=== PATIENT | male | born 1985 | race Caucasian/White ===

== ENCOUNTER 2020-01-06 10:01 | Emergency (ER) | payer OTHER, SELFPAY ==
[2020-01-06 10:09] VITALS: BP 128/96; PULSE 71; RESP 18; TEMP 36.6; O2SAT 100
--- NOTE | 2020-01-06 10:22 | ED.URI ---
HPI - URI/Sore Throat General Chief Complaint: Upper Respiratory Infection Stated Complaint: sore throat/nausea Time Seen by Provider: 01/06/20 10:22 Source: patient and RN notes reviewed History of Present Illness HPI Narrative: Patient is a 34-year-old male that presents the urgent care with complaints of sore throat and nausea. Patient states the sore throat started yesterday and he woke up nauseous this morning. Patient states he has had some chills and sweats without known fever. Denies of vomiting. No other acute complaints. No acute distress noted. Patient read the plan of care. Related Data Home Medications Medication Instructions Recorded Confirmed alprazolam 01/06/20 cefdinir mg 01/06/20 gabapentin 01/06/20 omeprazole 01/06/20 Allergies Allergy/AdvReac Type Severity Reaction Status Date / Time Penicillins Allergy Unknown Verified 03/02/11 13:42 ciprofloxacin [From Cipro] AdvReac Intermediate Rash Verified 01/06/20 10:19 Review of Systems Review of Systems: Narrative: CONSTITUTIONAL: Reports of chills and sweats without fever EYES: Denies visual changes, redness, or discharge. ENT: Reports of sore throat CARDIOVASCULAR: Denies chest pain, palpitations, or edema. RESPIRATORY: Denies cough or dyspnea. GASTROINTESTINAL: Reports of nausea without vomiting or diarrhea GENITOURINARY: Denies dysuria or hematuria. SKIN: Denies rash or itching. MUSCULOSKELETAL: Denies back pain, joint pain, or myalgia. NEUROLOGIC: Denies headache, numbness, or weakness. All other systems reviewed are negative, except as documented in HPI. [facility] [place] Family History Family History (Updated 07/17/14 @ 07:13 by DOCTOR UNKNOWN) Grandparent Family history of malignant neoplasm Social History Social History Alcohol intake: never Comments At the time of my signature, I reviewed and agree with the nursing past medical, surgical, social, and family history. There is no relevant family history pertinent to the patient complaint. Exam Narrative: Exam Narrative: GENERAL: This is a well-nourished, well-developed patient, in no apparent distress. HEAD: normocephalic, atraumatic. EYES: PERRL. Sclera clear/white. Vision is grossly intact. EARS: External ears normal, auditory canals clear and without drainage, TMs normal without perforation. Hearing grossly intact. NOSE: External nose normal with no obvious nasal discharge, nares without redness, no rhinorrhea. THROAT: Mucous membranes moist, moderate erythema to the posterior oropharynx with mild bilateral tonsillar edema/erythema with notable bilateral exudate. No ulceration NECK: Neck supple, non-tender without lymphadenopathy CARDIOVASCULAR: Regular rate and rhythm without murmurs, gallops, or rubs. RESPIRATORY: Clear to auscultation. Breath sounds equal bilaterally. No wheezes, rales, or rhonchi. SKIN: warm, intact with no suspicious lesions or rash, good texture and turgor. NEURO: awake, alert, and oriented to person, place and time. There were no obvious focal neurologic abnormalities. EXTREMITIES: No clubbing, cyanosis, or edema. Course Vital Signs Vital signs: Vital Signs Temperature 97.8 F 01/06/20 10:09 Pulse Rate 71 01/06/20 10:09 Respiratory Rate 18 01/06/20 10:09 Blood Pressure 128/96 H 01/06/20 10:09 Pulse Oximetry 100 01/06/20 10:09 Temperature 97.8 F 01/06/20 10:09 Pulse Rate 71 01/06/20 10:09 Respiratory Rate 18 01/06/20 10:09 Blood Pressure 128/96 H 01/06/20 10:09 Pulse Oximetry 100 01/06/20 10:09 Reviewed-patient is informed that they may have pre-hypertension or hypertension based on a blood pressure reading in the department. I recommend the patient call the primary care provider listed on their discharge instructions or a physician of their choice this week to arrange follow-up for further evaluation of possible pre-hypertension or hypertension. MDM - URI/Sore Throat MDM Narrative Medical decision making narrative:
== END 2020-01-06 10:45 | disposition home or self-care (01) ==
PROVIDERS: Emergency Provider Nurse Practitioner Family; PCP Family Medicine
DX: J02.0 Streptococcal pharyngitis (principal); J45.909 Unspecified asthma, uncomplicated; F41.9 Anxiety disorder, unspecified
CPT/HCPCS: 87880; 99203; G0463

== ENCOUNTER 2024-11-12 06:42 | Emergency (ER) | payer MEDICAID, SELFPAY ==
[2024-11-12 07:01] VITALS: BP 157/80; PULSE 112; RESP 18; O2SAT 97
[2024-11-12 08:30] VITALS: BP 148/78; PULSE 109; RESP 16; O2SAT 99
--- NOTE | 2024-11-12 08:38 | ED.LOWEXIN ---
HPI - Extremity Injury (Lower) General Chief Complaint: Extremity Injury, Lower Stated Complaint: legs swollen, red, hot, pain Time Seen by Provider: 11/12/24 07:32 History of Present Illness HPI Narrative: This is a 39-year-old male with a past medical history including schizophrenia, anxiety, previous narcotic abuse. Patient presents to the emergency department today for concerns of bilateral lower extremity swelling, redness pain. He also has a secondary complaint of some ulcers in his mouth that are painful. He states that for last 2 days he has been noticing his legs are more swollen, warm to the touch read and pain. He lifted up his pant leg knows that they are very red but denies any injuries or trauma. No new detergents, no new pets in the household, new exposures or any, chemical injury. He was otherwise in his normal state of health. He states he is also having some aphthous ulcers in his mouth that feel like razor blades according to him. He has been using some topical lidocaine with improvement. Denies any recent illnesses, hospital visits and was not having any new medication changes. Endorses smoking tobacco but denies any chewing tobacco or any other kind of ingestions. Related Data Home Medications ?Medication ?Instructions ?Recorded ?Confirmed ?Last Taken ?Type buprenorphine 8 mg-naloxone 2 mg 1 tablet sublingual BID 02/22/22 02/22/22 Unknown History sublingual tablet buspirone 15 mg tablet 15 mg PO TID 02/22/22 02/22/22 Unknown History gabapentin 600 mg tablet 600 mg PO TID 02/22/22 02/22/22 Unknown History hydroxyzine HCl 50 mg tablet 50 mg PO QID PRN 02/22/22 02/22/22 Unknown History olanzapine 5 mg tablet 5 mg PO QHS 02/22/22 02/22/22 Unknown History Allergies Allergy/AdvReac Type Severity Reaction Status Date / Time amoxicillin Allergy Intermediate Throat Verified 02/22/22 13:28 Swell cephalexin (From Keflex) Allergy Intermediate Rash Verified 02/22/22 13:28 Penicillins Allergy Unknown THROAT Verified 02/22/22 13:28 SWELLING ciprofloxacin (From Cipro) AdvReac Intermediate Rash Verified 02/22/22 13:28 Review of Systems Review of Systems: As reviewed above in HPI [facility] Past Medical History Medical History Narcotic abuse in remission Schizophrenia Anxiety Chronic headaches Asthma Surgical History Surgical History Lipoma 10 Lipomas removed Family History Family History Mother Asthma Depression Anxiety Sibling Anxiety Depression Grandparent Depression Maternal Anxiety Maternal Malignant neoplasm of prostate Paternal Grandparent Family history of malignant neoplasm Social History Social History Smoking packs per day: 0 Smoking cigarettes per day: 0.0 Years smoked: 5 Smoking pack-years: 0.00 Smoking status: Former smoker Tobacco type: cigarettes Second hand tobacco smoke exposure: No Alcohol intake: current Drinks per week: 3 Substance use: current Substance use type: marijuana Living arrangements: with family Occupation/Education: occupation Gender identity (if verbalized by the patient): Male Spiritual care concerns: No Agree to blood products: Yes Exam Narrative: GENERAL: [Well-appearing, well-nourished, and in no acute distress.] HEAD: [Normocephalic, atraumatic.] EYES: [PERRLA and EOMI.] ENT: Nares clear, no rhinorrhea or epistaxis. Mucous membranes moist. Small aphthous ulcers noted over the lateral aspect of the tongue bilaterally, no active bleeding, no deep ulcerations, no tenderness on palpation or probing NECK: Supple. CHEST: [Clear to auscultation. No respiratory distress.] HEART: [Regular rate and rhythm]. No murmur heard. [Normal peripheral pulses.] ABDOMEN: [Soft, nondistended], [nontender], [No rigidity or guarding] EXTREMITIES: Bilateral lower extremities with anterior chris cellulitis, tenderness to palpation, warmth and erythema, 2+ edema to the dorsal ankles but no circumferential swelling. Full range of motion of the bilateral lower extremities. Ambulating without assistance. SKIN: Warm, dry, no rash. NEURO: [No focal deficits]. Alert and oriented [x3.] PSYCH: [Normal mood and affect.] MDM - Extremity Injury (Lower) MDM Narrative Medical decision making narrative: 39-year-old male presenting for bilateral lower extremity cellulitis and secondary complaint of aphthous ulcers. For last 2 days he has knows that his shins have had warmth, redness, irritation and tenderness to palpation as well as swelling in his dorsal ankles. Denies any new exposures or topical agents at home, no new laundry detergents, no new pets or any other changes to his recent medications. Clinically he has cellulitis was bilateral anterior shins, symmetric redness, tenderness to palpation and some swelling. His aphthous ulcers/canker sores are unrelated and will be treated separately with magic mouthwash and good oral hygiene. Will start him on Bactrim for his cellulitis encouraged him to take the complete course and follow-up with his regular outpatient primary care provider. Patient was stable for discharge home at this time. Medical Records Attestation: I reviewed the patient's medical records. Discharge Plan Discharge Clinical Impression: Bilateral cellulitis of lower leg, Aphthous ulcer of mouth Patient Disposition: Home, Self-Care Condition: Stable Instructions: Antibiotic Form Patient Language: [place] Prescriptions: New sulfamethoxazole-trimethoprim [Bactrim DS] 800-160 mg tablet 1 tablet PO Q12H Qty: 14 0RF No Action hydroxyzine HCl 50 mg tablet 50 mg PO QID PRN gabapentin 600 mg tablet 600 mg PO TID buprenorphine-naloxone 8-2 mg tablet, sublingual 1 tablet sublingual BID buspirone 15 mg tablet 15 mg PO TID olanzapine 5 mg tablet 5 mg PO QHS albuterol sulfate 90 mcg/actuation HFA aerosol inhaler 1 puff INHALATION Q4H PRN (Reason: shortness of breath or wheezing) Qty: 18 0RF omeprazole 20 mg capsule,delayed release(DR/EC) See Rx Instructions .ROUTE .COMPLEX Qty: 90 1RF Dose Instruction: TAKE 1 CAPSULE BY MOUTH DAILY Rx Instructions: TAKE 1 CAPSULE BY MOUTH DAILY Follow-up/Referrals: UNKNOWN,DOCTOR [Primary Care Provider] - Time of Disposition: 08:46
[2024-11-12] MEDS: SULFAMETHOXAZOLE/TRIMETHOPRIM 800/160 MG DS TABLET 1 TAB PO (08:48)
[2024-11-12] MEDS: LIDOCAINE 2% VISC SOLN 30 ML, ALUMINUM/MAGNESIUM/SIMETH SUSP 30 ML, diphenhydrAMINE HCl... PO (08:48)
--- OUTSIDE RECORDS SUMMARY | 2024-11-19 04:25 | XMS_ITS | Encounter Summary ---
Author Organization [facility] Address [address] [place] [address]. [place], [place] [id number] [place] [address] Care Team Providers Care Automobile Or Truck Rental Dispatcher Name Role Phone KatherineElizabeth Primary Care Provider [phone] Reason for Visit * Reason Comments Substance Abuse Encounter Details Date Type Department Care Team ([facility] st Contact Info) Description 02/14/2024 1:19 AM CDT - 02/14/2024 6:42 AM CDT Emergency [facility] Emergency Room [id number] [place] [address] Tomas Campos MD [address] [place] [address] [id number] Substance Abuse Discharge Disposition: Home or Self Care (Routine Discharge) Social History Tobacco Use Types Packs/Day Years Used Date Smoking Tobacco: Never Smokeless Tobacco: Never Alcohol Use Standard Drinks/Week Comments Yes 0 (1 standard drink = 0.6 oz pur e alcohol) socially Sex and Gender Information Value Date Recorded Sex Assigned at Not on file Legal Sex Male 8:59 AM CDT Gender Identity Not on file Sexual Orientation Not on file documented as of this encounter Last Filed Vital Signs Vital Sign Reading Time Taken Comments Blood Pressure 159/113 02/14/2024 4:58 AM CDT Pulse 94 02/14/2024 4:58 AM CDT Temperature 36.8 ??C (98.3 ??F) 02/14/2024 1:38 AM CD T Respiratory Rate 19 02/14/2024 4:58 AM CDT Oxygen Saturation 96% 02/14/2024 4:58 AM CDT Inhaled Oxygen Concentration - - Weight 99.8 kg (220 lb) 02/14/2024 1:38 AM CDT Height 182.9 cm (6') 02/14/2024 1:38 AM CDT Body Mass Index 29.84 02/14/2024 1:38 AM CDT documented in this encounter Discharge Instructions * Discharge Instructions* Tomas Campos MD - 02/14/2024 2:13 AM CDT Avoid drugs and alcohol. Rest. Drink plenty of fluids. Follow up with your PCP. Return to the ED for any concerns. Our practice is committed to providing you the very best in healthcare. We want to hear from you! Please fill out the survey you get from us. Your feedback is anonymous & helps us improve the patient experience for you and others in the community we serve. * Attachments The following attachments cannot be sent through Care Everywhere. * Substance Use Disorder ED ([place]) documented in this encounter Medications at Time of Discharge buprenorphine-nal oxone (SUBOXONE) 8-[address] 1 Film under the tongue daily. 01/10/2024 testosterone cypionate (DEPO TESTOSTERONE) 200 MG/ML injection Inject 1 mL (200 mg total) into the muscle every 14 (fourteen) days. 01/15/2024 albuterol sulfate HFA 108 (90 Base) MCG/ACT inhaler Inhale 2 puffs into the lungs every 4 (four) hours as needed for Wheezing. 8 g 1 05/17/2021 02/25/2024 documented as of this encounter ED Notes * Constantine Mclain RN - 02/14/2024 1:26 AM CDT Pt to ed by ems from home. States used meth tonight, reports his friend ordered if online. Per son he called ems due to patient vomiting while sleeping. Pt admits to etoh use today. Pt alert x 4 at this time. * Tomas Campos MD - 02/14/2024 1:26 AM CDT [facility] EMERGENCY DEPARTMENT NOTE Patient Name: Sharri Vera Date of : 1985 Date of Service: 02/14/2024 Provider at Bedside Date/Time Event User Comments 02/14/24 0124 Provider at Bedside Assessing Patient TOMAS CAMPOS -- Chief Complaint Patient presents with Substance Abuse HISTORY OF PRESENT ILLNESS Patient is a 39-year-old male. Patient presents with anxiety, vomiting. He admits to drinking several beers earlier tonight with friends and then snorting amphetamines. He says he bought them off the Internet. The drugs were fieldtested by paramedics and revealed to be methamphetamine. He vomited x 2 at home and was feeling unwell and so family called EMS. Patient complains of anxiety, he reports a history of bipolar disorderand schizophrenia. He denies chest pain. Denies shortness of breath. He has been cooperative with paramedics, he is ambulatory into the ED, and upon arriving into the room he plugs in his cell phone [employer] consultant. He is anxious though somewhat redirectable, and further history is limited. REVIEW OF SYSTEMS Review of Systems Unable to perform ROS: Other PAST HISTORY Past Medical History: History reviewed. No pertinent past medical history. Past Surgical History: History reviewed. No pertinent surgical history. Social History: Social History Tobacco Use Smoking status: Never Smokeless tobacco: Never Substance Use Topics Alcohol use: Yes Comment: socially Family History: No family history on file. Medications: The patient's home medications section has been reviewed. Prior to Admission medications Medication Sig Start Date End Date Taking? Authorizing Provider albuterol sulfate HFA 108 (90 Base) MCG/ACT inhaler Inhale 2 puffs into the lungs every 4 (four) hours as needed for Wheezing. 05/17/21 Tomasz Carmona DO Allergies: Review of patient's allergies indicates: Allergen Reactions Amoxicillin Throat swelling Penicillins Throat swelling PHYSICAL EXAM Patient Vitals for the past 24 hrs: BP Temp Temp src Pulse Resp SpO2 Height Weight 02/14/24 0458 (!) 159/113 -- -- 94 19 96 % -- -- 02/14/24 0213 (!) 172/116 -- -- (!) 103 17 94 % -- -- 02/14/24 0138 (!) 174/101 98.3 ??F (36.8 ??C) Oral (!) 110 19 98 % 1.829 m (6') 99.8 kg (220 lb) Physical Exam Constitutional: Appearance: He is well-developed. He is not toxic-appearing. Comments: Fatigued-appearing, speaking full sentences, anxious, slurred speech HENT: Head: Normocephalic and atraumatic. Mouth/Throat: Mouth: Mucous membranes are dry. Eyes: Conjunctiva/sclera: Conjunctivae normal. Cardiovascular: Rate and Rhythm: Regular rhythm. Tachycardia present. Pulmonary: Effort: Pulmonary effort is normal. Breath sounds: Normal breath sounds. Abdominal: Palpations: Abdomen is soft. Tenderness: There is no abdominal tenderness. Musculoskeletal: General: No deformity. Normal range of motion. Cervical back: Neck supple. Skin: General: Skin is warm and dry. Neurological: General: No focal deficit present. Mental Status: He is alert and oriented to person, place, and time. Coordination: Coordination normal. Psychiatric: Attention and Perception: He does not perceive auditory or visual hallucinations. Mood and Affect: Mood is anxious. Affect is labile. Speech: Speech is slurred. Behavior: Behavior is cooperative. DIAGNOSTIC DATA Labs Results for orders placed or performed during the hospital encounter of 02/14/24 CBC W/DIFF AUTOMATED Result Value Ref Range WBC 9.66 4.4 - 11.0 x10'3/uL RBC 5.38 4.50 - 5.90 x10'6/uL HGB 17.1 14.0 - 17.5 G/DL HCT 50.3 41.5 - 50.4 % MCV 93.5 80.0 - 96.0 FL MCH 31.8 (H) 26.5 - 31.4 PG MCHC 34.0 31.9 - 34.8 G/DL RDW 12.7 12.3 - 14.3 % PLT 305 151 - 353 x10'3/uL MPV 10.3 9.7 - 11.9 FL RBC MORPHOLOGY NORMAL PLT MORPH. NORMAL WBC MORPHOLOGY NORMAL LYMPHOCYTES 18.5 15.8 - 45.0 % NEUTROPHILS 69.0 42.1 - 71.9 % MONOCYTES 10.8 5.7 - 12.5 % EOSINOPHILS 0.7 0.0 - 5.6 % BASOPHILS 0.7 0.0 - 1.3 % ABS. NEUTROPHILS 6.66 (H) 1.40 - 6.00 x10'3/uL IMMATURE GRANS 0.3 0.0 - 0.5 % ABS. LYMPHOCYTES 1.79 0.80 - 4.70 x10'3/uL COMPREHENSIVE METABOLIC PANEL Result Value Ref Range GLUCOSE 111 (H) 70 - 99 MG/DL BUN 14 7 - 18 MG/DL CREATININE S/P/B 1.11 0.7 - 1.3 MG/DL SODIUM S/P/B 142 136 - 145 MMOL/L POTASSIUM S/P/B 3.0 (LL) 3.5 - 5.1 MMOL/L CHLORIDE S/P/B 101 100 - 108 MMOL/L CO2 30.8 21 - 32 MMOL/L CALCIUM S/P/B 8.8 8.5 - 10.1 MG/DL BILIRUBIN TOTAL S/P/B 1.2 0.2 - 1.2 MG/DL TOTAL PROTEIN S/P/B 7.7 6.4 - 8.2 G/DL ALBUMIN S/P/B 3.7 3.4 - 5.0 G/DL AST 27 15 - 37 U/L ALT 34 16 - 60 U/L ALKALINE PHOSPHATASE S/P/B 119 50 - 136 U/L ANION GAP 10.2 5 - 15 MMOL/L BUN CREATININE RATIO 12.6 6 - 26 A/G RATIO 0.9 (L) 1.0 - 2.0 RATIO GFR ESTIMATE 87 (L) >90 ML/MIN/1.73 M2 MAGNESIUM Result Value Ref Range MAGNESIUM 2.2 1.8 - 2.4 MG/DL ETHANOL Result Value Ref Range ALCOHOL S/P/B <0.003 <0.003 G/DL If applicable, laboratory results above were independently viewed and interpreted by me. Imaging No orders to display If applicable, imaging results above were independently viewed and interpreted by me. EKG Results for orders placed or performed during the hospital encounter of 02/14/24 ECG 12 lead Narrative [facility] Test Date: 2024-02-14 Pat Name: SHARRI VERA Department: 85 Room: EXAM 303 Gender: Male Bsa/Aml Compliance Officer: : 1985 Requested By: TOMAS CAMPOS Order Number: [id number] Reading MD: Measurements Intervals [facility] Rate: 112 P: 39 IN: 152 QRS: -23 QRSD: 108 T: 36 QT: 334 QTc: 457 Interpretive Statements SINUS TACHYCARDIA INCOMPLETE RIGHT BUNDLE BRANCH BLOCK [90+ ms QRS DURATION, TERMINAL R IN V1/V2, 40+ ms S IN I/aVL/V4/V5/V6] POSSIBLE INFERIOR MYOCARDIAL INFARCTION , PROBABLY OLD [30 ms Q WAVE IN II/aVF] ABNORMAL RHYTHM ECG Compared to ECG 05/17/2021 09:19:59 Incomplete right bundle-branch block now present Myocardial infarct finding now present Sinus rhythm no longer present If applicable, EKG contemporaneously interpreted by me, and treatment decisions made in real time based on this interpretation. MEDICATIONS GIVEN IN ED Medications ondansetron (ZOFRAN) injection 4 mg (4 mg Intravenous Given 02/14/24133) sodium chloride 0.9% bolus infusion 1,000 mL (0 mLs Intravenous Infusion Stop Time 02/14/24220) LORazepam (ATIVAN) injection 1 mg (1 mg Intravenous Given 02/14/24133) potassium chloride CR (KLOR-CON M) tablet 40 mEq (40 mEq Oral Given 02/14/24224) MEDICAL DECISION MAKING MDM Number of Diagnoses or Management Options Amphetamine poisoning of undetermined intent, initial encounter ([facility]) Diagnosis management comments: EKG sinus tachycardia, rate 112, no acute ischemia. He is not tachypneic or hypoxic. He has normal lung sounds. Patient is given IV fluids, Ativan, Zofran with rapid clinical improvement. Labs reviewed. White count normal. Potassium 3.0. Labs otherwise unremarkable. Patient is allowed to sleep, and he rests comfortably throughout his ED stay. His potassium is repleted orally. He is advised to avoid illicit drugs, and to be wary of medications purchased on the Internet. On reevaluation, the patient is ambulatory in the ED, tolerating PO intake and in no distress. The patient will be discharged. Return precautions are discussed. Additional History Source Other Than Patient: EMS Social Determinants of Health Significantly Impacting Care: Patient with ongoing challenges regarding health management due to: Lack of access to medical care Substance use Chronic Illness Impacting Care: Substance use disorder Differential diagnosis considered include but are not limited to: Drug intoxication, metabolic derangement, malignant hypertension, dysrhythmia Diagnostic tests considered but ultimately not performed: Patient not tachypneic or hypoxic. Chest imaging not indicated. IMPRESSION AND DISPOSITION CLINICAL IMPRESSION: Clinical Impression Amphetamine poisoning of undetermined intent, initial encounter ([facility]) (Primary) Disposition: Discharge Prescriptions: Discharge Medication List as of 02/14/2024 6:38 AM Tomas Campos MD To patients reading this note: Please be advised that the primary purpose of this note is to communicate with your current and future medical teams. Standard sentence structure is not always used. Medical terminology and abbreviations are often used. This document was generated in part using voice recognition software, occasional wrong-word or ???sound-alike?? substitutions may have occurred due to the inherent limitations of voice recognition software. Read the chart carefully and recognize, using context, where these substitutions have occurred. Tomas Campos MD 02/14/24 0658 documented in this encounter Plan of Treatment Not on file documented as of this encounter Procedures Procedure Name Priority Date/Time Associated Diagnosis Comments COMPREHENSIVE METABOLIC PANEL STAT 02/14/2024 1:29 AM CDT CBC W/DIFF AUTOMATED STAT 02/14/2024 1:29 AM CDT MAGNESIUM STAT 02/14/2024 1:29 AM CDT ETHANOL STAT 02/14/2024 1:29 AM CDT ECG 12-LEAD Routine 02/14/2024 1:28 AM CDT documented in this encounter Results * ETHANOL (02/14/2024 1:29 AM CDT) ALCOHOL S/P/B <0.003 <0.003 G/DL 02/14/2024 2:08 AM CDT [facility] 02/14/2024 1:29 AM CDT us Toams Campos MD LABORATORY Final Resul t Performing Organization Address City/[facility]/ZIP Co de Phone Number [facility] [address] [place] [address], * MAGNESIUM (02/14/2024 1:29 AM CDT) MAGNESIUM 2.2 1.8 - 2.4 MG/DL 02/14/2024 2:08 AM CDT [facility] 02/14/2024 1:29 AM CDT Tomas Campos MD LABORATORY Final Resul t Performing Organization Address [facility] Co de Phone Number [facility] [address] [place] [address], [place] [phone] * (ABNORMAL) COMPREHENSIVE METABOLIC PANEL (02/14/2024 1:29 AM CDT) Pathologist [facility] GLUCOSE 111(H) 70 - 99 MG/DL 02/14/2024 2:08 AM CDT [facility] BUN 14 7 - 18 MG/DL 02/14/2024 2:08 AM CDT [facility] CREATININE S/P/B 1.11 0.7 - 1.3 MG/DL 02/14/2024 2:08 AM CDT [facility] SODIUM S/P/B 142 136 - 145 MMOL/L 02/14/2024 2:08 AM CDT [facility] POTASSIUM S/P/B 3.0(LL) 3.5 - 5.1 MMOL/L 02/14/2024 2:08 AM CDT [facility] Comment: Critical Result(s) Called at: 02:07:35 on 02/14/2024 by: UJLIO PATEL to and read back by: QUANG Sequeira CHLORIDE S/P/B 101 100 - 108 MMOL/L 02/14/2024 2:08 AM [facility] CO2 30.8 21 - 32 MMOL/L 02/14/2024 2:08 AM [facility] CALCIUM S/P/B 8.8 8.5 - 10.1 MG/DL 02/14/2024 2:08 AM [facility] BILIRUBIN TOTAL S/P/B 1.2 0.2 - 1.2 MG/DL 02/14/2024 2:08 AM [facility] TOTAL PROTEIN S/P/B 7.7 6.4 - 8.2 G/DL 02/14/2024 2:08 AM [facility] ALBUMIN S/P/B 3.7 3.4 - 5.0 G/DL 02/14/2024 2:08 AM [facility] AST 27 15 - 37 U/L 02/14/2024 2:08 AM [facility] ALT 34 16 - 60 U/L 02/14/2024 2:08 AM [facility] ALKALINE PHOSPHATASE S/P/B 119 50 - 136 U/L 02/14/2024 2:08 AM [facility] ANION GAP 10.2 5 - 15 MMOL/L 02/14/2024 2:08 AM [facility] BUN CREATININE RATIO 12.6 6 - 26 02/14/2024 2:08 AM [facility] A/G RATIO 0.9(L) 1.0 - 2.0 RATIO 02/14/2024 2:08 AM [facility] GFR ESTIMATE 87(L) >90 ML/MIN/1.7 3 M2 02/14/2024 2:08 AM [facility] Comment: NOTE: eGFR is not calculated for patients <18 years of age. This is an estimated GFR calculation using the new CKD EPI creatinine equation without race and so does not require a correction factor for race. This estimated GFR should not be used for calculating drug doses. 02/14/2024 1:29 AM CDT Tomas Campos MD LABORATORY Final Resul t [facility] [address] [place] [address], * (ABNORMAL) CBC W/DIFF AUTOMATED (02/14/2024 1:29 AM CDT) WBC 9.66 4.4 - 11.0 x10'3/uL 02/14/2024 1:36 AM CDT [facility] RBC 5.38 4.50 - 5.90 x10'6/uL 02/14/2024 1:36 AM CDT [facility] HGB 17.1 14.0 - 17.5 G/DL 02/14/2024 1:36 AM CDT [facility] HCT 50.3 41.5 - 50.4 % 02/14/2024 1:36 AM CDT [facility] MCV 93.5 80.0 - 96.0 FL 02/14/2024 1:36 AM CDT [facility] MCH 31.8(H) 26.5 - 31.4 PG 02/14/2024 1:36 AM CDT [facility] MCHC 34.0 31.9 - 34.8 G/DL 02/14/2024 1:36 AM CDT [facility] RDW 12.7 12.3 - 14.3 % 02/14/2024 1:36 AM CDT [facility] PLT 305 151 - 353 x10'3/uL 02/14/2024 1:36 AM CDT [facility] MPV 10.3 9.7 - 11.9 FL 02/14/2024 1:36 AM CDT [facility] RBC MORPHOLOGY NORMAL 02/14/2024 1:36 AM CDT [facility] PLT MORPH. NORMAL 02/14/2024 1:36 AM CDT [facility] WBC MORPHOLOGY NORMAL 02/14/2024 1:36 AM CDT [facility] LYMPHOCYTES % 18.5 15.8 - 45.0 % 02/14/2024 1:36 AM CDT [facility] NEUTROPHILS % 69.0 42.1 - 71.9 % 02/14/2024 1:36 AM CDT [facility] MONOCYTES % 10.8 5.7 - 12.5 % 02/14/2024 1:36 AM CDT [facility] EOSINOPHILS 0.7 0.0 - 5.6 % 02/14/2024 1:36 AM CDT [facility] BASOPHILS 0.7 0.0 - 1.3 % 02/14/2024 1:36 AM CDT [facility] ABS. NEUTROPHILS 6.66(H) 1.40 - 6.00 x10'3/uL 02/14/2024 1:36 AM CDT [facility] IMMATURE GRANS % 0.3 0.0 - 0.5 % 02/14/2024 1:36 AM CDT [facility] ABS. LYMPHOCYTES 1.79 0.80 - 4.70 x10'3/uL 02/14/2024 1:36 AM CDT [facility] 02/14/2024 1:29 AM CDT us Tomas Campos MD LABORATORY Final Resul t [facility] [address] [place] [address], * ECG 12 lead (02/14/2024 1:28 AM CDT) 02/14/2024 1:28 AM CDT Narrative [facility] ([facility]) RAD - 02/15/2024 9:24 AM CDT ?[facility] ? Test Date: ?2024-02-14 Pat Name: ? SHARRI VERA ? Department: ?? 85 ? Room: ? EXAM 303 Gender: ? Male ? Bsa/Aml Compliance Officer: ?? : ?1985 ? Requested By: TOMAS CAMPOS Order Number: [id number] ? Reading MD: ?? Anupam Justin ? Measurements Intervals ?[facility] ? Rate: ? 112 ?P: ?39 IN: ? 152 ?QRS: ?-23 QRSD: ? 108 ?T: ?36 QT: ? 334 ? QTc: ?457 ? Interpretive Statements SINUS TACHYCARDIA INCOMPLETE RIGHT BUNDLE BRANCH BLOCK ??[90+ ms QRS DURATION, TERMINAL R IN V1/V2, 40+ ms S IN I/aVL/V4/V5/V6] POSSIBLE INFERIOR MYOCARDIAL INFARCTION , PROBABLY OLD [30 ms Q WAVE IN II/aVF] ABNORMAL RHYTHM ECG Compared to ECG 05/17/2021 09:19:59 Incomplete right bundle-branch block now present Myocardial infarct finding now present Sinus rhythm no longer present Procedure Note Anupam Justin MD - 02/15/2024 [facility] Test Date: 2024-02-14 Pat Name: SHARRI VERA Department: 85 Room: EXAM 303 Gender: Male Bsa/Aml Compliance Officer: : 1985 Requested By: TOMAS CAMPOS Order Number: [id number] Rl MD: Anupam Justin Measurements Intervals [facility] Rate: 112 P: 39 IN: 152 QRS: -23 QRSD: 108 T: 36 QT: 334 QTc: 457 Interpretive Statements SINUS TACHYCARDIA INCOMPLETE RIGHT BUNDLE BRANCH BLOCK [90+ ms QRS DURATION, TERMINAL RIN V1/V2, 40+ ms S IN I/aVL/V4/V5/V6] POSSIBLE INFERIOR MYOCARDIAL INFARCTION , PROBABLY OLD [30 ms Q WAVE IN II/aVF] ABNORMAL RHYTHM ECG Compared to ECG 05/17/2021 09:19:59 Incomplete right bundle-branch block now present Myocardial infarct finding now present Sinus rhythm no longer present us Tomas Campos MD ECG ORDERABLES Final Resul t [facility] ([facility]) RAD documented in this encounter Visit Diagnoses Diagnosis Amphetamine poisoning of undetermined intent, initial encounter ([facility])- Primary documented in this encounter Administered Medications Inactive Administered Medications - up to 3 most recent administrations Medication Order MAR Action Action Date Dose Rate Site LORazepam (ATIVAN) injection 1 mg 1 mg, Intravenous, Once, 1 dose, On Mon02/14/24 at 0130, For IV use, further dilute with an equal volume of saline. Do not exceed a rate of 2 mg/min. Given 02/14/2024 1:34 AM CDT 1 mg ondansetron (ZOFRAN) injection 4 mg 4 mg, Intravenous, Once, 1 dose, On Mon02/14/24 at 0130, IV push over 2-5 minutes. Given 02/14/2024 1:34 AM CDT 4 mg potassium chloride CR (KLOR-CON M) tablet 40 mEq 40 mEq, Oral, Once, 1 dose, On Mon02/14/24 at 0215, Do not chew, crush, or suck on tablet. May break in half. May dissolve whole tablet in 120 mL of water and drink immediately. Given 02/14/2024 2:25 AM CDT 40 mEq sodium chloride 0.9% bolus infusion 1,000 mL 1,000 mL, Intravenous, Administer over 60 Minutes, Once, 1 dose, On Mon02/14/24 at 0130 New Bag 02/14/2024 1:34 AM CDT 1,000 mLs documented in this encounter Active and Recently Administered Medications Times are shown in CDT. Scheduled Medication Order 02/12/2024 02/13/202402/14/2024 LORazepam (ATIVAN) injection 1 mg (COMPLETED) 1 mg, Intravenous, Once, 1 dose, On Mon02/14/24 at 0130, For IV use, further dilute with an equal volume of saline. Do not exceed a rate of 2 mg/min. 0134 (Given - Provid er: Constantine Mclain, MISTY) ondansetron (ZOFRAN) injection 4 mg (COMPLETED) 4 mg, Intravenous, Once, 1 dose, On Mon02/14/24 at 0130, IV push over 2-5 minutes. 0134 (Given - Provid er: Constantine Mclain RN) potassium chloride CR (KLOR-CON M) tablet 40 mEq (COMPLETED) 40 mEq, Oral, Once, 1 dose, On Mon02/14/24 at 0215, Do not chew, crush, or suck on tablet. May break in half. May dissolve whole tablet in 120 mL of water and drink immediately. 0225 (Given - Provid er: Constantine Mclain RN) sodium chloride 0.9% bolus infusion 1,000 mL (COMPLETED) 1,000 mL, Intravenous, Administer over 60 Minutes, Once, 1 dose, On Mon02/14/24 at 0130 0134 (New Bag - Prov ider: Constantine Mclain RN)0221 (Infusion Stop Time - Provider: Constantine Mclain RN) documented in this encounter Care Teams Automobile Or Truck Rental Dispatcher Relationship Specialty Start Date End Date Elizabeth Murphy DO PCP - General FAMILY PRACTICE 05/17/21 02/24/24 documented as of this encounter
--- OUTSIDE RECORDS SUMMARY | 2024-11-19 04:25 | XMS_ITS | Patient Health Summary ---
Author Organization [facility] Address [address] [place] [address] Care Team Providers Care Tree Shear Operator Name Role Phone Unavailable Primary Care Provider Unavailabl e Note from [facility],non-owned Affiliates and Associated Physician Practices is amultiple site organization consisting of ambulatory clinics and hospital sitesin [place], [place], [place] and [place]. This disclosure is being madepursuant to the Care Everywhere program and may not contain all information available regarding this patient. Last updated 18.[facility] Allergies * Penicillins(Swelling) Social History Tobacco Use Types Packs/Day Years Used Date Smoking Tobacco: Every Day Cigarettes 1 10 Sex and Gender Information Value Date Recorded Sex Assigned at Not on file Gender Identity Not on file Sexual Orientation Not on file Last Filed Vital Signs Vital Sign Reading Time Taken Comments Blood Pressure 125/90 04/17/2011 4:32 PM CDT Pulse 83 04/17/2011 4:32 PM CDT Temperature 37.2 ??C (98.9 ??F) 04/17/2011 4:32 PM CD T Respiratory Rate 20 04/17/2011 4:32 PM CDT Oxygen Saturation 97% 04/17/2011 4:32 PM CDT Inhaled Oxygen Concentration - - Weight 83 kg (183 lb) 04/17/2011 4:32 PM CDT Height 182.9 cm (6') 04/17/2011 4:32 PM CDT Body Mass Index 24.82 04/17/2011 4:32 PM CDT Procedures * CULTURE STREP GROUP A(Performed 04/08/2014) Results * CULTURE STREP GROUP A (04/08/2014 11:10 AM CDT) Culture Beta Strep No Growth of Groups A, C or G Beta Streptococc us. [facility] Throat swab (specimen) ENTIRE THROAT (SURFACE REGION OF NECK) / Unknown 04/08/2014 11:10 AM CDT 04/08/2014 2:56 PM CDT Narrative [facility] - 04/10/2014 8:08 AM CDT RamboSpecimen#[id number] Rambo Loc/Rm/Bed: ED// Historical Provider LAB - MICROBIOLOG Y ORDERABLES [facility] [address] [phone]
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
--- OUTSIDE RECORDS SUMMARY | 2024-11-19 04:25 | XMS_ITS | Encounter Summary ---
Author Organization [facility] Address [facility] [facility]. [place], [place] [id number] [place] [address] Care Team Providers Care Applications Support Specialist Name Role Phone Elizabeth Murphy DO Primary Care Provider [phone] Encounter Details Date Type Department Care Team (Latest Contact Info) Description 02/15/2024 Travel Social History Tobacco Use Types Packs/Day Years [...] on file documented as of this encounter Plan of Treatment Not on file documented as of this encounter Visit Diagnoses Not on filedocumented in this encounter Care Teams Applications Support Specialist Relationship Specialty Start Date End Date Elizabeth Murphy DO PCP - General FAMILY PRACTICE 05/17/21 02/24/24 documented as of this encounter
--- OUTSIDE RECORDS SUMMARY | 2024-11-19 04:25 | XMS_ITS | Referral Summary ---
Author Organization [facility] Address [address] [place] [address] Care Team Providers Care Sample Distributor Name Role Phone Unavailable Primary Care Provider Unavailabl e Source Comments [facility],non-owned Affiliates and Associated Physician Practices is amultiple site organization consisting of ambulatory clinics and hospital sitesin [place], [place], [place] and [place]. This disclosure is being madepursuant to the Care Everywhere program and may not contain all information available regarding this patient. Last updated 18.[facility] theAudience Allergies Active Allergy Reactions Criticality Noted Date Comments Penicillins Swelling 04/17/2011 Social History Tobacco Use Types Packs/Day Years [...] Mass Index 24.82 04/17/2011 4:32 PM CDT Plan of Treatment Not on file
--- OUTSIDE RECORDS SUMMARY | 2024-11-19 04:25 | XMS_ITS | Encounter Summary ---
Author Organization [facility] Address Count includes the [facility]. [place], [place] [address] [place], [place] [id number] Care Team Providers Care Loan Operations Specialist Name Role Phone Elizabeth Murphy DO Primary Care Provider [phone] Encounter Details Date Type Department Care Team (Latest Contact Info) Description 02/14/2024 Travel Social History Tobacco Use Types Packs/Day [...] Diagnoses Not on filedocumented in this encounter Additional Health Concerns Infection Onset Date Last Indicated Resolved Time COVID-19 Rule Out 02/14/2024 02/14/2024 02/14/2024 9:48 AM CDT documented as of this encounter Care Teams Loan Operations Specialist Relationship Specialty Start Date End Date Elizabeth Murphy DO PCP - General FAMILY PRACTICE 05/17/21 02/24/24 documented as of this encounter
--- OUTSIDE RECORDS SUMMARY | 2024-11-19 04:25 | XMS_ITS | Clinical Summary ---
Author Organization [facility] Address Pending sale to [facility]. [place], [place] [address] [place] [id number] Care Team Providers Care Printing Equipment Mechanic Name Role Phone Casimiro Butterfield MD Primary Care Provider Allergies Active Allergy Reactions Criticality Noted Date Comments Amoxicillin Throat swelling 05/17/2021 Penicillins Throat swelling 05/17/2021 Medications DULoxetine (CYMBALTA) 60 MG capsule Take 1 capsule (60 mg total) by mouth daily. Active buprenorphine-n aloxone (SUBOXONE) 8-[address] 1 Film under the tongue daily. 01/10/2024 Active busPIRone (BUSPAR) 15 MG tablet Take 1 tablet (15 mg total) by mouth 2 (two) times a day. Active OLANZapine (ZYPREXA) 15 MG tablet Take 1 tablet (15 mg total) by mouth nightly at bedtime. Active gabapentin (NEURONTIN) 600 MG tablet Take 1 tablet (600 mg total) by mouth 2 (two) times daily. Active omeprazole (PRILOSEC) 40 MG capsule Take 1 capsule (40 mg total) by mouth daily. Active testosterone cypionate (DEPO TESTOSTERONE) 200 MG/ML injection Inject 1 mL (200 mg total) into the muscle every 14 (fourteen) days. 01/15/2024 Active aspirin-acetami nophen-caffeine (EXCEDRIN MIGRAINE) 250-250-65 MG tablet Take 1 tablet by mouth every 6 (six) hours as needed (headaches). Active amLODIPine (NORVASC) 10 MG tablet Take 1 tablet (10 mg total) by mouth daily. 30 tablet 02/29/2024 Active metoprolol tartrate (LOPRESSOR) 50 MG tablet Take 1 tablet (50 mg total) by mouth 2 (two) times daily. 60 tablet 02/28/2024 Active Active Problems Problem Noted Date Diagnosed Date Cellulitis 02/25/2024 Family History Medical History Relation Comments Rheumatoid Arthritis Maternal Grandmother Rheumatoid Arthritis Mother Rheumatoid Arthritis Sister 1 Rheumatoid Arthritis Sister 2 Relation Status Comments Father Alive Maternal Grandmother Mother Alive Sister 1 Alive Sister 2 Alive Social History Tobacco Use Types Packs/Day Years Used Date Smoking Tobacco: Every Day Cigarettes 1 23 Smokeless Tobacco: Never Alcohol Use Standard Drinks/Week Comments Yes 18.3 (1 standard drink = 0.6 oz pure alcohol) couple times a week [facility] Utilities Answer Date Recorded In the past 12 months has e Loop, gas, oil, or water [employer] threatened to shut off services in your home? No 02/27/2024 Humiliation, Afraid, Rape, and Kick questionnair e Answer Date Recorded Within the last year, have y ou been afraid of your partner or ex-partner? No 02/27/2024 Within the last year, have y ou been humiliated or emotionally abused in other ways by your partner or ex-partner? No Within the last year, have y ou been kicked, hit, slapped, or otherwise physically hurt by your partner or ex-partner? No 02/27/2024 Within the last year, have y ou been raped or forced to have any kind of sexual activity by your partner or ex-partner? No 02/27/2024 Overall Financial Resource Strain (CARDIA) Answe r Date Recorded How hard is it for you to pa y for the very basics like food, housing, medical care, and heating? Somewhat hard 02/27/2024 Hunger Vital Sign Answer Date Recorded Within the past 12 months, y ou worried that your food would run out before you got the money to buy more. Sometimes true Within the past 12 months, t he food you bought just didn't last and you didn't have money to get more. Never true 07/2024 PRAPARE - Transportation Answer Date Re corded In the past 12 months, has l ack of transportation kept you from medical appointments or from getting medications? No 07/2024 In the past 12 months, has l ack of transportation kept you from meetings, work, or from getting things needed for daily living? No 02/27/2024 Housing Stability Vital Sign Answer Francois e Recorded In the last 12 months, was t here a time when you were not able to pay the mortgage or rent on time? No 02/27/2024 In the past 12 months, how m any times have you moved where you were living? 1 02/27/2024 At any time in the past 12 m [facility], were you homeless or living in a longterm (including now)? No 02/27/2024 Sex and Gender Information Value Date Recorded Sex Assigned at Not on file Legal Sex Male 8:59 AM CDT Gender Identity Not on file Sexual Orientation Not on file Last Filed Vital Signs Vital Sign Reading Time Taken Comments Blood Pressure 159/104 02/28/2024 11:35 AM CDT Nurse has been notified. Pulse 87 02/28/2024 11:35 AM CDT Temperature 36.4 ??C (97.5 ??F) 02/28/2024 1 1:35 AM CDT Respiratory Rate 22 02/28/2024 11:3 5 AM CDT Oxygen Saturation 92% 02/28/2024 11: 35 AM CDT Inhaled Oxygen Concentration - - Weight 115.3 kg (254 lb 3.1 oz) 02/27/2024 11:44 PM CDT Height 182.9 cm (6') 02/25/2024 10:43 AM CDT Body Mass Index 34.47 02/25/2024 10:43 AM CDT Plan of Treatment Health Maintenance Due Date Last Done Comments Annual Physical 1989 Pneumococcal Vaccine: Pediat rics (0 to 5 Years) and At-Risk Patients (6 to 64 Years) (1 of 2 - PCV) 1992 DTaP, Tdap and Td Vaccines ( 1 - Tdap) 2005 Hepatitis B Vaccines (1 of 3 - 19+ 3-dose series) 2005 COVID-19 Vaccine ( - 2023-2 5 season) 2024 Influenza Adult (#1) 2024 Hepatitis C Completed 02/26/2024 HPV Vaccines Aged Out No longer eligi ble based on patient's age to complete this topic Meningococcal Vaccine Aged Out No familia oksana eligible based on patient's age to complete this topic RSV Immunizations Under 20 Months Aged Out No longer eligible based on patient's age to complete this topic Procedures Procedure Name Priority Date/Time Associated Diagnosis Comments HEPATITIS C ANTIBODY Routine 02/26/2024 6:05 PM CDT from Last 3 Months or Most Recently Relevant to Health Maintenance Results * HEPATITIS C ANTIBODY W/REFLEX (02/26/2024 6:05 PM CDT) HEPATITIS C AB NON-REACTI VE NON-REACTI VE 02/27/2024 12:15 PM CDT [facility] 02/26/2024 6:05 PM CDT Bob Goyal MD LABORATORY Final Result [facility] [address] [id number], from Last 3 Months or Most Recently Relevant to Health Maintenance Insurance Member Subscriber Plan / Payer (Ef fective 2024-Present) Name:Malcolm Domínguez II Relation to Subscriber:Self Name:Malcolm Domínguez II Payer ID:Not on file Group ID:Not on file Type:Not on file Address: [address] Advance Directives Documents on File Type Date Recorded 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
--- OUTSIDE RECORDS SUMMARY | 2024-11-19 04:25 | XMS_ITS | Encounter Summary ---
Author Organization [facility] Address [address] [place] [address]. [place], [place] [id number] [place], [place] [id number] Care Team Providers Care Sewer Hand Name Role Phone Elizabeth Murphy DO Primary Care Provider [phone] Encounter Details Date Type Department Care Team (Latest Contact Info) Description 05/17/2021 Travel Social History Tobacco Use Types Packs/Day Years Used Date Smoking Tobacco: Never Smokeless Tobacco: Never Alcohol Use Standard Drinks/Week Comments Yes 0 (1 standard drink = 0.6 oz pur e alcohol) socially Sex and Gender Information Value Date Recorded Sex Assigned at Not on file Legal Sex Male 8:59 AM CDT Gender Identity Not on file Sexual Orientation Not on file COVID-19 Exposure Response Date Recorded In the last month, have you been in contact with someone who was confirmed or suspected to have Coronavirus / COVID-19? No / Unsure 05/17/2021 8:59 AM CDT documented as of this encounter Plan of Treatment Not on file documented as of this encounter Visit Diagnoses Not on filedocumented in this encounter Care Teams Sewer Hand Relationship Specialty Start Date End Date Elizabeth Murphy DO PCP - General FAMILY PRACTICE 05/17/21 02/24/24 documented as of this encounter
--- OUTSIDE RECORDS SUMMARY | 2024-11-19 04:25 | XMS_ITS | Encounter Summary ---
Author Organization [facility] Address [facility]. [place], [place] [id number] [place], [place] [id number] Care Team Providers Care Program Attendant Name Role Phone Ghada Murphyfer Primary Care Provider [phone] Reason for Referral * Imaging (Emergency) - Closed Specialty Diagnoses / Procedures Referred By Contac t Referred To Contact RADIOLOGY Procedures CT HEAD WO Will Madsen MD [address] [place] [address] Phone: tel: fax: Referral ID Status Reason Start Date Expiration Date Visits Re quested Visits Authorized [id number] Closed 05/21/2021 06/21/2022 1 1 * Imaging (Emergency) - Closed Specialty Diagnoses / Procedures Referred By Contac t Referred To Contact RADIOLOGY Procedures CT ORBITS WO Will Madsen MD [address] [place] [address] Phone: tel: fax: Referral ID Status Reason Start Date Expiration Date Visits Re quested Visits Authorized [id number] Closed 05/21/2021 06/21/2022 1 1 Reason for Visit * Reason Comments Eye Injury Encounter Details Date Type Department Care Team (Late st Contact Info) Description 05/21/2021 6:49 PM CDT - 05/21/2021 10:04 PM CDT Emergency [facility] Emergency Room [id number] [place] [address] Will Dangelo MD [address] [place] [address] Eye Injury Discharge Disposition: Home or Self Care (Routine [...] have Coronavirus / COVID-19? No / Unsure 05/21/2021 6:36 PM CDT documented as of this encounter Last Filed Vital Signs Vital Sign Reading Time Taken Comments Blood Pressure 134/74 05/21/2021 10:03 PM CDT Pulse 79 05/21/2021 10:03 PM CDT Temperature 36.7 ??C (98 ??F) 05/21/2021 10:03 PM CDT Respiratory Rate 17 05/21/2021 10:03 PM CDT Oxygen Saturation 100% 05/21/2021 10:03 PM CDT Inhaled Oxygen Concentration - - Weight 99.8 kg (220 lb) 05/21/2021 6:49 PM CDT Height 182.9 cm (6') 05/21/2021 6:49 PM CDT Body Mass Index 29.84 05/21/2021 6:49 PM CDT documented in this encounter Discharge Instructions * Discharge Instructions* Will Dangelo MD - 05/21/2021 9:54 PM CDT Please return to the ER if you develop worsening pain, decreasing vision, vomiting, fever, confusion, or any new, worsening or concerning symptoms. Please rest, and avoid activities that worsen your pain. Please do not return to work until you have recovered. Please call to be seen by an labor relations representative tomorrow. Please wash your eyelid with soap and water twice a day. * Attachments The following attachments cannot be sent through Care Everywhere. * Concussion in Adults (Slovak) * Concussion Discharge Instructions, Adult (Sl[place]) documented in this encounter Medications at Time of Discharge albuterol sulfate HFA 108 (90 Base) MCG/ACT inhaler Inhale 2 puffs into the lungs every 4 (four) hours as needed for Wheezing. 8 g 1 05/17/2021 02/25/2024 doxycycline hyclate 100 MG capsule Take 1 capsule (100 mg total) by mouth 2 (two) times daily for 7 days. 10 capsule 05/21/2021 05/28/2021 erythromycin 5 MG/GM (0.5%) ophthalmic ointment Place into the right eye 4 (four) times daily for 7 days. 3.5 g 05/21/2021 05/28/2021 HYDROcodone-aceta minophen 5-325 MG tabletIndications :Acute Pain < 3 Day Supply Take 1 tablet by mouth every 6 (six) hours as needed for Pain. Indications: Acute Pain < 3 Day Supply 12 tablet 05/21/2021 06/02/2021 predniSONE 10 mg tablet Take 6 tablets (60 mg total) by mouth daily for 5 days. 30 tablet 05/18/2021 05/23/2021 documented as of this encounter ED Notes * Will Dangelo MD - 05/21/2021 10:04 PM CDT Chief Complaint Chief Complaint Patient presents with ??? Eye Injury History of Present Illness The pt is a 36 year old male who presents to the ED with the complaint of right eye and head pain after a hose clamp slipped out of his hand, hitting him over his right orbit. The pt states that he felt immediate pain, saw stars, and noted blurred vision out of his right eye. He denies LOC, vision loss, vomiting, neck pain, or other injuries. He does not know when his last tetanus shot was, but he suspects it was in the last 10 years. He drove himself to the ED. He does not wear contacts of glasses. Medical History ALLERGIES: Allergies Allergen Reactions ??? Amoxicillin Throat swelling ??? Penicillins Throat swelling MEDICATIONS: Prior to Admission medications Medication Sig Start Date End Date Taking? Authorizing Provider doxycycline hyclate 100 MG capsule Take 1 capsule (100 mg total) by mouth 2 (two) times daily for 7days. 05/21/21 05/28/21 Yes Will Dangelo MD erythromycin 5 MG/GM (0.5%) ophthalmic ointment Place into the right eye 4 (four) times daily for 7days. 05/21/21 05/28/21 Yes Will Dangelo MD HYDROcodone-acetaminophen 5-325 MG tablet Take 1 tablet by mouth every 6 (six) hours as needed for Pain. Indications: Acute Pain < 3 Day Supply 05/21/21 06/02/21 Yes Will Dangelo MD albuterol sulfate HFA 108 (90 Base) MCG/ACT inhaler Inhale 2 puffs into the lungs every 4 (four) hours as needed for Wheezing. 05/17/21 Tomasz Carmona DO predniSONE 10 mg tablet Take 6 tablets (60 mg total) by mouth daily for 5 days. 05/18/21 05/23/21 Tomasz Carmona DO PAST MEDICAL HISTORY: No past medical history on file. PAST SURGICAL HISTORY: No past surgical history on file. FAMILY HISTORY: No family history on file. SOCIAL HISTORY: Social History Tobacco Use ??? Smoking status: Never Smoker ??? Smokeless tobacco: Never Used Substance Use Topics ??? Alcohol use: Yes Comment: socially ??? Drug use: Yes Types: Marijuana Review of Systems Review of Systems Constitutional: Negative for chills and fever. HENT: Negative. Eyes: Positive for pain and visual disturbance (blurred vision right eye). Negative for photophobiaand discharge. Respiratory: Negative for cough and shortness of breath. Cardiovascular: Negative for chest pain and palpitations. Gastrointestinal: Negative for abdominal pain and vomiting. Genitourinary: Negative for difficulty urinating and dysuria. Musculoskeletal: Negative for back pain and neck pain. Skin: Positive for wound (over upper eyelid). Negative for rash. Neurological: Positive for headaches. Negative for dizziness, seizures, syncope, speech difficulty,weakness, light-headedness and numbness. Psychiatric/Behavioral: Negative for behavioral problems and confusion. All other systems reviewed and are negative. Physical Exam Filed Vitals: 05/21/21 1849 05/21/21 2203 BP: (!) 159/95 134/74 Pulse: 87 79 Resp: 16 17 Temp: 97.9 ??F (36.6 ??C) 98 ??F (36.7 ??C) TempSrc: Temporal Oral SpO2: 99% 100% Weight: 99.8 kg (220 lb) Height: 6' (1.829 m) Physical Exam Vitals and nursing note reviewed. Constitutional: Appearance: Normal appearance. HENT: Head: Normocephalic. Nose: Nose normal. Mouth/Throat: Mouth: Mucous membranes are moist. Eyes: General: Right eye: No discharge. Intraocular pressure: Right eye pressure is 12 mmHg. Extraocular Movements: Extraocular movements intact. Conjunctiva/sclera: Conjunctivae normal. Pupils: Pupils are equal, round, and reactive to light. Comments: Visual acuity right eye: 20/40, left eye: 20/20. No fluoroscein uptake right eye. Negative Jose's test. Slit lamp exam reveals no hyphaema. No conjunctival hemorrhage or injection. PERRL.EOM intact. Upper lid margin with erythema and mild edema with central 2 mm abrasion; does not appear to be through and through. Cardiovascular: Rate and Rhythm: Normal rate and regular rhythm. Pulses: Normal pulses. Heart sounds: Normal heart sounds. Pulmonary: Effort: Pulmonary effort is normal. Breath sounds: Normal breath sounds. Abdominal: General: Bowel sounds are normal. Palpations: Abdomen is soft. Tenderness: There is no abdominal tenderness. Musculoskeletal: General: Normal range of motion. Cervical back: Normal range of motion and neck supple. Skin: General: Skin is warm and dry. Capillary Refill: Capillary refill takes less than 2 seconds. Findings: Lesion (see above) present. Neurological: General: No focal deficit present. Mental Status: He is alert and oriented to person, place, and time. Psychiatric: Mood and Affect: Mood normal. Behavior: Behavior normal. Diagnostic Studies / Procedures ELECTROCARDIOGRAMS: No results found for this visit on 05/21/21. LABORATORY STUDIES: No results found for this visit on 05/21/21. IMAGING STUDIES CT ORBITS WO CON Final Result by User, [email or web address] (05/21 2059) Radiation dose reduction technique used HISTORY: Trauma COMPARISON: None REPORT: Brain: No gross intradural mass effect or hemorrhage. Kamara-white attenuation appears preserved. Ventricles and cisterns are within normal limits. No midline shift. The calvarium appears intact. Orbits: The orbital bones also appear intact. The lamina papyracea within normal limits. Nasal septum appears intact. Moderate to severe mucoperiosteal thickening in the right maxillary sinus with small air-fluid level present. Minimal mucoperiosteal thickening present in the left maxillary sinus. The frontal sinuses and sphenoid sinuses are fully aerated. Ethmoid air cells are well aerated. Mastoid air cells and middle ear cavities are all fully aerated. Minimal soft tissue fullness in the right eyelid region but no radiopaque foreign body. IMPRESSION: No gross intracranial mass effect or bleed. No radiopaque foreign body. Extensive opacification in the right maxillary sinus with air-fluid level likely associated with sinusitis as the bones appear intact as do the right orbital post septal soft tissues and globes. Reviewed with Dr. Dangelo at 8:50 PM. Referred By: WILL DANGELO Interpreted By: Gavin Cote, 05/21/2021 8:[address] HEAD WO CON Final Result by User, [email or web address] (05/21 2059) Radiation dose reduction technique used HISTORY: Trauma COMPARISON: None REPORT: Brain: No gross intradural mass effect or hemorrhage. Kamara-white attenuation appears preserved. Ventricles and cisterns are within normal limits. No midline shift. The calvarium appears intact. Orbits: The orbital bones also appear intact. The lamina papyracea within normal limits. Nasal septum appears intact. Moderate to severe mucoperiosteal thickening in the right maxillary sinus with small air-fluid level present. Minimal mucoperiosteal thickening present in the left maxillary sinus. The frontal sinuses and sphenoid sinuses are fully aerated. Ethmoid air cells are well aerated. Mastoid air cells and middle ear cavities are all fully aerated. Minimal soft tissue fullness in the right eyelid region but no radiopaque foreign body. IMPRESSION: No gross intracranial mass effect or bleed. No radiopaque foreign body. Extensive opacification in the right maxillary sinus with air-fluid level likely associated with sinusitis as the bones appear intact as do the right orbital post septal soft tissues and globes. Reviewed with Dr. Dangelo at 8:50 PM. Referred By: WILL DANGELO Interpreted By: Gavin Cote, 05/21/2021 8:45 PM ED Course / Medical Decision Making MDM Number of Diagnoses or Management Options Injury of head, initial encounter Diagnosis management comments: No apparent trauma to the right globe. Pt states that he feels that his vision is improving in his right eye while in the ED. Denies loss of vision or dark vision. IOP [address] of the orbit shows air fluid level in right maxillary sinus. No surrounding bony fractures, and pt without tenderness to bony orbit on exam; fluid likely represents sinusitis and not hemorrhage after discussion with radiologist. Plan for outpt optho consult. Will provide Rx for EES ophthalmic ointment as a precaution, although no surface injury of the globe appreciated on exam. PCN allergy noted; doxy for sinus findings. Wound care for small upper lid abrasion. Concussion p recautions d/w the pt. Clinical Impression Injury of head, initial encounter (Primary) Disposition: Discharge Will Dangelo MD 05/22/21 0129 * Ashley Pineda RN - 05/21/2021 6:52 PM CDT To ED with c/o right eye injury. States he was working on an AC and a piece shot out and hit his eye. States that it was bleeding, but has stopped. Happened about an hour ago. Last tetanus shot is unknown. documented in this encounter Plan of Treatment Not on file documented as of this encounter Procedures Procedure Name Priority Date/Time Associated Diagnosis Comments CT ORBITS WO CON STAT 05/21/2021 8:[address] HEAD WO CON STAT 05/21/2021 8:33 PM CDT documented in this encounter Results * CT HEAD WO CON (05/21/2021 8:33 PM CDT) Anatomical Region Laterality Modality Head Computed Tomogra phy 05/21/2021 8:45 PM CDT Impressions 05/21/2021 8:56 PM CDT IMPRESSION: No gross intracranial mass effect or bleed. No radiopaque foreign body. Extensive opacification in the right maxillary sinus with air-fluid level likely associated with sinusitis as the bones appear intact as do the right orbital post septal soft tissues and globes. Reviewed with Dr. Dangelo at 8:50 PM. Referred By: WILL DANGELO Interpreted By: Gavin Cote, 05/21/2021 8:45 PM Narrative 05/21/2021 8:56 PM CDT Radiation dose reduction technique used HISTORY: Trauma COMPARISON: None REPORT: Brain: No gross intradural mass effect or hemorrhage. Kamara-white attenuation appears preserved. Ventricles and cisterns are within normal limits. No midline shift. The calvarium appears intact. Orbits: The orbital bones also appear intact. The lamina papyracea within normal limits. Nasal septum appears intact. Moderate to severe mucoperiosteal thickening in the right maxillary sinus with small air-fluid level present. Minimal mucoperiosteal thickening present in the left maxillary sinus. The frontal sinuses and sphenoid sinuses are fully aerated. Ethmoid air cells are well aerated. Mastoid air cells and middle ear cavities are all fully aerated. Minimal soft tissue fullness in the right eyelid region but no radiopaque foreign body. Procedure Note Gavin Cote MD - 05/21/2021 Radiation dose reduction technique used HISTORY: Trauma COMPARISON: None REPORT: Brain: No gross intradural mass effect or hemorrhage. Kamara-whiteattenuation appears preserved. Ventricles and cisterns are within normallimits. No midline shift. The calvarium appears intact. Orbits: The orbital bones also appear intact. The lamina papyracea withinnormal limits. Nasal septum appears intact. Moderate to severemucoperiosteal thickening in the right maxillary sinus with smallair-fluid level present. Minimal mucoperiosteal thickening present in theleft maxillary sinus. The frontal sinuses and sphenoid sinuses are fullyaerated. Ethmoid air cells are well aerated. Mastoid air cells and middleear cavities are all fully aerated. Minimal soft tissue fullness in theright eyelid region but no radiopaque foreign body. IMPRESSION: No gross intracranial mass effect or bleed. No radiopaqueforeign body. Extensive opacification in the right maxillary sinus withair-fluid level likely associated with sinusitis as the bones appearintact as do the right orbital post septal soft tissues and globes.Reviewed with Dr. Dangelo at 8:50 PM. Referred By: WILL DANGELO Interpreted By: Gavin Cote, 05/21/2021 8:45 PM us Will Dangelo MD CT Final Res ult * CT ORBITS WO CON (05/21/2021 8:33 PM CDT) Anatomical Region Laterality Modality Orbits Computed Tomogra phy 05/21/2021 8:56 PM CDT Impressions 05/21/2021 8:56 PM CDT IMPRESSION: No gross intracranial mass effect or bleed. No radiopaque foreign body. Extensive opacification in the right maxillary sinus with air-fluid level likely associated with sinusitis as the bones appear intact as do the right orbital post septal soft tissues and globes. Reviewed with Dr. Dangelo at 8:50 PM. Referred By: WILL DANGELO Interpreted By: Gavin Cote, 05/21/2021 8:56 PM Narrative 05/21/2021 8:56 PM CDT Radiation dose reduction technique used HISTORY: Trauma COMPARISON: None REPORT: Brain: No gross intradural mass effect or hemorrhage. Kamara-white attenuation appears preserved. Ventricles and cisterns are within normal limits. No midline shift. The calvarium appears intact. Orbits: The orbital bones also appear intact. The lamina papyracea within normal limits. Nasal septum appears intact. Moderate to severe mucoperiosteal thickening in the right maxillary sinus with small air-fluid level present. Minimal mucoperiosteal thickening present in the left maxillary sinus. The frontal sinuses and sphenoid sinuses are fully aerated. Ethmoid air cells are well aerated. Mastoid air cells and middle ear cavities are all fully aerated. Minimal soft tissue fullness in the right eyelid region but no radiopaque foreign body. Procedure Note Gavin Cote MD - 05/21/2021 Radiation dose reduction technique used HISTORY: Trauma COMPARISON: None REPORT: Brain: No gross intradural mass effect or hemorrhage. Kamara-whiteattenuation appears preserved. Ventricles and cisterns are within normallimits. No midline shift. The calvarium appears intact. Orbits: The orbital bones also appear intact. The lamina papyracea withinnormal limits. Nasal septum appears intact. Moderate to severemucoperiosteal thickening in the right maxillary sinus with smallair-fluid level present. Minimal mucoperiosteal thickening present in theleft maxillary sinus. The frontal sinuses and sphenoid sinuses are fullyaerated. Ethmoid air cells are well aerated. Mastoid air cells and middleear cavities are all fully aerated. Minimal soft tissue fullness in theright eyelid region but no radiopaque foreign body. IMPRESSION: No gross intracranial mass effect or bleed. No radiopaqueforeign body. Extensive opacification in the right maxillary sinus withair-fluid level likely associated with sinusitis as the bones appearintact as do the right orbital post septal soft tissues and globes.Reviewed with Dr. Dangelo at 8:50 PM. Referred By: WILL DANGELO Interpreted By: Gavin Cote, 05/21/2021 8:56 PM us Will Dangelo MD CT Final Res ult documented in this encounter Visit Diagnoses Diagnosis Injury of head, initial encounter- Primary documented in this encounter Administered Medications Inactive Administered Medications - up to 3 most recent administrations Medication Order MAR Action Action Date Dose Rate Site acetaminophen (TYLENOL) tablet 1,000 mg 1,000 mg, Oral, Once, 1 dose, On Mon05/21/21 at 2015, Maximum dose of acetaminophen is 4000 mg from all sources in 24 hours. Given 05/21/2021 9:00 PM CDT 1,000 mg fluorescein (FLUORETS) ophthalmic strip 1 strip 1 strip, Right Eye, Once, 1 dose, On Mon05/21/21 at 1930 Given by Other 05/21/2021 7:34 PM CDT 1 strip HYDROcodone-acetaminophen (NORCO) 5-325 MG tablet 1 tablet 1 tablet, Oral, Once, 1 dose, On Mon05/21/21 at 2200, Maximum dose of acetaminophen is 4000 mg from all sources in 24 hours. Given 05/21/2021 10:01 PM CDT 1 tablet tetracaine 0.5 % ophthalmic solution 1 drop 1 drop, Right Eye, Once, 1 dose, On Mon05/21/21 at 1930 Given by Other 05/21/2021 7:34 PM CDT 1 drop documented in this encounter Active and Recently Administered Medications Times are shown in CDT. Scheduled Medication Order 05/19/2021 05/20/2021 05/21/2021 acetaminophen (TYLENOL) tablet 1,000 mg (COMPLETED) 1,000 mg, Oral, Once, 1 dose, On Mon05/21/21 at 2015, Maximum dose of acetaminophen is 4000 mg from all sources in 24 hours. 2100 (Given - Provid er: Constantine Mclain RN) fluorescein (FLUORETS) ophthalmic strip 1 strip (COMPLETED) 1 strip, Right Eye, Once, 1 dose, On Mon05/21/21 at 1930 1934 (Given by Other - Provider: Constantine Mclain RN) HYDROcodone-acetaminophen (NORCO) 5-325 MG tablet 1 tablet (COMPLETED) 1 tablet, Oral, Once, 1 dose, On Mon05/21/21 at 2200, Maximum dose of acetaminophen is 4000 mg from all sources in 24 hours. 2200 (Given - Provid er: Constantine Mclain RN) tetracaine 0.5 % ophthalmic solution 1 drop (COMPLETED) 1 drop, Right Eye, Once, 1 dose, On Mon05/21/21 at 1930 1934 (Given by Other - Provider: Constantine Mclain RN) documented in this encounter Care Teams Program Attendant Relationship Specialty Start Date End Date Elizabeth Murphy DO PCP - General FAMILY PRACTICE 05/17/21 02/24/24 documented as of this encounter
--- OUTSIDE RECORDS SUMMARY | 2024-11-19 04:25 | XMS_ITS | Encounter Summary ---
Author Organization [facility] Address [address] [place] [address]. [place], [place] [address] [place] [id number] Care Team Providers Care Diffuser Operator Name Role Phone Ghada Murphyfer Primary Care Provider [phone] Reason for Visit * Reason Comments Anxiety Encounter Details Date Type Department Care Team ([facility] st Contact Info) Description 02/14/2024 7:30 AM CDT - 02/14/2024 12:25 PM CDT Emergency [facility] Emergency Room [address] [place] [address] Luis Doshi MD [address] [place] [address] [id number] Anxiety Discharge Disposition: Home or Self Care (Routine Discharge) Social History Tobacco Use Types Packs/Day Years Used Date Smoking Tobacco: Never Smokeless Tobacco: Never Tobacco Cessation:Counseling Given: Not Answered Alcohol Use Standard Drinks/Week Comments Yes 0 (1 standard drink = 0.6 oz pur e alcohol) socially Sex and Gender Information Value Date Recorded Sex Assigned at Not on file Legal Sex Male 8:59 AM CDT Gender Identity Not on file Sexual Orientation Not on file documented as of this encounter Last Filed Vital Signs Vital Sign Reading Time Taken Comments Blood Pressure 174/119 02/14/2024 12:05 PM CDT Pulse 97 02/14/2024 12:10 PM CDT Temperature 36.6 ??C (97.9 ??F) 02/14/2024 12:05 PM C DT Respiratory Rate 17 02/14/2024 12:10 PM CDT Oxygen Saturation 100% 02/14/2024 12:05 PM CDT Inhaled Oxygen Concentration - - Weight 99.8 kg (220 lb) 02/14/2024 7:34 AM CDT Height 182.9 cm (6') 02/14/2024 7:34 AM CDT Body Mass Index 29.84 02/14/2024 7:34 AM CDT documented in this encounter Discharge Instructions * Attachments The following attachments cannot be sent through Care Everywhere. * Chest Pain (Persian) documented in this encounter Medications at Time [...] as of this encounter ED Notes * Rose Power RN - 02/14/2024 11:00 AM CDT [facility] crisis team at bedside speaking with patient. * Rose Power RN - 02/14/2024 9:55 AM CDT manager store Gavin Knight at bedside to speak with patient at this time due to patient escalating behavior. Patient back to [facility] at this time. * Rose Power RN - 02/14/2024 9:21 AM CDT Call to [facility] per ED provider request.Spoke with Radha at this time. * Rose Power RN - 02/14/2024 9:17 AM CDT Patient call light on at this time, patient requesting medication to be sent home upon discharge for current symptoms of anxiety. 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 Will relay patients request to ED provider. * Rose Power RN - 02/14/2024 8:37 AM CDT Patient ambulated to bathroom and back to stretcher independently. Patient due meds given per Ying JAY, patient call light in reach. * Luis Doshi MD - 02/14/2024 7:57 AM CDTSummary: ED NOTE Chief Complaint Chief Complaint Patient presents with Anxiety History of Present Illness Patient is a 39-year-old male with a past medical history of polysubstance use, schizophrenia who presents with anxiety. Last night patient came in after drinking alcohol and snorting amphetamines. Patient was discharged but was still in the ER. He now says that he is feeling very anxious and is having auditory hallucinations. He reports that he is hearing his mother arguing with her friend. Patient denies any fevers, chills, nausea or vomiting. Denies any diarrhea or constipation. Besides drinking and amphetamine use denies any other drug use. Medical History ALLERGIES: Review of patient's allergies indicates: Allergen Reactions Amoxicillin Throat swelling Penicillins Throat swelling MEDICATIONS: Prior to Admission medications Medication Sig Start Date End Date Taking? Authorizing Provider albuterol sulfate HFA 108 (90 Base) MCG/ACT inhaler Inhale 2 puffs into the lungs every 4 (four) hours as needed for Wheezing. 05/17/21 Tomasz Carmona DO PAST MEDICAL HISTORY: Past Medical History: Diagnosis Date Bipolar disorder, unspecified ([facility]) Schizophrenia, unspecified ([facility]) PAST SURGICAL HISTORY: History reviewed. No pertinent surgical history. FAMILY HISTORY: No family history on file. SOCIAL HISTORY: Social History Tobacco Use Smoking status: Never Smokeless tobacco: Never Substance Use Topics Alcohol use: Yes Comment: socially Drug use: Not Currently Types: Marijuana Review of Systems Review of Systems Constitutional: Negative for chills, fatigue and fever. HENT: Negative for rhinorrhea and sore throat. Respiratory: Negative for cough and shortness of breath. Cardiovascular: Negative for chest pain. Gastrointestinal: Negative for abdominal pain, diarrhea, nausea and vomiting. Endocrine: Negative for polyuria. Genitourinary: Negative for dysuria and frequency. Musculoskeletal: Negative for joint swelling. Skin: Negative for rash. Allergic/Immunologic: Negative for immunocompromised state. Neurological: Negative for dizziness and headaches. Hematological: Negative for adenopathy. Psychiatric/Behavioral: Negative for confusion. Physical Exam Filed Vitals: 02/14/24 1135 02/14/24 1140 02/14/24 1205 02/14/24 1210 BP: (!) 174/119 Pulse: (!) 108 (!) 105 97 97 Resp: 19 15 12 17 Temp: 97.9 ??F (36.6 ??C) SpO2: 97% 100% Weight: Height: Physical Exam Constitutional: General: He is not in acute distress. Appearance: Normal appearance. Comments: anxious HENT: Head: Normocephalic. Mouth/Throat: Mouth: Mucous membranes are moist. Pharynx: Oropharynx is clear. Eyes: Conjunctiva/sclera: Conjunctivae normal. Pupils: Pupils are equal, round, and reactive to light. Cardiovascular: Rate and Rhythm: Regular rhythm. Tachycardia present. Pulses: Normal pulses. Heart sounds: No murmur heard. No gallop. Pulmonary: Effort: Pulmonary effort is normal. Breath sounds: No wheezing, rhonchi or rales. Abdominal: General: Abdomen is flat. There is no distension. Tenderness: There is no abdominal tenderness. There is no guarding. Musculoskeletal: Cervical back: Neck supple. Right lower leg: No edema. Left lower leg: No edema. Skin: General: Skin is warm and dry. Capillary Refill: Capillary refill takes less than 2 seconds. Findings: No rash. Neurological: Mental Status: He is alert and oriented to person, place, and time. Mental status is at baseline. Psychiatric: Mood and Affect: Mood normal. Diagnostic Studies / Procedures ELECTROCARDIOGRAMS: Results for orders placed or performed during the hospital encounter of 02/14/[address] 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 Interpreted by myself. Rate 122. Rhythm sinus tachycardia. [place] normal. Intervals [place] 153. QRS 105. QTc 385. There are no ST segment changes concerning for [place] LABORATORY STUDIES: Results for orders placed or performed during the hospital encounter of 02/14/24 DRUG SCREEN RAPID Result Value Ref Range AMPHETAMINE (U) DETECTED (A) NONE DETECTED BARBITURATES SCREEN (U) NONE DETECTED NONE DETECTED BENZODIAZEPINES SCREEN (U) DETECTED (A) NONE DETECTED BUPRENORPHINE SCREEN (U) DETECTED (A) NONE DETECTED COCAINE METABOLITES (U) DETECTED (A) NONE DETECTED METHAMPHETAMINE (U) DETECTED (A) NONE DETECTED METHADONE (U) NONE DETECTED NONE DETECTED OPIATE SCREEN (U) NONE DETECTED NONE DETECTED OXYCODONE SCREEN (U) NONE DETECTED NONE DETECTED PHENCYCLIDINE PCP (U) NONE DETECTED NONE DETECTED CANNABINOIDS SCREEN (U) DETECTED (A) NONE DETECTED TRICYCLIC ANTIDEPRESSANT SCREEN (U) NONE DETECTED NONE DETECTED CBC W/DIFF AUTOMATED Result Value Ref Range WBC 8.16 4.4 - 11.0 x10'3/uL RBC 5.11 4.50 - 5.90 x10'6/uL HGB 16.2 14.0 - 17.5 G/DL HCT 47.6 41.5 - 50.4 % MCV 93.2 80.0 - 96.0 FL MCH 31.7 (H) 26.5 - 31.4 PG MCHC 34.0 31.9 - 34.8 G/DL RDW 12.7 12.3 - 14.3 % PLT 273 151 - 353 x10'3/uL MPV 10.1 9.7 - 11.9 FL RBC MORPHOLOGY NORMAL PLT MORPH. NORMAL WBC MORPHOLOGY NORMAL LYMPHOCYTES 26.8 15.8 - 45.0 % NEUTROPHILS 60.9 42.1 - 71.9 % MONOCYTES 10.3 5.7 - 12.5 % EOSINOPHILS 1.2 0.0 - 5.6 % BASOPHILS 0.6 0.0 - 1.3 % ABS. NEUTROPHILS 4.96 1.40 - 6.00 x10'3/uL IMMATURE GRANS 0.2 0.0 - 0.5 % ABS. LYMPHOCYTES 2.19 0.80 - 4.70 x10'3/uL COMPREHENSIVE METABOLIC PANEL Result Value Ref Range GLUCOSE 115 (H) 70 - 99 MG/DL BUN 14 7 - 18 MG/DL CREATININE S/P/B 1.05 0.7 - 1.3 MG/DL SODIUM S/P/B 139 136 - 145 MMOL/L POTASSIUM S/P/B 3.5 3.5 - 5.1 MMOL/L CHLORIDE S/P/B 103 100 - 108 MMOL/L CO2 28.0 21 - 32 MMOL/L CALCIUM S/P/B 8.5 8.5 - 10.1 MG/DL BILIRUBIN TOTAL S/P/B 1.3 (H) 0.2 - 1.2 MG/DL TOTAL PROTEIN S/P/B 7.0 6.4 - 8.2 G/DL ALBUMIN S/P/B 3.4 3.4 - 5.0 G/DL AST 27 15 - 37 U/L ALT 29 16 - 60 U/L ALKALINE PHOSPHATASE S/P/B 111 50 - 136 U/L ANION GAP 8.0 5 - 15 MMOL/L BUN CREATININE RATIO 13.3 6 - 26 A/G RATIO 0.9 (L) 1.0 - 2.0 RATIO GFR ESTIMATE >90 >90 ML/MIN/1.73 M2 SALICYLATE Result Value Ref Range SALICYLATES 2.5 (L) 2.8 - 20.0 MG/DL ACETAMINOPHEN Result Value Ref Range ACETAMINOPHEN S/P/B <0.5 (L) 10.0 - 30.0 MCG/ML TROPONIN, QUANT Result Value Ref Range TROPONIN I HIGH SENSITIVITY 12 <76 ng/L TROPONIN, QUANT Result Value Ref Range TROPONIN I HIGH SENSITIVITY 11 <76 ng/L CORONAVIRUS (COVID-19) MOLECULAR Specimen: NASOPHARYNGEAL SWAB Result Value Ref Range CORONAVIRUS SARS COV 2 RNA NEGATIVE NEGATIVE Specimen Type NASAL IMAGING STUDIES XR CHEST PORTABLE Final Result by User, [id number] (02/13 1041) Date: 02/14/2024 10:00 AM Exam: XR CHEST PORTABLE Comparison: Chest radiography dated 05/17/2021. Technique: Single view chest. History: Chest pain. Findings: The cardiac silhouette and pulmonary vascularity are within normal limits. There are no consolidations nor effusions. There is no pneumothorax. The osseous structures appear normal. Impression: No acute cardiopulmonary disease process. Ordered By: LUIS DOSHI Interpreted By: Luke Berry Jr, MD, 02/14/2024 10:38 AM ED Course / Medical Decision Making Medical Decision Making Ddx: Psychiatric decompensation, electrolyte abnormality, ACS, pneumonia, pneumothorax, hemothorax,drug intoxication, drug withdrawal, alcohol intoxication, alcohol drawl Patient is a 39-year-old male with a past medical history of polysubstance use, schizophrenia who presents with anxiety. On arrival of vitals remarkable for pulse of 118 and blood pressure 140/101. On exam patient is anxious. He is slightly agitated. His lungs are clear and his heart is regular butfast. Initially he was saying that he was having auditory hallucinations. Urine drug test was performed which showed multiple substances. He then reported that he was having chest pain. I was speaking with patient. He initially was given olanzapine for auditory hallucinations. At this point decision was made to give him lorazepam as well for methamphetamine use. Patient was denying drug use and Iwas somewhat tough on patient given his urine drug screen. I was trying to explain to him that he needed to take responsibility for his drug use. He was telling me that he did not know he was using drugs but rather ordered a substance online that was amphetamines and snorted but he did not know that this was a drug. I explained to him that I did not believe him. I did acknowledge to him the fact that I could be wrong in my judgment but that was my judgment of the situation. Patient was upset. We had nurse management meet with the patient. Reportedly he had threatened me with punches. I did explain to patient that given his chest pain we would work him up for chest pain with labs and imaging. Chest x-ray was negative. Labs were reassuring. His troponin was negative x 2. COVID test was doneas well which was negative. It was explained to patient that his workup was negative. He currently has improvement of his chest pain. Our psychiatric team met with patient and formed a safety plan. In my opinion patient does not show a clear threat of harming others or himself and therefore I thinkhe is cleared to be discharged. Patient agrees to come back for new or worsening symptoms and to follow-up with PCP and was discharged in good condition. ED Course as of 02/14/24 1223 MonFeb 14, 2024 1002 Called to bedside by RN. Patient says he feels like he is having a heart attack. I told him that we would do a cardiac workup for him, but that I suspected his symptoms could be caused by drug use. He stated that he does not use drugs. I told him his drug screen was positive for multiple drugs. He told me that he did not know that he was using drugs and that he bought amphetamines online butdid not know they were drugs. I told him that I had trouble believing he did not know what amphetamines are and that he should take responsibility for his actions. Patient became upset with me according to staff toxicologist threatened to punch me. [TRINY] ED Course User Index [TRINY] Luis Doshi MD Clinical Impression Auditory hallucination Methamphetamine abuse ([facility]) Chest pain (Primary) Disposition: Discharge Luis Doshi MD 02/14/24 1225 * Rose Power RN - 02/14/2024 7:35 AM CDT 39 year old male in with complaints of anxiety. Patient was in emergency department last night because he accidentally took meth he ordered online . Patient notes he is feeling anxious at this time and is requesting medication to relieve his symptoms and help him sleep today. Patient denies SI/HI,patient alert and oriented. documented in this encounter Plan of Treatment Not on file documented as of this encounter Procedures Procedure Name Priority Date/Time Associated Diagnosis Comments TROPONIN, QUANT STAT 02/14/2024 11:40 AM CDT XR CHEST PORTABLE STAT 02/14/2024 10: 21 AM CDT COMPREHENSIVE METABOLIC PANEL STAT 02/14/2024 9:52 AM CDT CBC W/DIFF AUTOMATED STAT 02/14/2024 9:52 AM CDT TROPONIN, QUANT STAT 02/14/2024 9:52 AM CDT SALICYLATE STAT 02/14/2024 9:52 AM CDT ACETAMINOPHEN STAT 02/14/2024 9:52 AM CDT ECG 12-LEAD Routine 02/14/2024 9:39 AM CDT CORONAVIRUS (COVID 19) STAT 9:26 AM CDT DRUG SCREEN RAPID STAT 02/14/2024 8:3 5 AM CDT documented in this encounter Results * TROPONIN, QUANT (02/14/2024 11:40 AM CDT) TROPONIN I HIGH SENSITIVITY 11 <76 ng/L 02/14/2024 12:[address] [facility] Comment: HIGH DOSES OF BIOTIN, TROPONIN-SPECIFIC AUTOANTIBODIES, AND ANTIBODY THERAPY CONTAINING HAMA MAY INTERFERE WITH THIS TEST RESULT. CORRELATION TO CLINICAL HISTORY AND PRESENTATION RECOMMENDED. 02/14/2024 11:4 0 AM CDT Luis Doshi MD LABORATORY Final R esult [facility] [address] [place] [address], [place] [phone] * XR CHEST PORTABLE (02/14/2024 10:21 AM CDT) Anatomical Region Laterality Modality Chest Radiographic Candis ging 02/14/2024 10:3 8 AM CDT Impressions 02/14/2024 10:38 AM CDT Impression: No acute cardiopulmonary disease process. Ordered By: LUIS DOSHI Interpreted By: Luke Berry Jr, MD, 02/14/2024 10:38 AM Narrative 02/14/2024 10:38 AM CDT Date: 02/14/2024 10:00 AM Exam: XR CHEST PORTABLE Comparison: Chest radiography dated 05/17/2021. Technique: Single view chest. History: Chest pain. Findings: The cardiac silhouette and pulmonary vascularity are within normal limits. There are no consolidations nor effusions. There is no pneumothorax. The osseous structures appear normal. Procedure Note Luke Berry MD - 02/14/2024 Date: 02/14/2024 10:00 AM Exam: XR CHEST PORTABLE Comparison: Chest radiography dated 05/17/2021. Technique: Single view chest. History: Chest pain. Findings: The cardiac silhouette and pulmonary vascularity are withinnormal limits. There are no consolidations nor effusions. There is nopneumothorax. The osseous structures appear normal. Impression: No acute cardiopulmonary disease process. Ordered By: LUIS DOSHI Interpreted By: Luke Berry Jr, MD, 02/14/2024 10:38 AM us Luis Doshi MD GENERAL IMAGING Final R esult * TROPONIN, QUANT (02/14/2024 9:52 AM CDT) TROPONIN I HIGH SENSITIVITY 12 <76 ng/L 02/14/2024 10:[address] [facility] Comment: HIGH DOSES OF BIOTIN, TROPONIN-SPECIFIC AUTOANTIBODIES, AND ANTIBODY THERAPY CONTAINING HAMA MAY INTERFERE WITH THIS TEST RESULT. CORRELATION TO CLINICAL HISTORY AND PRESENTATION RECOMMENDED. 02/14/2024 9:52 AM CDT Luis Doshi MD LABORATORY Final R esult Performing Organization Address [facility]/ZIP Co de Phone Number [facility] [address] [place] [address], [place] [phone] * (ABNORMAL) ACETAMINOPHEN (02/14/2024 9:52 AM CDT) ACETAMINOPHEN S/P/B <0.5(L) 10.0 - 30.0 MCG/ML 02/14/2024 10:[address] [facility] Comment: ?THERAPEUTIC: 10-30 ?TOXIC: >200 02/14/2024 9:52 AM CDT Luis Doshi MD LABORATORY Final R esult Performing Organization Address [facility] de Phone Number [facility] [address] [place] [address], [place] [phone] * (ABNORMAL) SALICYLATE (02/14/2024 9:52 AM CDT) SALICYLATES 2.5(L) 2.8 - 20.0 MG/DL 02/14/2024 10:[address] [facility] Comment: THERAPEUTIC: ?2.8-20.0 Toxic Level: ?>=30 02/14/2024 9:52 AM CDT Luis Doshi MD LABORATORY Final R esult Performing Organization Address [facility] Co de Phone Number [facility] [address] [place] [address], [place] [phone] * (ABNORMAL) COMPREHENSIVE METABOLIC PANEL (02/14/2024 9:52 AM CDT) [facility] GLUCOSE 115(H) 70 - 99 MG/DL 02/14/2024 10:[address] [facility] BUN 14 7 - 18 MG/DL 02/14/2024 10:21 AM [facility] CREATININE S/P/B 1.05 0.7 - 1.3 MG/DL 02/14/2024 10:21 AM [facility] SODIUM S/P/B 139 136 - 145 MMOL/L 02/14/2024 10:21 AM [facility] POTASSIUM S/P/B 3.5 3.5 - 5.1 MMOL/L 02/14/2024 10:21 AM [facility] CHLORIDE S/P/B 103 100 - 108 MMOL/L 02/14/2024 10:21 AM [facility] CO2 28.0 21 - 32 MMOL/L 02/14/2024 10:21 AM [facility] CALCIUM S/P/B 8.5 8.5 - 10.1 MG/DL 02/14/2024 10:21 AM [facility] BILIRUBIN TOTAL S/P/B 1.3(H) 0.2 - 1.2 MG/DL 02/14/2024 10:21 AM [facility] TOTAL PROTEIN S/P/B 7.0 6.4 - 8.2 G/DL 02/14/2024 10:21 AM [facility] ALBUMIN S/P/B 3.4 3.4 - 5.0 G/DL 02/14/2024 10:21 AM [facility] AST 27 15 - 37 U/L 02/14/2024 10:21 AM [facility] ALT 29 16 - 60 U/L 02/14/2024 10:[address] [facility] ALKALINE PHOSPHATASE S/P/B 111 50 - 136 U/L 02/14/2024 10:[address] [facility] ANION GAP 8.0 5 - 15 MMOL/L 02/14/2024 10:[address] [facility] BUN CREATININE RATIO 13.3 6 - 26 02/14/2024 10:[address] [facility] A/G RATIO 0.9(L) 1.0 - 2.0 RATIO 02/14/2024 10:[address] [facility] GFR ESTIMATE >90 >90 ML/MIN/1.7 3 M2 02/14/2024 10:[address] [facility] Comment: NOTE: eGFR is not calculated for patients <18 years of age. This is an estimated GFR calculation using the new CKD EPI creatinine equation without race and so does not require a correction factor for race. This estimated GFR should not be used for calculating drug doses. 02/14/2024 9:52 AM CDT us Luis Doshi MD LABORATORY Final R esult [facility] [address] [place] [address], [place] [phone] * (ABNORMAL) CBC W/DIFF AUTOMATED (02/14/2024 9:52 AM CDT) WBC 8.16 4.4 - 11.0 x10'3/uL 02/14/2024 9:[address] [facility] RBC 5.11 4.50 - 5.90 x10'6/uL 02/14/2024 9:[address] [facility] HGB 16.2 14.0 - 17.5 G/DL 02/14/2024 9:[address] [facility] HCT 47.6 41.5 - 50.4 % 02/14/2024 9:[address] [facility] MCV 93.2 80.0 - 96.0 FL 02/14/2024 9:[address] [facility] MCH 31.7(H) 26.5 - 31.4 PG 02/14/2024 9:[address] [facility] MCHC 34.0 31.9 - 34.8 G/DL 02/14/2024 9:[address] [facility] RDW 12.7 12.3 - 14.3 % 02/14/2024 9:[address] [facility] PLT 273 151 - 353 x10'3/uL 02/14/2024 9:[address] [facility] MPV 10.1 9.7 - 11.9 FL 02/14/2024 9:[address] [facility] RBC MORPHOLOGY NORMAL 02/14/2024 9:[address] [facility] PLT MORPH. NORMAL 02/14/2024 9:[address] [facility] WBC MORPHOLOGY NORMAL 02/14/2024 9:[address] [facility] LYMPHOCYTES % 26.8 15.8 - 45.0 % 02/14/2024 9:[address] [facility] NEUTROPHILS % 60.9 42.1 - 71.9 % 02/14/2024 9:[address] [facility] MONOCYTES % 10.3 5.7 - 12.5 % 02/14/2024 9:[address] [facility] EOSINOPHILS 1.2 0.0 - 5.6 % 02/14/2024 9:[address] [facility] BASOPHILS 0.6 0.0 - 1.3 % 02/14/2024 9:[address] [facility] ABS. NEUTROPHILS 4.96 1.40 - 6.00 x10'3/uL 02/14/2024 9:[address] [facility] IMMATURE GRANS % 0.2 0.0 - 0.5 % 02/14/2024 9:[address] [facility] ABS. LYMPHOCYTES 2.19 0.80 - 4.70 x10'3/uL 02/14/2024 9:[address] [facility] 02/14/2024 9:52 AM CDT Luis Doshi MD LABORATORY Final R esult [facility] [address] [place] [address], * ECG 12 lead (02/14/2024 9:39 AM CDT) 02/14/2024 9:39 AM CDT Narrative [facility] - 02/15/2024 9:25 AM CDT [facility] Test Date: ?2024-02-14 Pat Name: ? SHARRI JODY ? Department: ?? 85 ? Room: ? EXAM 303 Gender: ? Male ? 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 : ?1985 ? Requested By: LUIS DOSHI Order Number: [id number] ? Reading MD: ?? Anupam Justin ? Measurements Intervals ?[place] ? Rate: ? 122 ?P: ?51 AR: ? 153 ?QRS: ?-28 QRSD: ? 105 ?T: ?29 QT: ? 312 ? QTc: ?446 ? 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1985 Requested By: LUIS DOSHI Order Number: [id number] Reading MD: Anupam Justin Measurements Intervals [place] Rate: 122 P: 51 AR: 153 QRS: -28 QRSD: 105 T: 29 QT: 312 QTc: 446 Interpretive Statements SINUS TACHYCARDIA INFERIOR MYOCARDIAL INFARCTION , PROBABLY OLD [40+ ms Q WAVE AND/OR ST/T ABNORMALITY IN II/aVF] Compared to ECG 02/14/2024 01:28:45 Incomplete right bundle-branch block no longer present Myocardial infarct finding still present us Luis Doshi MD ECG ORDERABLES Final R esult [facility] * CORONAVIRUS (COVID-19) MOLECULAR (02/14/2024 9:26 AM CDT) CORONAVIRUS SARS COV 2 RNA NEGATIVE NEGATIVE 02/14/2024 9:[address] [facility] Comment: NEGATIVE RESULTS DO NOT RULE OUT COVID 19 AND SHOULD NOT BE USED THE SOLE BASIS FOR TREATMENT OR PATIENT MANAGEMENT DECISIONS, INCLUDING INFECTION CONTROL DECISIONS. NEGATIVE RESULTS SHOULD BE CONSIDERED IN THE CONTEXT OF A PATIENT'S RECENT EXPOSURES, HISTORY AND THE PRESENCE OF CLINICAL SIGNS AND SYMPTOMS CONSISTENT WITH COVID 19. THE ID NOW COVID-19 2.0 TEST HAS BEEN AUTHORIZED BY THE FDA UNDER EAU FOR USE BY AUTHORIZED LABORATORIES. PERFORMED BY NUCLEIC ACID AMPLIFICATION FOR MOLECULAR QUALITATIVE DETECTION OF SARS-COV-2. SPECIMEN TYPE NASAL 02/14/2024 9:[address] [facility] NASOPHARYNGEAL SWAB / Unknown 02/14/2024 9:26 AM CDT Luis Doshi MD MICROBIOLOGY - GENERAL ORDERABLES Final Result [facility] [address] [place] [address], * (ABNORMAL) DRUG SCREEN RAPID (02/14/2024 8:35 AM CDT) [facility] AMPHETAMINE (U) DETECTED(A) NONE DETECTED 02/14/2024 8:[address] [facility] BARBITURATES SCREEN (U) NONE DETECTED NONE DETECTED 02/14/2024 8:[address] [facility] BENZODIAZEPINES SCREEN (U) DETECTED(A) NONE DETECTED 02/14/2024 8:[address] [facility] BUPRENORPHINE SCREEN (U) DETECTED(A) NONE DETECTED 02/14/2024 8:[address] [facility] COCAINE METABOLITES (U) DETECTED(A) NONE DETECTED 02/14/2024 8:[address] [facility] METHAMPHETAMINE (U) DETECTED(A) NONE DETECTED 02/14/2024 8:[address] [facility] METHADONE (U) NONE DETECTED NONE DETECTED 02/14/2024 8:[address] [facility] OPIATE SCREEN (U) NONE DETECTED NONE DETECTED 02/14/2024 8:[address] [facility] OXYCODONE SCREEN (U) NONE DETECTED NONE DETECTED 02/14/2024 8:[address] [facility] PHENCYCLIDINE PCP (U) NONE DETECTED NONE DETECTED 02/14/2024 8:[address] [facility] CANNABINOIDS SCREEN (U) DETECTED(A) NONE DETECTED 02/14/2024 8:[address] [facility] TRICYCLIC ANTIDEPRESSANT SCREEN (U) NONE DETECTED NONE DETECTED 02/14/2024 8:[address] [facility] Comment: NOTE: RESULTS OF THIS DRUG SCREEN SHOULD BE USED FOR MEDICAL PURPOSES ONLY AND NOT FOR LEGAL OR EMPLOYEMENT PURPOSES. MEDICATIONS CONTAINING EPHEDRINE MAY CAUSE FALSE POSITIVE AMPHETAMINE. AMPHETAMINE- ?500 NG/ML BARBITURATE- ?200 NG/ML BENZODIAZEPINE- ?? 150 NG/ML BUPRENORPHINE- ? 10 NG/ML COCAINE- ?150 NG/ML METHAMPHETAMINES- 500 NG/ML METHADONE- ?200 NG/ML OPIATE- ? 100 NG/ML OXYCODONE- ?100 NG/ML PCP- ? 25 NG/ML THC- ? 50 NG/ML TCA- ?300 NG/ML URINE SPECIMEN / Unknown 02/14/2024 8:35 AM CDT Luis Doshi MD URINE ORDERABLES Final Result Performing Organization Address City/State/[facility] Co de Phone Number [facility] [address] [place] [address], documented in this encounter Visit Diagnoses Diagnosis Chest pain- Primary Chest pain, unspecified Auditory hallucination Hallucinations Methamphetamine abuse ([facility]) Nondependent amphetamine or related acting sympathomimetic abuse, unspecified documented in this encounter Administered Medications Inactive Administered Medications - up to 3 most recent administrations Medication Order MAR Action Action Date Dose Rate Site LORazepam (ATIVAN) injection 1 mg 1 mg, Intravenous, Once, 1 dose, On Mon02/14/24 at 0945, For IV use, further dilute with an equal volume of saline. Do not exceed a rate of 2 mg/min. Given 02/14/2024 9:57 AM CDT 1 mg OLANZapine (ZyPREXA ZYDIS) disintegrating tablet 10 mg 10 mg, Oral, Once, 1 dose, On Mon02/14/24 at 0830 Given 02/14/2024 8:36 AM CDT 10 mg sodium chloride 0.9% bolus infusion 1,000 mL 1,000 mL, Intravenous, Administer over 60 Minutes, Bolus (Once), 1 dose, On Mon02/14/24 at 0945 New Bag 02/14/2024 9:57 AM CDT 1,000 mLs documented in this encounter Active and Recently Administered Medications Times are shown in CDT. Scheduled Medication Order 02/12/2024 02/13/2024 02/14/2024 LORazepam (ATIVAN) injection 1 mg (COMPLETED) 1 mg, Intravenous, Once, 1 dose, On Mon02/14/24 at 0945, For IV use, further dilute with an equal volume of saline. Do not exceed a rate of 2 mg/min. 0957 (Given - Provid er: Rose Power RN) OLANZapine (ZyPREXA ZYDIS) disintegrating tablet 10 mg (COMPLETED) 10 mg, Oral, Once, 1 dose, On Mon02/14/24 at 0830 0836 (Given - Provid er: Ying Fuentes RN) sodium chloride 0.9% bolus infusion 1,000 mL (COMPLETED) 1,000 mL, Intravenous, Administer over 60 Minutes, Bolus (Once), 1 dose, On Mon02/14/24 at 0945 0957 (New Bag - Prov ider: Rose Power RN)1136 (Infusion Stop Time - Provider: Rose Power RN) documented in this encounter Additional Health Concerns Infection Onset Date Last Indicated Resolved Time COVID-19 Rule Out 02/14/2024 02/14/2024 02/14/2024 9:48 AM CDT documented as of this encounter Care Teams Diffuser Operator Relationship Specialty Start Date End Date Elizabeth Murphy DO PCP - General FAMILY PRACTICE 05/17/21 02/24/24 documented as of this encounter
--- OUTSIDE RECORDS SUMMARY | 2024-11-19 04:25 | XMS_ITS | Encounter Summary ---
Author Organization [facility] Address [facility] [facility] [address] [place], [place] [id number] [place] [id number] Care Team Providers Care Offal Separator Name Role Phone Elizabeth Murphy DO Primary Care Provider [phone] Encounter Details Date Type Department Care Team (Late st Contact Info) Description 06/17/2016 Abstract [facility] [address] [place] [address] Parish Gomez MD Social History Tobacco Use Types Packs/Day Years Used Date Smoking Tobacco: Never Assessed Sex and Gender Information Value Date Recorded [...] PM CDT documented as of this encounter Plan of Treatment Not on file documented as of this encounter Visit Diagnoses Not on filedocumented in this encounter Care Teams Offal Separator Relationship Specialty Start Date End Date Elizabeth Murphy DO PCP - General FAMILY PRACTICE 05/17/21 02/24/24 documented as of this encounter
--- OUTSIDE RECORDS SUMMARY | 2024-11-19 04:25 | XMS_ITS | Encounter Summary ---
Author Organization [facility] Address [address] [place] [address]. [place], [place] [address] [place] [address] Care Team Providers Care Custom Tailor Name Role Phone KatherineElizabeth Primary Care Provider [phone] Reason for Visit * Reason Comments Substance Abuse Meth Encounter Details Date Type Department Care Team ([facility] st Contact Info) Description 02/15/2024 1:36 AM CDT - 02/15/2024 6:34 AM CDT Emergency [facility] Emergency Room [id number] [place] [address] Tomas Campos MD [address] [place] [address] [id number] Substance Abuse (Meth) Discharge Disposition: Home or Self Care (Routine [...] Sign Reading Time Taken Comments Blood Pressure 173/133 02/15/2024 6:25 AM CDT Pulse 112 02/15/2024 1:26 AM CDT Temperature 36.3 ??C (97.4 ??F) 02/15/2024 1:26 AM CD T Respiratory Rate 17 02/15/2024 1:26 AM CDT Oxygen Saturation 97% 02/15/2024 6:25 AM CDT Inhaled Oxygen Concentration - - Weight 99.8 kg (220 lb) 02/15/2024 1:26 AM CDT Height 182.9 cm (6') 02/15/2024 1:26 AM CDT Body Mass Index 29.84 02/15/2024 1:26 AM CDT documented in this encounter Discharge Instructions * Discharge Instructions* Tomas Campos MD - 02/15/2024 2:46 AM CDT Avoid drugs and alcohol. Rest. [...] cannot be sent through Care Everywhere. * Polysubstance Use Disorder Discharge Instructions (Persian) documented in this encounter Medications at [...] as of this encounter ED Notes * Dawson Ricks RN - 02/15/2024 6:29 AM CDT pT discharged with instructions, teaching completed on use of Blood pressure meds and dangers of hypertension. * Tomas Campos MD - 02/15/2024 1:42 AM CDT [facility] EMERGENCY DEPARTMENT NOTE Patient Name: Sharri Vera Date of : 1985 Date of Service: 02/15/2024 Provider at Bedside Date/Time Event User Comments 02/15/24 0136 Provider at Bedside Assessing Patient TOMAS CAMPOS -- Chief Complaint Patient presents with Substance Abuse Meth HISTORY OF PRESENT ILLNESS Patient is a 39-year-old male. Patient presents with possible altered mental status. Per report patient was drinking alcohol tonight. Family was concerned as he was sitting on the couch and less responsive and called EMS. Of note this is the patient's third ED visit in the last 24 hours. He was seen here 24 hours ago with methamphetamine intoxication he was treated and discharged. He then checked back in with hallucinations. Urine drug screen revealed methamphetamines, cocaine, as well as other substances. Patient says he recently purchased what he thought were amphetamines off the Internet and took themyesterday prior to his initial visit. Says he has now thrown them away. Denies any intake other than alcohol. On arrival here he is wearing the same clothes from yesterday and still has EKG stickers on his chest. He denies complaints, does not know why his family wanted him to be evaluated again. Further history is limited REVIEW OF SYSTEMS Review of Systems Unable to perform ROS: Other PAST HISTORY Past Medical History: Past Medical History: Diagnosis Date Bipolar disorder, unspecified ([facility]) Schizophrenia, unspecified ([facility]) Past Surgical History: History reviewed. No pertinent [...] Temp src Pulse Resp SpO2 Height Weight 02/15/24 0625 (!) 173/133 -- -- -- -- 97 % -- -- 02/15/24 0330 (!) 148/116 -- -- -- -- 92 % -- -- 02/15/24 0230 (!) 139/99 -- -- -- -- 93 % -- -- 02/15/24 0200 (!) 151/114 -- -- -- -- 96 % -- -- 02/15/24 0154 (!) 157/122 -- -- -- -- -- -- -- 02/15/24 0126 (!) 189/120 97.4 ??F (36.3 ??C) Temporal (!) 112 17 100 % 1.829 m (6') 99.8 kg (220 lb) Physical Exam Constitutional: Appearance: He is well-developed. He is not toxic-appearing. Comments: Fatigued-appearing, speaking full sentences HENT: Head: Normocephalic and atraumatic. Mouth/Throat: Mouth: [...] person, place, and time. Coordination: Coordination normal. Gait: Gait normal. Psychiatric: Attention and Perception: He does not perceive auditory or visual hallucinations. Mood and Affect: Mood is anxious. Affect is labile. Behavior: Behavior is cooperative. DIAGNOSTIC DATA Labs Results for orders placed or performed during the hospital encounter of 02/15/24 CBC W/DIFF AUTOMATED Result Value Ref Range WBC 5.75 4.4 - 11.0 x10'3/uL RBC 5.06 4.50 - 5.90 x10'6/uL HGB 15.8 14.0 - 17.5 G/DL HCT 47.1 41.5 - 50.4 % MCV 93.1 80.0 - 96.0 FL MCH 31.2 26.5 - 31.4 PG MCHC 33.5 31.9 - 34.8 G/DL RDW 12.7 12.3 - 14.3 % PLT 244 151 - 353 x10'3/uL MPV 10.2 9.7 - 11.9 FL RBC MORPHOLOGY NORMAL PLT MORPH. NORMAL WBC MORPHOLOGY NORMAL LYMPHOCYTES 40.0 15.8 - 45.0 % NEUTROPHILS 48.8 42.1 - 71.9 % MONOCYTES 7.8 5.7 - 12.5 % EOSINOPHILS 2.1 0.0 - 5.6 % BASOPHILS 1.0 0.0 - 1.3 % ABS. NEUTROPHILS 2.80 1.40 - 6.00 x10'3/uL IMMATURE GRANS 0.3 0.0 - 0.5 % ABS. LYMPHOCYTES 2.30 0.80 - 4.70 x10'3/uL COMPREHENSIVE METABOLIC PANEL Result Value Ref Range GLUCOSE 101 (H) 70 - 99 MG/DL BUN 9 7 - 18 MG/DL CREATININE S/P/B 1.04 0.7 - 1.3 MG/DL SODIUM S/P/B 141 136 - 145 MMOL/L POTASSIUM S/P/B 3.4 (L) 3.5 - 5.1 MMOL/L CHLORIDE S/P/B 104 100 - 108 MMOL/L CO2 27.9 21 - 32 MMOL/L CALCIUM S/P/B 8.2 (L) 8.5 - 10.1 MG/DL BILIRUBIN TOTAL S/P/B 1.0 0.2 - 1.2 MG/DL TOTAL PROTEIN S/P/B 6.9 6.4 - 8.2 G/DL ALBUMIN S/P/B 3.4 3.4 - 5.0 G/DL AST 28 15 - 37 U/L ALT 31 16 - 60 U/L ALKALINE PHOSPHATASE S/P/B 105 50 - 136 U/L ANION GAP 9.1 5 - 15 MMOL/L BUN CREATININE RATIO 8.7 6 - 26 A/G RATIO 1.0 1.0 - 2.0 RATIO GFR ESTIMATE >90 >90 ML/MIN/1.73 M2 MAGNESIUM Result Value Ref Range MAGNESIUM 1.8 1.8 - 2.4 MG/DL ETHANOL Result Value Ref Range ALCOHOL S/P/B 0.003 (H) <0.003 G/DL ACETAMINOPHEN Result Value Ref Range ACETAMINOPHEN S/P/B <0.5 (L) 10.0 - 30.0 MCG/ML SALICYLATE Result Value Ref Range SALICYLATES 3.2 2.8 - 20.0 MG/DL If applicable, laboratory results above were independently viewed and interpreted by me. Imaging No orders to display If applicable, imaging results above were independently viewed and interpreted by me. EKG Results for orders placed or performed during the hospital encounter of 02/15/24 [address] [facility] Test Date: 2024-02-15 Pat Name: SHARRI VERA Department: 85 Room: EXAM 505 Gender: Male Bookkeeper Receptionist: : 1985 Requested By: TOMAS CAMPOS Order Number: [id number] Reading MD: Measurements Intervals [place] Rate: 107 P: 29 LA: 136 QRS: -16 QRSD: 110 T: 20 QT: 349 QTc: 466 Interpretive Statements SINUS TACHYCARDIA MODERATE VOLTAGE CRITERIA FOR LVH, CONSIDER NORMAL VARIANT [MEETS CRITERIA IN ONE OF: R(aVL), S(V1), R(V5), R(V5/V6)+S(V1)] ABNORMAL RHYTHM ECG Compared to ECG 02/14/2024 09:39:04 Myocardial infarct finding no longer present If applicable, EKG contemporaneously interpreted by me, and treatment decisions made in real time based on this interpretation. MEDICATIONS GIVEN IN ED Medications sodium chloride 0.9% bolus infusion 1,000 mL (0 mLs Intravenous Infusion Stop Time 02/15/24 0428) LORazepam (ATIVAN) injection 1 mg (1 mg Intravenous Given 02/15/24 014) OLANZapine (ZyPREXA ZYDIS) disintegrating tablet 10 mg (10 mg Oral Given 02/15/24 0149) losartan (COZAAR) tablet 25 mg (25 mg Oral Given 02/15/24 0617) MEDICAL DECISION MAKING MDM Number of Diagnoses or Management Options HTN (hypertension) Substance use disorder Diagnosis management comments: EKG sinus to cardiac, rate 107, no acute ischemia. He is given IV fluids, Ativan, Zyprexa. He is allowed to rest for several hours. Labs reviewed unremarkable. White count normal. Alcohol level negative. He has noted to be hypertensive here is given a dose of oral losartan. He has no evidence of endorgan damage but he is cautioned regarding his hypertension in the setting of sympathomimetic drug use. On reevaluation, the patient is ambulatory in the ED, toleratingPO intake and in no distress. The patient will be discharged. Return precautions are discussed. Additional History Source Other Than Patient: EMS Social Determinants of Health Significantly Impacting Care: Patient with ongoing challenges regarding health management due to: Lack of access to medical care Substance use IMPRESSION AND DISPOSITION CLINICAL IMPRESSION: Clinical Impression Substance use disorder (Primary) HTN (hypertension) Disposition: Discharge Prescriptions: Discharge Medication List as of 02/15/2024 6:30 AM Tomas Campos MD To patients reading [...] these substitutions have occurred. Tomas Campos MD 02/15/24 0638 * Dawson Ricks RN - 02/15/2024 1:25 AM CDT BIBEMS from home, son ststes he founf his unresponsive and called for help, pt has hx of substance abuse last seen at [facility] last night for same complaint documented in this encounter Plan of Treatment Not on file documented as of this encounter Procedures Procedure Name Priority Date/Time Associated Diagnosis Comments ECG 12-LEAD Routine 02/15/2024 1:46 AM CDT COMPREHENSIVE METABOLIC PANEL STAT 02/15/2024 1:39 AM CDT CBC W/DIFF AUTOMATED STAT 02/15/2024 1:39 AM CDT MAGNESIUM STAT 02/15/2024 1:39 AM CDT SALICYLATE STAT 02/15/2024 1:39 AM CDT ETHANOL STAT 02/15/2024 1:39 AM CDT ACETAMINOPHEN STAT 02/15/2024 1:39 AM CDT documented in this encounter Results * ECG 12 lead (02/15/2024 1:46 AM CDT) 02/15/2024 1:46 AM CDT Narrative [facility]) RAD - 02/15/2024 9:28 AM CDT ?[facility] ? Test Date: ?2024-02-15 Pat Name: ? SHARRI JODY ? Department: ?? 85 ? Room: ? EXAM 505 Gender: ? Male ? Bookkeeper Receptionist: ?? : ?1985 ? Requested By: TOMAS CAMPOS Order Number: [id number] ? Reading MD: ?? Anupam Justin ? Measurements Intervals ?[place] ? Rate: ? 107 ?P: ?29 LA: ? 136 ?QRS: ?-16 QRSD: ? 110 ?T: ?20 QT: ? 349 ? QTc: ?466 ? Interpretive Statements SINUS TACHYCARDIA MODERATE VOLTAGE CRITERIA FOR LVH, CONSIDER NORMAL VARIANT ??[MEETS CRITERIA IN ONE OF: R(aVL), S(V1), R(V5), R(V5/V6)+S(V1)] ABNORMAL RHYTHM ECG Compared to ECG 02/14/2024 09:39:04 Myocardial infarct finding no longer present Procedure Note Anupam Justin MD - 02/15/[facility] Test Date: 2024-02-15 Pat Name: SHARRI VERA Department: 85 Room: EXAM 505 Gender: Male Bookkeeper Receptionist: : 1985 Requested By: TOMAS CAMPOS Order Number: [id number] Rl MD: Anupam Justin Measurements Intervals [place] Rate: 107 P: 29 LA: 136 QRS: -16 QRSD: 110 T: 20 QT: 349 QTc: 466 Interpretive Statements SINUS TACHYCARDIA MODERATE VOLTAGE CRITERIA FOR LVH, CONSIDER NORMAL VARIANT [MEETSCRITERIA IN ONE OF: R(aVL), S(V1), R(V5), R(V5/V6)+S(V1)] ABNORMAL RHYTHM ECG Compared to ECG 02/14/2024 09:39:04 Myocardial infarct finding no longer present Tomas Campos MD ECG ORDERABLES Final Resul t Performing Organization Address [facility] Co de Phone Number [facility]) RAD * SALICYLATE (02/15/2024 1:39 AM CDT) SALICYLATES 3.2 2.8 - 20.0 MG/DL 02/15/2024 2:03 AM CDT [facility] Comment: THERAPEUTIC: ?2.8-20.0 Toxic Level: ?>=30 02/15/2024 1:39 AM CDT Tomas Campos MD LABORATORY Final Resul t Performing Organization Address [facility] de Phone Number [facility] [address] [place] [address], [place] [phone] * (ABNORMAL) ACETAMINOPHEN (02/15/2024 1:39 AM CDT) ACETAMINOPHEN S/P/B <0.5(L) 10.0 - 30.0 MCG/ML 02/15/2024 2:42 AM CDT [facility] Comment: ?THERAPEUTIC: 10-30 ?TOXIC: >200 02/15/2024 1:39 AM CDT us Tomas Campos MD LABORATORY Final Resul t Performing Organization Address [facility]/ZIP Co de Phone Number [facility] [address] [place] [address], [place] [phone] * (ABNORMAL) ETHANOL (02/15/2024 1:39 AM CDT) ALCOHOL S/P/B 0.003(H) <0.003 G/DL 02/15/2024 2:42 AM CDT [facility] 02/15/2024 1:39 AM CDT us Tomas Campos MD LABORATORY Final Resul t Performing Organization Address [facility] Co de Phone Number [facility] [address] [place] [address], [place] [phone] * MAGNESIUM (02/15/2024 1:39 AM CDT) MAGNESIUM 1.8 1.8 - 2.4 MG/DL 02/15/2024 2:42 AM CDT [facility] 02/15/2024 1:39 AM CDT us Tomas Campos MD LABORATORY Final Resul t Performing Organization Address [facility]/ZIP Co de Phone Number [facility] [address] [place] [address], [place] [phone] * (ABNORMAL) COMPREHENSIVE METABOLIC PANEL (02/15/2024 1:39 AM CDT) GLUCOSE 101(H) 70 - 99 MG/DL 02/15/2024 2:42 AM CDT [facility] BUN 9 7 - 18 MG/DL 02/15/2024 2:42 AM CDT [facility] CREATININE S/P/B 1.04 0.7 - 1.3 MG/DL 02/15/2024 2:42 AM T [facility] SODIUM S/P/B 141 136 - 145 MMOL/L 02/15/2024 2:42 AM [facility] POTASSIUM S/P/B 3.4(L) 3.5 - 5.1 MMOL/L 02/15/2024 2:42 AM T [facility] CHLORIDE S/P/B 104 100 - 108 MMOL/L 02/15/2024 2:42 AM T [facility] CO2 27.9 21 - 32 MMOL/L 02/15/2024 2:42 AM [facility] CALCIUM S/P/B 8.2(L) 8.5 - 10.1 MG/DL 02/15/2024 2:42 AM [facility] BILIRUBIN TOTAL S/P/B 1.0 0.2 - 1.2 MG/DL 02/15/2024 2:42 AM [facility] TOTAL PROTEIN S/P/B 6.9 6.4 - 8.2 G/DL 02/15/2024 2:42 AM [facility] ALBUMIN S/P/B 3.4 3.4 - 5.0 G/DL 02/15/2024 2:42 AM [facility] AST 28 15 - 37 U/L 02/15/2024 2:42 AM [facility] ALT 31 16 - 60 U/L 02/15/2024 2:42 AM [facility] ALKALINE PHOSPHATASE S/P/B 105 50 - 136 U/L 02/15/2024 2:42 AM [facility] ANION GAP 9.1 5 - 15 MMOL/L 02/15/2024 2:42 AM CDT [facility] BUN CREATININE RATIO 8.7 6 - 26 02/15/2024 2:42 AM CDT [facility] A/G RATIO 1.0 1.0 - 2.0 RATIO 02/15/2024 2:42 AM CDT [facility] GFR ESTIMATE >90 >90 ML/MIN/1.7 3 M2 02/15/2024 2:42 AM CDT [facility] Comment: NOTE: eGFR is not calculated for patients <18 years of age. This is an estimated GFR calculation using the new CKD EPI creatinine equation without race and so does not require a correction factor for race. This estimated GFR should not be used for calculating drug doses. 02/15/2024 1:39 AM CDT Tomas Campos MD LABORATORY Final Resul t [facility] [address] [place] [address], * CBC W/DIFF AUTOMATED (02/15/2024 1:39 AM CDT) WBC 5.75 4.4 - 11.0 x10'3/uL 02/15/2024 1:50 AM CDT [facility] RBC 5.06 4.50 - 5.90 x10'6/uL 02/15/2024 1:50 AM CDT [facility] HGB 15.8 14.0 - 17.5 G/DL 02/15/2024 1:50 AM CDT [facility] HCT 47.1 41.5 - 50.4 % 02/15/2024 1:50 AM CDT [facility] MCV 93.1 80.0 - 96.0 FL 02/15/2024 1:50 AM CDT [facility] MCH 31.2 26.5 - 31.4 PG 02/15/2024 1:50 AM CDT [facility] MCHC 33.5 31.9 - 34.8 G/DL 02/15/2024 1:50 AM CDT [facility] RDW 12.7 12.3 - 14.3 % 02/15/2024 1:50 AM CDT [facility] PLT 244 151 - 353 x10'3/uL 02/15/2024 1:50 AM T [facility] MPV 10.2 9.7 - 11.9 FL 02/15/2024 1:50 AM T [facility] RBC MORPHOLOGY NORMAL 02/15/2024 1:50 AM T [facility] PLT MORPH. NORMAL 02/15/2024 1:50 AM CDT [facility] WBC MORPHOLOGY NORMAL 02/15/2024 1:50 AM T [facility] LYMPHOCYTES % 40.0 15.8 - 45.0 % 02/15/2024 1:50 AM CDT [facility] NEUTROPHILS % 48.8 42.1 - 71.9 % 02/15/2024 1:50 AM CDT [facility] MONOCYTES % 7.8 5.7 - 12.5 % 02/15/2024 1:50 AM T [facility] EOSINOPHILS 2.1 0.0 - 5.6 % 02/15/2024 1:50 AM CDT [facility] BASOPHILS 1.0 0.0 - 1.3 % 02/15/2024 1:50 AM T [facility] ABS. NEUTROPHILS 2.80 1.40 - 6.00 x10'3/uL 02/15/2024 1:50 AM CDT [facility] IMMATURE GRANS % 0.3 0.0 - 0.5 % 02/15/2024 1:50 AM CDT [facility] ABS. LYMPHOCYTES 2.30 0.80 - 4.70 x10'3/uL 02/15/2024 1:50 AM CDT [facility] 02/15/2024 1:39 AM CDT us Tmoas Campos MD LABORATORY Final Resul t [facility] [address] [place] [address], documented in this encounter Visit Diagnoses Diagnosis Substance use disorder- Primary HTN (hypertension) Unspecified essential hypertension documented in this encounter Administered Medications Inactive Administered Medications - up to 3 most recent administrations Medication Order MAR Action Action Date Dose Rate Site LORazepam (ATIVAN) injection 1 mg 1 mg, Intravenous, Once, 1 dose, On Mehreen 02/15/24 at 0145, For IV use, further dilute with an equal volume of saline. Do not exceed a rate of 2 mg/min. Given 02/15/2024 1:49 AM CDT 1 mg losartan (COZAAR) tablet 25 mg 25 mg, Oral, Once, 1 dose, On Mehreen 02/15/24 at 0615 Given 02/15/2024 6:17 AM CDT 25 mg OLANZapine (ZyPREXA ZYDIS) disintegrating tablet 10 mg 10 mg, Oral, Once, 1 dose, On Mehreen 02/15/24 at 0145 Given 02/15/2024 1:49 AM CDT 10 mg sodium chloride 0.9% bolus infusion 1,000 mL 1,000 mL, Intravenous, Administer over 60 Minutes, Once, 1 dose, On Mehreen 02/15/24 at 0145 New Bag 02/15/2024 1:49 AM CDT 1,000 mLs documented in this encounter Active and Recently Administered Medications Times are shown in CDT. Scheduled Medication Order 02/13/2024 02/14/2024 02/15/2024 LORazepam (ATIVAN) injection 1 mg (COMPLETED) 1 mg, Intravenous, Once, 1 dose, On Mehreen 02/15/24 at 0145, For IV use, further dilute with an equal volume of saline. Do not exceed a rate of 2 mg/min. 0149 (Given - Provid er: Dawson Ricks RN) losartan (COZAAR) tablet 25 mg (COMPLETED) 25 mg, Oral, Once, 1 dose, On Mehreen 02/15/24 at 0615 0617 (Given - Provid er: Dawson Ricks RN) OLANZapine (ZyPREXA ZYDIS) disintegrating tablet 10 mg (COMPLETED) 10 mg, Oral, Once, 1 dose, On Mehreen 02/15/24 at 0145 0149 (Given - Provid er: Dawson Ricks RN) sodium chloride 0.9% bolus infusion 1,000 mL (COMPLETED) 1,000 mL, Intravenous, Administer over 60 Minutes, Once, 1 dose, On Mehreen 02/15/24 at 0145 0149 (New Bag - Prov ider: Dawson Ricks RN)0428 (Infusion Stop Time - Provider: Dawson Ricks RN) documented in this encounter Care Teams Custom Tailor Relationship Specialty Start Date End Date Elizabeth Murphy DO PCP - General FAMILY PRACTICE 05/17/21 02/24/24 documented as of this encounter
--- OUTSIDE RECORDS SUMMARY | 2024-11-19 04:25 | XMS_ITS | Encounter Summary ---
Author Organization [facility] Address [facility] [facility] [place], [place] [address] [place] [address] Care Team Providers Care Ranch Supervisor Name Role Phone Casimiro Butterfield MD Primary Care Provider [phone] Encounter Details Date Type Department Care Team (Latest Contact Info) Description 02/25/2024 Travel Social History Tobacco Use Types Packs/Day Years Used Date Smoking Tobacco: Every Day Cigarettes 1 23 Smokeless Tobacco: Never Alcohol Use Standard Drinks/Week Comments Yes 18.3 (1 standard drink = 0.6 oz pure alcohol) couple times a week Sex and Gender Information Value Date Recorded Sex Assigned at Not on file Legal Sex Male 8:59 AM CDT Gender Identity Not on file Sexual Orientation Not on file documented as of this encounter Functional Status * Question Answer Date of Assessment Author Status Do you have serious difficulty walking or climbing stairs? No 02/25/2024 11:06 PM SAURABHT Melony Ortiz RN Active * Question Answer Date of Assessment Author Status Do you have difficulty dressing or bathing? No 02/25/2024 11:06 PM SAURABHT Shelton Ortiz RN Active Because of a physical, mental, or emotional condition, do you have difficulty doing errands alone such as visiting a doctor's office or shopping? No 02/25/2024 11:06 PM Melony Page RN Active * Are you deaf or do you have serious difficulty hearing Answer Date of Assessment Author Status No 02/25/2024 3:59 PM SAURABHT Torie Alex RN Active * Are you blind or do you have serious difficulty seeing, even when wearing glasses? Answer Date of Assessment Author Status No 02/25/2024 3:59 PM CDT Torie Alex RN Active * Do you have serious difficulty walking or climbing stairs? Answer Date of Assessment Author Status No 02/25/2024 3:59 PM CDT Torie Alex RN Active * Do you have difficulty dressing or bathing? Answer Date of Assessment Author Status No 02/25/2024 3:59 PM CDT Torie Alex RN Active * Because of a physical, mental, or emotional condition, do you have difficulty doing errands alone such as visiting a doctor's office or shopping? Answer Date of Assessment Author Status No 02/25/2024 3:59 PM CDT Torie Alex RN Active documented as of this encounter Mental Status * Question Answer Entry Date Author Status Because of a physical, mental, or emotional condition, do you have serious difficulty concentrating, remembering, or making decisions? No 02/25/2024 11:06 PM CDT Anabel Ortiz RN Active * Because of a physical, mental, or emotional condition, do you have serious difficulty concentrating, remembering, or making decisions? Answer Entry Date Author Status No 02/25/2024 3:59 PM CDT Torie Alex RN Active documented in this encounter Plan of Treatment Not on file documented as of this encounter Visit Diagnoses Not on filedocumented in this encounter Additional Health Concerns Infection Onset Date Last Indicated Resolved Time COVID-19 Rule Out 02/25/2024 02/25/2024 02/25/2024 7:24 PM CDT documented as of this encounter Care Teams Ranch Supervisor Relationship Specialty Start Date End Date Casimiro Butterfield MD [address] [address] PCP - General INTERNAL MEDICINE 02/25/24 documented as of this encounter
--- OUTSIDE RECORDS SUMMARY | 2024-11-19 04:25 | XMS_ITS | Encounter Summary ---
Author Organization [facility] Address [id number] [place], [place] [id number] [place] [id number] Care Team Providers Care Sight Effects Specialist Name Role Phone Casimiro Butterfield MD Primary Care Provider [phone] Reason for Referral * Imaging (Urgent) - New Request Specialty Diagnoses / Procedures Referred By Contac t Referred To Contact RADIOLOGY Procedures USV SAMI DUPLEX LOW EXT BIN Bob Campos MD [address] [facility] [place] [address] Phone: tel: fax: Referral ID Status Reason Start Date Expiration Date V isits Requested Visits Authorized [id number] New Request 02/26/2024 02/25/2025 1 1 * Imaging (Urgent) - New Request Specialty Diagnoses / Procedures Referred By Contac t Referred To Contact RADIOLOGY Procedures USE ECHOCARDIOGRAM Bob Campos MD [address] [facility] [place] [address] Phone: tel: fax: Referral ID Status Reason Start Date Expiration Date V isits Requested Visits Authorized [id number] New Request 02/26/2024 02/25/2025 1 1 Reason for Visit * Reason Comments Medical Problem * Auth/Cert (Routine) Specialty Diagnoses / Procedures Referred By Contac t Referred To Contact Diagnoses Cellulitis Sepsis ([facility]) Procedures N/[place] [address] Phone: tel: [phone] fax: Referral ID Status Reason Start Date Expiration Date Visits Re quested Visits Authorized [id number] 1 1 Encounter Details Date Type Department Care Team (Late st Contact Info) Description 02/25/2024 10:35 AM CDT - 02/28/2024 1:09 PM CDT Hospital Encounter [facility] Med/Surg [address] [place] [address] Lesia Romano MD [address] [address] Gavino Diehl MD [place], [place] [id number] [phone] (Work) Pearl Urbina APRN [place], [place] [address] Medical Problem Discharge Disposition: Home or Self Care (Routine Discharge) Social History Tobacco Use Types Packs/Day Years Used Date Smoking Tobacco: Every Day Cigarettes 1 23 Smokeless Tobacco: Never Alcohol Use Standard Drinks/Week Comments Yes 18.3 (1 standard drink = 0.6 oz pure alcohol) couple times a week [facility] Utilities Answer Date Recorded In the past 12 months has [facility] [employer], oil, or water [employer] threatened to shut off services in your [...] any time in the past 12 m [facility], were you homeless or living in a prison (including now)? No 02/27/2024 Sex and Gender [...] Mass Index 34.47 02/25/2024 10:43 AM CDT documented in this encounter Functional Status * Question Answer Date of Assessment Author Status Do you have serious difficulty walking or climbing stairs? No 02/25/2024 11:06 PM Melony Page RN Active * Question Answer Date of Assessment Author Status Do you have difficulty dressing or bathing? No 02/25/2024 11:06 PM Shelton Page RN Active Because of a physical, mental, or emotional condition, do you have difficulty doing errands alone such as visiting a doctor's office or shopping? No 02/25/2024 11:06 PM Melony Page RN Active * Are you deaf or do you have serious difficulty hearing Answer Date of Assessment Author Status No 02/25/2024 11:06 PM Alecia Page RN Active * Are you blind or do you have serious difficulty seeing, even when wearing glasses? Answer Date of Assessment Author Status No 02/25/2024 11:06 PM Alecia Page RN Active * Do you have serious difficulty walking or climbing stairs? Answer Date of Assessment Author Status No 02/25/2024 11:06 PM Alecia Page RN Active * Do you have difficulty dressing or bathing? Answer Date of Assessment Author Status No 02/25/2024 11:06 PM Alecia Page RN Active * Because of a physical, mental, or emotional condition, do you have difficulty doing errands alone such as visiting a doctor's office or shopping? Answer Date of Assessment Author Status No 02/25/2024 11:06 PM Alecia Page RN Active documented as of this encounter Mental Status * Question Answer Entry Date Author Status Because of a physical, mental, or emotional condition, do you have serious difficulty concentrating, remembering, or making decisions? No 02/25/2024 11:06 PM Anabel Page RN Active * Because of a physical, mental, or emotional condition, do you have serious difficulty concentrating, remembering, or making decisions? Answer Entry Date Author Status No 02/25/2024 11:06 PM CDT Alecia Ortiz RN Active documented in this encounter Discharge Summaries * Pearl Urbina APRN - 02/28/2024 10:26 AM CDT Images from the original note were not included. Hospitalist Discharge Summary Patient ID: Sharri Vera II. male. 1985. Admit date: 02/25/2024 10:35 AM Discharge date and time: 02/28/24 Admitting Provider: Gavino Diehl MD Attending Provider: Pearl Urbina APRN Primary Care Provider: CASIMIRO BUTTERFIELD MD Hospital Diagnosis: Principal Problem: Cellulitis SNOMED CT(R): CELLULITIS Indication for Admission: Chief Complaint Patient presents with Medical Problem Hospital Course: Per H&P, Sharri Vera II is a 39-year-old male with past medical history significant for bipolar disorder and schizophrenia that presented to the ER with leg redness. He had some leg burning last night, when he pulled up his pant leg he saw that both legs were reddened. He has also noticed 3 reddened lesions on the center of his chest. He endorses associated leg pain and fatigue. He also has sore throat, tongue, bilateral jaw, ears and teeth. He denies any shortness of breath or fevers, but has alternated between being hot and cold. He denies any new products, trauma to his legs or bug bites. No sick contacts. Also of note, he was in the ER 3x on 02/13-02/14 after having a reaction to, what he claims, was a pre-workout from a friend. His UDS at that time was +for amphetamines, benzodiazepines, buprenorphine (which he is prescribed), cannabinoids, cocaine, and methamphetamines. A UDS was repeated today and somewhat similar to previous UDS, but no longer with benzodiazepines or cannabinoids or anything new. He denies any recent drug use. Now medically stable for discharge. See below for details on course of hospitalization. Sepsis Present in ER with tachycardia and leukocytosis. Source cellulitis Antibiotic treatment as below Blood cultures NGTD. MRSA negative Rapid strep and covid neg Lactate 1.8 PCT elevated, now trended to normal Received 1L fluid bolus. Improved with IVF, now dc'd. Appears to have viral component as well vs allergic reaction. Would appreciate ID consultation. Recommendations appreciated. Cellulitis vs viral etiology vs rash/reaction Bilateral legs and to center of chest. Treating with Rocephin (02/24 - 02/27) Trend CRP, peaked 18.4, trended down to 6.9. ID consulted as above. Rickettsia, vasculitis panel, RAVIN, DNA AB, HIV RNA pending HIV rapid, hep C, syphilis, Chlam/GD/tric (preliminary) negative Vancomycin (02/25 - ) added, pending clinical work-up PO Doxycycline (02/25 - 03/03) added for atypical infections Echocardiogram EF 60-65% Trace MR and TR Venous duplex ordered negative for acute DVT Will discharge on PO doxy and Keflex x7 days. Hypertensive urgency BP 179/108 in ER Has been elevated during previous ER visits Start amlodipine, dose increased EKG SA/ST-->improved with labetalol. Will start metoprolol. PRN IV hydralazine Improving. Thrush Nystatin swish and swallow Hyperbilirubinemia, transaminitis Bili 2.1 ALP 168 AST 45 Denies abdominal pain. Suspect reactive to infection Continue to monitor. Consider further w/u if worsens or develops symptoms Bili and ALP normalized. Mildly elevated AST. F/u with PCP Hyponatremia, hypokalemia-resolved Replete and monitor. Concern for polysubstance abuse UDS +amphetamines, methamphetamines, and cocaine metabolites Similar to previous UDS on 02/13 Denies any recent or illicit drug use, claims he took a pre-workout supplement and didn't know whatwas in it. Patient counseled on need for moderation of alcohol use vs complete cessation. Claims to use only occasionally throughout the week, but appears to be withdrawing (tremors, hallucinations, diaphoretic) CIWA protocol-->did not require any medication MVI/thiamine/folate CM consulted for resources Bipolar disorder, schizophrenia Now reporting auditory hallucinations. Acute flare of schizophrenia vs substance withdrawal vs acute infection. Monitor closely. May require 1:1 Continue home meds. CIWA protocol as above. Hallucinations resolved Other chronic conditions which adds to complexity of care: smoker. Continue home medications unlessotherwise indicated. Discharge Exam: Filed Vitals: 02/27/24 2338 02/27/24 2344 02/28/24 0413 02/28/24 0800 BP: (!) 141/93 (!) 145/99 (!) 151/99 Pulse: 75 91 88 Resp: 20 20 20 Temp: 97.2 ??F (36.2 ??C) 98.2 ??F (36.8 ??C) 98.2 ??F (36.8 ??C) TempSrc: Temporal Temporal Temporal SpO2: 96% 95% 93% Weight: 115.3 kg (254 lb 3.1 oz) Height: Physical Exam: GEN: Much improved appearance, nontoxic. Breathing comfortably on room air. HEENT: Clear conjunctiva. Mucous membranes moist. RESPIRATORY: Effort normal. CTA, no wheezes or crackles. CVS: RRR, no MRG. ABD: Less distended, Nontender. EXT: Trace BLE edema, left slightly worse than right SKIN: Warm, dry. Circumferential erythema bilateral lower extremities continues to improve now centralized to mid calf with more faint erythema-receding from marked margins. 3 circular lesions with surrounding erythema to center of chest. No drainage PSYCH: Appropriate affect NEURO: Alert and oriented. Tremors resolved Significant Diagnostic Studies: Recent Labs Lab 02/25/24 1045 02/26/24 0526 02/27/24 0534 02/28/24 0546 WBC 16.16* 9.45 8.31 8.19 RBC 5.53 5.51 5.08 4.90 HGB 17.2 17.1 15.7 15.0 HCT 50.4 51.3* 48.0 46.3 MCV 91.1 93.1 94.5 94.5 MCH 31.1 31.0 30.9 30.6 MCHC 34.1 33.3 32.7 32.4 PLT 213 188 216 242 RDW 13.1 13.2 13.3 13.4 MPV 10.2 10.6 10.2 9.7 PERNEU 76.7* 65.7 60.1 58.8 PERLYM 12.9* 20.7 26.7 28.7 PERMON 8.7 9.1 7.3 8.4 NEUC 12.38* 6.20* 4.99 4.81 LYMC 2.08 1.96 2.22 2.35 Recent Labs Lab 02/25/24 1045 02/26/24 0526 02/27/24 0534 02/28/24 0546 NA 133* 143 141 143 K 3.6 3.3* 3.8 3.9 CL 95* 102 104 105 CO2 28.0 31.0 28.1 32.4* AGAP 10.0 10.0 8.9 5.6 BUN 5* 7 6* 5* CR 0.97 0.82 0.86 1.02 BUNCREATININ 5.2* 8.5 7.0 4.9* GLU 150* 96 98 104* CA 8.2* 8.4* 8.1* 8.2* TP 7.5 6.6 5.9* 6.0* ALB 3.1* 3.0* 2.6* 2.5* TBIL 2.1* 1.3* 1.0 0.7 ALKP 168* 158* 131 126 AST 45* 27 29 38* ALT 36 36 37 36 No results for input(s): CHOL , TRI , HDL , LDL , HGBA1C , TSH in the last 168 hours. No results for input(s): APTT , INR , PTT in the last 168 hours. No results for input(s): TROP , TROPIWB , CKMB , CPK in the last 168 hours. Recent Labs Lab 02/25/24 1045 02/26/24 1805 02/27/24 0534 02/28/24 0546 LACTICACID 1.8 -- -- -- PROCT -- 0.42* 0.26* 0.12 No results for input(s): PH , PCO2 , PO2 , I2JRWICVYAHJ , BICARBWB , BASEDEFICIT , BASEEXCESS in the last 168 hours. Results for orders placed or performed during the hospital encounter of 02/25/24 URINALYSIS, AUTO, COMPLETE Result Value Ref Range COLOR (U) YELLOW TRANSPARENCY CLEAR SPECIFIC GRAVITY (U) <1.005 1.000 - 1.030 U PH 6.5 5.0 - 9.0 LEUKOCYTES (U) NEGATIVE NEGATIVE NITRITES NEGATIVE NEGATIVE PROTEIN RANDOM (U) NEGATIVE NEGATIVE GLUCOSE (U) NEGATIVE NEGATIVE KETONES (U) NEGATIVE NEGATIVE BILIRUBIN (U) NEGATIVE NEGATIVE BLOOD (U) TRACE (A) NEGATIVE WBC/HPF NONE SEEN 0 - 5 /HPF RBC/HPF NONE SEEN 0 - 5 /HPF EPI/HPF RARE /HPF CULTURE & SENSITIVITY INDICATED? CULTURE IS NOT INDICATED Radiology Reports : See official reports for full details Venous duplex 02/27/24 Standard grayscale and Doppler evaluation of the bilateral lower extremities is performed. Deep veins of the bilateral lower extremities demonstrate normal patency with no intraluminal filling defectand normal compressibility. There is normal directional color Doppler flow and venous waveforms. There is positive response to augmentation. Surrounding soft tissues are grossly unremarkable. IMPRESSION: No evidence for deep venous thrombosis in either lower extremity Echocardiogram 02/27/24 The left ventricular size is normal. There is mild left ventricular hypertrophy. The left ventricular systolic function is normal. Estimated left ventricular ejection fraction is 60-65%. Left ventricular diastolic function is normal. The right ventricle size is normal. The right ventricular function is normal. Left atrial size is normal. The right atrial size is normal. Unable to reliably quantitate pulmonary systolic pressure. There is trace mitral regurgitation. There is trace tricuspid regurgitation. 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: : 1985 Requested By: PEARL URBINA Order Number: [id number] Reading MD: Anupam Justin Measurements Intervals Browns Rate: 91 P: 47 MT: 157 QRS: -21 QRSD: 110 T: 5 QT: 334 QTc: 413 Interpretive Statements SINUS RHYTHM WITH SINUS ARRHYTHMIA MODERATE VOLTAGE CRITERIA FOR LVH, CONSIDER NORMAL VARIANT [MEETS CRITERIA IN ONE OF: R(aVL), S(V1), R(V5), R(V5/V6)+S(V1)] INFERIOR MYOCARDIAL INFARCTION , PROBABLY OLD [40+ ms Q WAVE AND/OR ST/T ABNORMALITY IN II/aVF] Compared to ECG 02/15/2024 01:46:39 Myocardial infarct finding now present Sinus tachycardia no longer present Pending results: Rickettsia, vasculitis panel, RAVIN, DNA AB, HIV RNA pending Discharge condition: Improved, good Discharge Medications: Medication List START taking these medications Morning Afternoon Evening Bedtime As Needed amLODIPine 10 MG tablet Commonly known as: NORVASC Start taking on: February 29, 2024 Take 1 tablet (10 mg total) by mouth daily. Last time this was given: 10 mg on February 28, 2024 8:36 AM Signed by: Pearl Urbina Last time this was given: February 28, 2024 8:36 AM cephALEXin 500 MG capsule Commonly known as: KEFLEX Take 1 capsule (500 mg total) by mouth 3 (three) times daily for 4 days. Signed by: Pearl Urbina doxycycline hyclate 100 MG tablet Commonly known as: VIBRA-TABS Take 1 tablet (100 mg total) by mouth every 12 (twelve) hours for 4 days. Last time this was given: 100 mg on February 28, 2024 8:36 AM Signed by: Pearl Urbina Last time this was given: February 28, 2024 8:36 AM metoprolol tartrate 50 MG tablet Commonly known as: LOPRESSOR Take 1 tablet (50 mg total) by mouth 2 (two) times daily. Last time this was given: 50 mg on February 28, 2024 8:37 AM Signed by: Pearl Urbina Last time this was given: February 28, 2024 8:37 AM nystatin [id number] UNIT/ML suspension Commonly known as: MYCOSTATIN Take 5 mLs by mouth 4 (four) times daily for 7 days. Last time this was given: 5 mLs on February 28, 2024 8:36 AM Signed by: Pearl Urbina Last time this was given: February 28, 2024 8:36 AM CONTINUE taking these medications Morning Afternoon Evening Bedtime As Needed rnighda-zwuhjopaocbge-afqtijpv 250-250-65 MG tablet Commonly known as: EXCEDRIN MIGRAINE Take 1 tablet by mouth every 6 (six) hours as needed (headaches). buprenorphine-naloxone 8-2 MG Film Commonly known as: SUBOXONE Place 1 Film under the tongue daily. Last time this was given: 1 Film on February 28, 2024 8:44 AM Last time this was given: February 28, 2024 8:44 AM busPIRone 15 MG tablet Commonly known as: BUSPAR Take 1 tablet (15 mg total) by mouth 2 (two) times a day. Last time this was given: 15 mg on February 28, 2024 8:36 AM Last time this was given: February 28, 2024 8:36 AM DULoxetine 60 MG capsule Commonly known as: CYMBALTA Take 1 capsule (60 mg total) by mouth daily. Last time this was given: 60 mg on February 28, 2024 8:37 AM Last time this was given: February 28, 2024 8:37 AM gabapentin 600 MG tablet Commonly known as: NEURONTIN Take 1 tablet (600 mg total) by mouth 2 (two) times daily. Last time this was given: Ask your nurse or doctor Last time this was given: Ask your nurse or doctor OLANZapine 15 MG tablet Commonly known as: ZyPREXA Take 1 tablet (15 mg total) by mouth nightly at bedtime. Last time this was given: Ask your nurse or doctor Last time this was given: Ask your nurse or doctor omeprazole 40 MG capsule Commonly known as: PriLOSEC Take 1 capsule (40 mg total) by mouth daily. testosterone cypionate 200 MG/ML injection Commonly known as: DEPO TESTOSTERONE Inject 1 mL (200 mg total) into the muscle every 14 (fourteen) days. STOP taking these medications tadalafil 10 MG tablet Commonly known as: CIALIS Follow up with PCP Disposition: Home Discharge diet: The patient is asked to make an attempt to improve diet and exercise patterns to aid in medical management of this problem. Patient instructions: General instructions regarding cellulitis, checking her blood pressure at home, high blood pressure, amlodipine, metoprolol, cephalexin, doxycycline, substance misuse treatment,quitting smoking, and nystatin printed and provided to patient at time of discharge. Code Status: Full Code Time Spent on Discharge >30 minutes Signed: PEARL URBINA APRN This note was dictated with [employer] medical dictation software; misspellings, punctuation errors, omitted words or dictation variances may occur. Cosigned by Oswaldo Shen MD at 02/28/2024 7:41 PM CDT documented in this encounter Discharge Instructions * Attachments The following attachments cannot be sent through Care Everywhere. * Cellulitis (Skin Infection) Discharge Instructions, Adult (Bruneian) * Checking your blood pressure at home ([place]uneian) * High Blood Pressure Discharge Instructions ([place]uneian) * Amlodipine, ADULT ([place]ian) * Metoprolol, ADULT ([place]) * Cephalexin, ADULT ([place]) * Doxycycline, ADULT ([place]ian) * Substance Misuse Treatment ([place]ian) * Quitting smoking ([place]ian) * Nystatin (Oral), ADULT ([place]ian) documented in this encounter Medications at Time of Discharge amLODIPine (NORVASC) 10 MG tablet Take 1 tablet (10 mg total) by mouth daily. 30 tablet 02/29/2024 aspirin-acetamino phen-caffeine (EXCEDRIN MIGRAINE) 250-250-65 MG tablet Take 1 tablet by mouth every 6 (six) hours as needed (headaches). buprenorphine-nal oxone (SUBOXONE) 8-[address] 1 Film under the tongue daily. 01/10/2024 busPIRone (BUSPAR) 15 MG tablet Take 1 tablet (15 mg total) by mouth 2 (two) times a day. DULoxetine (CYMBALTA) 60 MG capsule Take 1 capsule (60 mg total) by mouth daily. gabapentin (NEURONTIN) 600 MG tablet Take 1 tablet (600 mg total) by mouth 2 (two) times daily. metoprolol tartrate (LOPRESSOR) 50 MG tablet Take 1 tablet (50 mg total) by mouth 2 (two) times daily. 60 tablet 02/28/2024 OLANZapine (ZYPREXA) 15 MG tablet Take 1 tablet (15 mg total) by mouth nightly at bedtime. omeprazole (PRILOSEC) 40 MG capsule Take 1 capsule (40 mg total) by mouth daily. testosterone cypionate (DEPO TESTOSTERONE) 200 MG/ML injection Inject 1 mL (200 mg total) into the muscle every 14 (fourteen) days. 01/15/2024 cephALEXin (KEFLEX) 500 MG capsule Take 1 capsule (500 mg total) by mouth 3 (three) times daily for 4 days. 12 capsule 02/28/2024 03/03/2024 doxycycline hyclate (VIBRA-TABS) 100 MG tablet Take 1 tablet (100 mg total) by mouth every 12 (twelve) hours for 4 days. 8 tablet 02/28/2024 03/03/2024 nystatin (MYCOSTATIN) [id number] UNIT/ML suspension Take 5 mLs by mouth 4 (four) times daily for 7 days. 140 mL 02/28/2024 03/06/2024 documented as of this encounter Progress Notes * Rhiannon Castillo RN - 02/28/2024 12:51 PM CDT RNCM spoke with pt at bedside who denies concerns with dc. Pt states no home health or dme needed at this time. Pt states family will transport home at this date. No further RNCM needs at this time. 02/28/24 1251 Discharge Planning Living Arrangements Children Support Systems Children Type of Residence Private residence Assistance Needed No Patient expects to be discharged to: Home or Self care no new needs IV Infusion at discharge No DME Needed at Discharge No * Rhiannon Castillo RN - 02/28/2024 12:51 PM CDT 02/28/24 1238 Forms Reinforcement Important Message from Medicare (Subsequent IMM) Reinforcement IMM not applicable Reason Reinforcement IM is NA (not medicare) * Anabel Ortiz RN - 02/28/2024 10:19 AM CDT Problem: Pain Goal: Patient's pain/discomfort is manageable Description: Assess and monitor patient's pain using appropriate pain scale. Collaborate with interdisciplinary team and initiate plan and interventions as ordered. Re-assess patient's pain level 30 - 60 minutes after pain management intervention. 02/28/2024 1019 by Anabel Ortiz RN Outcome: Progressing 02/28/2024 1019 by Anabel Ortiz RN Outcome: Progressing Problem: Safety Goal: Patient will be injury free during hospitalization Description: Assess and monitor vitals signs, neurological status including level of consciousness and orientation. Assess patient's risk for falls and implement fall prevention plan of care and interventions per hospital policy. Ensure arm band on, uncluttered walking paths in room, adequate room lighting, call light and overbed table within reach, bed in low position, wheels locked, side rails up per policy, and non-skid footwear provided. 02/28/2024 1019 by Anabel Ortiz RN Outcome: Progressing 02/28/20241018 by Anabel Ortiz RN Outcome: Progressing Problem: Daily Care Goal: Daily care needs are met Description: Assess and monitor ability to perform self care and identify potential discharge needs. 02/28/20241018 by Anabel Ortiz RN Outcome: Progressing 02/28/20241018 by Anabel Ortiz RN Outcome: Progressing Problem: Psychosocial Needs Goal: Demonstrates ability to cope with hospitalization/illness Description: Assess and monitor patients ability to cope with his/her illness. 02/28/20241018 by Anabel Ortiz RN Outcome: Progressing 02/28/20241018 by Anabel Ortiz RN Outcome: Progressing Problem: Discharge Barriers Goal: Patient's discharge needs are met Description: Collaborate with interdisciplinary team and initiate plans and interventions as needed. 02/28/20241018 by Anabel Ortiz RN Outcome: Progressing 02/28/20241018 by Anabel Ortiz RN Outcome: Progressing Problem: Anxiety Goal: Alleviation of anxiety 02/28/20241018 by Anabel Ortiz RN Outcome: Progressing 02/28/20241018 by Anabel Ortiz RN Outcome: Progressing Problem: Venous Thromboembolism - Risk of Goal: Absence of venous thromboembolism 02/28/20241018 by Anabel Ortiz RN Outcome: Progressing 02/28/20241018 by Anabel Ortiz RN Outcome: Progressing Problem: Reduced risk for falls/injury Goal: Reduced Risk for Falls/Injury 02/28/20241018 by Anabel Ortiz RN Outcome: Progressing 02/28/20241018 by Anabel Ortiz RN Outcome: Progressing Goal: Reduced Risk of Confusion (Acute vs Chronic) 02/28/20241018 by Anabel Ortiz RN Outcome: Progressing 02/28/20241018 by Anabel Ortiz RN Outcome: Progressing Goal: Reduced Risk of Symptomatic Depression 02/28/20241018 by Anabel Ortiz RN Outcome: Progressing 02/28/20241018 by Anabel Ortiz RN Outcome: Progressing Goal: Reduced Risk of Altered Elimination 02/28/2024 1019 by Anabel Ortiz RN Outcome: Progressing 02/28/2024 1019 by Anabel Ortiz RN Outcome: Progressing Goal: Reduced Risk of Dizziness/Vertigo/Balance 02/28/2024 1019 by Anabel Ortiz RN Outcome: Progressing 02/28/2024 1019 by Anabel Ortiz RN Outcome: Progressing Goal: Reduced Risk of Polypharmacy 02/28/2024 1019 by Anabel Ortiz RN Outcome: Progressing 02/28/2024 1019 by Anabel Ortiz RN Outcome: Progressing * Zaynab Kitchen, PharmD - 02/28/2024 7:26 AM CDT Vancomycin Pharmacy to Dose Progress Note Day 3 of therapy with stop date TBD. Sharri Vera II is a 39-year-old male for which pharmacy has been consulted to dose vancomycin for the treatment of Skin/Soft Tissue Infection . Other antibiotics ordered include ceftriaxone (started 02/24). Actual HT/WT: Height: 1.829 m (6') Weight: 115.3 kg (254 lb 3.1 oz) BMI: Body mass index is 34.47 kg/m??. Recent labs and vitals: WBC: Lab Results Component Value Date/Time WBC 8.19 02/28/2024 05:46 AM WBC 8.31 02/27/2024 05:34 AM WBC 9.45 02/26/2024 05:26 AM WBC 16.16 (H) 02/25/2024 10:45 AM WBC 5.75 02/15/2024 01:39 AM SCr: Lab Results Component Value Date/Time CR 1.02 02/28/2024 05:46 AM CR 0.86 02/27/2024 05:34 AM CR 0.82 02/26/2024 05:26 AM CR 0.97 02/25/2024 10:45 AM CR 1.04 02/15/2024 01:39 AM CrCl: estimated creatinine clearance is 128.8 mL/min (by C-G formula based on SCr of 1.02 mg/dL). Tmax: Temp Av.7 ??F (36.5 ??C) Min: 97.2 ??F (36.2 ??C) Max: 98.5 ??F (36.9 ??C) Vancomycin: Lab Results Component Value Date VANCR 13.7 02/28/2024 Pertinent Cultures: Date Drawn Site Organism Pertinent Sensitivity 02/24 Blood x 2 No growth x 3 days 02/25 MRSA Nasal No MRSA Isolated Vancomycin Levels: Date Time Level AUC Level is Therapeutic/Sub/Supra/Pending Current Dose Regimen 02/28/24 0546 13.7 653 Supratherapeutic 1750 mg q12h Plan: Adjust dosing to vancomycin 1250 mg IV every 12 hours. This is predicted to result in an estimated trough 13.8 mcg/ml and estimated AUC 474 mg/L.hr (goal AUC 400-600mg/L.hr). The next level is scheduled 412 AM. Pharmacy will follow cultures, clinical status, levels, and adjust as clinically appropriate. Thank you for the consult. ZAYNAB KITCHEN, PharmD 02/28/2024 7:26 AM * Rylie Parekh RN - 02/27/2024 10:54 PM CDT Patient progressing towards discharge goals * Rhiannon Castillo RN - 02/27/2024 1:20 PM CDT 02/27/24 2819 Interdisciplinary Group Conference Team Members Present Physician;Case/Care management;Nursing;PT/OT;Pharmacy;Physician Advisor Physician present for group conference Pearl Urbina APRN Barriers to Discharge Barriers Test Pending;No Barrier- Medical Milestone in Process Test Pending follow up awaiting duplex and echo Other follow up (Comment) possible dc tomorrow Patient expects to be discharged to: Home or Self care no new needs * Zaynab Kitchen, PharmD - 02/27/2024 8:21 AM CDT Vancomycin Pharmacy to Dose Progress Note Day 2 of therapy with stop date TBD. Shrari Vera II is a 39-year-old male for which pharmacy has been consulted to dose vancomycin for the treatment of Skin/Soft Tissue Infection . Other antibiotics ordered include ceftriaxone (started 02/24). Actual HT/WT: Height: 1.829 m (6') Weight: 114.7 kg (252 lb 13.9 oz) BMI: Body mass index is 34.29 kg/m??. Recent labs and vitals: WBC: Lab Results Component Value Date/Time WBC 8.31 02/27/2024 05:34 AM WBC 9.45 02/26/2024 05:26 AM WBC 16.16 (H) 02/25/2024 10:45 AM WBC 5.75 02/15/2024 01:39 AM WBC 8.16 02/14/2024 09:52 AM SCr: Lab Results Component Value Date/Time CR 0.86 02/27/2024 05:34 AM CR 0.82 02/26/2024 05:26 AM CR 0.97 02/25/2024 10:45 AM CR 1.04 02/15/2024 01:39 AM CR 1.05 02/14/2024 09:52 AM CrCl: estimated creatinine clearance is 152.2 mL/min (by C-G formula based on SCr of 0.86 mg/dL). Tmax: Temp Av.5 ??F (36.4 ??C) Min: 96.4 ??F (35.8 ??C) Max: 98.5 ??F (36.9 ??C) Vancomycin: No results found for: VANCR Pertinent Cultures: Date Drawn Site Organism Pertinent Sensitivity 02/24 Blood x 2 No growth x 2 days 02/25 MRSA Nasal In process Plan: Continue vancomycin 1750 mg IV every 12 hours. This is predicted to result in an estimated trough 12.9 mcg/ml and estimated AUC 494 mg/L.hr (goal AUC 400- 600mg/L.hr). The next level is scheduled 4/10 AM. Pharmacy will follow cultures, clinical status, levels, and adjust as clinically appropriate. Thank you for the consult. ZAYNAB KITCHEN PharmD 02/27/2024 8:22 AM * Pearl Urbina APRN - 02/27/2024 8:19 AM CDT Hospitalist Progress Note Sharri Vera II is a 39-year-old male patient. Subjective: He is resting in bed. He is having a headache and feels shaky and sweaty. He was having some auditory hallucinations yesterday evening, but none currently. His legs are still burning, but redness andswelling improving. He has not had a BM yet. He says he normally doesn't go everyday. Current Facility-Administered Medications Medication Dose Route Frequency Provider Last Rate Last Admin acetaminophen (TYLENOL) tablet 650 mg 650 mg Oral Q4H PRN Pearl Urbina APRN 650 mg at 02/27/24 0804 amLODIPine (NORVASC) tablet 10 mg 10 mg Oral Daily Pearl Urbina APRN 10 mg at 02/27/24 0805 npfpmck-ggynexqkzzyhl-eycyidwq (EXCEDRIN MIGRAINE) 250-250-65 MG tablet 1 tablet 1 tablet Oral Q6H PRN Pearl Urbina APRN benzocaine-menthol (CEPACOL) 15-3.6 MG lozenge 1 lozenge 1 lozenge Mouth/Throat PRN Gavino Diehl MD 1 lozenge at 02/25/24 184 buprenorphine-naloxone (SUBOXONE) 8-2 MG film 1 Film 1 Film Sublingual Daily Pearl Urbina APRN 1 Film at 02/26/24 0901 busPIRone (BUSPAR) tablet 15 mg 15 mg Oral BID Pearl Urbina APRN 15 mg at 02/27/24 0805 cefTRIAXone (ROCEPHIN) 1 g in sterile water 10 mL IV 1 g Intravenous Q24H Pearl Urbina APRN 1 g at02/26/24 1230 diphenhydrAMINE (BENADRYL) capsule 25 mg 25 mg Oral Q6H PRN Jerome Lazcano MD 25 mg at 02/25/242011 diphenhydrAMINE-zinc (ANTI-ITCH) 2-0.1 % cream Topical PRN Jerome Lazcano MD DULoxetine (CYMBALTA) capsule 60 mg 60 mg Oral Daily Gavino Diehl MD 60 mg at 02/27/24 08 enoxaparin (LOVENOX) 40 MG/0.4ML syringe 40 mg 40 mg Subcutaneous Nightly (enoxaparin) [facility] , [employer] 40 mg at 02/26/242011 gabapentin (NEURONTIN) capsule 600 mg 600 mg Oral BID , [employer] 600 mg at 02/27/24 08 haloperidol lactate (HALDOL) injection 5 mg 5 mg Intravenous Q6H PRN [facility] , [employer] hydrALAZINE (APRESOLINE) injection 10 mg 10 mg Intravenous Q6H PRN [facility] , [employer] 10 mg at 02/27/24 0547 hydrOXYzine (ATARAX) tablet 25 mg 25 mg Oral TID PRN Jerome Lazcano MD 25 mg at 02/25/247 ibuprofen (MOTRIN) tablet 600 mg 600 mg Oral Q6H PRN [facility] , [employer] labetalol (TRANDATE) injection 20 mg 20 mg Intravenous Once [facility] , [employer] naLOXone (NARCAN) injection 0.4 mg 0.4 mg Intravenous PRN [facility] , [employer] nicotine (NICODERM CQ) 21 MG/24HR patch 21 mg 1 patch Transdermal Q24H [facility] , [employer] 21 mg at 02/26/24 1521 nystatin (MYCOSTATIN) [id number] UNIT/ML suspension 5 mL 5 mL Oral 4x Daily , [employer] 5 mL at 02/27/24 0805 OLANZapine (ZyPREXA ZYDIS) disintegrating tablet 15 mg 15 mg Oral Nightly at bedtime [facility] , [employer] 15 mg at 02/26/24 1736 ondansetron (ZOFRAN) injection 4 mg 4 mg Intravenous Q8H PRN [facility] , [employer] pantoprazole EC (PROTONIX) tablet 40 mg 40 mg Oral Daily , [employer] 40 mg at 02/27/24 0804 phenol (CHLORASEPTIC) spray 1 spray 1 spray Mouth/Throat PRN Pearl Urbina APRN vancomycin (VANCOCIN) 1,750 mg in sodium chloride 0.9 % 500 mL IVPB 1,750 mg Intravenous Q12H Clau Urbina APRN Stopped at 02/27/24 0758 vancomycin pharmacy to dose placeholder Intravenous See Admin Instructions Bob Campos MD Review of patient's allergies indicates: Allergen Reactions Amoxicillin Throat swelling Penicillins Throat swelling ROS: 14 point ROS Negative except for as noted in HPI. Objective: Filed Vitals: 02/27/24 0547 02/27/24 0548 02/27/24 0600 02/27/24 0800 BP: (!) 190/100 (!) 197/129 (!) 187/108 (!) 178/104 Pulse: (!) 117 Resp: Temp: 98.5 ??F (36.9 ??C) TempSrc: Temporal SpO2: 97% Weight: Height: Physical Exam: GEN: Ill appearing. Breathing comfortably on room air. HEENT: Clear conjunctiva. Mucous membranes moist. RESPIRATORY: Effort normal. CTA, no wheezes or crackles. CVS: RRR, no MRG. ABD: Distended, Nontender. EXT: Trace BLE edema, left slightly worse than right SKIN: Warm, diaphoretic. Circumferential erythema bilateral lower extremities improving now extendsfrom mid calf to upper calf-receding from marked margins. 3 circular lesions with surrounding erythema to center of chest. No drainage PSYCH: Appropriate affect NEURO: Alert and oriented. Fine upper extremity tremors. LABS: Recent Labs Lab 02/25/24 1045 02/26/24 0526 02/27/24 0534 NA 133* 143 141 K 3.6 3.3* 3.8 CL 95* 102 104 CO2 28.0 31.0 28.1 AGAP 10.0 10.0 8.9 BUN 5* 7 6* CR 0.97 0.82 0.86 BUNCREATININ 5.2* 8.5 7.0 GLU 150* 96 98 CA 8.2* 8.4* 8.1* Recent Labs Lab 02/25/24 1045 02/26/24 0526 02/27/24 0534 WBC 16.16* 9.45 8.31 RBC 5.53 5.51 5.08 HGB 17.2 17.1 15.7 HCT 50.4 51.3* 48.0 MCV 91.1 93.1 94.5 MCH 31.1 31.0 30.9 MCHC 34.1 33.3 32.7 PLT 213 188 216 RDW 13.1 13.2 13.3 MPV 10.2 10.6 10.2 PERNEU 76.7* 65.7 60.1 PERLYM 12.9* 20.7 26.7 PERMON 8.7 9.1 7.3 NEUC 12.38* 6.20* 4.99 [facility] 2.08 1.96 2.22 Imaging & Other Studies: See official reports for full details Venous duplex 02/27/24 Standard grayscale and Doppler evaluation of the bilateral lower extremities is performed. Deep veins of the bilateral lower extremities demonstrate normal patency with no intraluminal filling defectand normal compressibility. There is normal directional color Doppler flow and venous waveforms. There is positive response to augmentation. Surrounding soft tissues are grossly unremarkable. IMPRESSION: No evidence for deep venous thrombosis in either lower extremity Echocardiogram 02/27/24 The left ventricular size is normal. There is mild left ventricular hypertrophy. The left ventricular systolic function is normal. Estimated left ventricular ejection fraction is 60-65%. Left ventricular diastolic function is normal. The right ventricle size is normal. The right ventricular function is normal. Left atrial size is normal. The right atrial size is normal. Unable to reliably quantitate pulmonary systolic pressure. There is trace mitral regurgitation. There is trace tricuspid regurgitation. 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: : 1985 Requested By: PEARL URBINA Order Number: [id number] Rl MD: Anupam Justin Measurements Intervals Browns Rate: 91 P: 47 MT: 157 QRS: -21 QRSD: 110 T: 5 QT: 334 QTc: 413 Interpretive Statements SINUS RHYTHM WITH SINUS ARRHYTHMIA MODERATE VOLTAGE CRITERIA FOR LVH, CONSIDER NORMAL VARIANT [MEETS CRITERIA IN ONE OF: R(aVL), S(V1), R(V5), R(V5/V6)+S(V1)] INFERIOR MYOCARDIAL INFARCTION , PROBABLY OLD [40+ ms Q WAVE AND/OR ST/T ABNORMALITY IN II/aVF] Compared to ECG 02/15/2024 01:46:39 Myocardial infarct finding now present Sinus tachycardia no longer present Labs above reviewed and interpreted by me. I have reviewed the images above and agree with interpretation made by the radiologist. Assessment/Plan: Sepsis Present in ER with tachycardia and leukocytosis. Source cellulitis Antibiotic treatment as below Blood cultures NGTD. MRSA pending Rapid strep and covid neg Lactate 1.8 PCT elevated, continue to trend Received 1L fluid bolus. Improved with IVF, now dc'd. Appears to have viral component as well vs allergic reaction. Would appreciate ID consultation. Recommendations appreciated. Cellulitis vs viral etiology vs cellulitis Bilateral legs and to center of chest. Treating with Rocephin (02/24 - ) Trend CRP, peaked 18.4, now trending down. ID consulted as above. Chlam/GD/tric, rickettsia, vasculitis panel, RAVIN, DNA AB, HIV RNA pending HIV rapid, hep C, syphilis neg Vancomycin (02/25 ) added, pending clinical work-up PO Doxycycline (02/25 ) added for atypical infections Echocardiogram EF 60-65% Trace MR and TR Venous duplex ordered negative for acute DVT Will plan to discharge on PO doxy and Keflex x7 days. Hypertensive urgency BP 179/108 in ER Has been elevated during previous ER visits Start amlodipine, dose increased EKG SA/ST-->improved with labetalol. Will start metoprolol. Consider adding second agent, likely JOYCE-I PRN IV hydralazine Thrush Nystatin swish and swallow Hyperbilirubinemia, transaminitis Bili 2.1 ALP 168 AST 45 Denies abdominal pain. Suspect reactive to infection Continue to monitor. Consider further w/u if worsens or develops symptoms Improving. Bili and ALP normalized Hyponatremia, hypokalemia-resolved Replete and monitor. Concern for polysubstance abuse UDS +amphetamines, methamphetamines, and cocaine metabolites Similar to previous UDS on 02/13 Denies any recent or illicit drug use, claims he took a pre-workout supplement and didn't know whatwas in it. Patient counseled on need for moderation of alcohol use vs complete cessation. Claims to use only occasionally throughout the week, but appears to be withdrawing (tremors, hallucinations, diaphoretic) CIWA protocol MVI/thiamine/folate Bipolar disorder, schizophrenia Now reporting auditory hallucinations. Acute flare of schizophrenia vs substance withdrawal vs acute infection. Monitor closely. May require 1:1 Continue home meds. Consider additional dose of Zyprexa (IM) vs haldol. CIWA protocol as above. Other chronic conditions which adds to complexity of care: smoker. Continue home medications unlessotherwise indicated. -DVT prophylaxis: Lovenox -Lines/tubes: PIV -IVF: Continue -Diet: General -Code status: Full. -Patient status: Inpatient -Level of care: Medical -Anticipated disposition at discharge: Home -PCP: CASIMIRO BUTTERFIELD MD Critical care time 60 minutes This patient had a high probability of imminent or life-threatening deterioration due to hypertensive urgency and alcohol withdrawal, which required my direct attention, intervention, and personal management. I have personally provided minutes as above of critical care time exclusive of time spent on separately billable procedures. Time includes review of laboratory data, radiology results, discussion with consultants, and monitoring for potential decompensation. Interventions were performed as documented above. Plan of care was discussed with patient with provided time for questions and concerns. Plan of carewas also discussed with RN, RNCM/SW, ID and collaborating physician. Notes reviewed from consults and specialists, as well as PT/OT, CM/SW, and pastoral care. Social determinants of health include family/community support (reports strain b/w him and his ), health literacy, substance use, mental health concerns. RN RUBIA/SW consulted to assist with identifying needs and discharge planning. This note was dictated with [employer] medical dictation software; misspellings, punctuation errors, omitted words or dictation variances may occur. PEARL URBINA APRN 02/27/2024 Cosigned by Gavino Diehl MD at 02/27/2024 3:51 PM CDT Associated attestation - Gavino Diehl MD - 02/27/2024 3:51 PM CDT The patient was seen and examined separately from the Advanced Provider. I reviewed the chart and agree with the orders, Assessment and Plan as documented. GEN Tired, Speaking in complete sentences HEENT PERRLA, MMM CHEST Dec BS in the bases, no wheezes or crackles CVS RRR, no MRG Abd S, NT, nl BS Ext tr edema Psych Flat affect, nl mood Neuro CNII-XII grossly intact The significant portion of this care was performed by myself. Very pleasant 39-year-old male with regressing margins of redness well within the margins by greater than 50% of bilateral lower extremities now in the midportion between the ankle and knees bilateral. Increased ESR and CRP noted. Also psychotic though he is aware that he is having psychoses. Critical care time spent separate from procedures of 59 minutes. Required IV labetalol for hypertensive urgency in the 170s. * Anabel Ortiz RN - 02/26/2024 10:57 PM CDT Problem: Pain Goal: Patient's pain/discomfort is manageable Description: Assess and monitor patient's pain using appropriate pain scale. Collaborate with interdisciplinary team and initiate plan and interventions as ordered. Re-assess patient's pain level 30 - 60 minutes after pain management intervention. Outcome: Progressing Problem: Safety Goal: Patient will be injury free during hospitalization Description: Assess and monitor vitals signs, neurological status including level of consciousness and orientation. Assess patient's risk for falls and implement fall prevention plan of care and interventions per hospital policy. Ensure arm band on, uncluttered walking paths in room, adequate room lighting, call light and overbed table within reach, bed in low position, wheels locked, side rails up per policy, and non-skid footwear provided. Outcome: Progressing Problem: Daily Care Goal: Daily care needs are met Description: Assess and monitor ability to perform self care and identify potential discharge needs. Outcome: Progressing Problem: Psychosocial Needs Goal: Demonstrates ability to cope with hospitalization/illness Description: Assess and monitor patients ability to cope with his/her illness. Outcome: Progressing Problem: Discharge Barriers Goal: Patient's discharge needs are met Description: Collaborate with interdisciplinary team and initiate plans and interventions as needed. Outcome: Progressing Problem: Anxiety Goal: Alleviation of anxiety Outcome: Progressing Problem: Venous Thromboembolism - Risk of Goal: Absence of venous thromboembolism Outcome: Progressing * Sandra Pascal PharmD - 02/26/2024 4:45 PM CDT Vancomycin Pharmacy to Dose Day #1 Ordering Provider: Jay Jay Indication: SSTI Ht/Wt: 6' 96.8 kg Initial drug level ordered: 02/27 AUC goal: 400 - 600 Individualized trough goal: Date WBC SCr CrCl Tmax Level 02/25 9.45 0.82 147 98.5 Other Antibiotics: - Ceftriaxone Cultures/Tests: - 02/24 Blood x2: NG1D - 02/24 Strep: Negative - 02/24 COVID: Negative Kinetics Assessment: Loading dose: 2500 mg at 16:00 02/26/2024. Regimen: 1750 mg IV every 12 hours. Start time: 04:00 on 02/27/2024 Exposure target: AUC24 (range)400-600 mg/L.hr AUC24,ss: 506 mg/L.hr PAUC*: 74 % Ctrough,ss: 12.3 mg/L Pconc*: 17 % Tox.: 8 % A/P: Vancomycin pharmacy to dose was ordered on this 39 year old male for the indication of SSTI. He received a loading dose of vancomycin 2500 mg x1. Based on kinetics assessment, will continue patient on 1750 mg q12h. Initial random level is scheduled for 02/27 with AM labs. Pharmacy will continue to monitor and adjust doses as necessary. * Rhiannon Castillo RN - 02/26/2024 1:38 PM CDT 02/26/24 3827 Interdisciplinary Group Conference Team Members Present Physician;Case/Care management;Nursing;PT/OT;Pharmacy;Physician Advisor Physician present for group conference Pearl Urbina [employer] Barriers to Discharge Barriers No Barrier- Medical Milestone in Process;Administering IV meds;Other (Comment) Administering IV meds follow up abx Other follow up (Comment) await ID recs Patient expects to be discharged to: Home or Self care no new needs * Pearl Urbina APRN - 02/26/2024 8:54 AM CDT Hospitalist Progress Note Sharri Vera II is a 39-year-old male patient. Subjective: He is resting in bed on exam. He feels drowsy, but required benadryl last night. He had itching to the right cheek. He says there was a rash there, but now it is gone. Still with pain, redness and swelling to his legs, but no worse. He is having some nasal congestion. I offered Flonase, but he declined because it elevates his heart rate and makes him more anxious. He did not mention any hallucinations to me, but later told the nurse he was having some auditory hallucinations. This has happened before with his schizophrenia. Current Facility-Administered Medications Medication Dose Route Frequency Provider Last Rate Last Admin acetaminophen (TYLENOL) tablet 650 mg 650 mg Oral Q4H PRN Pearl Urbina APRN 650 mg at 02/25/24 1837 amLODIPine (NORVASC) tablet 10 mg 10 mg Oral Daily Pearl Urbina APRN lvdvmiu-lraoismfpeitx-tuiszycg (EXCEDRIN MIGRAINE) 250-250-65 MG tablet 1 tablet 1 tablet Oral Q6H PRN Pearl Urbina APRN benzocaine-menthol (CEPACOL) 15-3.6 MG lozenge 1 lozenge 1 lozenge Mouth/Throat PRN Gavino Diehl MD 1 lozenge at 02/25/24 184 buprenorphine-naloxone (SUBOXONE) 8-2 MG film 1 Film 1 Film Sublingual Daily Pearl Urbina APRN busPIRone (BUSPAR) tablet 15 mg 15 mg Oral BID Pearl Urbina APRN 15 mg at 02/25/242014 cefTRIAXone (ROCEPHIN) 1 g in sterile water 10 mL IV 1 g Intravenous Q24H Pearl Urbina APRN diphenhydrAMINE (BENADRYL) capsule 25 mg 25 mg Oral Q6H PRN Jerome Lazcano MD 25 mg at 02/25/242011 diphenhydrAMINE-zinc (ANTI-ITCH) 2-0.1 % cream Topical PRN Jerome Lazcano MD DULoxetine (CYMBALTA) capsule 60 mg 60 mg Oral Daily Gavino Diehl MD 60 mg at 02/25/24 183 enoxaparin (LOVENOX) 40 MG/0.4ML syringe 40 mg 40 mg Subcutaneous Nightly (enoxaparin) [facility], [employer] 40 mg at 02/25/242013 gabapentin (NEURONTIN) capsule 600 mg 600 mg Oral BID [facility], [employer] 600 mg at 02/25/242013 hydrALAZINE (APRESOLINE) injection 10 mg 10 mg Intravenous Q6H PRN [facility], [employer] 10 mg at 02/26/247 hydrOXYzine (ATARAX) tablet 25 mg 25 mg Oral TID PRN Jerome Lazcano MD 25 mg at 02/25/242126 ibuprofen (MOTRIN) tablet 600 mg 600 mg Oral Q6H PRN [facility], [employer] naLOXone (NARCAN) injection 0.4 mg 0.4 mg Intravenous [facility], [employer] nicotine (NICODERM CQ) 21 MG/24HR patch 21 mg 1 patch Transdermal Once Lesia Romano MD 21 mg at02/25/24 1402 nystatin (MYCOSTATIN) [id number] UNIT/ML suspension 5 mL 5 mL Oral 4x Daily [facility], [employer] 5 mL at 02/25/242013 OLANZapine (ZyPREXA ZYDIS) disintegrating tablet 15 mg 15 mg Oral Nightly at bedtime [facility], [employer] 15 mg at 02/25/242013 ondansetron (ZOFRAN) injection 4 mg 4 mg Intravenous Q8H PRN [facility], [employer] pantoprazole EC (PROTONIX) tablet 40 mg 40 mg Oral Daily [facility], [employer] 40 mg at 02/25/241836 phenol (CHLORASEPTIC) spray 1 spray 1 spray Mouth/Throat PRN Ferdinand R Neeta, [employer] potassium chloride CR (KLOR-CON M) tablet 40 mEq 40 mEq Oral Once Ferdinand R Neeta, [employer] sodium chloride 0.9% infusion Intravenous Continuous Ferdinand Jessica Urbina, [employer] 100 mL/hr at 02/26/24 0216 New Bag at 02/26/24 0216 Allergies Allergen Reactions Amoxicillin Throat swelling Penicillins Throat swelling ROS: 14 point ROS Negative except for as noted in HPI. Objective: Filed Vitals: 02/26/24 0445 02/26/24 0500 02/26/24 0815 02/26/24 0831 BP: (!) 164/103 (!) 172/113 (!) 150/122 Pulse: 100 Resp: 18 Temp: 97.6 ??F (36.4 ??C) TempSrc: Temporal SpO2: 95% Weight: 96.8 kg (213 lb 6.5 oz) Height: Physical Exam: GEN: Lethargic, ill appearing. Breathing comfortably on room air. HEENT: Clear conjunctiva. Mucous membranes moist. RESPIRATORY: Effort normal. CTA, no wheezes or crackles. CVS: RRR, no MRG. ABD: Soft, Nontender. EXT: Trace BLE edema, left slightly worse than right SKIN: Warm, dry. Circumferential erythema bilateral lower extremities extends from ankles to below knees-receding from marked margins. 3 circular lesions with surrounding erythema to center of chest.No drainage PSYCH: Appropriate affect NEURO: Alert and oriented. No focal deficits. LABS: Recent Labs Lab 02/25/24 1045 02/26/24 0526 NA 133* 143 K 3.6 3.3* CL 95* 102 CO2 28.0 31.0 AGAP 10.0 10.0 BUN 5* 7 CR 0.97 0.82 BUNCREATININ 5.2* 8.5 GLU 150* 96 CA 8.2* 8.4* Recent Labs Lab 02/25/24 1045 02/26/24 0526 WBC 16.16* 9.45 RBC 5.53 5.51 HGB 17.2 17.1 HCT 50.4 51.3* MCV 91.1 93.1 MCH 31.1 31.0 MCHC 34.1 33.3 PLT 213 188 RDW 13.1 13.2 MPV 10.2 10.6 PERNEU 76.7* 65.7 PERLYM 12.9* 20.7 PERMON 8.7 9.1 NEUC 12.38* 6.20* [facility] 2.08 1.96 Imaging & Other Studies: See official reports for full details No results found for this visit on 02/25/24. Labs above reviewed and interpreted by me. I have reviewed the images above and agree with interpretation made by the radiologist. Assessment/Plan: Sepsis Present in ER with tachycardia and leukocytosis. Source cellulitis Antibiotic treatment as below Blood cultures NGTD Rapid strep and covid neg Lactate 1.8 Received 1L fluid bolus. Will continue IVF. Appears to have viral component as well vs allergic reaction. Would appreciate ID consultation. Recommendations appreciated. Cellulitis Bilateral legs and to center of chest. Treating with Rocephin Trend CRP, 17.8>18.4 Initially with significant improvement, appears same unchanged today. ID consulted as above. Hypertensive urgency BP 179/108 in ER Has been elevated during previous ER visits Start amlodipine, dose increased Consider adding second agent, likely JOYCE-I PRN IV hydralazine Thrush Nystatin swish and swallow Hyperbilirubinemia, transaminitis Bili 2.1 ALP 168 AST 45 Denies abdomina pain. Suspect reactive to infection Continue to monitor. Consider further w/u if worsens or develops symptoms Improving Hyponatremia, hypokalemia Replete and monitor. Concern for substance abuse UDS +amphetamines, methamphetamines, and cocaine metabolites Similar to previous UDS on 02/13 Denies any recent or illicit drug use, claims he took a pre-workout supplement and didn't know whatwas in it. Bipolar disorder, schizophrenia Now reporting auditory hallucinations. Acute flare of schizophrenia vs substance withdrawal vs acute infection. Monitor closely. May require 1:1 Continue home meds. Consider additional dose of Zyprexa (IM) vs haldol Other chronic conditions which adds to complexity of care: smoker. Continue home medications unlessotherwise indicated. -DVT prophylaxis: Lovenox -Lines/tubes: PIV -IVF: Continue -Diet: General -Code status: Full. -Patient status: Inpatient -Level of care: Medical -Anticipated disposition at discharge: Home -PCP: CASIMIRO BUTTERFIELD MD Critical care time 60 minutes This patient had a high probability of imminent or life-threatening deterioration due to sepsis, cellulitis, possible viral etiology vs reaction, and auditory hallucinations/psychosis, which requiredmy direct attention, intervention, and personal management. I have personally provided minutes as above of critical care time exclusive of time spent on separately billable procedures. Time includes review of laboratory data, radiology results, discussion with consultants, and monitoring for potential decompensation. Interventions were performed as documented above. Plan of care was discussed with patient with provided time for questions and concerns. Plan of carewas also discussed with RN, RNRUBIA/SW, ID and collaborating physician. Notes reviewed from consults and specialists, as well as PT/OT, RUBIA/HARI, and pastoral care. Social determinants of health include family/community support (reports strain b/w him and his ), health literacy, substance use, mental health concerns. RN RUBIA/SW consulted to assist with identifying needs and discharge planning. This note was dictated with [employer] medical dictation software; misspellings, punctuation errors, omitted words or dictation variances may occur. PEARL URBINA APRN 02/26/2024 Cosigned by Gavino Diehl MD at 02/26/2024 4:36 PM CDT Associated attestation - Gavino Diehl MD - 02/26/2024 4:36 PM CDT The patient was seen and examined separately from the Advanced Provider. I reviewed the chart and agree with the orders, Assessment and Plan as documented. GEN Tired, Speaking in complete sentences HEENT PERRLA, MMM CHEST Dec BS in the bases, no wheezes or crackles CVS RRR, no MRG Abd S, NT, nl BS Ext tr edema Psych Flat affect, nl mood Neuro CNII-XII grossly intact The significant portion of this care was performed by myself. 39-year-old male with cellulitis muchimproved regressing greater than an inch from all margins demarcated. Continue Rocephin and IV fluids. Discussed avoiding drugs especially from the dealer that he acquired the medication from as thismay in part be a drug reaction. * Rhiannon Castillo RN - 02/26/2024 7:49 AM CDT NCM performed bedside interview. Pt name and verified. Support: son Home: Pt lives with son in a private residence and plans to return at dc Ambulation: Reports independent prior to admission. DME: none ADL's: Reports independent prior to admission Drives: yes Transport Home: son A/O: Answers questions with intent and clarity. Communication: No deficits notes or reported Home Health: none current Address: Verified as accurate per chart. [facility]acy[facility] PCP: Dr. Casimiro Butterfield Medications: Pt denies concerns Insurance Plan: medicaid Financial: Pt denies concerns. Discharge Needs: No needs identified at this time. Care Coordination Team will provide discharge planning as needed, and will re-evaluate based on recommendations and treatment course. 02/26/24 0749 Referral Data Source of Information Patient Patient Information Primary Caregiver Self Current living Situation Children Type of Residence Private residence Support System Immediate family Are you employed? 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 The screening is to screen the patient for what services and destination would be beneficial for patient for next level of care Conversation with the patient/family Will the patient be returning to prior living situation with no new identified needs? Yes Based on the screening the DC plan for consideration is: Patient expects to be discharged to: Home or Self care no new needs Adequate Resources Available Adequate Resources Yes [place] Only - [place] Background check [place] only - Is patient going to [facility]? No * Anabel Ortiz RN - 02/25/2024 11:05 PM CDT Problem: Pain Goal: Patient's pain/discomfort is manageable Description: Assess and monitor patient's pain using appropriate pain scale. Collaborate with interdisciplinary team and initiate plan and interventions as ordered. Re-assess patient's pain level 30 - 60 minutes after pain management intervention. Outcome: Progressing Problem: Safety Goal: Patient will be injury free during hospitalization Description: Assess and monitor vitals signs, neurological status including level of consciousness and orientation. Assess patient's risk for falls and implement fall prevention plan of care and interventions per hospital policy. Ensure arm band on, uncluttered walking paths in room, adequate room lighting, call light and overbed table within reach, bed in low position, wheels locked, side rails up per policy, and non-skid footwear provided. Outcome: Progressing Problem: Daily Care Goal: Daily care needs are met Description: Assess and monitor ability to perform self care and identify potential discharge needs. Outcome: Progressing Problem: Psychosocial Needs Goal: Demonstrates ability to cope with hospitalization/illness Description: Assess and monitor patients ability to cope with his/her illness. Outcome: Progressing Problem: Discharge Barriers Goal: Patient's discharge needs are met Description: Collaborate with interdisciplinary team and initiate plans and interventions as needed. Outcome: Progressing Problem: Anxiety Goal: Alleviation of anxiety 02/25/20242304 by Anabel Ortiz RN Outcome: Progressing 02/25/20242304 by Anabel Ortiz RN Reactivated Problem: Venous Thromboembolism - Risk of Goal: Absence of venous thromboembolism 02/25/20242304 by Anabel Ortiz RN Outcome: Progressing 02/25/20242304 by Anabel Ortiz RN Reactivated documented in this encounter H&P Notes * Pearl Urbina APRN - 02/25/2024 3:46 PM CDT Hospitalist History and Physical Patient: Sharri Vera II Date: 02/25/2024 male, 39-year-old Admit Date: 02/25/2024 Attending: Gavino Diehl MD REASON FOR ADMISSION: Cellulitis HISTORY OF PRESENT ILLNESS: Sharri Vera II is a 39-year-old male with past medical history significant for bipolar disorder and schizophrenia that presented to the ER with leg redness. He had some leg burning last night, when he pulled up his pant leg he saw that both legs were reddened. He has also noticed 3 reddened lesions on the center of his chest. He endorses associated leg pain and fatigue. He also has sore throat, tongue, bilateral jaw, ears and teeth. He denies any shortness of breath or fevers, but has alternated between being hot and cold. He denies any new products, trauma to his legs or bug bites. No sick contacts. Also of note, he was in the ER 3x on 02/13-02/14 after having a reaction to, what he claims, was a pre-workout from a friend. His UDS at that time was +for amphetamines, benzodiazepines, buprenorphine (which he is prescribed), cannabinoids, cocaine, and methamphetamines. A UDS was repeatedtoday and somewhat similar to previous UDS, but no longer with benzodiazepines or cannabinoids or anything new. He denies any recent drug use. History obtained via chart review, discussion with patient, and review of outside records. Allergy Review of patient's allergies indicates: Allergen Reactions Amoxicillin Throat swelling Penicillins Throat swelling Medication list Medications Prior to Admission Medication Sig Dispense Refill buprenorphine-naloxone (SUBOXONE) 8-[address] 1 Film under the tongue daily. testosterone cypionate (DEPO TESTOSTERONE) 200 MG/ML injection Inject 1 mL (200 mg total) into the muscle every 14 (fourteen) days. busPIRone (BUSPAR) 15 MG tablet Take 1 tablet (15 mg total) by mouth 2 (two) times a day. DULoxetine (CYMBALTA) 60 MG capsule Take 1 capsule (60 mg total) by mouth daily. gabapentin (NEURONTIN) 600 MG tablet Take 1 tablet (600 mg total) by mouth 4 (four) times daily. OLANZapine (ZYPREXA) 15 MG tablet Take 1 tablet (15 mg total) by mouth nightly at bedtime. omeprazole (PRILOSEC) 40 MG capsule Take 1 capsule (40 mg total) by mouth daily. tadalafil (CIALIS) 10 MG tablet Take 1 tablet (10 mg total) by mouth daily as needed for Erectile Dysfunction. No current facility-administered medications on file prior to encounter. Current Outpatient Medications on File Prior to Encounter Medication Sig Dispense Refill buprenorphine-naloxone (SUBOXONE) 8-[address] 1 Film under the tongue daily. testosterone cypionate (DEPO TESTOSTERONE) 200 MG/ML injection Inject 1 mL (200 mg total) into the muscle every 14 (fourteen) days. busPIRone (BUSPAR) 15 MG tablet Take 1 tablet (15 mg total) by mouth 2 (two) times a day. DULoxetine (CYMBALTA) 60 MG capsule Take 1 capsule (60 mg total) by mouth daily. gabapentin (NEURONTIN) 600 MG tablet Take 1 tablet (600 mg total) by mouth 4 (four) times daily. OLANZapine (ZYPREXA) 15 MG tablet Take 1 tablet (15 mg total) by mouth nightly at bedtime. omeprazole (PRILOSEC) 40 MG capsule Take 1 capsule (40 mg total) by mouth daily. tadalafil (CIALIS) 10 MG tablet Take 1 tablet (10 mg total) by mouth daily as needed for Erectile Dysfunction. Medications were reconciled past lability given fall available resources at the time of admission. Route is p.o. if not otherwise noted. Past Medical History Past Medical History: Diagnosis Date Bipolar disorder, unspecified ([facility]) Schizophrenia, unspecified ([facility]) Past Surgical History: Procedure Laterality Date HERNIA REPAIR Social History Social History Socioeconomic History Marital status: Tobacco Use Smoking status: Every Day Current packs/day: 1.00 Average packs/day: 1 pack/day for 23.0 years (23.0 ttl pk-yrs) Types: Cigarettes Smokeless tobacco: Never Substance and Sexual Activity Alcohol use: Yes Alcohol/week: 18.3 - 26.7 standard drinks of alcohol Types: 6 Cans of beer, 5 - 10 Shots of liquor per week Comment: couple times a week Drug use: Not Currently Types: Marijuana Family History Family History Problem Relation Name Age of Onset Rheumatoid Arthritis Mother Rheumatoid Arthritis Sister Rheumatoid Arthritis Sister Rheumatoid Arthritis Maternal Grandmother REVIEW OF SYSTEMS: A 14 point review of systems was taken and pertinent positive as per HPI PHYSICAL EXAMINATION: Vital 24 Hour Range Most Recent Value Temperature Temp Min: 98.7 ??F (37.1 ??C) Max: 98.7 ??F (37.1 ??C) 98.7 ??F (37.1 ??C) Pulse Pulse Min: 102 Max: 116 (!) 104 Respiratory Resp Min: 15 Max: 18 17 Blood Pressure BP Min: 169/110 Max: 179/108 (!) 173/114 Pulse Oximetry SpO2 Min: 95 % Max: 96 % 95 % O2 No data recorded Vital Most Recent Value First Value Weight 99.8 kg (220 lb) Weight: 99.8 kg (220 lb) Height 182.9 cm (6') Height: 182.9 cm (6') BMI (!) 29.83 N/A Physical Exam: GEN: In no acute distress. Breathing comfortably on room air. HEENT: Clear conjunctiva. Mucous membranes moist. Mild pharyngitis. No appreciable lymphadenopathy RESPIRATORY: Effort normal. CTA, no wheezes or crackles. CVS: RRR, no MRG. ABD: Soft, Nontender. EXT: Trace ankle edema. SKIN: Warm, diaphoretic. Circumferential erythema bilateral lower extremities extends from ankles to below knees-receding from marked margins. 3 circular lesions with surrounding erythema to center of chest. No drainage PSYCH: Appropriate affect, mildly anxious NEURO: Alert and oriented. No focal deficits Intake/Output last 3 shifts: No intake/output data recorded. Labs: Recent Labs Lab 02/25/24 1045 NA 133* K 3.6 CL 95* CO2 28.0 AGAP 10.0 BUN 5* CR 0.97 BUNCREATININ 5.2* GLU 150* CA 8.2* Recent Labs Lab 02/25/24 1045 WBC 16.16* RBC 5.53 HGB 17.2 HCT 50.4 MCV 91.1 MCH 31.1 MCHC 34.1 PLT 213 RDW 13.1 MPV 10.2 Recent Labs Lab 02/25/24 1045 AST 45* ALT 36 No results for input(s): INR , PTT in the last 168 hours. Invalid input(s): ABG arterial blood gases No results for input(s): TROP , TROPIWB , CPK in the last 168 hours. Invalid input(s): CK-MB No results for input(s): PH , PCO2 , PO2 , [id number] , BICARBWB , BASEDEFICIT , BASEEXCESS in the last 168 hours. Laboratory results above were independently viewed and interpreted by me. Imaging & Other Studies See official reports for full details No results found for this visit on 02/25/24. I have reviewed the images above and agree with interpretation made by the radiologist. Assessment & Plan Sepsis Present in ER with tachycardia and leukocytosis. Source cellulitis Antibiotic treatment as below Blood cultures pending Check rapid strep Lactate 1.8 Received 1L fluid bolus. Will continue IVF. Cellulitis Bilateral legs and to center of chest. Treating with Rocephin Trend CRP Already with significant improvement Hypertensive urgency BP 179/108 in ER Has been elevated during previous ER visits Start amlodipine PRN IV hydralazine Thrush Nystatin swish and swallow Hyperbilirubinemia, transaminitis Bili 2.1 ALP 168 AST 45 Denies abdomina pain. Suspect reactive to infection Continue to monitor. Consider further w/u if worsens or develops symptoms Hyponatremia Mild. Continue to monitor. Concern for substance abuse UDS +amphetamines, methamphetamines, and cocaine metabolites Similar to previous UDS on 02/13 Denies any recent or illicit drug use, claims he took a pre-workout supplement and didn't know whatwas in it. Bipolar disorder, schizophrenia Denies any hallucinations Continue home meds Other chronic conditions which adds to complexity of care: smoker. Continue home medications unlessotherwise indicated. Critical care time 60 minutes This patient had a high probability of imminent or life-threatening deterioration due to hypertensive urgency and sepsis, which required my direct attention, intervention, and personal management. I have personally provided minutes as above of critical care time exclusive of time spent on separately billable procedures. Time includes review of laboratory data, radiology results, discussion with consultants, and monitoring for potential decompensation. Interventions were performed as documented above. -DVT prophylaxis: Lovenox -Lines/tubes: PIV -IVF: Continue -Diet: General -Level of care: Medical -Anticipated disposition at discharge: Home -PCP: CASIMIRO BUTTERFIELD MD Plan of care was discussed with patient with provided time for questions and concerns. Plan of carewas also discussed with RN and collaborating physician. Notes reviewed from consults and specialists, as well as PT/OT, CM/SW, and pastoral care. Social determinants of health include family/community support (reports strain b/w him and his ), health literacy, substance use, mental health concerns. RN CM/SW consulted to assist with identifying needs and discharge planning. I certify that inpatient services for greater than 2 midnights are medically necessary for this patient. This note was dictated with [employer] medical dictation software; misspellings, punctuation errors, omitted words or dictation variances may occur. PEARL URBINA APRN 02/25/2024 Cosigned by Gavino Diehl MD at 02/26/2024 4:30 PM CDT Associated attestation - Gavino Diehl MD - 02/26/2024 4:30 PM CDT The patient was seen and examined separately from the Advanced Provider. I reviewed the chart and agree with the orders, Assessment and Plan as documented. GEN Tired, Speaking in complete sentences HEENT PERRLA, MMM CHEST Dec BS in the bases, no wheezes or crackles CVS RRR, no MRG Abd S, NT, nl BS Ext tr edema from the ankle to below the knee. Area demarcated. Psych Flat affect, nl mood Neuro CNII-XII grossly intact The significant portion of this care was performed by myself. Very pleasant 39-year-old male with history of bipolar disorder and schizophrenia. Positive drug screen noted patient admitted to taking something off the street that he thought was ecstasy and that was told it was mixed with other drugssuspects meth. Improved from yesterday. Cont NS and Rocephin. documented in this encounter Consult Notes * Bob Campos MD - 02/28/2024 9:22 AM CDT ID Progress Note Date of consult: 02/28/24 Date of admission: 02/25/2024 Requesting provider: Pearl Urbina APRN Reason: rash Assessment: Lower extremity rash and swelling - Sudden onset, associated with chills/fevers and night sweats as well as painful tongue - Afebrile and stable, WBC 16K with left shift; WBC now normal - Unclear etiology, viral vs vasculitis vs cellulitis (rarely bilateral) - No recent sexual partners, denies IVDU or travel; no sick contacts - LE dopplers negative for DVT; TTE showed normal EF no significant abnormalities - HIV rapid screen neg, pending HIV RNA PCR - Negative Urine GC/Chlamydia, Hep C and syphilis screens - Ferritin and B12 WNL - Pending Vasculitis panel, Rickettsial panel - Blood cultures remain NGTD 2. Polysub abuse - UDS + for amphtamines, buprenorphine, cocaine, meth - Active Tob and Alcohol use 3. Bipolar 4. Folate deficiency - Will need supplementation Recommendations: - OK to discharge on PO Doxy 100mg twice daily + Cephalexin 500mg three times daily through 03/03/24to complete a week of treatment for cellulitis / atypical infections - Follow up remaining studies with PCP - Encouraged abstinence from substance use (this could have contributed to the presentation) ID will sign off Antibiotic History: Ceftriaxone 02/25/24 - current Vanco 02/26/24 - current Doxy 02/27/24 - current SUBJECTIVE Doing well today, no problems overnight, no fevers. Rash no legs rapidly improving but still has a burning sensation. HPI: Sharri Vera II is a 39-year-old year old male He has a past history of asthma, anxiety, bipolar disorder, polysubstance abuse here with sudden onset of bilateral lower extremity swelling, purplish rash. This is associated with malaise, night sweats and chills with subjective fevers. No headaches but did have some chest pain that is resolved. He mentions a painful tongue as well. No abd pain, diarrhea, painful or increased urination. Noticed some bumps on his legs as well as 3 on his chest. No sick contacts. No recent travel. Denies drug use, denies IVDU. He has used cocaine and ecstasy in the past. Continues to smoke 1 ppd. Lives with his son, but 5 months ago. Past Medical History: Diagnosis Date Bipolar disorder, unspecified ([facility]) Schizophrenia, unspecified ([facility]) Past Surgical History: Procedure Laterality Date HERNIA REPAIR MEDS: amLODIPine 10 mg Oral Daily buprenorphine-naloxone 1 Film Sublingual Daily busPIRone 15 mg Oral BID cefTRIAXone 1 g Intravenous Q24H doxycycline hyclate 100 mg Oral 2 times per day DULoxetine 60 mg Oral Daily enoxaparin 40 mg Subcutaneous Nightly (enoxaparin) folic acid 1 mg Oral Daily Or folic acid 1 mg Intravenous Daily gabapentin 600 mg Oral BID metoprolol tartrate 50 mg Oral BID multi vitamin/minerals 1 tablet Oral Daily nicotine 1 patch Transdermal Q24H nystatin 5 mL Oral 4x Daily OLANZapine 15 mg Oral Nightly at bedtime pantoprazole EC 40 mg Oral Daily senna-docusate 1 tablet Oral BID thiamine 100 mg Oral Daily Or thiamine 100 mg Intravenous Daily vancomycin 1,250 mg Intravenous Q12H vancomycin pharmacy to dose Intravenous See Admin Instructions Review of patient's allergies indicates: Allergen Reactions Amoxicillin Throat swelling Penicillins Throat swelling Social History Socioeconomic History Marital status: Spouse name: Not on file Number of children: Not on file Years of education: Not on file Highest education level: Not on file Occupational History Not on file Tobacco Use Smoking status: Every Day Current packs/day: 1.00 Average packs/day: 1 pack/day for 23.0 years (23.0 ttl pk-yrs) Types: Cigarettes Smokeless tobacco: Never Substance and Sexual Activity Alcohol use: Yes Alcohol/week: 18.3 - 26.7 standard drinks of alcohol Types: 6 Cans of beer, 5 - 10 Shots of liquor per week Comment: couple times a week Drug use: Not Currently Types: Marijuana Sexual activity: Not on file Other Topics Concern Not on file Social History Narrative Not on file Social Determinants of Health Financial Resource Strain: Medium Risk (02/27/2024) Overall Financial Resource Strain (CARDIA) Difficulty of Paying Living Expenses: Somewhat hard Food Insecurity: Food Insecurity Present (02/27/2024) Hunger Vital Sign Worried About Running Out of Food in the Last Year: Sometimes true Ran Out of Food in the Last Year: Never true Transportation Needs: No Transportation Needs (02/27/2024) PRAPARE - Transportation Lack of Transportation (Medical): No Lack of Transportation (Non-Medical): No Physical Activity: Not on file Stress: Not on file Social Connections: Not on file Intimate Partner Violence: Not At Risk (02/27/2024) Humiliation, Afraid, Rape, and Kick questionnaire Fear of Current or Ex-Partner: No Emotionally Abused: No Physically Abused: No Sexually Abused: No Housing Stability: Low Risk (02/27/2024) Housing Stability Vital Sign Unable to Pay for Housing in the Last Year: No Number of Times Moved in the Last Year: 1 Homeless in the Last Year: No Family History Problem Relation Name Age of Onset Rheumatoid Arthritis Mother Rheumatoid Arthritis Sister Rheumatoid Arthritis Sister Rheumatoid Arthritis Maternal Grandmother ROS: + night sweats, painful tongue, subj fevers, bilat leg swelling and erythema EXAM: Filed Vitals: 02/27/24 2338 02/27/24 2344 02/28/24 0413 02/28/24 0800 BP: (!) 141/93 (!) 145/99 (!) 151/99 Pulse: 75 91 88 Resp: 20 20 20 Temp: 97.2 ??F (36.2 ??C) 98.2 ??F (36.8 ??C) 98.2 ??F (36.8 ??C) TempSrc: Temporal Temporal Temporal SpO2: 96% 95% 93% Weight: 115.3 kg (254 lb 3.1 oz) Height: Last 2 Recorded Weights 02/27/24 0010 02/27/24 2344 Weight: 114.7 kg (252 lb 13.9 oz) 115.3 kg (254 lb 3.1 oz) Performed via the telemedicine interface with the assistance of the bedside nurse. GEN: Pleasant, NAD, alert and fully oriented, HEENT: NCAT, PERRL, EOMI Chest: clear, symmetric air entry, in no distress and on room air CV: RRR, no murmur Abd: Soft, NT, ND Ext: 2+ pitting edema of legs and ankles Skin: Purplish patches of blanching skin on bilateral LE; 3 red, raised spots on chest wall near the sternum, back is slightly erythematous without focal rash Psyche: slightly sluggish mentation, flat affect Neuro: non focal LABS: Recent Labs Lab 02/26/24 0526 02/27/24 0534 02/28/24 0546 WBC 9.45 8.31 8.19 HGB 17.1 15.7 15.0 HCT 51.3* 48.0 46.3 PLT 188 216 242 Recent Labs Lab 02/26/24 0526 02/27/24 0534 02/28/24 0546 NA 143 141 143 K 3.3* 3.8 3.9 CL 102 104 105 CO2 31.0 28.1 32.4* AGAP 10.0 8.9 5.6 BUN 7 6* 5* CR 0.82 0.86 1.02 BUNCREATININ 8.5 7.0 4.9* GFREST >90 >90 >90 GLU 96 98 104* CA 8.4* 8.1* 8.2* TP 6.6 5.9* 6.0* ALB 3.0* 2.6* 2.5* TBIL 1.3* 1.0 0.7 ALKP 158* 131 126 AST 27 29 38* ALT 36 37 36 Recent Labs Lab 02/25/24 1045 02/25/24 1556 02/26/24 0526 02/26/24 1805 02/27/24 0534 02/28/24 0546 CRP -- 17.80* 18.40* -- 10.20* -- ESR -- -- -- 21* -- -- FERRITIN -- -- -- 246.0 -- -- LACTICACID 1.8 -- -- -- -- -- PROCT -- -- -- 0.42* 0.26* 0.12 Microbiology data/cultures: Reviewed IMAGING (images and reports personally reviewed by me): Radiology Results (Last 48 hours) 02/27/24 1158 USV SAMI DUPLEX LOW EXT BIN Final result Impression: IMPRESSION: No evidence for deep venous thrombosis in either lower extremity. Ordered By: BOB CAMPOS Interpreted By: Arpan Cerna MD, 02/27/2024 12:27 PM 02/27/24 0809 USE ECHOCARDIOGRAM Final result Thank you for the opportunity to participate in the care of this patient. BOB CAMPOS MD 02/28/24 I introduced and identified myself, received verbal consent from the patient to proceed with this video visit and made the patient aware that the same confidentiality and geographic information scientist practices apply. Time spent with patient, coordination of care, chart review: Patient was seen today utilizing telemedicine services. Patient Location: [facility] [address] [address] [facility] [address] Dept: [phone] Provider Location: Provider's home residence Caregivers in attendance: bedside RN and son Time spent with patient: 10min including 3 of care coordination * Bob Campos MD - 02/26/2024 12:44 PM CDT ID Consult Note Date of consult: 02/26/24 Date of admission: 02/25/2024 Requesting provider: Pearl Urbina APRN Reason: rash Assessment: Lower extremity rash and swelling - Sudden onset, associated with chills/fevers and night sweats as well as painful tongue - Afebrile and stable, WBC 16K with left shift - Unclear etiology, viral vs vasculitis vs cellulitis (rarely bilateral) - No recent sexual partners, denies IVDU or travel; no sick contacts - Pending LE dopplers, TTE, Urine GC/Chlamydia, HIV, Hep C and syphilis screens, HIV RNA PCR, Vasculitis panel, ferritin, B12/folate, Rickettsial panel - Blood cultures NGTD 2. Polysub abuse - UDS + for amphtamines, buprenorphine, cocaine, meth - Active Tob and Alcohol use 3. Bipolar Recommendations: - Agree with empiric Ceftriaxone, would add Vanco pending work up - Will add PO Doxy for atypical infections - Follow up blood cultures - Check TTE and LE doppler - Check MRSA screen - Check HIV, HIV RNA, syphilis, Hep C, GC urine screening tests - Will also check ESR, Pro joselyn, RAVIN, vasculitis panel, C3, C4, ferritin, B12/folate - If he is improving, could d/c on PO Doxy + Cephalexin x 7 days and have close PCP follow up ID will follow up in 24-48 hours Antibiotic History: Ceftriaxone 02/25/24 - current Vanco 02/26/24 - current HPI: Sharri Vera II is a 39-year-old year old male He has a past history of asthma, anxiety, bipolar disorder, polysubstance abuse here with sudden onset of bilateral lower extremity swelling, purplish rash. This is associated with malaise, night sweats and chills with subjective fevers. No headaches but did have some chest pain that is resolved. He mentions a painful tongue as well. No abd pain, diarrhea, painful or increased urination. Noticed some bumps on his legs as well as 3 on his chest. No sick contacts. No recent travel. Denies drug use, denies IVDU. He has used cocaine and ecstasy in the past. Continues to smoke 1 ppd. Lives with his son, but 5 months ago. Past Medical History: Diagnosis Date Bipolar disorder, unspecified ([facility]) Schizophrenia, unspecified ([facility]) Past Surgical History: Procedure Laterality Date HERNIA REPAIR MEDS: amLODIPine 10 mg Oral Daily buprenorphine-naloxone 1 Film Sublingual Daily busPIRone 15 mg Oral BID cefTRIAXone 1 g Intravenous Q24H DULoxetine 60 mg Oral Daily enoxaparin 40 mg Subcutaneous Nightly (enoxaparin) gabapentin 600 mg Oral BID nicotine 1 patch Transdermal Once nystatin 5 mL Oral 4x Daily OLANZapine 15 mg Oral Nightly at bedtime pantoprazole EC 40 mg Oral Daily sodium chloride 100 mL/hr at 02/26/24 1242 Allergies Allergen Reactions Amoxicillin Throat swelling Penicillins Throat swelling Social History Socioeconomic History Marital status: Spouse name: Not on file Number of children: Not on file Years of education: Not on file Highest education level: Not on file Occupational History Not on file Tobacco Use Smoking status: Every Day Current packs/day: 1.00 Average packs/day: 1 pack/day for 23.0 years (23.0 ttl pk-yrs) Types: Cigarettes Smokeless tobacco: Never Substance and Sexual Activity Alcohol use: Yes Alcohol/week: 18.3 - 26.7 standard drinks of alcohol Types: 6 Cans of beer, 5 - 10 Shots of liquor per week Comment: couple times a week Drug use: Not Currently Types: Marijuana Sexual activity: Not on file Other Topics Concern Not on file Social History Narrative Not on file Social Determinants of Health Financial Resource Strain: Not on file Food Insecurity: Not on file Transportation Needs: Not on file Physical Activity: Not on file Stress: Not on file Social Connections: Not on file Intimate Partner Violence: Not on file Housing Stability: Not on file Family History Problem Relation Name Age of Onset Rheumatoid Arthritis Mother Rheumatoid Arthritis Sister Rheumatoid Arthritis Sister Rheumatoid Arthritis Maternal Grandmother ROS: + night sweats, painful tongue, subj fevers, bilat leg swelling and erythema EXAM: Filed Vitals: 02/26/24 0500 02/26/24 0815 02/26/24 0831 02/26/24 1047 BP: (!) 172/113 (!) 150/122 (!) 145/95 Pulse: 100 94 Resp: 18 20 Temp: 97.6 ??F (36.4 ??C) 97.6 ??F (36.4 ??C) TempSrc: Temporal Temporal SpO2: 95% 96% Weight: 96.8 kg (213 lb 6.5 oz) Height: Last 2 Recorded Weights 02/25/24 1043 02/26/24 0500 Weight: 99.8 kg (220 lb) 96.8 kg (213 lb 6.5 oz) Performed via the telemedicine interface with the assistance of the bedside nurse. GEN: Pleasant, NAD, alert and fully oriented, HEENT: NCAT, PERRL, EOMI Chest: clear, symmetric air entry, in no distress and on room air CV: RRR, no murmur Abd: Soft, NT, ND Ext: 2+ pitting edema of legs and ankles Skin: Purplish patches of blanching skin on bilateral LE; 3 red, raised spots on chest wall near the sternum, back is slightly erythematous without focal rash Psyche: slightly sluggish mentation, flat affect Neuro: non focal LABS: Recent Labs Lab 02/25/24 1045 02/26/24 0526 WBC 16.16* 9.45 HGB 17.2 17.1 HCT 50.4 51.3* PLT 213 188 Recent Labs Lab 02/25/24 1045 02/26/24 0526 NA 133* 143 K 3.6 3.3* CL 95* 102 CO2 28.0 31.0 AGAP 10.0 10.0 BUN 5* 7 CR 0.97 0.82 BUNCREATININ 5.2* 8.5 GFREST >90 >90 GLU 150* 96 CA 8.2* 8.4* TP 7.5 6.6 ALB 3.1* 3.0* TBIL 2.1* 1.3* ALKP 168* 158* AST 45* 27 ALT 36 36 Recent Labs Lab 02/25/24 1045 02/25/24 1556 02/26/24 0526 CRP -- 17.80* 18.40* LACTICACID 1.8 -- -- Microbiology data/cultures: Reviewed IMAGING (images and reports personally reviewed by me): Radiology Results (Last 48 hours) None Thank you for the opportunity to participate in the care of this patient. BOB CAMPOS MD 02/26/24 I introduced and identified myself, received verbal consent from the patient to proceed with this video visit and made the patient aware that the same confidentiality and geographic information scientist practices apply. Time spent with patient, coordination of care, chart review: Patient was seen today utilizing telemedicine services. Patient Location: [facility] [address] [address] [facility] [address] Dept: [phone] Provider Location: Provider's home residence Caregivers in attendance: bedside RN and son Time spent with patient: 60min including 10 of care coordination documented in this encounter ED Notes * Jeni Bruno RN - 02/25/2024 11:23 AM CDT Pt states when asked to collect urine sample. ( Where you here a couple days ago when I told someone, I went to a dispensary & I got something that was like ecstasy, but it wasn't suppose to be that. I was wondering if I had a reaction to that & my mom states you did have some fireball .) * Jeni Bruno RN - 02/25/2024 10:54 AM CDT Pt legs bilateral from Knees distal to ankles very bright red & hot. I asked Pt if he had been burned, in hot water, by anyone welding, done anything to injure legs, I also asked about Small round 2-3 cm oval wound distal, anterior to Rt knee. Pt denies any of the questions asked & states the redness just appeared early this morning, woke him up around 0200. Pt is diaphoretic all over. Son in room with Pt. * Josselin Menezes RN - 02/25/2024 10:45 AM CDT Woke during the night with bilateral redness from knees down with swelling also noted redness to chest and back. [employer] intact Diaphoriec * Lesia Romano MD - 02/25/2024 10:40 AM CDT Emergency Department Note Chief Complaint Chief Complaint Patient presents with Medical Problem History of Present Illness This is a 39-year-old male with history of bipolar and schizophrenia who presents to the emergency department complaining of redness and pain to his bilateral lower legs. He says he noticed it late last night when he felt burning in his legs and lifted up his pant legs and noticed the redness. He says he wore pants all day yesterday so it could have been there earlier but he didn't notice it. He denies any fevers but reports body aches and generalized fatigue. He denies any new medications. He denies any new exposures. Medical History ALLERGIES: Review of patient's allergies [...] Medical History: Diagnosis Date Bipolar disorder, unspecified ([facility]) Schizophrenia, unspecified ([facility]) PAST SURGICAL HISTORY: History reviewed. No pertinent surgical history. FAMILY HISTORY: No family history on file. SOCIAL HISTORY: Social History Tobacco Use Smoking status: Every Day Types: Cigarettes Smokeless tobacco: Never Substance Use Topics Alcohol use: Yes Comment: socially Drug use: Not Currently Types: Marijuana Review of Systems Review of Systems Constitutional: Positive for fatigue. Negative for chills and fever. Respiratory: Negative for cough and shortness of breath. Cardiovascular: Negative for chest pain. Gastrointestinal: Negative for abdominal pain. Musculoskeletal: Positive for myalgias. Skin: Positive for color change. Neurological: Negative for headaches. Psychiatric/Behavioral: Negative for behavioral problems. Physical Exam Filed Vitals: 02/25/24 1043 02/25/24 1200 02/25/24 1230 BP: (!) 179/108 (!) 169/110 (!) 173/114 Pulse: (!) 116 (!) 102 (!) 102 Resp: 18 15 17 Temp: 98.7 ??F (37.1 ??C) TempSrc: Oral SpO2: 96% 96% 95% Weight: 99.8 kg (220 lb) Height: 1.829 m (6') Physical Exam Vitals and nursing note reviewed. Constitutional: Appearance: He is well-developed. He is diaphoretic. HENT: Head: Normocephalic and atraumatic. Eyes: Conjunctiva/sclera: Conjunctivae normal. Cardiovascular: Rate and Rhythm: Regular rhythm. Tachycardia present. Pulmonary: Effort: Pulmonary effort is normal. Breath sounds: Normal breath sounds. No stridor. Abdominal: Palpations: Abdomen is soft. Tenderness: There is no abdominal tenderness. Musculoskeletal: General: No deformity. Cervical back: Neck supple. Skin: General: Skin is warm. Comments: The bilateral lower legs from the proximal tibia to the ankles are markedly erythematous.Mild tenderness. No crepitus or bullae. There is an approx 1cm shallow wound with overlying scab tothe lateral aspect of the proximal tibia on the right leg. There is no fluctuance of drainage. No pain out of proportion. DP pulses are intact bilaterally. There is also mild erythema to the chest and back. No track gallegos Neurological: General: No focal deficit present. Mental Status: He is alert. Diagnostic Studies / Procedures ELECTROCARDIOGRAMS: No results found for this visit on 02/25/24. LABORATORY STUDIES: Results for orders placed or performed during the hospital encounter of 02/25/24 LACTIC ACID W REFLEX (SEPSIS) Result Value Ref Range LACTIC ACID VENOUS 1.8 0.4 - 2.0 MMOL/L CBC W/DIFF AUTOMATED Result Value Ref Range WBC 16.16 (H) 4.4 - 11.0 x10'3/uL RBC 5.53 4.50 - 5.90 x10'6/uL HGB 17.2 14.0 - 17.5 G/DL HCT 50.4 41.5 - 50.4 % MCV 91.1 80.0 - 96.0 FL MCH 31.1 26.5 - 31.4 PG MCHC 34.1 31.9 - 34.8 G/DL RDW 13.1 12.3 - 14.3 % PLT 213 151 - 353 x10'3/uL MPV 10.2 9.7 - 11.9 FL RBC MORPHOLOGY NORMAL PLT MORPH. NORMAL WBC MORPHOLOGY NORMAL LYMPHOCYTES 12.9 (L) 15.8 - 45.0 % NEUTROPHILS 76.7 (H) 42.1 - 71.9 % MONOCYTES 8.7 5.7 - 12.5 % EOSINOPHILS 0.7 0.0 - 5.6 % BASOPHILS 0.4 0.0 - 1.3 % ABS. NEUTROPHILS 12.38 (H) 1.40 - 6.00 x10'3/uL IMMATURE GRANS 0.6 (H) 0.0 - 0.5 % ABS. LYMPHOCYTES 2.08 0.80 - 4.70 x10'3/uL COMPREHENSIVE METABOLIC PANEL Result Value Ref Range GLUCOSE 150 (H) 70 - 99 MG/DL BUN 5 (L) 7 - 18 MG/DL CREATININE S/P/B 0.97 0.7 - 1.3 MG/DL SODIUM S/P/B 133 (L) 136 - 145 MMOL/L POTASSIUM S/P/B 3.6 3.5 - 5.1 MMOL/L CHLORIDE S/P/B 95 (L) 100 - 108 MMOL/L CO2 28.0 21 - 32 MMOL/L CALCIUM S/P/B 8.2 (L) 8.5 - 10.1 MG/DL BILIRUBIN TOTAL S/P/B 2.1 (H) 0.2 - 1.2 MG/DL TOTAL PROTEIN S/P/B 7.5 6.4 - 8.2 G/DL ALBUMIN S/P/B 3.1 (L) 3.4 - 5.0 G/DL AST 45 (H) 15 - 37 U/L ALT 36 16 - 60 U/L ALKALINE PHOSPHATASE S/P/B 168 (H) 50 - 136 U/L ANION GAP 10.0 5 - 15 MMOL/L BUN CREATININE RATIO 5.2 (L) 6 - 26 A/G RATIO 0.7 (L) 1.0 - 2.0 RATIO GFR ESTIMATE >90 >90 ML/MIN/1.73 M2 URINALYSIS, AUTO, COMPLETE Result Value Ref Range COLOR (U) YELLOW TRANSPARENCY CLEAR SPECIFIC GRAVITY (U) <1.005 1.000 - 1.030 U PH 6.5 5.0 - 9.0 LEUKOCYTES (U) NEGATIVE NEGATIVE NITRITES NEGATIVE NEGATIVE PROTEIN RANDOM (U) NEGATIVE NEGATIVE GLUCOSE (U) NEGATIVE NEGATIVE KETONES (U) NEGATIVE NEGATIVE BILIRUBIN (U) NEGATIVE NEGATIVE BLOOD (U) TRACE (A) NEGATIVE WBC/HPF NONE SEEN 0 - 5 /HPF RBC/HPF NONE SEEN 0 - 5 /HPF EPI/HPF RARE /HPF CULTURE & SENSITIVITY INDICATED? CULTURE IS NOT INDICATED DRUG SCREEN RAPID Result Value Ref Range AMPHETAMINE (U) DETECTED (A) NONE DETECTED BARBITURATES SCREEN (U) NONE DETECTED NONE DETECTED BENZODIAZEPINES SCREEN (U) NONE DETECTED NONE DETECTED BUPRENORPHINE SCREEN (U) DETECTED (A) NONE DETECTED COCAINE METABOLITES (U) DETECTED (A) NONE DETECTED METHAMPHETAMINE (U) DETECTED (A) NONE DETECTED METHADONE (U) NONE DETECTED NONE DETECTED OPIATE SCREEN (U) NONE DETECTED NONE DETECTED OXYCODONE SCREEN (U) NONE DETECTED NONE DETECTED PHENCYCLIDINE PCP (U) NONE DETECTED NONE DETECTED CANNABINOIDS SCREEN (U) NONE DETECTED NONE DETECTED TRICYCLIC ANTIDEPRESSANT SCREEN (U) NONE DETECTED NONE DETECTED IMAGING STUDIES No orders to display ED Course / Medical Decision Making Medical Decision Making Problems Addressed: Cellulitis: acute illness or injury that poses a threat to life or bodily functions Sepsis ([facility]): acute illness or injury that poses a threat to life or bodily functions Amount and/or Complexity of Data Reviewed Labs: ordered. Decision-making details documented in ED Course. Risk Decision regarding hospitalization. ED Course as of 02/25/24 1403 Sun Feb 25, 2024 1117 WBC elevated at 16.16. With elevated heart rate, patient meets SIRS criteria. His exam is consistent with cellulitis to his lower legs. Therefore will start IV Rocephin. Time of sepsis diagnosis:1115 [] 1203 Lactate normal. Chemistry significant for elevated glucose of 150 and low sodium of 133. [] 1204 Contacted hospitalist for admission [] 1358 Dr. Diehl accepts admit to inpatient. [] 1402 Sepsis reassessment completed [] ED Course User Index [] Lesia Romano MD Medications nicotine (NICODERM CQ) 21 MG/24HR patch 21 mg (21 mg Transdermal Patch Applied 02/25/24 1402) sodium chloride 0.9% bolus infusion 1,000 mL (0 mLs Intravenous Infusion Stop Time 02/25/24 1150) cefTRIAXone (ROCEPHIN) 1 g in sterile water 10 mL IV (1 g Intravenous Given 02/25/24 1150) Clinical Impression Cellulitis (Primary) Sepsis ([facility] H[facility]/HCC) Current Discharge Medication List Disposition: Admit Follow-Up: No follow-up provider specified. Lesia Romano MD 02/25/2024 Lesia Romano MD 02/25/24 1403 documented in this encounter Plan of Treatment Not on file documented as of this encounter Procedures Procedure Name Priority Date/Time Associated Diagnosis Comments PROCALCITONIN (PCT) Routine 02/28/2024 5 :46 AM CDT COMPREHENSIVE METABOLIC PANEL Routine 02/28/2024 5:46 AM CDT C-REACTIVE PROTEIN Routine 02/28/2024 5: 46 AM CDT CBC W/DIFF AUTOMATED Routine 02/28/2024 5:46 AM CDT VANCOMYCIN Routine 02/28/2024 5:46 AM CDT USV SAMI DUPLEX LOW EXT BIN Today 02/27/2024 11:58 AM CDT USE ECHOCARDIOGRAM Today 02/27/2024 8: 09 AM CDT CHLAM/GC/TRICHOMONAS PROFILE Routine 02/27/2024 5:55 AM CDT PROCALCITONIN (PCT) Routine 02/27/2024 5 :34 AM CDT COMPREHENSIVE METABOLIC PANEL Routine 02/27/2024 5:34 AM CDT C-REACTIVE PROTEIN Routine 02/27/2024 5: 34 AM CDT CBC W/DIFF AUTOMATED Routine 02/27/2024 5:34 AM CDT ANCA VASCULITIS PANEL Routine 02/26/2024 6:05 PM CDT VITAMIN B12 / FOLATE Routine 02/26/2024 6:05 PM CDT SYPHILIS IGG AB Routine 02/26/2024 6:05 PM CDT RAVIN IFA SCRN, WI REFLEX TO TITER Routine 02/26/2024 6:05 PM CDT PROCALCITONIN (PCT) Routine 02/26/2024 6 :05 PM CDT MRSA SCREENING Routine 02/26/2024 6:05 PM CDT HIV - RAPID Routine 02/26/2024 6:05 PM CDT RICKETTSIA AB WI RFX (QST) Routine 02/26/2024 6:05 PM CDT COMPLEMENT C4 Routine 02/26/2024 6:05 PM CDT COMPLEMENT C3 Routine 02/26/2024 6:05 PM CDT SED RATE, ERYTHROCYTE (ESR) Routine 02/26/2024 6:05 PM CDT HIV-1, RNA,QNT Routine 02/26/2024 6:05 PM CDT HEPATITIS C ANTIBODY Routine 02/26/2024 6:05 PM CDT DNA ANTIBODY, ABSENTEE-SHAWNEE/DBL STRAN Routine 02/26/2024 6:05 PM CDT FERRITIN Routine 02/26/2024 6:05 PM CDT ECG 12-LEAD STAT 02/26/2024 5:20 PM CDT COMPREHENSIVE METABOLIC PANEL Routine 02/26/2024 5:26 AM CDT C-REACTIVE PROTEIN Routine 02/26/2024 5: 26 AM CDT CBC W/DIFF AUTOMATED Routine 02/26/2024 5:26 AM CDT CORONAVIRUS (COVID 19) Routine 6:40 PM CDT RAPID STREP A Routine 02/25/2024 6:40 PM CDT C-REACTIVE PROTEIN Routine 02/25/2024 3: 56 PM CDT CULTURE, BACTERIA, BLOOD STAT 02/25/2024 11:50 AM CDT DRUG SCREEN RAPID STAT 02/25/2024 11: 30 AM CDT URINALYSIS, AUTO, COMPLETE STAT 02/25/2024 11:30 AM CDT LACTIC ACID W REFLEX (SEPSIS) STAT 02/25/2024 10:45 AM CDT COMPREHENSIVE METABOLIC PANEL STAT 02/25/2024 10:45 AM CDT CULTURE, BACTERIA, BLOOD STAT 02/25/2024 10:45 AM CDT CBC W/DIFF AUTOMATED STAT 02/25/2024 10:45 AM CDT documented in this encounter Results * PROCALCITONIN (PCT) (02/28/2024 5:46 AM CDT) Procalcitonin 0.12 0.00 - 0.25 NG/ML 02/28/2024 6:51 AM CDT [facility] Comment: PROCALCITONIN INTERPRETATION GUIDELINES LOWER RESPIRATORY TRACT INFECTIONS (LRTI): USE OF PCT IN INPATIENT OR EMERGENCY SITUATION INITIATION OF ANTIBIOTICS PCT VALUE ? INTERPRETATION <0.10 NG/ML ?ANTIBIOTIC THERAPY ? STRONGLY DISCOURAGED. 0.10-0.25 NG/ML ?ANTIBIOTIC THERAPY ? DISCOURAGED. 0.26-0.50 NG/ML ?ANTIBIOTIC THERAPY ? ENCOURAGED. >0.50 NG/ML ?ANTIBIOTIC THERAPY ? STRONGLY ENCOURAGED. DISCONTINUE ANTIBIOTICS PCT LESS THAN OR EQUAL TO 0.25 NG/ML OR DELTA PCT >80 PERCENT DELTA PCT= PCT(PEAK)-PCT(CURRENT)/PCT(PEAK)X100% STUDIES HAVE EVALUATED PCT PROTOCOLS IN THESE PATIENTS AND FOUND THAT FOR PATIENTS WHO ARE CLINICALLY STABLE AND ARE TREATED AT THE ED OR ARE HOSPITALIZED, THE INITIATION OF ANTIBIOTIC THERAPY SHOULD BE BASED ON CLINICAL GROUNDS AND A PCT VALUE OF GREATER THAN OR EQUAL TO 0.26 NG/ML. IF PCT REMAINS LOWER, ANTIBIOTICS CAN BE WITHHELD AND PATIENTS CAN BE REASSESSED CLINICALLY WITHOUT SAFETY CONCERNS. IF PATIENTS ARE CLINICALLY STABLE, AN ALTERNATIVE DIAGNOSIS SHOULD BE CONSIDERED. IF PATIENTS ARE UNSTABLE, THEN ANTIBIOTICS MAY BE CONSIDERED. IF PATIENTS DO NOT IMPROVE IN THE SHORT FOLLOW UP PERIOD OF 6 TO 12 HOURS, CLINICAL RE-EVALUATION AND RE-MEASUREMENT OF PCT IS RECOMMENDED. 02/28/2024 5:46 AM CDT Pearl Urbina [employer] LABORATORY Final Result [facility] () [facility] [address] [place] [address], [place] [phone] * (ABNORMAL) COMPREHENSIVE METABOLIC PANEL (02/28/2024 5:46 AM CDT) GLUCOSE 104(H) 70 - 99 MG/DL 02/28/2024 6:26 AM [facility] BUN 5(L) 7 - 18 MG/DL 02/28/2024 6:26 AM [facility] CREATININE S/P/B 1.02 0.7 - 1.3 MG/DL 02/28/2024 6:26 AM [facility] SODIUM S/P/B 143 136 - 145 MMOL/L 02/28/2024 6:26 AM [facility] POTASSIUM S/P/B 3.9 3.5 - 5.1 MMOL/L 02/28/2024 6:26 AM [facility] CHLORIDE S/P/B 105 100 - 108 MMOL/L 02/28/2024 6:26 AM [facility] CO2 32.4(H) 21 - 32 MMOL/L 02/28/2024 6:26 AM [facility] CALCIUM S/P/B 8.2(L) 8.5 - 10.1 MG/DL 02/28/2024 6:26 AM [facility] BILIRUBIN TOTAL S/P/B 0.7 0.2 - 1.2 MG/DL 02/28/2024 6:26 AM [facility] TOTAL PROTEIN S/P/B 6.0(L) 6.4 - 8.2 G/DL 02/28/2024 6:26 AM [facility] ALBUMIN S/P/B 2.5(L) 3.4 - 5.0 G/DL 02/28/2024 6:26 AM [facility] AST 38(H) 15 - 37 U/L 02/28/2024 6:26 AM [facility] ALT 36 16 - 60 U/L 02/28/2024 6:26 AM CDT [facility] ALKALINE PHOSPHATASE S/P/B 126 50 - 136 U/L 02/28/2024 6:26 AM CDT [facility] ANION GAP 5.6 5 - 15 MMOL/L 02/28/2024 6:26 AM T [facility] BUN CREATININE RATIO 4.9(L) 6 - 26 02/28/2024 6:26 AM T [facility] A/G RATIO 0.7(L) 1.0 - 2.0 RATIO 02/28/2024 6:26 AM T [facility] GFR ESTIMATE >90 >90 ML/MIN/1.7 3 M2 02/28/2024 6:26 AM T [facility] Comment: NOTE: eGFR is not calculated for patients <18 years of age. This is an estimated GFR calculation using the new CKD EPI creatinine equation without race and so does not require a correction factor for race. This estimated GFR should not be used for calculating drug doses. 02/28/2024 5:46 AM CDT Pearl Urbina APRN LABORATORY Final Result [facility] [id number] [place] [id number], * (ABNORMAL) CBC W/DIFF AUTOMATED (02/28/2024 5:46 AM CDT) WBC 8.19 4.4 - 11.0 x10'3/uL 02/28/2024 6:01 AM CDT [facility] RBC 4.90 4.50 - 5.90 x10'6/uL 02/28/2024 6:01 AM CDT [facility] HGB 15.0 14.0 - 17.5 G/DL 02/28/2024 6:01 AM CDT [facility] HCT 46.3 41.5 - 50.4 % 02/28/2024 6:01 AM T [facility] MCV 94.5 80.0 - 96.0 FL 02/28/2024 6:01 AM T [facility] MCH 30.6 26.5 - 31.4 PG 02/28/2024 6:01 AM T [facility] MCHC 32.4 31.9 - 34.8 G/DL 02/28/2024 6:01 AM [facility] RDW 13.4 12.3 - 14.3 % 02/28/2024 6:01 AM [facility] PLT 242 151 - 353 x10'3/uL 02/28/2024 6:01 AM [facility] MPV 9.7 9.7 - 11.9 FL 02/28/2024 6:01 AM [facility] RBC MORPHOLOGY NORMAL 02/28/2024 6:01 AM [facility] PLT MORPH. NORMAL 02/28/2024 6:01 AM [facility] WBC MORPHOLOGY NORMAL 02/28/2024 6:01 AM [facility] LYMPHOCYTES % 28.7 15.8 - 45.0 % 02/28/2024 6:01 AM T [facility] NEUTROPHILS % 58.8 42.1 - 71.9 % 02/28/2024 6:01 AM T [facility] MONOCYTES % 8.4 5.7 - 12.5 % 02/28/2024 6:01 AM [facility] EOSINOPHILS 2.8 0.0 - 5.6 % 02/28/2024 6:01 AM T [facility] BASOPHILS 0.7 0.0 - 1.3 % 02/28/2024 6:01 AM CDT [facility] ABS. NEUTROPHILS 4.81 1.40 - 6.00 x10'3/uL 02/28/2024 6:01 AM CDT [facility] IMMATURE GRANS % 0.6(H) 0.0 - 0.5 % 02/28/2024 6:01 AM CDT [facility] ABS. LYMPHOCYTES 2.35 0.80 - 4.70 x10'3/uL 02/28/2024 6:01 AM CDT [facility] 02/28/2024 5:46 AM CDT [facility] Final Result Performing Organization Address City/[facility]/ZIP Co de Phone Number [facility] [id number] [place] [address], * Vancomycin Random Level (02/28/2024 5:46 AM CDT) VANCOMYCIN RANDOM 13.7 MCG/ML 02/28/2024 6:18 AM CDT [facility] [facility] Comment:NO THERAPEUTIC RANGE AVAILABLE VANCOMYCIN UNKNOWN LAST DOSE 02/28/2024 7:26 AM CDT [facility] 02/28/2024 5:46 AM CDT Pearl Urbina [facility] Final Result [facility] [address] [place] [address], [place] [phone] * (ABNORMAL) C-REACTIVE PROTEIN (02/28/2024 5:46 AM CDT) C-REACTIVE PROTEIN 6.93(H) <0.29 mg/dL 02/28/2024 12:16 PM CDT [facility] 02/28/2024 5:46 AM CDT Pearl Urbina [facility] Final Result [facility] [address] [place] [address], * USV SAMI DUPLEX LOW EXT BIN (02/27/2024 11:58 AM CDT) Anatomical Region Laterality Modality Extremity Ultrasound 02/27/2024 12:2 7 PM CDT Impressions 02/27/2024 12:31 PM CDT IMPRESSION: No evidence for deep venous thrombosis in either lower extremity. Ordered By: BOB CAMPOS Interpreted By: Arpan Cerna MD, 02/27/2024 12:27 PM Narrative 02/27/2024 12:31 PM CDT Procedure(s): USV SAMI DUPLEX LOW EXT BIN Date of service: 02/27/2024 11:14 AM Provided clinical information: 39 years, Male, lower ext edema ?? Procedure and materials: Standard protocol. Comparison studies: None. Observations: ?? Standard grayscale and Doppler evaluation of the bilateral lower extremities ??is performed. Deep veins of the bilateral lower extremities ??demonstrate normal patency with no intraluminal filling defect and normal compressibility. There is normal directional color Doppler flow and venous waveforms. There is positive response to augmentation. Surrounding soft tissues are grossly unremarkable. Procedure Note Arpan Cerna MD - 02/27/2024 Procedure(s): USV SAMI DUPLEX LOW EXT BIN Date of service: 02/27/2024 11:14 AM Provided clinical information: 39 years, Male, lower ext edema Procedure and materials: Standard protocol. Comparison studies: None. Observations: Standard grayscale and Doppler evaluation of the bilateral lowerextremities is performed. Deep veins of the bilateral lower extremitiesdemonstrate normal patency with no intraluminal filling defect and normalcompressibility. There is normal directional color Doppler flow and venouswaveforms. There is positive response to augmentation. Surrounding softtissues are grossly unremarkable. IMPRESSION: No evidence for deep venous thrombosis in either lower extremity. Ordered By: BOB CAMPOS Interpreted By: Arpan Cerna MD, 02/27/2024 12:27 PM us Bob Campos MD VASC Final Result * USE ECHOCARDIOGRAM (02/27/2024 8:09 AM CDT) Anatomical Region Laterality Modality Cardiac Ultrasound 02/27/2024 7:08 AM CDT Narrative 02/27/2024 1:11 PM CDT ?KAE ? OUTREACH Pat.Name: ??Sharri Vera ii ?Pat.ID: ?[id number] ? St.Date: ?? 02/27/2024 ? Refer.MD: ??Outreach, [facility] Radiology Exam Time: 7:08:00 AM ?Study Type:OUTREACH ? Height: ?71 in ? Weight: ?240 lb ? BSA: ? 2.28 m2 ?Age: ??1985,39Y ? Sex: ? M ? Sonogrphr: Ls ? Pat. Stat.:Inpatient ? Room: ?117 1 ? Reason for Study:Lower Extremity Swelling Procedures: Study performed at [place], [place] and interpreted by [facility]. 2D, M-mode, Doppler, Color Flow ++++++++++++++++++++++++++++++++++++ SUMMARY: ++++++++++++++++++++++++++++++++++++ The left ventricular size is normal. There is mild left ventricular hypertrophy. The left ventricular systolic function is normal. Estimated left ventricular ejection fraction is 60-65%. Left ventricular diastolic function is normal. The right ventricle size is normal. The right ventricular function is normal. Left atrial size is normal. The right atrial size is normal. Unable to reliably quantitate pulmonary systolic pressure. There is trace mitral regurgitation. There is trace tricuspid regurgitation. ++++++++++++++++++++++++++++++++++++ FINDINGS: ++++++++++++++++++++++++++++++++++++ LV: ? The left ventricular size is normal. There is mild left ?ventricular hypertrophy. The left ventricular systolic ?function is normal. Estimated left ventricular ejection ?fraction is 60-65%. Left ventricular diastolic function is ?normal. RV: ? The right ventricle size is normal. The right ventricular ?function is normal. LA: ? Left atrial size is normal. RA: ? The right atrial size is normal. MAHSA: ? No evidence of pericardial effusion. AO: ? Aorta is normal. PA: ? Unable to reliably quantitate pulmonary systolic pressure. SVn: ?Inferior vena cava is normal. AV: ? No evidence of aortic valve stenosis. No evidence of aortic ?regurgitation. The aortic valve not well visualized. MV: ? The mitral valve is structurally normal. There is trace ?mitral regurgitation. PV: ? Pulmonic valve not well visualized. TV: ? The tricuspid valve appears structurally normal. There is ?trace tricuspid regurgitation. <Electronic Signature> 02/27/2024 01:11 PM Trey Mustafa M.D. Procedure Note Trey Mustafa MD - 02/27/2024 KAE MARY Pat.Name: Sharri Vera ii Pat.ID: [id number] .Date: 02/27/2024 Refer.MD: Usman, [facility] Radiology Exam Time: 7:08:00 AM Study Type:USMAN Height: 71 in Weight: 240 lb BSA: 2.28 m2 Age: 2 1985,39Y Sex: M Sonogrphr: Ls Pat. Stat.:Inpatient Room: 117 1 Reason for Study:Lower Extremity Swelling Procedures: Study performed at [place], [place] and interpreted by [facility]. 2D, M-mode, Doppler, Color Flow ++++++++++++++++++++++++++++++++++++ SUMMARY: ++++++++++++++++++++++++++++++++++++ The left ventricular size is normal. There is mild left ventricular hypertrophy. The left ventricular systolic function is normal. Estimated left ventricular ejection fraction is 60-65%. Left ventricular diastolic function is normal. The right ventricle size is normal. The right ventricular function is normal. Left atrial size is normal. The right atrial size is normal. Unable to reliably quantitate pulmonary systolic pressure. There is trace mitral regurgitation. There is trace tricuspid regurgitation. ++++++++++++++++++++++++++++++++++++ FINDINGS: ++++++++++++++++++++++++++++++++++++ LV: The left ventricular size is normal. There is mild left ventricular hypertrophy. The left ventricular systolic function is normal. Estimated left ventricular ejection fraction is 60-65%. Left ventricular diastolic function is normal. RV: The right ventricle size is normal. The right ventricular function is normal. LA: Left atrial size is normal. RA: The right atrial size is normal. MAHSA: No evidence of pericardial effusion. AO: Aorta is normal. PA: Unable to reliably quantitate pulmonary systolic pressure. SVn: Inferior vena cava is normal. AV: No evidence of aortic valve stenosis. No evidence of aortic regurgitation. The aortic valve not well visualized. MV: The mitral valve is structurally normal. There is trace mitral regurgitation. PV: Pulmonic valve not well visualized. TV: The tricuspid valve appears structurally normal. There is trace tricuspid regurgitation. <Electronic Signature> 02/27/2024 01:11 PM Trey Mustafa M.D. Bob Campos MD ECHO Final Result * CHLAM/GC/TRICHOMONAS PROFILE (02/27/2024 5:55 AM CDT) SPECIMEN SOURCE PENIS 5:58 AM CDT [facility] CHLAMYDIA PCR NEGATIVE NEGATIVE 02/28/2024 12:34 AM CDT [facility] Comment:PERFORMED BY NUCLEIC ACID AMPLIFICATION N.GONORRHOEAE RNA TMA NEGATIVE NEGATIVE 02/28/2024 12:34 AM CDT [facility] Comment:PERFORMED BY NUCLEIC ACID AMPLIFICATION TRICHOMONAS NEGATIVE NEGATIVE 02/29/2024 12:40 AM CDT [facility] Comment:PERFORMED BY NUCLEIC ACID AMPLIFICATION PENILE STRUCTURE / Unknown 02/27/2024 5:55 AM CDT Bob Campos MD MICROBIOLOGY - GENERAL ORDERABL ES Final Result [facility] [address] [place] [address], [place] [phone] [facility] [address] [place] [address], * (ABNORMAL) PROCALCITONIN (PCT) (02/27/2024 5:34 AM CDT) Procalcitonin 0.26(H) 0.00 - 0.25 NG/ML 02/27/2024 3:01 PM CDT [facility] Comment: PROCALCITONIN INTERPRETATION GUIDELINES LOWER RESPIRATORY TRACT INFECTIONS (LRTI): USE OF PCT IN INPATIENT OR EMERGENCY SITUATION INITIATION OF ANTIBIOTICS PCT VALUE ? INTERPRETATION <0.10 NG/ML ?ANTIBIOTIC THERAPY ? STRONGLY DISCOURAGED. 0.10-0.25 NG/ML ?ANTIBIOTIC THERAPY ? DISCOURAGED. 0.26-0.50 NG/ML ?ANTIBIOTIC THERAPY ? ENCOURAGED. >0.50 NG/ML ?ANTIBIOTIC THERAPY ? STRONGLY ENCOURAGED. DISCONTINUE ANTIBIOTICS PCT LESS THAN OR EQUAL TO 0.25 NG/ML OR DELTA PCT >80 PERCENT DELTA PCT= PCT(PEAK)-PCT(CURRENT)/PCT(PEAK)X100% STUDIES HAVE EVALUATED PCT PROTOCOLS IN THESE PATIENTS AND FOUND THAT FOR PATIENTS WHO ARE CLINICALLY STABLE AND ARE TREATED AT THE ED OR ARE HOSPITALIZED, THE INITIATION OF ANTIBIOTIC THERAPY SHOULD BE BASED ON CLINICAL GROUNDS AND A PCT VALUE OF GREATER THAN OR EQUAL TO 0.26 NG/ML. IF PCT REMAINS LOWER, ANTIBIOTICS CAN BE WITHHELD AND PATIENTS CAN BE REASSESSED CLINICALLY WITHOUT SAFETY CONCERNS. IF PATIENTS ARE CLINICALLY STABLE, AN ALTERNATIVE DIAGNOSIS SHOULD BE CONSIDERED. IF PATIENTS ARE UNSTABLE, THEN ANTIBIOTICS MAY BE CONSIDERED. IF PATIENTS DO NOT IMPROVE IN THE SHORT FOLLOW UP PERIOD OF 6 TO 12 HOURS, CLINICAL RE-EVALUATION AND RE-MEASUREMENT OF PCT IS RECOMMENDED. 02/27/2024 5:34 AM CDT Pearl Urbina [facility] Final Result [facility] [address] [place] [address], [place] [phone] * (ABNORMAL) COMPREHENSIVE METABOLIC PANEL (02/27/2024 5:34 AM CDT) [facility] GLUCOSE 98 70 - 99 MG/DL 02/27/2024 6:36 AM CDT [facility] BUN 6(L) 7 - 18 MG/DL 02/27/2024 6:36 AM CDT [facility] CREATININE S/P/B 0.86 0.7 - 1.3 MG/DL 02/27/2024 6:36 AM T [facility] SODIUM S/P/B 141 136 - 145 MMOL/L 02/27/2024 6:36 AM CDT [facility] POTASSIUM S/P/B 3.8 3.5 - 5.1 MMOL/L 02/27/2024 6:36 AM CDT [facility] CHLORIDE S/P/B 104 100 - 108 MMOL/L 02/27/2024 6:36 AM CDT [facility] CO2 28.1 21 - 32 MMOL/L 02/27/2024 6:36 AM CDT [facility] CALCIUM S/P/B 8.1(L) 8.5 - 10.1 MG/DL 02/27/2024 6:36 AM [facility] BILIRUBIN TOTAL S/P/B 1.0 0.2 - 1.2 MG/DL 02/27/2024 6:36 AM [facility] TOTAL PROTEIN S/P/B 5.9(L) 6.4 - 8.2 G/DL 02/27/2024 6:36 AM [facility] ALBUMIN S/P/B 2.6(L) 3.4 - 5.0 G/DL 02/27/2024 6:36 AM [facility] AST 29 15 - 37 U/L 02/27/2024 6:36 AM [facility] ALT 37 16 - 60 U/L 02/27/2024 6:36 AM [facility] ALKALINE PHOSPHATASE S/P/B 131 50 - 136 U/L 02/27/2024 6:36 AM [facility] ANION GAP 8.9 5 - 15 MMOL/L 02/27/2024 6:36 AM [facility] BUN CREATININE RATIO 7.0 6 - 26 02/27/2024 6:36 AM [facility] A/G RATIO 0.8(L) 1.0 - 2.0 RATIO 02/27/2024 6:36 AM [facility] GFR ESTIMATE >90 >90 ML/MIN/1.7 3 M2 02/27/2024 6:36 AM [facility] Comment: NOTE: eGFR is not calculated for patients <18 years of age. This is an estimated GFR calculation using the new CKD EPI creatinine equation without race and so does not require a correction factor for race. This estimated GFR should not be used for calculating drug doses. 02/27/2024 5:34 AM CDT Pearl Urbina [facility] Final Result [facility] [address] [place] [address], [place] [phone] * (ABNORMAL) CBC W/DIFF AUTOMATED (02/27/2024 5:34 AM CDT) WBC 8.31 4.4 - 11.0 x10'3/uL 02/27/2024 6:01 AM CDT [facility] RBC 5.08 4.50 - 5.90 x10'6/uL 02/27/2024 6:01 AM CDT [facility] HGB 15.7 14.0 - 17.5 G/DL 02/27/2024 6:01 AM CDT [facility] HCT 48.0 41.5 - 50.4 % 02/27/2024 6:01 AM CDT [facility] MCV 94.5 80.0 - 96.0 FL 02/27/2024 6:01 AM CDT [facility] MCH 30.9 26.5 - 31.4 PG 02/27/2024 6:01 AM CDT [facility] MCHC 32.7 31.9 - 34.8 G/DL 02/27/2024 6:01 AM CDT [facility] RDW 13.3 12.3 - 14.3 % 02/27/2024 6:01 AM CDT [facility] PLT 216 151 - 353 x10'3/uL 02/27/2024 6:01 AM CDT [facility] MPV 10.2 9.7 - 11.9 FL 02/27/2024 6:01 AM CDT [facility] RBC MORPHOLOGY NORMAL 02/27/2024 6:01 AM CDT [facility] PLT MORPH. NORMAL 02/27/2024 6:01 AM CDT [facility] WBC MORPHOLOGY NORMAL 02/27/2024 6:01 AM CDT [facility] LYMPHOCYTES % 26.7 15.8 - 45.0 % 02/27/2024 6:01 AM CDT [facility] NEUTROPHILS % 60.1 42.1 - 71.9 % 02/27/2024 6:01 AM CDT [facility] MONOCYTES % 7.3 5.7 - 12.5 % 02/27/2024 6:01 AM CDT [facility] EOSINOPHILS 4.5 0.0 - 5.6 % 02/27/2024 6:01 AM CDT [facility] BASOPHILS 0.8 0.0 - 1.3 % 02/27/2024 6:01 AM CDT [facility] ABS. NEUTROPHILS 4.99 1.40 - 6.00 x10'3/uL 02/27/2024 6:01 AM CDT [facility] IMMATURE GRANS % 0.6(H) 0.0 - 0.5 % 02/27/2024 6:01 AM T [facility] ABS. LYMPHOCYTES 2.22 0.80 - 4.70 x10'3/uL 02/27/2024 6:01 AM T [facility] 02/27/2024 5:34 AM CDT us Pearl Urbina [facility] Final Result [facility] [address] [place] [address], * (ABNORMAL) C-REACTIVE PROTEIN (02/27/2024 5:34 AM CDT) Pathologist [facility] C-REACTIVE PROTEIN 10.20(H) <0.29 mg/dL 02/27/2024 11:23 AM CDT [facility] 02/27/2024 5:34 AM CDT Pearl Urbina [facility] Final Result [facility] [address] [place] [address], [place] [phone] * HIV - RAPID (02/26/2024 6:05 PM CDT) Pathologist [facility] HIV RAPID NON-REACTIV E NON-REACTI VE 02/26/2024 7:16 PM CDT [facility] 02/26/2024 6:05 PM CDT Pearl Urbina [facility] Final Result Performing Organization Address City/[facility] Co de Phone Number [facility] [address] [place] [address], [place] [phone] * MRSA SCREENING (02/26/2024 6:05 PM CDT) Pathologist [facility] SPEC DESCRIPTION NASAL 02/26/2024 6:09 PM CDT [facility] SPECIAL REQUESTS NO SPECIAL REQUEST 02/26/2024 6:09 PM CDT [facility] CULTURE RESULT NO MRSA ISOLATED 02/27/2024 7:10 PM CDT [facility] SPECIMEN FROM INTERNAL NOSE / Unknown 02/26/2024 6:05 PM CDT 02/26/2024 6:33 PM CDT Bob Campos MD MICROBIOLOGY - GENERAL ORDERABL ES Final Result [facility] [address] [place] [address], [place] [phone] * RICKETTSIA AB WI RFX (QST) (02/26/2024 6:05 PM CDT) [facility] RICKETTSIA (RMSF) IGG SCRN Not Detected Not Detected 02/29/2024 9:08 PM CDT [facility] RICKETTSIA IGG ANTIBODIES REPORT 02/29/2024 9:08 PM CDT [facility] Comment: Not indicated RICKETTSIA (RMSF) IGM SCRN Not Detected Not Detected 02/29/2024 9:08 PM CDT [facility] RICKETTSIA IGM ANTIBODIES REPORT 02/29/2024 9:08 PM CDT [facility] Comment: Not indicated R. TYPHI IGG SCRN Not Detected Not Detected 02/29/2024 9:08 PM CDT [facility] TYPHUS IGG REPORT 02/29/2024 9:08 PM CDT [facility] Comment: Not indicated R. TYPHI IGM SCRN Not Detected Not Detected 02/29/2024 9:08 PM CDT [facility] TYPHUS IGM REPORT 02/29/2024 9:08 PM CDT [facility] Comment: Not indicated Test Performed by [employer], [facility], [address] [place] [address] Gavin Paul M.D., Ph.D., Director of Laboratories , [facility] [id number] 02/26/2024 6:05 PM CDT Bob Campos MD LABORATORY Final Result [email or web address] [id number] [place], [place] , [place] [phone] * ANCA VASCULITIS PANEL (02/26/2024 6:05 PM CDT) MYELOPEROXIDASE AB <1.0 <1.0 AI 2023 11:58 AM CDT [facility] Comment: ?Value ?? Interpretation ? <1.0 AI: No Antibody Detected ?>or=1.0 AI: Antibody Detected Autoantibodies to myeloperoxidase (MPO) are commonly associated with the following small-vessel vasculitides: microscopic polyangiitis, polyarteritis nodosa, Churg-Nabil syndrome, necrotizing and crescentic glomerulonephritis and occasionally granulomatosis with polyangiitis (GPA, Jenise's). The perinuclear IFA pattern, (p-ANCA) is based largely on autoantibody to myeloperoxidase which serves as the primary antigen. These autoantibodies are present in active disease. C ANCA <1.0 <1.0 AI 03/01/2024 11:58 AM CDT [facility] Comment: ? Value ?Interpretation ? <1.0 AI: No Antibody Detected ?>or=1.0 AI: Antibody Detected Autoantibodies to proteinase-3 (MT-3) are accepted as characteristic for granulomatosis with polyangiitis (GPA, Jenise's), and are detectable in 95% of the histologically proven cases. The cytoplasmic IFA pattern, (c-ANCA), is based largely on autoantibody to MT-3 which serves as the primary antigen. These autoantibodies are present in active disease. Test Performed by [employer], [facility], [address] [place], [place] Gavin Paul M.D., Ph.D., Director of Laboratories , [facility] [id number] 02/26/2024 6:05 PM CDT Bob Campos MD LABORATORY Final Result [facility] [address] [place] [address], [place] [phone] * (ABNORMAL) SED RATE, ERYTHROCYTE (ESR) (02/26/2024 6:05 PM CDT) ESR 21(H) 0 - 15 MM/HR 02/26/2024 6:58 PM CDT [facility] 02/26/2024 6:05 PM CDT Bob Campos MD LABORATORY Final Result Performing Organization Address City/[facility]/ZIP Co de Phone Number [facility] [address] [place] [address], [place] [phone] * (ABNORMAL) PROCALCITONIN (PCT) (02/26/2024 6:05 PM CDT) Procalcitonin 0.42(H) 0.00 - 0.25 NG/ML 02/26/2024 7:50 PM CDT [facility] Comment: PROCALCITONIN INTERPRETATION GUIDELINES LOWER RESPIRATORY TRACT INFECTIONS (LRTI): USE OF PCT IN INPATIENT OR EMERGENCY SITUATION INITIATION OF ANTIBIOTICS PCT VALUE ? INTERPRETATION <0.10 NG/ML ?ANTIBIOTIC THERAPY ? STRONGLY DISCOURAGED. 0.10-0.25 NG/ML ?ANTIBIOTIC THERAPY ? DISCOURAGED. 0.26-0.50 NG/ML ?ANTIBIOTIC THERAPY ? ENCOURAGED. >0.50 NG/ML ?ANTIBIOTIC THERAPY ? STRONGLY ENCOURAGED. DISCONTINUE ANTIBIOTICS PCT LESS THAN OR EQUAL TO 0.25 NG/ML OR DELTA PCT >80 PERCENT DELTA PCT= PCT(PEAK)-PCT(CURRENT)/PCT(PEAK)X100% STUDIES HAVE EVALUATED PCT PROTOCOLS IN THESE PATIENTS AND FOUND THAT FOR PATIENTS WHO ARE CLINICALLY STABLE AND ARE TREATED AT THE ED OR ARE HOSPITALIZED, THE INITIATION OF ANTIBIOTIC THERAPY SHOULD BE BASED ON CLINICAL GROUNDS AND A PCT VALUE OF GREATER THAN OR EQUAL TO 0.26 NG/ML. IF PCT REMAINS LOWER, ANTIBIOTICS CAN BE WITHHELD AND PATIENTS CAN BE REASSESSED CLINICALLY WITHOUT SAFETY CONCERNS. IF PATIENTS ARE CLINICALLY STABLE, AN ALTERNATIVE DIAGNOSIS SHOULD BE CONSIDERED. IF PATIENTS ARE UNSTABLE, THEN ANTIBIOTICS MAY BE CONSIDERED. IF PATIENTS DO NOT IMPROVE IN THE SHORT FOLLOW UP PERIOD OF 6 TO 12 HOURS, CLINICAL RE-EVALUATION AND RE-MEASUREMENT OF PCT IS RECOMMENDED. 02/26/2024 6:05 PM CDT Bob Campos MD LABORATORY Final Result Performing Organization Address City/[facility]/ZIP Co de Phone Number [facility] [address] [place] [address], [place] [phone] * HEPATITIS C ANTIBODY W/REFLEX (02/26/2024 6:05 PM CDT) Pathologist [facility] HEPATITIS C AB NON-REACTI VE NON-REACTI VE 02/27/2024 12:15 PM CDT [facility] 02/26/2024 6:05 PM CDT Bob Campos MD LABORATORY Final Result [facility] [address] [place] [address], [place] [phone] * COMPLEMENT C4 (02/26/2024 6:05 PM CDT) COMPLEMENT C4 39 15 - 53 mg/dL 03/01/2024 9:46 AM CDT [facility] Comment: Test Performed by PLAYSTUDI[employer]Caroline, [employer], [address] [place] [address] Gavin Paul M.D., Ph.D., Director of Laboratories , [facility] [id number] 02/26/2024 6:05 PM CDT Bob Campos MD LABORATORY Final Result Performing Organization Address City/[facility]/ZIP Co de Phone Number [email or web address] , [place] [phone] * COMPLEMENT C3 (02/26/2024 6:05 PM CDT) COMPLEMENT C3 157.0 90.0 - 180.0 MG/DL 02/27/2024 12:15 PM CDT [facility] 02/26/2024 6:05 PM CDT Bob Campos MD LABORATORY Final Result Performing Organization Address City/[facility]/ZIP Co de Phone Number [facility] [address] [id number], [id number] * (ABNORMAL) DNA ANTIBODY, ABSENTEE-SHAWNEE/DBL STRAN (02/26/2024 6:05 PM CDT) DNA (DS) ANTIBODY 5(H) <=4 IU/mL 024 6:38 PM CDT [facility] Comment: ? Value ??Interpretation ? <or=4 IU/mL: Negative ? 5 - 9 IU/mL: Indeterminate ?>or=10 IU/mL: Positive Test Performed by [employer]STUD[employer]Caroline, [employer], [address] [place] [address] Gavin Paul M.D., Ph.D., Director of Laboratories , [facility] [id number] 02/26/2024 6:05 PM CDT Bob Campos MD LABORATORY Final Result [facility] [address] [place], [place] , * RAVIN IFA SCRN, [place] REFLEX TO TITER (02/26/2024 6:05 PM CDT) RAVIN Negative Negative 03/02/2024 1:41 PM CDT [facility] Comment: RAVIN IFA is a first line screen for detecting the presence of up to approximately 150 autoantibodies in various autoimmune diseases. A negative RAVIN IFA result suggests RAVIN-associated autoimmune disease is not present at this time, but is not definitive. If there is high clinical suspicion for Sjogren's Syndrome, testing for anti-SS-A/Ro antibody should be considered. Anti-Nay-1 antibody should be considered for clinically suspected inflammatory myopathies. AC-0: Negative International Consensus on RAVIN Patterns https://doi.org/10.1515/rnkg-3780-0348 For additional information, please refer to http://education.Iglu.com.[employer]/faq/CGR581 (This link is being provided for informational/ educational purposes only.) Test Performed by [employer] Caroline, [facility], [address] [place], [place] Gavin Paul M.D., Ph.D., Director of Laboratories , CLIA [id number] 02/26/2024 6:05 PM CDT Bob Campos MD LABORATORY Final Result [facility] [address] [place], [place] , [place] [phone] * FERRITIN (02/26/2024 6:05 PM CDT) FERRITIN 246.0 8.0 - 388.0 NG/ML 02/26/2024 7:24 PM CDT [facility] 02/26/2024 6:05 PM CDT us Bob Campos MD LABORATORY Final Result [facility] [address] [place] [address], [place] [phone] * (ABNORMAL) VITAMIN B12 / FOLATE (02/26/2024 6:05 PM CDT) VITAMIN B12 S/P/B 875 193 - 986 PG/ML 02/26/2024 8:15 PM CDT [facility] FOLATE 3.0(L) 8.6 - 58.9 NG/ML 02/26/2024 8:15 PM CDT [facility] 02/26/2024 6:05 PM CDT us Bob Campos MD LABORATORY Final Result Performing Organization Address City/[facility]/ZIP Co de Phone Number [facility] [address] [place] [address], [place] [phone] * SYPHILIS IGG AB (02/26/2024 6:05 PM CDT) SYPHILIS IGG AB NON-REACTI VE NON-REACTI VE 02/27/2024 11:46 AM CDT [facility] 02/26/2024 6:05 PM CDT us Bob Campos MD LABORATORY Final Result [facility] [address] [place] [address], [place] [phone] * HIV-1, RNA,QNT (02/26/2024 6:05 PM CDT) HIV LOGCOPIES/ML 03/19/20 24 11:49 AM CDT [facility] Comment: Test not performed. Initial testing necessitated a repeat, but there was insufficient sample to perform repeat. PAT[address]S STREET [address]ESS [address] [place] [address] 02/26/2024 4:33 PM CDT [facility] PATIENT'S [facility] 02/26/2024 4:33 PM CDT [facility] PATIENT'S [facility] 4:33 PM CDT [facility] PATIENT'S ZIP CODE: [id number] 02/26/2024 4:33 PM CDT [facility] [facility] OR 02/26/2024 4:33 PM CDT [facility] : NONHISPANIC 02/26/2024 4:33 PM CDT [facility] 02/26/2024 6:05 PM CDT Bob Campos MD LABORATORY Final Result [facility] [address] [place] [address], [place] [phone] * ECG 12 lead (02/26/2024 5:20 PM CDT) 02/26/2024 5:20 PM CDT Narrative [facility] ([facility]) RAD - 02/27/2024 7:41 AM CDT ?[facility] [place] ? Test Date: ?2024-02-26 Pat Name: ? SHARRI VERA ? Department: ?? 85 ? Room: ? 1171 Gender: ? Male ? 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 : ?1985 ? Requested By: PEARL URBINA Order Number: [id number] ? Reading MD: ?? Anupam Justin ? Measurements Intervals ?[place]row[place] ? Rate: ? 91 ? P: ?47 MT: ? 157 ?QRS: ?-21 QRSD: ? 110 ?T: ?5 QT: ? 334 ? QTc: ?413 ? Interpretive Statements SINUS RHYTHM WITH SINUS ARRHYTHMIA MODERATE VOLTAGE CRITERIA FOR LVH, CONSIDER NORMAL VARIANT ??[MEETS CRITERIA IN ONE OF: R(aVL), S(V1), R(V5), R(V5/V6)+S(V1)] INFERIOR MYOCARDIAL INFARCTION , PROBABLY OLD [40+ ms Q WAVE AND/OR ST/T ABNORMALITY IN II/aVF] Compared to ECG 02/15/2024 01:46:39 Myocardial infarct finding now present Sinus tachycardia no longer present Procedure Note Anupam Justin MD - 02/27/2024 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: : 1985 Requested By: PEARL URBINA Order Number: [id number] Rl MD: Anupam Justin Measurements Intervals Browns Rate: 91 P: 47 MT: 157 QRS: -21 QRSD: 110 T: 5 QT: 334 QTc: 413 Interpretive Statements SINUS RHYTHM WITH SINUS ARRHYTHMIA MODERATE VOLTAGE CRITERIA FOR LVH, CONSIDER NORMAL VARIANT [MEETSCRITERIA IN ONE OF: R(aVL), S(V1), R(V5), R(V5/V6)+S(V1)] INFERIOR MYOCARDIAL INFARCTION , PROBABLY OLD [40+ ms Q WAVE AND/OR ST/T ABNORMALITY IN II/aVF] Compared to ECG 02/15/2024 01:46:39 Myocardial infarct finding now present Sinus tachycardia no longer present Pearl Urbina [employer] ECG ORDERABLES Final Result [facility] RAD * (ABNORMAL) COMPREHENSIVE METABOLIC PANEL (02/26/2024 5:26 AM CDT) GLUCOSE 96 70 - 99 MG/DL 02/26/2024 6:47 AM CDT [facility] BUN 7 7 - 18 MG/DL 02/26/2024 6:47 AM CDT [facility] CREATININE S/P/B 0.82 0.7 - 1.3 MG/DL 02/26/2024 6:47 AM T [facility] SODIUM S/P/B 143 136 - 145 MMOL/L 02/26/2024 6:47 AM T [facility] POTASSIUM S/P/B 3.3(L) 3.5 - 5.1 MMOL/L 02/26/2024 6:47 AM CDT [facility] CHLORIDE S/P/B 102 100 - 108 MMOL/L 02/26/2024 6:47 AM T [facility] CO2 31.0 21 - 32 MMOL/L 02/26/2024 6:47 AM T [facility] CALCIUM S/P/B 8.4(L) 8.5 - 10.1 MG/DL 02/26/2024 6:47 AM T [facility] BILIRUBIN TOTAL S/P/B 1.3(H) 0.2 - 1.2 MG/DL 02/26/2024 6:47 AM T [facility] TOTAL PROTEIN S/P/B 6.6 6.4 - 8.2 G/DL 02/26/2024 6:47 AM T [facility] ALBUMIN S/P/B 3.0(L) 3.4 - 5.0 G/DL 02/26/2024 6:47 AM CDT [facility] AST 27 15 - 37 U/L 02/26/2024 6:47 AM T [facility] ALT 36 16 - 60 U/L 02/26/2024 6:47 AM T [facility] ALKALINE PHOSPHATASE S/P/B 158(H) 50 - 136 U/L 02/26/2024 6:47 AM T [facility] ANION GAP 10.0 5 - 15 MMOL/L 02/26/2024 6:47 AM T [facility] BUN CREATININE RATIO 8.5 6 - 26 02/26/2024 6:47 AM [facility] A/G RATIO 0.8(L) 1.0 - 2.0 RATIO 02/26/2024 6:47 AM [facility] GFR ESTIMATE >90 >90 ML/MIN/1.7 3 M2 02/26/2024 6:47 AM [facility] Comment: NOTE: eGFR is not calculated for patients <18 years of age. This is an estimated GFR calculation using the new CKD EPI creatinine equation without race and so does not require a correction factor for race. This estimated GFR should not be used for calculating drug doses. 02/26/2024 5:26 AM CDT Pearl Urbina [employer] LABORATORY Final Result [facility] [address] [place] [address], * (ABNORMAL) CBC W/DIFF AUTOMATED (02/26/2024 5:26 AM CDT) WBC 9.45 4.4 - 11.0 x10'3/uL 02/26/2024 6:25 AM CDT [facility] RBC 5.51 4.50 - 5.90 x10'6/uL 02/26/2024 6:25 AM CDT [facility] HGB 17.1 14.0 - 17.5 G/DL 02/26/2024 6:25 AM CDT [facility] HCT 51.3(H) 41.5 - 50.4 % 02/26/2024 6:25 AM CDT [facility] MCV 93.1 80.0 - 96.0 FL 02/26/2024 6:25 AM CDT [facility] MCH 31.0 26.5 - 31.4 PG 02/26/2024 6:25 AM CDT [facility] MCHC 33.3 31.9 - 34.8 G/DL 02/26/2024 6:25 AM CDT [facility] RDW 13.2 12.3 - 14.3 % 02/26/2024 6:25 AM CDT [facility] PLT 188 151 - 353 x10'3/uL 02/26/2024 6:25 AM T [facility] MPV 10.6 9.7 - 11.9 FL 02/26/2024 6:25 AM T [facility] RBC MORPHOLOGY NORMAL 02/26/2024 6:25 AM T [facility] PLT MORPH. NORMAL 02/26/2024 6:25 AM T [facility] WBC MORPHOLOGY NORMAL 02/26/2024 6:25 AM CDT [facility] LYMPHOCYTES % 20.7 15.8 - 45.0 % 02/26/2024 6:25 AM CDT [facility] NEUTROPHILS % 65.7 42.1 - 71.9 % 02/26/2024 6:25 AM CDT [facility] MONOCYTES % 9.1 5.7 - 12.5 % 02/26/2024 6:25 AM CDT [facility] EOSINOPHILS 3.3 0.0 - 5.6 % 02/26/2024 6:25 AM CDT [facility] BASOPHILS 0.8 0.0 - 1.3 % 02/26/2024 6:25 AM CDT [facility] ABS. NEUTROPHILS 6.20(H) 1.40 - 6.00 x10'3/uL 02/26/2024 6:25 AM CDT [facility] IMMATURE GRANS % 0.4 0.0 - 0.5 % 02/26/2024 6:25 AM CDT [facility] ABS. LYMPHOCYTES 1.96 0.80 - 4.70 x10'3/uL 02/26/2024 6:25 AM CDT [facility] 02/26/2024 5:26 AM CDT Pearl Urbina APRN LABORATORY Final Result [facility] [address] [place] [address], [place] [phone] * (ABNORMAL) C-REACTIVE PROTEIN (02/26/2024 5:26 AM CDT) C-REACTIVE PROTEIN 18.40(H) <0.29 mg/dL 02/26/2024 11:31 AM CDT [facility] 02/26/2024 5:26 AM CDT Pearl Urbina [employer] LABORATORY Final Result [facility] [address] [place] [address], [place] [phone] * RAPID STREP A (02/25/2024 6:40 PM CDT) RAPID STREP TEST NEGATIVE NEGATIVE 02/25/2024 7:15 PM CDT [facility] STRUCTURE OF ANTERIOR PORTION OF NECK / Unknown 02/25/2024 6:40 PM CDT Ferdinand Jessica Urbina [facility] MICROBIOLOGY - GENERAL ORDERAB LES Final Result Performing Organization Address City/[facility]/ZIP Co de Phone Number [facility] [address] [place] [address], * CORONAVIRUS (COVID 19) MOLECULAR (02/25/2024 6:40 PM CDT) CORONAVIRUS SARS COV 2 RNA NEGATIVE NEGATIVE 02/25/2024 7:23 PM CDT [facility] Comment: NEGATIVE RESULTS DO NOT RULE [...] QUALITATIVE DETECTION OF SARS-COV-2. SPECIMEN TYPE NASAL 02/25/2024 6:49 PM CDT [facility] NASAL STRUCTURE / Unknown 02/25/2024 6:40 PM CDT Pearl Urbina APRN MICROBIOLOGY - GENERAL ORDERAB LES Final Result [facility] [address] [place] [address], [place] [phone] * (ABNORMAL) C-REACTIVE PROTEIN (02/25/2024 3:56 PM CDT) [facility] C-REACTIVE PROTEIN 17.80(H) <0.29 mg/dL 02/26/2024 11:25 AM CDT [facility] 02/25/2024 3:56 PM CDT Pearl Urbina [employer] LABORATORY Final Result [facility] [address] [place] [address], [place] [phone] * CULTURE, BACTERIA, BLOOD (02/25/2024 11:50 AM CDT) [facility] SPEC DESCRIPTION BLOOD 02/25/2024 10:44 AM CDT [facility] SPECIAL REQUESTS NO SPECIAL REQUEST 02/25/2024 10:44 AM CDT [facility] CULTURE RESULT NO GROWTH 5 DAYS 03/01/2024 1:09 AM CDT [facility] BLOOD SPECIMEN OBTAINED FOR BLOOD CULTURE / Unknown 02/25/2024 11:50 AM CDT 02/25/2024 1:36 PM CDT Lesia Romano MD MICROBIOLOGY - GENERAL ORDERA BLES Final Result [facility] [address] [place] [address], [place] [phone] * (ABNORMAL) DRUG SCREEN RAPID (02/25/2024 11:30 AM CDT) [facility] AMPHETAMINE (U) DETECTED(A) NONE DETECTED 02/25/2024 11:52 AM CDT [facility] BARBITURATES SCREEN (U) NONE DETECTED NONE DETECTED 02/25/2024 11:52 AM CDT [facility] BENZODIAZEPINES SCREEN (U) NONE DETECTED NONE DETECTED 02/25/2024 11:52 AM CDT [facility] BUPRENORPHINE SCREEN (U) DETECTED(A) NONE DETECTED 02/25/2024 11:52 AM CDT [facility] COCAINE METABOLITES (U) DETECTED(A) NONE DETECTED 02/25/2024 11:52 AM T [facility] METHAMPHETAMINE (U) DETECTED(A) NONE DETECTED 02/25/2024 11:52 AM T [facility] METHADONE (U) NONE DETECTED NONE DETECTED 02/25/2024 11:52 AM CDT [facility] OPIATE SCREEN (U) NONE DETECTED NONE DETECTED 02/25/2024 11:52 AM T [facility] OXYCODONE SCREEN (U) NONE DETECTED NONE DETECTED 02/25/2024 11:52 AM T [facility] PHENCYCLIDINE PCP (U) NONE DETECTED NONE DETECTED 02/25/2024 11:52 AM T [facility] CANNABINOIDS SCREEN (U) NONE DETECTED NONE DETECTED 02/25/2024 11:52 AM CDT [facility] TRICYCLIC ANTIDEPRESSANT SCREEN (U) NONE DETECTED NONE DETECTED 02/25/2024 11:52 AM CDT [facility] Comment: NOTE: RESULTS OF THIS DRUG [...] TCA- ?300 NG/ML URINE SPECIMEN / Unknown 02/25/2024 11:30 AM CDT us Lesia Romano MD URINE ORDERABLES Final Result [facility] [address] [place] [address], * (ABNORMAL) URINALYSIS, AUTO, COMPLETE (02/25/2024 11:30 AM CDT) COLOR (U) YELLOW 02/25/2024 11:56 AM CDT [facility] TRANSPARENCY CLEAR 02/25/2024 11:56 AM CDT [facility] SPECIFIC GRAVITY (U) <1.005 1.000 - 1.030 02/25/2024 11:56 AM CDT [facility] U PH 6.5 5.0 - 9.0 02/25/2024 11:56 AM T [facility] LEUKOCYTES (U) NEGATIVE NEGATIVE 02/25/2024 11:56 AM CDT [facility] NITRITES NEGATIVE NEGATIVE 02/25/2024 11:56 AM T [facility] PROTEIN RANDOM (U) NEGATIVE NEGATIVE 02/25/2024 11:56 AM CDT [facility] GLUCOSE (U) NEGATIVE NEGATIVE 02/25/2024 11:56 AM T [facility] KETONES MG/DL (U) NEGATIVE NEGATIVE 02/25/2024 11:56 AM T [facility] BILIRUBIN (U) NEGATIVE NEGATIVE 02/25/2024 11:56 AM T [facility] BLOOD (U) TRACE(A) NEGATIVE 02/25/2024 11:56 AM CDT [facility] WBC/HPF NONE SEEN 0 - 5 /HPF 02/25/2024 11:56 AM CDT [facility] RBC/HPF NONE SEEN 0 - 5 /HPF 02/25/2024 11:56 AM CDT [facility] EPI/HPF RARE /HPF 02/25/2024 11:56 AM CDT [facility] CULTURE & SENSITIVITY INDICATED? CULTURE IS NOT INDICATED 02/25/2024 11:56 AM CDT [facility] URINE SPECIMEN OBTAINED BY CLEAN CATCH PROCEDURE / Unknown 02/25/2024 11:30 AM CDT us Lesia Romano MD URINE ORDERABLES Final Result Performing Organization Address City/State/[facility] Co de Phone Number [facility] [address] [place] [address], [place] [phone] * (ABNORMAL) COMPREHENSIVE METABOLIC PANEL (02/25/2024 10:45 AM CDT) GLUCOSE 150(H) 70 - 99 MG/DL 02/25/2024 11:20 AM T [facility] BUN 5(L) 7 - 18 MG/DL 02/25/2024 11:20 AM T [facility] CREATININE S/P/B 0.97 0.7 - 1.3 MG/DL 02/25/2024 11:20 AM CDT [facility] SODIUM S/P/B 133(L) 136 - 145 MMOL/L 02/25/2024 11:20 AM T [facility] POTASSIUM S/P/B 3.6 3.5 - 5.1 MMOL/L 02/25/2024 11:20 AM CDT [facility] CHLORIDE S/P/B 95(L) 100 - 108 MMOL/L 02/25/2024 11:20 AM [facility] CO2 28.0 21 - 32 MMOL/L 02/25/2024 11:20 AM [facility] CALCIUM S/P/B 8.2(L) 8.5 - 10.1 MG/DL 02/25/2024 11:20 AM [facility] BILIRUBIN TOTAL S/P/B 2.1(H) 0.2 - 1.2 MG/DL 02/25/2024 11:20 AM [facility] TOTAL PROTEIN S/P/B 7.5 6.4 - 8.2 G/DL 02/25/2024 11:20 AM [facility] ALBUMIN S/P/B 3.1(L) 3.4 - 5.0 G/DL 02/25/2024 11:20 AM [facility] AST 45(H) 15 - 37 U/L 02/25/2024 11:20 AM [facility] ALT 36 16 - 60 U/L 02/25/2024 11:20 AM [facility] ALKALINE PHOSPHATASE S/P/B 168(H) 50 - 136 U/L 02/25/2024 11:20 AM [facility] ANION GAP 10.0 5 - 15 MMOL/L 02/25/2024 11:20 AM [facility] BUN CREATININE RATIO 5.2(L) 6 - 26 02/25/2024 11:20 AM [facility] A/G RATIO 0.7(L) 1.0 - 2.0 RATIO 02/25/2024 11:20 AM [facility] GFR ESTIMATE >90 >90 ML/MIN/1.7 3 M2 02/25/2024 11:20 AM CDT [facility] Comment: NOTE: eGFR is not calculated for patients <18 years of age. This is an estimated GFR calculation using the new CKD EPI creatinine equation without race and so does not require a correction factor for race. This estimated GFR should not be used for calculating drug doses. 02/25/2024 10:4 5 AM CDT us Lesia Romano MD LABORATORY Final Result [facility] [address] [place] [address], [place] [phone] * (ABNORMAL) CBC W/DIFF AUTOMATED (02/25/2024 10:45 AM CDT) WBC 16.16(H) 4.4 - 11.0 x10'3/uL 02/25/2024 10:58 AM CDT [facility] RBC 5.53 4.50 - 5.90 x10'6/uL 02/25/2024 10:58 AM CDT [facility] HGB 17.2 14.0 - 17.5 G/DL 02/25/2024 10:58 AM CDT [facility] HCT 50.4 41.5 - 50.4 % 02/25/2024 10:58 AM CDT [facility] MCV 91.1 80.0 - 96.0 FL 02/25/2024 10:58 AM CDT [facility] MCH 31.1 26.5 - 31.4 PG 02/25/2024 10:58 AM CDT [facility] MCHC 34.1 31.9 - 34.8 G/DL 02/25/2024 10:58 AM CDT [facility] RDW 13.1 12.3 - 14.3 % 02/25/2024 10:58 AM CDT [facility] PLT 213 151 - 353 x10'3/uL 02/25/2024 10:58 AM CDT [facility] MPV 10.2 9.7 - 11.9 FL 02/25/2024 10:58 AM CDT [facility] RBC MORPHOLOGY NORMAL 02/25/2024 10:58 AM CDT [facility] PLT MORPH. NORMAL 02/25/2024 10:58 AM T [facility] WBC MORPHOLOGY NORMAL 02/25/2024 10:58 AM T [facility] LYMPHOCYTES % 12.9(L) 15.8 - 45.0 % 02/25/2024 10:58 AM CDT [facility] NEUTROPHILS % 76.7(H) 42.1 - 71.9 % 02/25/2024 10:58 AM CDT [facility] MONOCYTES % 8.7 5.7 - 12.5 % 02/25/2024 10:58 AM T [facility] EOSINOPHILS 0.7 0.0 - 5.6 % 02/25/2024 10:58 AM T [facility] BASOPHILS 0.4 0.0 - 1.3 % 02/25/2024 10:58 AM CDT [facility] ABS. NEUTROPHILS 12.38(H) 1.40 - 6.00 x10'3/uL 02/25/2024 10:58 AM T [facility] IMMATURE GRANS % 0.6(H) 0.0 - 0.5 % 02/25/2024 10:58 AM T [facility] ABS. LYMPHOCYTES 2.08 0.80 - 4.70 x10'3/uL 02/25/2024 10:58 AM T [facility] 02/25/2024 10:4 5 AM CDT us Lesia Romano MD LABORATORY Final Result [facility] [address] [place] [address], [place] [phone] * CULTURE, BACTERIA, BLOOD (02/25/2024 10:45 AM CDT) SPEC DESCRIPTION BLOOD 02/25/2024 10:44 AM CDT [facility] SPECIAL REQUESTS NO SPECIAL REQUEST 02/25/2024 10:44 AM CDT [facility] CULTURE RESULT NO GROWTH 5 DAYS 03/01/2024 1:09 AM CDT [facility] BLOOD SPECIMEN OBTAINED FOR BLOOD CULTURE / Unknown 02/25/2024 10:45 AM CDT 02/25/2024 10:51 AM CDT us Lesia Romano MD MICROBIOLOGY - GENERAL ORDERA BLES Final Result Performing Organization Address City/[facility]/ZIP Co de Phone Number [facility] [address] [place] [address], [place] [phone] * LACTIC ACID W REFLEX (SEPSIS) (02/25/2024 10:45 AM CDT) LACTIC ACID VENOUS 1.8 0.4 - 2.0 MMOL/L 02/25/2024 11:15 AM CDT [facility] 02/25/2024 10:4 5 AM CDT us Lesia Romano MD LABORATORY Final Result [facility] [address] [place] [address], [place] [phone] documented in this encounter Visit Diagnoses Diagnosis Cellulitis- Primary Cellulitis and abscess of unspecified site Cellulitis Cellulitis and abscess of unspecified site Sepsis ([facility]) documented in this encounter Admitting Diagnoses Diagnosis Cellulitis Cellulitis and abscess of unspecified site documented in this encounter Administered Medications Inactive Administered Medications - up to 3 most recent administrations Medication Order MAR Action Action Date Dose Rate Site acetaminophen (TYLENOL) tablet 650 mg 650 mg, Oral, Every 4 hours PRN, Mild pain (Scale 1 - 3), Starting on Mon02/25/24 at 1533, Until Mon02/28/24 at 1509, Maximum dose of acetaminophen is 4000 mg from all sources in 24 hours. Given 02/28/2024 8:45 AM CDT 650 mg Given 02/27/2024 6:04 PM CDT 650 mg Given 02/27/2024 8:04 AM CDT 650 mg amLODIPine (NORVASC) tablet 10 mg 10 mg, Oral, Daily, First dose (after last modification) on Mon02/26/24 at 0915, Until Discontinued Given 02/28/2024 8:36 AM CDT 10 mg Given 02/27/2024 8:05 AM CDT 10 mg Given 02/26/2024 9:00 AM CDT 10 mg amLODIPine (NORVASC) tablet 5 mg 5 mg, Oral, Daily, First dose on Mon02/25/24 at 1615, Until Discontinued Given 02/25/2024 4:28 PM CDT 5 mg benzocaine-menthol (CEPACOL) 15-3.6 MG lozenge 1 lozenge 1 lozenge, Mouth/Throat, As needed, Sore throat, Starting on Mon02/25/24 at 1831, Until Mon02/28/24 at 1509, Lozenges should NOT be administered if patient is on dysphagia diet for risk of aspiration. Do NOT recommend for use in children under 5 years Given 02/25/2024 6:49 PM CDT 1 lozenge buprenorphine-naloxone (SUBOXONE) 8-2 MG film 1 Film 1 Film, Sublingual, Daily, First dose on Mon02/25/24 at 1630, Until Discontinued Given 02/28/2024 8:44 AM CDT 1 Adrien m Given 02/27/2024 8:34 AM CDT 1 Film Given 02/26/2024 9:01 AM CDT 1 Film busPIRone (BUSPAR) tablet 15 mg 15 mg, Oral, 2 times daily, First dose on Mon02/25/24 at 2100, Until Discontinued Given 02/28/2024 8:36 AM CDT 15 mg Given 02/27/2024 8:49 PM CDT 15 mg Given 02/27/2024 8:05 AM CDT 15 mg cefTRIAXone (ROCEPHIN) 1 g in sterile water 10 mL IV 1 g, Intravenous, at 120 mL/hr, Once, 1 dose, On Mon02/25/24 at 1145, Administer over at least 5 minutes. Given 02/25/2024 11:50 AM CDT 1 g 120 m L/hr cefTRIAXone (ROCEPHIN) 1 g in sterile water 10 mL IV 1 g, Intravenous, at 120 mL/hr, Every 24 hours, First dose on Mon02/26/24 at 1200, Until Discontinued, Administer over at least 5 minutes. Given 02/28/2024 12:14 PM CDT 1 g 120 m L/hr Given 02/27/2024 11:45 AM CDT 1 g 120 mL/hr Given 02/26/2024 12:30 PM CDT 1 g 120 mL/hr diphenhydrAMINE (BENADRYL) capsule 25 mg 25 mg, Oral, Every 6 hours PRN, Itching, Starting on Mon02/25/24 at 2002, Until Mon02/28/24 at 1509 Given 02/25/2024 8:12 PM CDT 25 mg diphenhydrAMINE-zinc (ANTI-ITCH) 2-0.1 % cream Topical, As needed, Itching, Starting on Mon02/25/24 at 2003, Until Mon02/28/24 at 1509 doxycycline hyclate (VIBRA-TABS) tablet 100 mg 100 mg, Oral, Every 12 hours scheduled (2 times per day), First dose on Mon02/27/24 at 2100, Until Discontinued Given 02/28/2024 8:36 AM CDT 100 mg Given 02/27/2024 8:49 PM CDT 100 mg DULoxetine (CYMBALTA) capsule 60 mg 60 mg, Oral, Daily, First dose (after last modification) on Mon02/25/24 at 1845, Until Discontinued, Swallow capsule whole or it may be opened and the contents sprinkled on applesauce. Given 02/28/2024 8:37 AM CDT 60 mg Given 02/27/2024 8:04 AM CDT 60 mg Given 02/26/2024 9:03 AM CDT 60 mg enoxaparin (LOVENOX) 40 MG/0.4ML syringe 40 mg 40 mg, Subcutaneous, Nightly (enoxaparin), First dose on Mon02/25/24 at 2100, Until Discontinued, Administer by deep SubQ injection alternating between the left or right anterolateral and left or right posterolateral abdominal wall. Given 02/27/2024 8:49 PM CDT 40 mg Right Lower Abdomen Given 02/26/2024 8:12 PM CDT 40 mg Ri ght Lower Abdomen Given 02/25/2024 8:14 PM CDT 40 mg Ri ght Lower Abdomen folic acid (FOLVITE) injection 1 mg 1 mg, Intravenous, Daily, First dose on Mon02/28/24 at 0900, Until Discontinued, Give if unable to take orally. Discontinue when CIWA complete. folic acid (FOLVITE) tablet 1 mg 1 mg, Oral, Daily, First dose on Mon02/27/24 at 0900, Until Discontinued Given 02/27/2024 8:33 AM CDT 1 mg folic acid (FOLVITE) tablet 1 mg 1 mg, Oral, Daily, First dose on Mon02/28/24 at 0900, Until Discontinued, Give with meal. May give IV if unable to take orally. Discontinue when CIWA complete. Given 02/28/2024 8:36 AM CDT 1 mg gabapentin (NEURONTIN) capsule 600 mg 600 mg, Oral, 2 times daily, First dose on Mon02/25/24 at 2100, Until Discontinued Given 02/28/2024 8:36 AM CDT 600 m g Given 02/27/2024 8:48 PM CDT 600 mg Given 02/27/2024 8:04 AM CDT 600 mg hydrALAZINE (APRESOLINE) injection 10 mg 10 mg, Intravenous, Every 6 hours PRN, Other, sbp >165, Starting on Mon02/25/24 at 1546, Until Mon02/27/24 at 2229, Monitor HR and BP before dose and 15 min after IV dose. For IV push give over 1-2 minutes=5mg/min. Given 02/27/2024 5:47 AM CDT 10 mg Given 02/26/2024 4:27 AM CDT 10 mg Given 02/25/2024 8:12 PM CDT 10 mg hydrALAZINE (APRESOLINE) injection 10 mg 10 mg, Intravenous, Every 6 hours PRN, Other, Give if SBP >165 and/or DBP >110, Starting on Mon02/27/24 at 2229, Until Mon02/28/24 at 1509, Monitor HR and BP before dose and 15 min after IV dose. Give if SBP >165 and/or DBP >110 For IV push give over 1-2 minutes=5mg/min. hydrOXYzine (ATARAX) tablet 25 mg 25 mg, Oral, 3 times daily PRN, Anxiety, Starting on Mon02/25/24 at 2035, Until Mon02/28/24 at 1509 Given 02/25/2024 9:27 PM CDT 25 mg ibuprofen (MOTRIN) tablet 600 mg 600 mg, Oral, Every 6 hours PRN, Moderate pain (Scale 4 - 7), Headaches, Fever, Discomfort, Starting on Mon02/25/24 at 1542, Until Mon02/26/24 at 0852 Given 02/25/2024 4:27 PM CDT 600 mg ibuprofen (MOTRIN) tablet 600 mg 600 mg, Oral, Every 6 hours PRN, Moderate pain (Scale 4 - 7), Fever, Discomfort, Starting on Mon02/26/24 at 0852, Until Mon02/28/24 at 1509 labetalol (TRANDATE) injection 20 mg 20 mg, Intravenous, Once, 1 dose, On Mon02/27/24 at 0830, Bolus may be administered by IV push at a rate of 10 mg/min. Monitor HR and BP prior to admin, 15 and 30 minutes post administration. Do not give if SBP <100mm or HR <55. Patient to stay supine during and for 30 minutes after IV administration due to potential for orthostatic hypotension. Given 02/27/2024 8:34 AM CDT 20 mg LORazepam (ATIVAN) injection 1-3 mg 1-3 mg, Intravenous, Every 1 hour PRN, Other, per CIWA algorithm, Starting on Mon02/27/24 at 1407, Until Mon02/28/24 at 1509, - (For CIWA score 8-11 --- Lorazepam 1 mg) - (For CIWA score 12-15 Lorazepam 2 mg) - (For CIWA score 16-20 Lorazepam 3 mg) Use oral lorazepam as first choice. Adjust dose following CIWA assessment algorithms. Hold lorazepam for excessive sedation (RR less than 8 or RASS -3 to -5). - If CIWA score is greater than 15 for 2 consecutive checks, discuss with providers about ICU transfer order. For IV use, further dilute with an equal volume of saline. Do not exceed a rate of 2 mg/min. LORazepam (ATIVAN) tablet 1-3 mg 1-3 mg, Oral, Every 1 hour PRN, Other, per CIWA algorithm, Starting on Mon02/27/24 at 1407, Until Mon02/28/24 at 1509, - (For CIWA score 8-11 --- Lorazepam 1 mg) - (For CIWA score 12-15 Lorazepam 2 mg) - (For CIWA score 16-20 Lorazepam 3 mg) Use oral lorazepam as first choice. Adjust dose following CIWA assessment algorithms. Hold lorazepam for excessive sedation (RR less than 8 or RASS -3 to -5). - If CIWA score is greater than 15 for 2 consecutive checks, discuss with providers about ICU transfer order. metoprolol tartrate (LOPRESSOR) tablet 50 mg 50 mg, Oral, 2 times daily, First dose on Mon02/27/24 at 2100, Until Discontinued Given 02/28/2024 8:37 AM CDT 50 mg Given 02/27/2024 8:49 PM CDT 50 mg multi vitamin/minerals (THERA-M ENHANCED) tablet 1 tablet 1 tablet, Oral, Daily, First dose on Mon02/27/24 at 1430, Until Discontinued, Give with meal. Discontinue when CIWA complete. Given 02/28/2024 8:36 A M CDT 1 tablet Given 02/27/2024 3:46 PM CDT 1 tablet naLOXone (NARCAN) injection 0.4 mg 0.4 mg, Intravenous, As needed, Opioid reversal, Starting on Mon02/25/24 at 1533, Until Mon02/28/24 at 1509 nicotine (NICODERM CQ) 21 MG/24HR patch 21 mg 21 mg (1 patch), Transdermal, Administer over 24 Hours, Once, 1 dose, On Mon02/25/24 at 1400 Patch Applied 02/25/2024 2:02 PM CDT 21 mg Left Shoulder nicotine (NICODERM CQ) 21 MG/24HR patch 21 mg 21 mg (1 patch), Transdermal, Administer over 24 Hours, Every 24 hours, First dose on Mon02/26/24 at 1545, Until Discontinued Patch Applied 02/27/2024 3:46 PM CDT 21 mg Back Patch Applied 02/26/2024 3:21 PM CDT 21 mg Back nystatin (MYCOSTATIN) [id number] UNIT/ML suspension 5 mL 5 mL, Oral, 4 times daily, First dose on Mon02/25/24 at 1700, Until Discontinued, Shake Well. Swish & Swallow. Given 02/28/2024 12:14 PM CDT 5 mLs Given 02/28/2024 8:36 AM CDT 5 mLs Given 02/27/2024 8:49 PM CDT 5 mLs OLANZapine (ZyPREXA ZYDIS) disintegrating tablet 15 mg 15 mg, Oral, Nightly at bedtime, First dose on Mon02/25/24 at 2100, Until Discontinued Given 02/27/2024 8:49 PM CDT 15 mg Given 02/26/2024 5:36 PM CDT 15 mg Given 02/25/2024 8:14 PM CDT 15 mg ondansetron (ZOFRAN) injection 4 mg 4 mg, Intravenous, Every 8 hours PRN, Nausea, Vomiting, Starting on Mon02/25/24 at 1533, Until Mon02/28/24 at 1509, IV push over 2-5 minutes. pantoprazole EC (PROTONIX) tablet 40 mg 40 mg, Oral, Daily, First dose on Mon02/25/24 at 1830, Until Discontinued, Do not break, chew, or crush. Given 02/28/2024 8:36 AM CDT 40 mg Given 02/27/2024 8:04 AM CDT 40 mg Given 02/26/2024 9:03 AM CDT 40 mg phenol (CHLORASEPTIC) spray 1 spray 1 spray, Mouth/Throat, As needed, Pain, Starting on Mon02/25/24 at 1823, Until Mon02/28/24 at 1509 polyethylene glycol (GLYCOLAX) packet 1 packet 1 packet, Oral, DAILY PRN, Constipation, Starting on Mon02/27/24 at 1330, Until Mon02/28/24 at 1509, Dissolve powder in 240 mL water potassium chloride CR (KLOR-CON M) tablet 40 mEq 40 mEq, Oral, Once, 1 dose, On Mon02/26/24 at 0915, Do not chew, crush, or suck on tablet. May break in half. May dissolve whole tablet in 120 mL of water and drink immediately. Given 02/26/2024 9:00 AM CDT 40 mEq senna-docusate (SENOKOT-S) 8.6-50 MG tablet 1 tablet 1 tablet, Oral, 2 times daily, First dose on Mon02/27/24 at 1400, Until Discontinued Given 02/28/2024 8:36 AM CDT 1 tablet Given 02/27/2024 8:49 PM CDT 1 tablet Given 02/27/2024 3:46 PM CDT 1 tablet sodium chloride 0.9% bolus infusion 1,000 mL 1,000 mL, Intravenous, Administer over 15 Minutes, Once, 1 dose, On Mon02/25/24 at 1045 New Bag 02/25/2024 10:48 AM CDT 1,000 mLs sodium chloride 0.9% infusion at 100 mL/hr, Intravenous, Continuous, Starting on Mon02/25/24 at 1600, Until Mon02/27/24 at 0815 New Bag 02/27/2024 2:39 AM CDT 100 mL/hr Bag 02/26/2024 12:42 PM CDT 100 mL/hr New Bag 02/26/2024 2:16 AM CDT 100 mL/hr thiamine (B-1) injection 100 mg 100 mg, Intravenous, Daily, First dose on Mon02/27/24 at 1430, Until Discontinued, Give if unable to take oral meds. Give with meals. IF diluting medication dilute with normal saline to volume of 10 mL IF diluting medication, dilute with normal saline to a volume of 10 mL. Administer over 5 minutes. vancomycin (VANCOCIN) 1,250 mg in sodium chloride 0.9 % 250 mL IVPB 1,250 mg, Intravenous, at 175 mL/hr, Every 12 hours, First dose (after last modification) on Mon02/28/24 at 1800, Until Discontinued vancomycin (VANCOCIN) 1,750 mg in sodium chloride 0.9 % 500 mL IVPB 1,750 mg, Intravenous, at 258.8 mL/hr, Every 12 hours, First dose on Mon02/27/24 at 0600, Until Discontinued New Bag 02/28/2024 5:59 AM CDT 1,750 mg 258.8 mL/hr Bag 02/27/2024 6:04 PM CDT 1,750 mg 258.8 mL/hr New Bag 02/27/2024 5:52 AM CDT 1,750 mg 258.8 mL/hr vancomycin (VANCOCIN) 2,500 mg in sodium chloride 0.9 % 500 mL IVPB 2,500 mg, Intravenous, at 210 mL/hr, Once, 1 dose, On Mon02/26/24 at 1700 New Bag 02/26/2024 5:35 PM CDT 2,500 mg 210 mL/hr vancomycin pharmacy to dose placeholder Intravenous, See admin instructions, Starting on Mon02/26/24 at 1624, Until Mon02/28/24 at 1509, Vancomycin Placeholder Only: Do NOT document administrations on this placeholder.(Use medication on JAN to document administrations or contact pharmacy if medication order not entered.) vitamin B-1 (THIAMINE) tablet 100 mg 100 mg, Oral, Daily, First dose on Mon02/27/24 at 1430, Until Discontinued, Give with meal. Given 02/28/2024 8:36 AM CDT 100 mg Given 02/27/2024 3:46 PM CDT 100 mg documented in this encounter Active and Recently Administered Medications Times are shown in CDT. Scheduled Medication Order 02/26/2024 02/27/2024 02/28/2024 amLODIPine (NORVASC) tablet 10 mg 10 mg, Oral, Daily, First dose (after last modification) on Mon02/26/24 at 0915, Until Discontinued 0900 (Given - Provider: Unique Painter, RN) 0805 (Given - Provider: Unique Painter RN) 0836 (Given - Provider: Anabel Ortiz RN) buprenorphine-naloxone (SUBOXONE) 8-2 MG film 1 Film 1 Film, Sublingual, Daily, First dose on Mon02/25/24 at 1630, Until Discontinued 900 (Given - Provider: Unique Painter RN) 0834 (Given - Provider: Unique Painter RN) 08 (Given - Provider: Anabel Ortiz, MISTY) busPIRone (BUSPAR) tablet 15 mg 15 mg, Oral, 2 times daily, First dose on Mon02/25/24 at 2100, Until Discontinued 902 (Given - Provider: Unique Painter RN)2011 (Given - Provider: Anabel Ortiz, MISTY) 804 (Given - Provider: Unique Painter RN)2048 (Given - Provider: Rylie Parekh RN) 0836 (Given - Provider: Anabel Ortiz, MISTY) cefTRIAXone (ROCEPHIN) 1 g in sterile water 10 mL IV 1 g, Intravenous, at 120 mL/hr, Every 24 hours, First dose on Mon02/26/24 at 1200, Until Discontinued, Administer over at least 5 minutes. 1230 (Given - Provider: Unique Painter RN) 1145 (Given - Provider: Unique Painter RN) 1214 (Given - Provider: Anabel Ortiz, MISTY) doxycycline hyclate (VIBRA-TABS) tablet 100 mg 100 mg, Oral, Every 12 hours scheduled (2 times per day), First dose on Mon02/27/24 at 2100, Until Discontinued 2048 (Given - Provider: Rylie Parekh RN) 0836 (Given - Provider: Anabel Ortiz, MISTY) DULoxetine (CYMBALTA) capsule 60 mg 60 mg, Oral, Daily, First dose (after last modification) on Mon02/25/24 at 1845, Until Discontinued, Swallow capsule whole or it may be opened and the contents sprinkled on applesauce. 09 (Given - Provider: Unique Painter RN) 803 (Given - Provider: Unique Painter RN) 08 (Given - Provider: Anabel Ortiz RN) enoxaparin (LOVENOX) 40 MG/0.4ML syringe 40 mg(Linked Group 1) 40 mg, Subcutaneous, Nightly (enoxaparin), First dose on Mon02/25/24 at 2100, Until Discontinued, Administer by deep SubQ injection alternating between the left or right anterolateral and left or right posterolateral abdominal wall. 2011 (Given - Provider: Anabel Ortiz RN) 2048 (Given - Provider: Rylie Parekh, RN) folic acid (FOLVITE) injection 1 mg(Linked Group 2) 1 mg, Intravenous, Daily, First dose on Mon02/28/24 at 0900, Until Discontinued, Give if unable to take orally. Discontinue when CIWA complete. 0836 (See Alternativ e - Provider: Anabel Ortiz RN) folic acid (FOLVITE) tablet 1 mg (CANCELED) 1 mg, Oral, Daily, First dose on Mon02/27/24 at 0900, Until Discontinued 832 (Given - Provider: Unique Painter RN) folic acid (FOLVITE) tablet 1 mg(Linked Group 2) 1 mg, Oral, Daily, First dose on Mon02/28/24 at 0900, Until Discontinued, Give with meal. May give IV if unable to take orally. Discontinue when CIWA complete. 0836 (Given - Provider: Anabel Ortiz RN) gabapentin (NEURONTIN) capsule 600 mg 600 mg, Oral, 2 times daily, First dose on Mon02/25/24 at 2100, Until Discontinued 901 (Given - Provider: Unique Painter RN)2011 (Given - Provider: Anabel Ortiz RN) 803 (Given - Provider: Unique Painter RN)2047 (Given - Provider: Rylie Parekh RN) 0836 (Given - Provider: Anabel Ortiz RN) labetalol (TRANDATE) injection 20 mg (COMPLETED) 20 mg, Intravenous, Once, 1 dose, On Mon02/27/24 at 0830, Bolus may be administered by IV push at a rate of 10 mg/min. Monitor HR and BP prior to admin, 15 and 30 minutes post administration. Do not give if SBP <100mm or HR <55. Patient to stay supine during and for 30 minutes after IV administration due to potential for orthostatic hypotension. 0834 (Given - Provider: Unique Painter RN) metoprolol tartrate (LOPRESSOR) tablet 50 mg 50 mg, Oral, 2 times daily, First dose on Mon02/27/24 at 2100, Until Discontinued 2048 (Given - Provider: Rylie Parekh, MISTY) 0837 (Given - Provider: Anabel Ortiz, RN) multi vitamin/minerals (THERA-M ENHANCED) tablet 1 tablet 1 tablet, Oral, Daily, First dose on Mon02/27/24 at 1430, Until Discontinued, Give with meal. Discontinue when CIWA complete. 1546 (Given - Provider: Unique Painter RN) 0836 (Given - Provider: Anabel Ortiz, RN) nicotine (NICODERM CQ) 21 MG/24HR patch 21 mg 21 mg (1 patch), Transdermal, Administer over 24 Hours, Every 24 hours, First dose on Mon02/26/24 at 1545, Until Discontinued 1521 (Patch Applied - Provider: Unique Painter RN - Comment: back right side) 1544 (Patch Removed - Provider: Unique Painter RN)1546 (Patch Applied - Provider: Unique Painter RN - Comment: left side on back) 1309 (Due: Patch Removed - Provider: Automatic Discharge Provider - Comment: Time automatically adjusted from order being discontinued) nystatin (MYCOSTATIN) [id number] UNIT/ML suspension 5 mL 5 mL, Oral, 4 times daily, First dose on Mon02/25/24 at 1700, Until Discontinued, Shake Well. Swish & Swallow. 0903 (Given - Provider: Unique Painter RN)1236 (Given - Provider: Unique Painter RN)1737 (Given - Provider: Unique Painter RN)2011 (Given - Provider: Anabel Ortiz, MISTY) 0805 (Given - Provider: Unique Painter RN)1254 (Given - Provider: Unique Painter RN)1805 (Given - Provider: Unique Painter RN)204 (Given - Provider: Rylie Parekh RN) 0836 (Given - Provider: Anabel Ortiz, MISTY)1214 (Given - Provider: Anabel Ortiz, MISTY) OLANZapine (ZyPREXA ZYDIS) disintegrating tablet 15 mg 15 mg, Oral, Nightly at bedtime, First dose on Mon02/25/24 at 2100, Until Discontinued 1735 (Given - Provider: Unique Painter RN - Comment: give now per SHERRY Kang) 2048 (Given - Provider: Rylie Parekh, MISTY) pantoprazole EC (PROTONIX) tablet 40 mg 40 mg, Oral, Daily, First dose on Mon02/25/24 at 1830, Until Discontinued, Do not break, chew, or crush. 0903 (Given - Provider: Unique Painter RN) 0804 (Given - Provider: Unique Painter RN) 0836 (Given - Provider: Anabel Ortiz, MISTY) potassium chloride CR (KLOR-CON M) tablet 40 mEq (COMPLETED) 40 mEq, Oral, Once, 1 dose, On Mon02/26/24 at 0915, Do not chew, crush, or suck on tablet. May break in half. May dissolve whole tablet in 120 mL of water and drink immediately. 0900 (Given - Provider: Unique Painter RN) senna-docusate (SENOKOT-S) 8.6-50 MG tablet 1 tablet 1 tablet, Oral, 2 times daily, First dose on Mon02/27/24 at 1400, Until Discontinued 1546 (Given - Provider: Unique Painter RN)2048 (Given - Provider: Rylie Parekh RN) 0836 (Given - Provider: Anabel Ortiz, MISTY) thiamine (B-1) injection 100 mg(Linked Group 3) 100 mg, Intravenous, Daily, First dose on Mon02/27/24 at 1430, Until Discontinued, Give if unable to take oral meds. Give with meals. IF diluting medication dilute with normal saline to volume of 10 mL IF diluting medication, dilute with normal saline to a volume of 10 mL. Administer over 5 minutes. 1546 (See Alternative - Provider: Unique Painter RN) 0836 (See Alternative - Provider: Anabel Ortiz, MISTY) vancomycin (VANCOCIN) 1,250 mg in sodium chloride 0.9 % 250 mL IVPB 1,250 mg, Intravenous, at 175 mL/hr, Every 12 hours, First dose (after last modification) on Mon02/28/24 at 1800, Until Discontinued vancomycin (VANCOCIN) 1,750 mg in sodium chloride 0.9 % 500 mL IVPB (CANCELED) 1,750 mg, Intravenous, at 258.8 mL/hr, Every 12 hours, First dose on Mon02/27/24 at 0600, Until Discontinued 0552 (New Bag - Provider: Anabel Ortiz RN)0758 (Infusion Stop Time - Provider: Unique Painter RN)1804 (New Bag - Provider: Unique Painter, RN)2045 (Infusion Stop Time - Provider: Rylie Parekh, RN) 0559 (New Bag - Provider: Nina Jordan RN)0825 (Infusion Stop Time - Provider: Anabel Ortiz, MISTY) vancomycin (VANCOCIN) 2,500 mg in sodium chloride 0.9 % 500 mL IVPB (COMPLETED) 2,500 mg, Intravenous, at 210 mL/hr, Once, 1 dose, On Mon02/26/24 at 1700 1735 (New Bag - Provider: Unique Painter RN)2024 (Infusion Stop Time - Provider: Anabel Ortiz, MISTY) vancomycin pharmacy to dose placeholder(Linked Group 4) Intravenous, See admin instructions, Starting on Mon02/26/24 at 1624, Until Mon02/28/24 at 1509, Vancomycin Placeholder Only: Do NOT document administrations on this placeholder.(Use medication on JAN to document administrations or contact pharmacy if medication order not entered.) vitamin B-1 (THIAMINE) tablet 100 mg(Linked Group 3) 100 mg, Oral, Daily, First dose on Mon02/27/24 at 1430, Until Discontinued, Give with meal. 1546 (Given - Provider: Unique Painter RN) 0836 (Given - Provider: Anabel Ortiz RN) Continuous Medication Order 02/26/2024 02/27/2024 02/28/2024 sodium chloride 0.9% infusion (CANCELED) at 100 mL/hr, Intravenous, Continuous, Starting on Mon02/25/24 at 1600, Until Mon02/27/24 at 0815 0216 (New Bag - Provider: Anabel Ortiz RN)1242 (New Bag - Provider: Unique Painter RN) 0239 (New Bag - Provider: Anabel Ortiz, MISTY)0833 (Infusion Stop Time - Provider: Unique Painter RN) PRN Medication Order 02/26/2024 02/27/2024 02/28/2024 acetaminophen (TYLENOL) tablet 650 mg 650 mg, Oral, Every 4 hours PRN, Mild pain (Scale 1 - 3), Starting on 02/25/24 at 1533, Until Mon02/28/24 at 1509, Maximum dose of acetaminophen is 4000 mg from all sources in 24 hours. 0901 (Given - Provider: Unique Painter, RN)1736 (Given - Provider: Unique Painter RN) 0804 (Given - Provider: Unique Painter RN)1804 (Given - Provider: Unique Painter, RN) 0845 (Given - Provider: Anabel Ortiz RN) sbkwbys-vvjjrxcjavcbz-kq ffeine (EXCEDRIN MIGRAINE) 250-250-65 MG tablet 1 tablet 1 tablet, Oral, Every 6 hours PRN, headaches, Starting on 02/25/24 at 1600, Until Mon02/28/24 at 1509, Maximum dose of acetaminophen is 4000 mg from all sources in 24 hours. benzocaine-menthol (CEPACOL) 15-3.6 MG lozenge 1 lozenge 1 lozenge, Mouth/Throat, As needed, Sore throat, Starting on 02/25/24 at 1831, Until Mon02/28/24 at 1509, Lozenges should NOT be administered if patient is on dysphagia diet for risk of aspiration. Do NOT recommend for use in children under 5 years diphenhydrAMINE (BENADRYL) capsule 25 mg 25 mg, Oral, Every 6 hours PRN, Itching, Starting on Mon02/25/24 at 2002, Until Mon02/28/24 at 1509 diphenhydrAMINE-zinc (ANTI-ITCH) 2-0.1 % cream Topical, As needed, Itching, Starting on Mon02/25/24 at 2003, Until Mon02/28/24 at 1509 hydrALAZINE (APRESOLINE) injection 10 mg (CANCELED) 10 mg, Intravenous, Every 6 hours PRN, Other, sbp >165, Starting on 02/25/24 at 1546, Until Mon02/27/24 at 2229, Monitor HR and BP before dose and 15 min after IV dose. For IV push give over 1-2 minutes=5mg/min. 0427 (Given - Provider: Anabel Ortiz RN - Comment: BP 172/116 (131)) 0547 (Given - Provider: Anabel Ortiz RN - Comment: 190/100 manual 197/129 143) automatic) hydrALAZINE (APRESOLINE) injection 10 mg 10 mg, Intravenous, Every 6 hours PRN, Other, Give if SBP >165 and/or DBP >110, Starting on Mon02/27/24 at 2229, Until Mon02/28/24 at 1509, Monitor HR and BP before dose and 15 min after IV dose. Give if SBP >165 and/or DBP >110 For IV push give over 1-2 minutes=5mg/min. hydrOXYzine (ATARAX) tablet 25 mg 25 mg, Oral, 3 times daily PRN, Anxiety, Starting on Mon02/25/24 at 2035, Until Mon02/28/24 at 1509 ibuprofen (MOTRIN) tablet 600 mg 600 mg, Oral, Every 6 hours PRN, Moderate pain (Scale 4 - 7), Fever, Discomfort, Starting on Mon02/26/24 at 0852, Until Mon02/28/24 at 1509 LORazepam (ATIVAN) injection 1-3 mg(Linked Group 5) 1-3 mg, Intravenous, Every 1 hour PRN, Other, per CIWA algorithm, Starting on Mon02/27/24 at 1407, Until Mon02/28/24 at 1509, - (For CIWA score 8-11 --- Lorazepam 1 mg) - (For CIWA score 12-15 Lorazepam 2 mg) - (For CIWA score 16-20 Lorazepam 3 mg) Use oral lorazepam as first choice. Adjust dose following CIWA assessment algorithms. Hold lorazepam for excessive sedation (RR less than 8 or RASS -3 to -5). - If CIWA score is greater than 15 for 2 consecutive checks, discuss with providers about ICU transfer order. For IV use, further dilute with an equal volume of saline. Do not exceed a rate of 2 mg/min. LORazepam (ATIVAN) tablet 1-3 mg(Linked Group 5) 1-3 mg, Oral, Every 1 hour PRN, Other, per CIWA algorithm, Starting on Mon02/27/24 at 1407, Until Mon02/28/24 at 1509, - (For CIWA score 8-11 --- Lorazepam 1 mg) - (For CIWA score 12-15 Lorazepam 2 mg) - (For CIWA score 16-20 Lorazepam 3 mg) Use oral lorazepam as first choice. Adjust dose following CIWA assessment algorithms. Hold lorazepam for excessive sedation (RR less than 8 or RASS -3 to -5). - If CIWA score is greater than 15 for 2 consecutive checks, discuss with providers about ICU transfer order. naLOXone (NARCAN) injection 0.4 mg 0.4 mg, Intravenous, As needed, Opioid reversal, Starting on Mon02/25/24 at 1533, Until Mon02/28/24 at 1509 ondansetron (ZOFRAN) injection 4 mg 4 mg, Intravenous, Every 8 hours PRN, Nausea, Vomiting, Starting on Mon02/25/24 at 1533, Until Mon02/28/24 at 1509, IV push over 2-5 minutes. phenol (CHLORASEPTIC) spray 1 spray 1 spray, Mouth/Throat, As needed, Pain, Starting on Mon02/25/24 at 1823, Until Mon02/28/24 at 1509 polyethylene glycol (GLYCOLAX) packet 1 packet 1 packet, Oral, DAILY PRN, Constipation, Starting on Mon02/27/24 at 1330, Until Mon02/28/24 at 1509, Dissolve powder in 240 mL water Linked Groups Order Group 1: enoxaparin (LOVENOX) 40 MG/0.4ML syringe 40 mgJump to med 40 mg, Subcutaneous, Nightly (enoxaparin), First dose on Mon02/25/24 at 2100, Until Discontinued, Administer by deep SubQ injection alternating between the left or right anterolateral and left or right posterolateral abdominal wall. And Moderate Risk for VTE (COMPLETED) Group 2: folic acid (FOLVITE) tablet 1 mgJump to med 1 mg, Oral, Daily, First dose on Mon02/28/24 at 0900, Until Discontinued, Give with meal. May give IV if unable to take orally. Discontinue when CIWA complete. Or folic acid (FOLVITE) injection 1 mgJump to med 1 mg, Intravenous, Daily, First dose on Mon02/28/24 at 0900, Until Discontinued, Give if unable to take orally. Discontinue when CIWA complete. Group 3: vitamin B-1 (THIAMINE) tablet 100 mgJump to med 100 mg, Oral, Daily, First dose on Mon02/27/24 at 1430, Until Discontinued, Give with meal. Or thiamine (B-1) injection 100 mgJump to med 100 mg, Intravenous, Daily, First dose on Mon02/27/24 at 1430, Until Discontinued, Give if unable to take oral meds. Give with meals. IF diluting medication dilute with normal saline to volume of 10 mL IF diluting medication, dilute with normal saline to a volume of 10 mL. Administer over 5 minutes. Group 4: Pharmacy to dose vancomycin (CANCELED) Routine, Once, On Mon02/26/24 at 1625, For 1 occurrence, Indications: Bloodstream/Line infection And vancomycin pharmacy to dose placeholderJump to med Intravenous, See admin instructions, Starting on Mon02/26/24 at 1624, Until Mon02/28/24 at 1509, Vancomycin Placeholder Only: Do NOT document administrations on this placeholder.(Use medication on JAN to document administrations or contact pharmacy if medication order not entered.) Group 5: LORazepam (ATIVAN) tablet 1-3 mgJump to med 1-3 mg, Oral, Every 1 hour PRN, Other, per CIWA algorithm, Starting on Mon02/27/24 at 1407, Until Mon02/28/24 at 1509, - (For CIWA score 8-11 --- Lorazepam 1 mg) - (For CIWA score 12-15 Lorazepam 2 mg) - (For CIWA score 16-20 Lorazepam 3 mg) Use oral lorazepam as first choice. Adjust dose following CIWA assessment algorithms. Hold lorazepam for excessive sedation (RR less than 8 or RASS -3 to -5). - If CIWA score is greater than 15 for 2 consecutive checks, discuss with providers about ICU transfer order. Or LORazepam (ATIVAN) injection 1-3 mgJump to med 1-3 mg, Intravenous, Every 1 hour PRN, Other, per CIWA algorithm, Starting on Mon02/27/24 at 1407, Until Mon02/28/24 at 1509, - (For CIWA score 8-11 --- Lorazepam 1 mg) - (For CIWA score 12-15 Lorazepam 2 mg) - (For CIWA score 16-20 Lorazepam 3 mg) Use oral lorazepam as first choice. Adjust dose following CIWA assessment algorithms. Hold lorazepam for excessive sedation (RR less than 8 or RASS -3 to -5). - If CIWA score is greater than 15 for 2 consecutive checks, discuss with providers about ICU transfer order. For IV use, further dilute with an equal volume of saline. Do not exceed a rate of 2 mg/min. documented in this encounter Additional Health Concerns Infection Onset Date Last Indicated Resolved Time COVID-19 Rule Out 02/25/2024 02/25/2024 02/25/2024 7:24 PM CDT documented as of this encounter Care Teams Sight Effects Specialist Relationship Specialty Start Date End Date Casimiro Butterfield MD [address] [facility] [address] [place] [id number] PCP - General INTERNAL MEDICINE 02/25/24 documented as of this encounter
--- OUTSIDE RECORDS SUMMARY | 2024-11-19 04:25 | XMS_ITS | Clinical Summary ---
Author Organization [facility] Address [address] [place] [address] Care Team Providers Care Peeled Potato Inspector Name Role Phone Unavailable Primary Care Provider Unavailabl e Source Comments [facility],non-owned Affiliates and Associated Physician Practices is amultiple site organization consisting of ambulatory clinics and hospital sitesin [place], [place], [place] and [place]. This disclosure is being madepursuant to the Care Everywhere program and may not contain all information available regarding this patient. Last updated 18.[facility] Allergies Active Allergy Reactions Criticality Noted Date [...] 04/17/2011 4:32 PM CDT Plan of Treatment Health Maintenance Due Date Last Done Comments PNEUMOCOCCAL VACCINE (1 of 2 - PCV) 1992 HIV SCREENING 2001 HEPATITIS C SCREENING 01/13/2004 DTAP/TDAP/TD VACCINES (1 - Tdap) 2005 HEPATITIS B VACCINE (1 of 3 - 19+ 3-dose series) 2005 DEPRESSION SCREENING 11/20/2023 COVID-19 VACCINE (1 - 2023-2 5 season) 2024 INFLUENZA VACCINE (#1) 2024 ZOSTER VACCINE (1 of 2) 2036 HIB VACCINE Aged Out No longer eligi ble based on patient's age to complete this topic HPV VACCINE Aged Out No longer eligi ble based on patient's age to complete this topic MENINGOCOCCAL VACCINE Aged Out No familia oksana eligible based on patient's age to complete this topic
--- OUTSIDE RECORDS SUMMARY | 2024-11-19 04:25 | XMS_ITS | Encounter Summary ---
Author Organization [facility] Address [address] [place] [address]. [place], [place] [address] [place] [address] Care Team Providers Care Roll Coating Machine Operator Name Role Phone Cyndee Murphynifer Primary Care Provider [phone] Reason for Visit * Reason Comments Shortness Of Breath Encounter Details Date Type Department Care Team (Late st Contact Info) Description 05/17/2021 9:03 AM CDT - 05/17/2021 10:49 AM CDT Emergency [facility] Emergency Room [address] [place] [address] Collin Carmona, DO [address] [place] [address] [id number] Shortness Of Breath Discharge Disposition: Home or Self Care (Routine [...] AM CDT documented as of this encounter Last Filed Vital Signs Vital Sign Reading Time Taken Comments Blood Pressure 155/93 05/17/2021 10:30 AM CDT Pulse 89 05/17/2021 10:30 AM CDT Temperature 36.1 ??C (97 ??F) 05/17/2021 9:04 AM CDT Respiratory Rate 15 05/17/2021 10:30 AM CDT Oxygen Saturation 95% 05/17/2021 10:30 AM CDT Inhaled Oxygen Concentration - - Weight 99.8 kg (220 lb) 05/17/2021 9:04 AM CDT Height 180.3 cm (5' 11 ) 05/17/2021 9:04 AM CDT Body Mass Index 30.68 05/17/2021 9:04 AM CDT documented in this encounter Discharge Instructions * Discharge Instructions* Collin Carmona DO - 05/17/2021 10:25 AM CDT 1. Take prednisone, starting tomorrow, for the asthma exacerbation. * Attachments The following attachments cannot be sent through Care Everywhere. * Asthma in Adults (Belarusian) documented in this encounter Medications at Time of Discharge albuterol sulfate HFA 108 (90 Base) MCG/ACT inhaler Inhale 2 puffs into the lungs every 4 (four) hours as needed for Wheezing. 8 g 1 05/17/2021 02/25/2024 predniSONE 10 mg tablet Take 6 tablets (60 mg total) by mouth daily for 5 days. 30 tablet 05/18/2021 05/23/2021 documented as of this encounter ED Notes * Collin Carmona DO - 05/17/2021 9:12 AM CDT Chief Complaint Chief Complaint Patient presents with ??? Shortness Of Breath History of Present Illness 36-year-old male presents to emergency department for shortness of breath for the past few days. Patient states he has never had this in the past before. He states that shortness of breath is worse with exertion. Denies any current chest pain. No abdominal pain. No nausea or vomiting. He states he took his anti- anxiety medications to help with his symptoms. Medical History ALLERGIES: Allergies Allergen Reactions ??? Amoxicillin Throat swelling ??? Penicillins Throat swelling MEDICATIONS: Prior to Admission medications Medication Sig Start Date End Date Taking? Authorizing Provider albuterol sulfate HFA 108 (90 Base) MCG/ACT inhaler Inhale 2 puffs into the lungs every 4 (four) hours as needed for Wheezing. 05/17/21 Yes Collin Carmona DO predniSONE 10 mg tablet Take 6 tablets (60 mg total) by mouth daily for 5 days. 05/18/21 05/23/21 Yes Collin Carmona DO PAST MEDICAL HISTORY: History reviewed. No pertinent past medical history. PAST SURGICAL HISTORY: History reviewed. No pertinent surgical history. FAMILY HISTORY: No family history on file. SOCIAL HISTORY: Social History Tobacco Use ??? Smoking status: Never Smoker ??? Smokeless tobacco: Never Used Substance Use Topics ??? Alcohol use: Yes Comment: socially ??? Drug use: Yes Types: Marijuana Review of Systems Review of Systems Constitutional: Negative for chills and fever. HENT: Negative for congestion and sore throat. Eyes: Negative for pain and visual disturbance. Respiratory: Positive for shortness of breath. Negative for cough, chest tightness and wheezing. Cardiovascular: Negative for chest pain, palpitations and leg swelling. Gastrointestinal: Negative for abdominal pain, nausea and vomiting. Endocrine: Negative for polydipsia and polyuria. Genitourinary: Negative for dysuria and flank pain. Musculoskeletal: Negative for arthralgias and myalgias. Skin: Negative for rash and wound. Neurological: Negative for dizziness and weakness. Psychiatric/Behavioral: Negative for agitation and behavioral problems. All other systems reviewed and are negative. Physical Exam Filed Vitals: 05/17/21 0904 05/17/21 0945 05/17/21 1002 05/17/21 1030 BP: (!) 160/95 (!) 144/87 (!) 155/93 Pulse: 99 89 91 89 Resp: 18 19 12 15 Temp: 97 ??F (36.1 ??C) SpO2: 95% 96% 95% Weight: 99.8 kg (220 lb) Height: 5' 11 (1.803 m) Physical Exam Vitals and nursing note reviewed. Constitutional: General: He is not in acute distress. Appearance: Normal appearance. He is not ill-appearing. HENT: Head: Normocephalic and atraumatic. Right Ear: External ear normal. Left Ear: External ear normal. Nose: Nose normal. Mouth/Throat: Mouth: Mucous membranes are moist. Pharynx: Oropharynx is clear. Eyes: Extraocular Movements: Extraocular movements intact. Conjunctiva/sclera: Conjunctivae normal. Pupils: Pupils are equal, round, and reactive to light. Cardiovascular: Rate and Rhythm: Normal rate and regular rhythm. Pulses: Normal pulses. Heart sounds: Normal heart sounds. Pulmonary: Effort: Pulmonary effort is normal. No respiratory distress. Comments: Mild decreased breath sounds bilaterally Abdominal: Tenderness: There is no abdominal tenderness. There is no guarding. Musculoskeletal: General: No swelling or tenderness. Normal range of motion. Cervical back: Normal range of motion and neck supple. No rigidity. No muscular tenderness. Skin: General: Skin is warm and dry. Capillary Refill: Capillary refill takes less than 2 seconds. Neurological: General: No focal deficit present. Mental Status: He is alert and oriented to person, place, and time. Psychiatric: Mood and Affect: Mood normal. Behavior: Behavior normal. 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6 (H) 26.5 - 31.4 PG MCHC 34.2 31.9 - 34.8 G/DL RDW 12.2 (L) 12.3 - 14.3 % PLT 249 151 - 353 x10'3/uL MPV 9.7 9.7 - 11.9 FL RBC MORPHOLOGY NORMAL PLT MORPH. NORMAL WBC MORPHOLOGY NORMAL LYMPHOCYTES 21.6 15.8 - 45.0 % NEUTROPHILS 69.6 42.1 - 71.9 % MONOCYTES 6.6 5.7 - 12.5 % EOSINOPHILS 1.3 0.0 - 5.6 % BASOPHILS 0.7 0.0 - 1.3 % ABS. NEUTROPHILS TOTAL 5.78 1.40 - 6.00 x10'3/uL IMMATURE GRANS 0.2 0.0 - 0.5 % ABS. LYMPHOCYTES 1.80 0.80 - 4.70 x10'3/uL D-DIMER, QUANTITATIVE Result Value Ref Range D-DIMER 431 0 - 500 ng[FEU]/mL COMPREHENSIVE METABOLIC PANEL Result Value Ref Range GLUCOSE 120 (H) 70 - 99 MG/DL BUN 14 7 - 18 MG/DL CREATININE S/P/B 1.05 0.7 - 1.3 MG/DL SODIUM 139 136 - 145 MMOL/L POTASSIUM 3.6 3.5 - 5.1 MMOL/L CHLORIDE S/P/B 101 100 - 108 MMOL/L CO2 25.1 21 - 32 MMOL/L CALCIUM 9.7 8.5 - 10.1 MG/DL BILIRUBIN TOTAL S/P/B 0.4 0.2 - 1.2 MG/DL TOTAL PROTEIN S/P/B 7.9 6.4 - 8.2 G/DL ALBUMIN S/P/B 3.9 3.4 - 5.0 G/DL AST 24 15 - 37 U/L ALT 23 16 - 60 U/L ALKALINE PHOSPHATASE S/P/B 99 50 - 136 U/L ANION GAP 12.9 5 - 15 MMOL/L BUN CREATININE RATIO 13.3 6 - 26 A/G RATIO 1.0 1.0 - 2.0 RATIO eGFR Non-Afr. Amer. >90 >90 ML/MIN/1.73 M2 eGFR Afr. Amer. >90 >90 ML/MIN/1.73 M2 TROPONIN, QUANT Result Value Ref Range TROPONIN I <0.017 0.000 - 0.056 ng/mL. PRO-BRAIN NATRIURETIC PEPTIDE Result Value Ref Range Pro-B TYPE NATRIURETIC PEPTIDE 14 <125 PG/ML IMAGING STUDIES XR CHEST PA+LAT Final Result by User, [id number] (05/17 09) IMAGING STUDIES: XR CHEST PA+LAT EXAM DATE/TIME: 05/17/2021 9:14 AM CLINICAL HISTORY: sob . . COMPARISON STUDIES: No previous available. FINDINGS AND IMPRESSION: CHEST: 1. The cardiomediastinal silhouette is not enlarged. 2. The lungs are well expanded and clear. Small subsegmental atelectasis left lung base 3. No significant pleural effusion, no pneumothorax. 4. No significant bony abnormalities. Referred By: COLLIN CARMONA Interpreted By: Brian Calixto, 05/17/2021 9:39 AM ED Course / Medical Decision Making 10:15AM -reevaluated patient, breathing improved after albuterol treatments. Patient likely having an asthma exacerbation. Patient works in the [employer] industry, and has been up in [employer] recently. Thiscould have triggered his asthma. Counseled patient to follow-up with his primary care physician within 1 week. Use albuterol inhaler as needed if he has chest tightness or difficulty breathing. Return to emergency department at any time if symptoms persist, worsen, or other concerns. MDM Number of Diagnoses or Management Options Amount and/or Complexity of Data Reviewed Clinical lab tests: ordered Tests in the radiology section of CPT??: ordered Independent visualization of images, tracings, or specimens: yes Clinical Impression Exacerbation of asthma, unspecified asthma severity, unspecified whether persistent (Primary) Disposition: Discharge Collin Carmona DO 05/17/21 1714 * Amaya Morales RN - 05/17/2021 9:03 AM CDTSummary: SOB Pt presented to Er with c/o SOB that began . Pt states SOB is worse with exertion. Pt denies chest pain. Pt has hx of asthma. documented in this encounter Plan of Treatment Not on file documented as of this encounter Procedures Procedure Name Priority Date/Time Associated Diagnosis Comments XR CHEST PA+LAT STAT 05/17/2021 9:38 AM CDT ECG 12-LEAD Routine 05/17/2021 9:19 AM CDT PRO-BRAIN NATRIURETIC PEPTIDE STAT 05/17/2021 9:16 AM CDT COMPREHENSIVE METABOLIC PANEL STAT 05/17/2021 9:16 AM CDT D-DIMER, QUANTITATIVE STAT 05/17/2021 9:16 AM CDT CBC W/DIFF AUTOMATED STAT 05/17/2021 9:16 AM CDT TROPONIN, QUANT STAT 05/17/2021 9:16 AM CDT documented in this encounter Results * XR CHEST PA+LAT (05/17/2021 9:38 AM CDT) Anatomical Region Laterality Modality Chest Radiographic Candis ging 05/17/2021 9:39 AM CDT Impressions 05/17/2021 9:40 AM CDT FINDINGS AND IMPRESSION: CHEST: 1. ??The cardiomediastinal silhouette is not enlarged. 2. ??The lungs are well expanded and clear. Small subsegmental atelectasis left lung base 3. ??No significant pleural effusion, no pneumothorax. 4. ??No significant bony abnormalities. Referred By: COLLIN CARMONA Interpreted By: Brian Calixto, 05/17/2021 9:39 AM Narrative 05/17/2021 9:40 AM CDT IMAGING STUDIES: ??XR CHEST PA+LAT ? EXAM DATE/TIME: 05/17/2021 9:14 AM CLINICAL HISTORY: ??sob ?? . . COMPARISON STUDIES: No previous available. ?? Procedure Note Brian Calixto MD - 05/17/2021 IMAGING STUDIES: XR CHEST PA+LAT EXAM DATE/TIME: 05/17/2021 9:14 AM CLINICAL HISTORY: sob . . COMPARISON STUDIES: No previous available. FINDINGS AND IMPRESSION: CHEST: 1. The cardiomediastinal silhouette is not enlarged. 2. The lungs are well expanded and clear. Small subsegmentalatelectasis left lung base 3. No significant pleural effusion, no pneumothorax. 4. No significant bony abnormalities. Referred By: COLLIN CARMONA Interpreted By: Brian Calixto, 05/17/2021 9:39 AM us Collin Carmona DO GENERAL IMAGING Final Res ult * ECG 12 lead (05/17/2021 9:19 AM CDT) 05/17/2021 9:19 AM CDT Narrative [facility] RAD - 05/17/2021 4:59 PM CDT ?[facility] ? Test Date: ?2021-05-17 Pat Name: ? SHARRI VERA ? Department: ? Room: ? EXAM 202 Gender: ? 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 : ?1985 ? Requested By: COLLIN CARMONA Order Number: [id number] ? Reading MD: ?? Ronnie An ? Measurements Intervals ?[place] ? Rate: ? 92 ? P: ?44 SC: ? 171 ?QRS: ?-16 QRSD: ? 108 ?T: ?0 QT: ? 357 ? QTc: ?443 ? Interpretive Statements SINUS RHYTHM MINIMAL VOLTAGE CRITERIA FOR LVH, CONSIDER NORMAL VARIANT ?? 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 Co de Phone Number [facility]) RAD * PRO-BRAIN NATRIURETIC PEPTIDE (05/17/2021 9:16 AM CDT) PRO-B TYPE NATRIURETIC PEPTIDE 14 <125 PG/ML 05/17/2021 9:51 AM CDT [facility] Comment: CUT POINTS ESTABLISHED BY [employer]NATIONAL [employer] ON NT PROBNP (ICON) STUDY (2006). AGE INDEPENDENT: <300 PG/ML HAS A 99% NEGATIVE PREDICTIVE VALUE FOR EXCLUDING ACUTE CHF <50 YEARS: >450 PG/ML IS CONSISTENT WITH ACUTE CHF 50-75 YEARS: >900 PG/ML IS CONSISTENT WITH ACUTE CHF >75 YEARS: >1800 PG/ML IS CONSISTENT WITH ACUTE CHF IN PATIENTS WITH RENAL INSUFFICIENCY (GFR <60), >1200 PG/ML YIELDS A DIAGNOSTIC SENSITIVITY AND SPECIFICITY OF 89% AND 72% FOR ACUTE CHF. 05/17/2021 9:16 AM CDT us Collin Carmona DO LABORATORY Final Res ult Performing Organization Address [facility]/ZIP Co de Phone Number [facility] [address] [place] [address], * TROPONIN, QUANT (05/17/2021 9:16 AM CDT) TROPONIN I <0.017 0.000 - 0.056 ng/mL. 05/17/2021 9:48 AM CDT [facility] Comment: NORMAL: LESS THAN OR EQUAL TO 0.056 NG/ML INDETERMINATE ZONE: 0.057 TO 0.599 NG/ML CONDITIONS RESULTING IN MYOCARDIAL CELL DAMAGE CAN POTENTIALLY INCREASE LEVELS ABOVE THE EXPECTED RANGE. HIGH DOSES OF BIOTIN MAY INTERFERE WITH THIS TEST RESULT. CORRELATION TO CLINICAL HISTORY AND PRESENTATION RECOMMENDED. 05/17/2021 9:16 AM CDT Collin Carmona DO LABORATORY Final Res ult [facility] [address] [place] [address], * (ABNORMAL) COMPREHENSIVE METABOLIC PANEL (05/17/2021 9:16 AM CDT) Pathologist [facility] GLUCOSE 120(H) 70 - 99 MG/DL 05/17/2021 9:51 AM CDT [facility] BUN 14 7 - 18 MG/DL 05/17/2021 9:51 AM CDT [facility] CREATININE S/P/B 1.05 0.7 - 1.3 MG/DL 05/17/2021 9:51 AM CDT [facility] SODIUM S/P/B 139 136 - 145 MMOL/L 05/17/2021 9:51 AM CDT [facility] POTASSIUM S/P/B 3.6 3.5 - 5.1 MMOL/L 05/17/2021 9:51 AM CDT [facility] CHLORIDE S/P/B 101 100 - 108 MMOL/L 05/17/2021 9:51 AM CDT [facility] CO2 25.1 21 - 32 MMOL/L 05/17/2021 9:51 AM [facility] CALCIUM S/P/B 9.7 8.5 - 10.1 MG/DL 05/17/2021 9:51 AM [facility] BILIRUBIN TOTAL S/P/B 0.4 0.2 - 1.2 MG/DL 05/17/2021 9:51 AM [facility] TOTAL PROTEIN S/P/B 7.9 6.4 - 8.2 G/DL 05/17/2021 9:51 AM [facility] ALBUMIN S/P/B 3.9 3.4 - 5.0 G/DL 05/17/2021 9:51 AM [facility] AST 24 15 - 37 U/L 05/17/2021 9:51 AM [facility] ALT 23 16 - 60 U/L 05/17/2021 9:51 AM [facility] ALKALINE PHOSPHATASE S/P/B 99 50 - 136 U/L 05/17/2021 9:51 AM [facility] ANION GAP 12.9 5 - 15 MMOL/L 05/17/2021 9:51 AM [facility] BUN CREATININE RATIO 13.3 6 - 26 05/17/2021 9:51 AM [facility] A/G RATIO 1.0 1.0 - 2.0 RATIO 05/17/2021 9:51 AM [facility] EGFR NON-AFR. AMER. >90 >90 ML/MIN/1.7 3 M2 05/17/2021 9:51 AM [facility] EGFR AFR. AMER. >90 >90 ML/MIN/1.7 3 M2 05/17/2021 9:51 AM CDT [facility] Comment: NOTE: eGFR is not calculated for patients <18 years of age. This is an estimated GFR (CKD EPI) and should not be used for calculating drug doses. 05/17/2021 9:16 AM CDT [facility] Final Res ult Performing Organization Address [facility] de Phone Number [facility] [address] [place] [address], [place] [phone] * D-DIMER, QUANTITATIVE (05/17/2021 9:16 AM CDT) Pathologist [facility] D-DIMER 431 0 - 500 ng{FEU}/mL 05/17/2021 9:38 AM CDT [facility] Comment: D-Dimer values less than or equal to 500 ng/mL FEU have a negative predictive value of >95% for exclusion of deep vein thrombosis and pulmonary embolism. In patients over 50 (who tend to have higher normal baseline D-Dimer values), recent studies suggest age-adjusted D-Dimer cutoff values (calculated as: age [years] x 10 ng/mL) result in equivalent outcomes and no additional false negative findings. 05/17/2021 9:16 AM CDT [facility] LAB[facility]ATORY Final Res ult Performing Organization Address [facility] de Phone Number [facility] [address] [place] [address], [place] [phone] * (ABNORMAL) CBC W/DIFF AUTOMATED (05/17/2021 9:16 AM CDT) Pathologist [facility] WBC 8.3 4.4 - 11.0 x10'3/uL 05/17/2021 9:30 AM CDT [facility] RBC 4.78 4.50 - 5.90 x10'6/uL 05/17/2021 9:30 AM CDT [facility] HGB 15.1 14.0 - 17.5 G/DL 05/17/2021 9:30 AM CDT [facility] HCT 44.2 41.5 - 50.4 % 05/17/2021 9:30 AM CDT [facility] MCV 92.5 80.0 - 96.0 FL 05/17/2021 9:30 AM CDT [facility] MCH 31.6(H) 26.5 - 31.4 PG 05/17/2021 9:30 AM CDT [facility] MCHC 34.2 31.9 - 34.8 G/DL 05/17/2021 9:30 AM CDT [facility] RDW 12.2(L) 12.3 - 14.3 % 05/17/2021 9:30 AM T [facility] PLT 249 151 - 353 x10'3/uL 05/17/2021 9:30 AM T [facility] MPV 9.7 9.7 - 11.9 FL 05/17/2021 9:30 AM T [facility] RBC MORPHOLOGY NORMAL 05/17/2021 9:30 AM T [facility] PLT MORPH. NORMAL 05/17/2021 9:30 AM T [facility] WBC MORPHOLOGY NORMAL 05/17/2021 9:30 AM T [facility] LYMPHOCYTES % 21.6 15.8 - 45.0 % 05/17/2021 9:30 AM CDT [facility] NEUTROPHILS % 69.6 42.1 - 71.9 % 05/17/2021 9:30 AM CDT [facility] MONOCYTES % 6.6 5.7 - 12.5 % 05/17/2021 9:30 AM CDT [facility] EOSINOPHILS 1.3 0.0 - 5.6 % 05/17/2021 9:30 AM CDT [facility] BASOPHILS 0.7 0.0 - 1.3 % 05/17/2021 9:30 AM CDT [facility] ABS. NEUTROPHILS TOTAL 5.78 1.40 - 6.00 x10'3/uL 05/17/2021 9:30 AM CDT [facility] IMMATURE GRANS % 0.2 0.0 - 0.5 % 05/17/2021 9:30 AM CDT [facility] ABS. LYMPHOCYTES 1.80 0.80 - 4.70 x10'3/uL 05/17/2021 9:30 AM CDT [facility] 05/17/2021 9:16 AM CDT us Collin Carmona DO LABORATORY Final Res ult [facility] [address] [place] [address], documented in this encounter Visit Diagnoses Diagnosis Exacerbation of asthma, unspecified asthma severity, unspecified whether persistent ([facility])- Primary documented in this encounter Administered Medications Inactive Administered Medications - up to 3 most recent administrations Medication Order MAR Action Action Date Dose Rate Site albuterol sulfate HFA 108 (90 Base) MCG/ACT inhaler 4 puff 4 puff, Inhalation, Every 20 min, 3 doses, First dose on Mon05/17/21 at 0945, Last dose on Mon05/17/21 at 1025, MEDICATION FOR TAKE HOME Given 05/17/2021 10:34 AM CDT 4 puffs Given 05/17/2021 10:02 AM CDT 4 puffs Given 05/17/2021 9:39 AM CDT 4 puffs methylPREDNISolone sodium succinate (SOLU-Medrol) injection 80 mg 80 mg, Intravenous, Once, 1 dose, On Mon05/17/21 at 1030, If ordered IV, administer into a vein over 3-15 minutes. Doses >= 2 mg/kg or 250mg should be given by infusion, unless the benefits of IV injection outweigh the risks (life-threatening shock) Given 05/17/2021 10:35 AM CDT 80 mg documented in this encounter Active and Recently Administered Medications Times are shown in CDT. Scheduled Medication Order 05/15/2021 05/16/2021 05/17/2021 albuterol sulfate HFA 108 (90 Base) MCG/ACT inhaler 4 puff (COMPLETED) 4 puff, Inhalation, Every 20 min, 3 doses, First dose on Mon05/17/21 at 0945, Last dose on Mon05/17/21 at 1025, MEDICATION FOR TAKE HOME 0939 (Given - Provid er: Amaya Morales RN)1002 (Given - Provider: Cyndee Agrawal RN)1034 (Given - Provider: Amaya Morales RN) ipratropium-albuterol (DUONEB) 0.5-2.5 (3) MG/3ML nebulizer solution 3 mL 3 mL, Nebulization, Once, 1 dose, On Mon05/17/21 at 0915 0954 (Not Given - Pr ovider: Cyndee Agrawal RN - Reason: Medication Discontinued - Comment: ERP changed order) methylPREDNISolone sodium succinate (SOLU-Medrol) injection 80 mg (COMPLETED) 80 mg, Intravenous, Once, 1 dose, On Mon05/17/21 at 1030, If ordered IV, administer into a vein over 3-15 minutes. Doses >= 2 mg/kg or 250mg should be given by infusion, unless the benefits of IV injection outweigh the risks (life-threatening shock) 1035 (Given - Provid er: Amaya Morales RN) documented in this encounter Care Teams Roll Coating Machine Operator Relationship Specialty Start Date End Date Elizabeth Murphy DO PCP - General FAMILY PRACTICE 05/17/21 02/24/24 documented as of this encounter
--- OUTSIDE RECORDS SUMMARY | 2024-11-19 04:25 | XMS_ITS | Encounter Summary ---
Author Organization [facility] Address [facility] [place], [place] [address] [place] [address] Care Team Providers Care Waterworks Pump Station Operator Name Role Phone Casimiro Butterfield MD Primary Care Provider [phone] Reason for Visit * Reason Onset Date Comments Follow Up Call 03/15/2024 Encounter Details Date Type Department Care Team (Late st Contact Info) Description 03/15/2024 Telephone [facility] Med/Surg [address] [place] [address] Torie Alex, RN Follow Up Call Social History Tobacco Use Types Packs/Day Years Used Date Smoking Tobacco: Every Day Cigarettes 1 23 Smokeless Tobacco: Never Alcohol Use Standard Drinks/Week Comments Yes 18.3 (1 standard drink = 0.6 oz pure alcohol) couple times a week [facility] Utilities Answer Date Recorded In the past 12 months has [facility] [employer], gas, oil, or water [employer] threatened to shut off services in your [...] any time in the past 12 [facility], were you homeless or living in a assisted (including now)? No 02/27/2024 Sex and Gender Information Value Date Recorded Sex Assigned at Not on file Legal Sex Male 8:59 AM CDT Gender Identity Not on file Sexual Orientation Not on file documented as of this encounter Functional Status * Are you deaf or do you [...] as of this encounter Mental Status * Because of a physical, mental, or emotional condition, do you have serious difficulty concentrating, remembering, or making decisions? Answer Entry Date Author Status No 02/25/2024 11:06 PM Alecia Page RN Active documented in this encounter Plan of Treatment Not on file documented as of this encounter Visit Diagnoses Not on filedocumented in this encounter Care Teams Waterworks Pump Station Operator Relationship Specialty Start Date End Date Casimiro Butterfield MD [address] [address] PCP - General INTERNAL MEDICINE 02/25/24 documented as of this encounter
--- OUTSIDE RECORDS SUMMARY | 2024-11-19 04:25 | XMS_ITS | Encounter Summary ---
Author Organization [facility] Address [address] [place] [address]. [place], [place] [id number] [place] [address] Care Team Providers Care Auto Electrician Name Role Phone Elizabeth Murphy DO Primary Care Provider [phone] Encounter Details Date Type Department Care Team (Latest Contact Info) Description 05/21/2021 Travel Social History Tobacco Use Types Packs/Day [...] on filedocumented in this encounter Care Teams Auto Electrician Relationship Specialty Start Date End Date Elizabeth Murphy DO PCP - General FAMILY PRACTICE 05/17/21 02/24/24 documented as of this encounter
--- OUTSIDE RECORDS SUMMARY | 2024-11-19 04:27 | XMS_ITS | Clinical Summary ---
Author Organization [address] Address [facility] [place] [address] Care Team Providers Care Res Habilitation Assistant Name Role Phone Casimiro Butterfield MD Primary Care Provider [phone] Allergies Active Allergy Reactions Criticality Noted Date Comments Penicillins Swelling Medium 04/26/2022 Medications omeprazole (PriLOSEC) 20 mg capsule Take 2 capsules (40 mg total) by mouth 2 (two) times a day 180 capsule 1 04/26/2022 Active OLANZapine (ZyPREXA) 15 mg tablet Take 15 mg by mouth nightly Active DULoxetine DR (CYMBALTA) 60 mg capsule Take 60 mg by mouth daily Active gabapentin (NEURONTIN) 600 mg tablet Take 600 mg by mouth 4 (four) times a day Active busPIRone (BUSPAR) 15 mg tabletIndicatio ns:Generalized Anxiety Disorder Take 15 mg by mouth 3 (three) times a day Active Active Problems Problem Noted Date Diagnosed Date Throat pain in adult 04/26/2022 Laryngopharyngeal reflux (LPR) 04/26/2022 Medical History Medical History Date Comments Depression Bipolar 1 disorder (HCC) Anxiety Chronic sore throat Voice hoarseness Social History Tobacco Use Types Packs/Day Years Used Date Smoking Tobacco: Every Day Cigarettes Cigars Smokeless Tobacco: Current Chew AUDIT-C Answer Date Recorded Frequency of Alcohol Consumption Not on file 04/26/2022 Q2: How many drinks containi ng alcohol do you have on a typical day when you are drinking? Patient does not drink Q3: How often do you have si x or more drinks on one occasion? 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 Gender Identity Not on file Sexual Orientation Not on file Obstetrics History Last Filed Vital Signs Vital Sign Reading Time Taken Comments Blood Pressure 150/81 11/06/2019 7:41 AM SUPERVISOR ELECTRIC MOTOR TESTING Pulse 68 11/06/2019 7:41 AM SUPERVISOR ELECTRIC MOTOR TESTING Temperature 36.5 ??C (97.7 ??F) 11/06/2019 7:41 AM CS T Respiratory Rate 20 04/26/2022 4:24 PM CDT Oxygen Saturation 97% 11/06/2019 7:41 AM SUPERVISOR ELECTRIC MOTOR TESTING Inhaled Oxygen Concentration - - Weight 99.8 kg (220 lb) 04/26/2022 4:24 PM CDT Height 182.9 cm (6') 04/26/2022 4:24 PM CDT Body Mass Index 29.84 04/26/2022 4:24 PM CDT Plan of Treatment Health Maintenance Due Date Last Done Comments Depression Screening 1985 Hepatitis C Screening 1985 Pneumococcal vaccine <65 (1 of 2 - PCV) 1992 Varicella Vaccines (1 of 2 - 13+ 2-dose series) 1999 Hepatitis B Screening 2004 Regular Well Visit/Exam 18-64 2004 Influenza Vaccine (#1) 2024 10/31/2018 DTaP/Tdap/Td Vaccine (2 - Td or Tdap) 10/31/2028 10/31/2018 HPV Vaccines Aged Out No longer eligi ble based on patient's age to complete this topic Insurance ACCESS CHOICE [employer] [employer] [employer] Address: [facility] [id number] [place] [address] [employer] [employer] [employer] Address: [address] [place] [address] Care Teams Res Habilitation Assistant Relationship Specialty Start Date End Date Casimiro Butterfield MD [address] [place] [address] [place] [address] PCP - General Internal Medicine 04/22/22
--- OUTSIDE RECORDS SUMMARY | 2024-11-19 04:27 | XMS_ITS | Encounter Summary ---
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 Department of Pathology [address] [place], [place] [address] ?? Final Report Patient Name: SHARRI VERA : ??1985 (Age: 34) Gender: ??M Address: ??[address] [place], [place] ??[address] Hospital #: [id number] Service: DEFAULT Location: [facility] OPS - PRE/POST SURGERY Patient Type: Same Day Service ? Taken: 11/06/2019 Received: 11/06/2019 Accessioned: 11/06/2019 Reported: 11/07/2019 Physician(s): Alli Sun M.D. Diagnosis: A) Soft tissue, right arm, excision - Fragments of mature-appearing adipose tissue, consistent with lipoma - No atypical or malignant findings B) Soft tissue, left arm, excision - Fragments of mature-appearing adipose tissue, consistent with lipoma - No atypical or malignant findings C) Soft tissue, left flank, excision - Fragments of mature-appearing adipose tissue, consistent with lipoma - No atypical or malignant findings D) Soft tissue, posterior left thigh, excision - Fragments of mature-appearing adipose tissue, consistent with lipoma - No atypical or malignant findings E) Soft tissue, posterior right thigh, excision - Fragments of mature-appearing adipose tissue, consistent with lipoma - No atypical or malignant findings Neville Land DO Report Electronically Reviewed and Signed Out By ??Neville Land DO 11/07/2019 15:23:18 Specimen(s) Received: A: Lipomas right arm x 5 B: Lipomas left arm x 3 C: Lipoma left flank D: Lipoma posterior left thigh E: Lipoma posterior right thigh Microscopic Description: Microscopic examination substantiates the above cited diagnosis. Clinical History: Lipomas Excision of lipomas right arm x 5 Left arm x 3 Left flank Posterior L thigh Posterior R thigh Gross Description A) The specimen container is labeled with the patient's name and lipomas right arm ? ? 5 . ??Received in formalin are five ovoid pieces of glistening yellow adipose tissue which range in greatest dimension from 0.7-2.2 cm and measure 2.7 x 2.2 x 0.7 cm in aggregate. ??Serial sections show soft yellow adipose tissue without hemorrhage or necrosis. ??A physician relations representative section from each fragment is submitted in cassettes A1. B) The specimen container is labeled with the patient's name and lipomas left arm ? ? 3 . ??Received in formalin are three ovoid pieces of glistening yellow adipose tissue which range in greatest dimension from 1.4-1.7 cm and measure 2.5 x 1.7 x 0.6 cm in aggregate. ??Serial sections show soft yellow adipose tissue without hemorrhage or necrosis. ??A physician relations representative section from each fragment is submitted in cassette B1. C) The specimen container is labeled with the patient's name and lipoma left flank . ??Received in formalin is an ovoid piece of glistening yellow adipose tissue which measures 2.0 x 1.5 x 0.8 cm. ??Serial sections show soft yellow adipose tissue without hemorrhage or necrosis. ??A physician relations representative section is submitted in cassettes C1. D) The specimen container is labeled with the patient's name and lipoma posterior left thigh . ??Received in formalin is an ovoid piece of glistening yellow adipose tissue which measures 2.9 x 1.8 x 1.3 cm. ??Serial sections show soft yellow adipose tissue without hemorrhage or necrosis. ??A physician relations representative section is submitted in cassette D1. E) The specimen container is labeled with the patient's name and lipoma posterior right thigh . ??Received in formalin is an ovoid piece of glistening yellow adipose tissue which measures 2.8 x 1.3 x 0.8 cm. ??Serial sections show soft yellow adipose tissue without hemorrhage or necrosis. ??A physician relations representative section is submitted in cassette E1. konrad/11/06/2019 12:25 ??MELITA Mederos Alli Sun MD LAB PATHOLOGY ORDERABLES Fin al Result documented in this encounter Visit Diagnoses Not on filedocumented in this encounter Care Teams Shagger Relationship Specialty Start Date End Date Christine Kaiser MD PCP - General 07/30/19 03/28/22 documented as of this encounter
--- OUTSIDE RECORDS SUMMARY | 2024-11-19 04:27 | XMS_ITS | Encounter Summary ---
Author Organization [facility] Address [address] [place] [address] Care Team Providers Care Manager Coding Name Role Phone Elizabeth Murphy DO Primary Care Provider + Reason for Referral * Diagnostic Imaging (Routine) - Closed Specialty Diagnoses / Procedures Referred By Graceac t Referred To Contact Diagnoses Abnormal levels of other serum enzymes Procedures US RUQ Miscellaneous, Not In File [address] [address] Referral ID Status Reason Start Date Expiration Date Visits Re quested Visits Authorized [id number] Closed 03/29/2022 04/28/2023 1 1 Reason for Visit * Diagnostic Imaging (Routine) - Closed Specialty Diagnoses / Procedures Referred By Graceac parul Referred To Contact Diagnoses Abnormal levels of other serum enzymes Procedures US RUQ Miscellaneous, Not In File [address] [address] Referral ID Status Reason Start Date Expiration Date Visits Re quested Visits Authorized [id number] Closed 03/29/2022 04/28/2023 1 1 Encounter Details Date Type Department Care Team (Late st Contact Info) Description 04/12/2022 9:20 AM CDT - 04/12/2022 11:59 PM CDT Hospital Encounter [address] [id number] Miscellaneous, Not In File Casimiro Butterfield MD [address] [place] [address] [place] [id number] Abnormal levels of other serum enzymes Discharge Disposition: Discharge to home or self care Social History Tobacco Use Types Packs/Day Years Used Date Smoking Tobacco: Never Assessed Sex and Gender Information Value Date Recorded Sex Assigned at Not on file 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 Gender Identity Not on file Sexual Orientation Not on file documented as of this encounter Discharge Disposition Disposition Code Departure Means Destination Discharge to home or self care documented in this encounter Plan of Treatment Not on file documented as of this encounter Procedures Procedure Name Priority Date/Time Associated Diagnosis Comments US RUQ Schedule Routine, Read Routine (OP Routine) 04/12/2022 10:28 AM CDT Abnormal levels of other serum enzymes documented in this encounter Results * US RUQ (04/12/2022 10:28 AM CDT) Anatomical Region Laterality Modality Abdomen N/A Ultrasound 04/12/2022 11:2 4 AM CDT Impressions 04/12/2022 11:24 AM CDT Unremarkable limited abdominal sonogram study. No focal hepatic lesions. Normal gallbladder, no evidence of cholelithiasis or cholecystitis. Electronically signed by: Dell Puga M.D. Narrative 04/12/2022 11:24 AM CDT EXAMINATION: US RUQ DATE: 04/12/2022 9:45 AM Technique: Ultrasound imaging of the right upper quadrant/limited abdomen including grayscale and Doppler- duplex imaging. History: Abdominal pain Findings: There was normal echotexture throughout the liver. There are no dilated intrahepatic ducts. There was normal hepatopedal main portal vein flow. There appears to be patency of the hepatic veins without evidence of stricture, web or thrombus. The gallbladder demonstrated normal wall thickness2 millimeters and no sign of calculi. There was a negative Ortez's sign. The common bile duct was approximately 3 millimeters in width. ?? The right kidney demonstrated normal echotexture without focal change or hydronephrosis. The right kidney measured ??108 x 48 mm ?? in outline in the sagittal plane. ??Doppler/duplex vascular imaging documented renal blood flow. There was normal echotexture of the pancreas as visualized.. The aorta and IVC, as visualized, were unremarkable. There is no ascites. Procedure Note Dell Puga MD - 04/12/2022 EXAMINATION: US RUQ DATE: 04/12/2022 9:45 AM Technique: Ultrasound imaging of the right upper quadrant/limited abdomen including grayscale and Doppler- duplex imaging. History: Abdominal pain Findings: There was normal echotexture throughout the liver. There are no dilated intrahepatic ducts. There was normal hepatopedal main portal vein flow. There appears to be patency of the hepatic veins without evidence of stricture, web or thrombus. The gallbladder demonstrated normal wall thickness2 millimeters and no sign of calculi. There was a negative Ortez's sign. The common bile duct was approximately 3 millimeters in width. The right kidney demonstrated normal echotexture without focal change or hydronephrosis. The right kidney measured 108 x 48 mm in outline in the sagittal plane. Doppler/duplex vascular imaging documented renal blood flow. There was normal echotexture of the pancreas as visualized.. The aorta and IVC, as visualized, were unremarkable. There is no ascites. IMPRESSION: Unremarkable limited abdominal sonogram study. No focal hepatic lesions. Normal gallbladder, no evidence of cholelithiasis or cholecystitis. Electronically signed by: Dell Puga M.D. us Not In File Miscellaneous IMG US PROCEDURES Collette l Result documented in this encounter Visit Diagnoses Diagnosis Abnormal levels of other serum enzymes documented in this encounter Care Teams Manager Coding Relationship Specialty Start Date End Date Elizabeth Murphy DO [address] [place] [address] PCP - General 03/29/22 04/21/22 documented as of this encounter
--- OUTSIDE RECORDS SUMMARY | 2024-11-19 04:27 | XMS_ITS | Encounter Summary ---
Author Organization [facility] Address [address] [place] [address] Care Team Providers Care Correctional Corporal Name Role Phone Christine Kaiser MD Primary Care Provide r Reason for Visit * Diagnostic Imaging (Routine) - Closed Specialty Diagnoses / Procedures Referred By Contac t Referred To Contact Diagnoses Pain in right testicle Procedures US Retroperitoneal Complete US Kidney Complete Parish Aquino MD Phone: tel: fax: [address] [address] Referral ID Status Reason Start Date Expiration Date Visits Re quested Visits Authorized [id number] Closed 07/25/2019 02/02/2021 1 1 Encounter Details Date Type Department Care Team (Latest Contact Info) Description 07/30/2019 8:34 AM CDT - 07/30/2019 11:59 PM CDT Hospital Encounter [facility] ` [address] [place] [id number] Parish Aquino MD [facility] [address] [place] [address] Pain in right testicle Discharge Disposition: Discharge to home or self care Social History Tobacco Use Types Packs/Day Years Used Date Smoking Tobacco: Never Assessed Sex and Gender Information Value Date Recorded Sex Assigned at Not on file 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 Gender Identity Not on file Sexual Orientation Not on file documented as of this encounter Discharge Disposition Disposition Code Departure Means Destination Discharge to home or self care documented in this encounter Plan of Treatment Not on file documented as of this encounter Procedures Procedure Name Priority Date/Time Associated Diagnosis Comments US SCROTUM W COMPLETE DOPPLER (C) Schedule Routine, Read Routine (OP Routine) 07/30/2019 9:33 AM CDT Pain in right testicle US RETROPERITONEAL COMPLETE Schedule Routine, Read Routine (OP Routine) 07/30/2019 9:28 AM CDT Pain in right testicle documented in this encounter Results * US Scrotum W Complete Doppler (C) (07/30/2019 9:33 AM CDT) Anatomical Region Laterality Modality Testis N/A Ultrasound 07/30/2019 4:09 PM CDT Impressions 07/30/2019 4:12 PM CDT NO INTRATESTICULAR MASS OR TORSION. SINGLE ECHOGENIC RIGHT TESTICULAR FOCUS PROBABLY CALCIFICATION OTHERWISE NO EVIDENCE FOR MICROLITHIASIS. BILATERAL UNREMARKABLE EPIDIDYMIS. SMALL BILATERAL HYDROCELES AND VARICOCELES. Electronically signed by: Cassandra Camarena M.D. Narrative 07/30/2019 4:12 PM CDT RESULT: Examination: ??US SCROTUM W COMPLETE DOPPLER (C) Date: 07/30/2019 9:45 AM Clinical History: ?? Right testicular pain. Comparison:None. Findings: The right testis is 4.4 x 2.6 x 3.0 cm while the left is 3.9 x 2.1 x 2.6 cm. ??Flow seen in both testes with color and spectral Doppler. ??A single minute echogenic right testicular 2 x 1 x 1 mm focus is noted. There is no intratesticular mass nor microlithiasis otherwise seen on either side. The right epididymis is 12 x 8 x 9 mm in the left is 9 x 9 x 11 mm. Small bilateral hydroceles and varicoceles are noted. Procedure Note Cassandra Camarena MD - 07/30/2019 RESULT: Examination: US SCROTUM W COMPLETE DOPPLER (C) Date: 07/30/2019 9:45 AM Clinical History: Right testicular pain. Comparison:None. Findings: The right testis is 4.4 x 2.6 x 3.0 cm while the left is 3.9 x 2.1 x 2.6 cm. Flow seen in both testes with color and spectral Doppler. A single minute echogenic right testicular 2 x 1 x 1 mm focus is noted. There is no intratesticular mass nor microlithiasis otherwise seen on either side. The right epididymis is 12 x 8 x 9 mm in the left is 9 x 9 x 11 mm. Small bilateral hydroceles and varicoceles are noted. IMPRESSION: NO INTRATESTICULAR MASS OR TORSION. SINGLE ECHOGENIC RIGHT TESTICULAR FOCUS PROBABLY CALCIFICATION OTHERWISE NO EVIDENCE FOR MICROLITHIASIS. BILATERAL UNREMARKABLE EPIDIDYMIS. SMALL BILATERAL HYDROCELES AND VARICOCELES. Electronically signed by: Cassandra Camarena M.D. us Parish Aquino MD IMG US PROCEDURES Final Result * US Retroperitoneal Complete (07/30/2019 9:28 AM CDT) Anatomical Region Laterality Modality Abdomen N/A Ultrasound 07/30/2019 4:12 PM CDT Impressions 07/30/2019 4:13 PM CDT Unremarkable renal ultrasound. Electronically signed by: Cassandra Camarena M.D. Narrative 07/30/2019 4:13 PM CDT RESULT: EXAMINATION: RENAL ULTRASOUND Date: 07/30/2019 9:00 AM History: ??Right testicular pain Comparison: None Findings: The right kidney measures 10.8 x 3.9 x 5.3 cm. Parenchymal echogenicity is hypoechoic to liver. ??There is no hydronephrosis, calculus, or perinephric fluid. The left kidney measures 11.6 x 4.9 x 5.2 cm. Parenchymal echogenicity is hypoechoic to the spleen. ??There is no hydronephrosis, calculus or perinephric fluid. The bladder measures 77 mm prevoid and unremarkable. ??There is no post void view is available.. Procedure Note Cassandra Camarena MD - 07/30/2019 RESULT: EXAMINATION: RENAL ULTRASOUND Date: 07/30/2019 9:00 AM History: Right testicular pain Comparison: None Findings: The right kidney measures 10.8 x 3.9 x 5.3 cm. Parenchymal echogenicity is hypoechoic to liver. There is no hydronephrosis, calculus, or perinephric fluid. The left kidney measures 11.6 x 4.9 x 5.2 cm. Parenchymal echogenicity is hypoechoic to the spleen. There is no hydronephrosis, calculus or perinephric fluid. The bladder measures 77 mm prevoid and unremarkable. There is no post void view is available.. IMPRESSION: Unremarkable renal ultrasound. Electronically signed by: Cassandra Camarena M.D. us Parish Aquino MD IMG US PROCEDURES Final Result documented in this encounter Visit Diagnoses Diagnosis Pain in right testicle Unspecified disorder of male genital organs documented in this encounter Care Teams Correctional Corporal Relationship Specialty Start Date End Date Christine Kaiser MD PCP - General 07/30/19 03/28/22 documented as of this encounter
--- OUTSIDE RECORDS SUMMARY | 2024-11-19 04:27 | XMS_ITS | Encounter Summary ---
Author Organization [facility] Address [address] [place] [address] Phone Care Team Providers Care Typing Teacher Name Role Phone Casimiro Butterfield MD Primary Care Provider [phone] Reason for Visit * Reason Comments Sore Throat With raspy voice Encounter Details Date Type Department Care Team (Latest Contact Info) Description 04/26/2022 3:45 PM CDT Office Visit [facility] Otolaryngology [address], [address] [place] [address] Jef Burkett II, MD [address] [place], [place] [id number] Laryngopharyngeal reflux (LPR) (Primary Dx); Throat pain in adult Social History Tobacco Use Types Packs/Day Years [...] more drinks on one occasion? 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 Reflux occurs because of damage or weakening of the lower esophageal sphincter (valve) allowing acid to escape from the stomach and enter the esophagus. This is called GERD (gastro-esophageal reflux disease). If reflux makes it up into the back of the throat and airway it is called LPRD (laryngo-pharyngeal reflux disease). WHY DON???T I HAVE HEARTBURN? Few patients with LPRD experience significant heartburn. Heartburn occurs when the tissue in the esophagus becomes irritated. Smaller amounts of reflux in the throat can result in irritation and inflammation but not cause heartburn. WHAT ARE THE SYMPTOMS OF LPRD? * Hoarseness * Chronic cough and frequent throat clearing * Throat pain or soreness * Feeling of a ???lump?? or tickle in the throat * Bad/bitter taste in mouth * Post-nasal drip * Sudden shortness of breath or choking sensation (especially at night, lying down) * Problems swallowing (feeling of food sticking in the throat) HOW IS REFLUX DIAGNOSED? Physical examination laryngoscopy of the larynx may reveal signs of reflux including a red, irritated and swollen larynx. Most commonly it is the back of the larynx, as this is the first site where refluxed acid comes in contact with the throat. Small laryngeal ulcers, swollen vocal folds, and granulomas in the larynx may also be seen. The best diagnostic test is the 24-hour pH monitor. A small tube is passed through the nose and into the esophagus in order to monitor the amount of reflux during a typical day. WHAT CAN I DO TO REDUCE REFLUX? * STRESS: even a moderate amount of stress can dramatically increase reflux. Take steps to lower your stress level. * DIET: Pay attention to how your system reacts to various foods. Certain foods have been shown to cause reflux including: o Spicy, acidic and greasy foods o Tomato based foods (spaghetti sauce, Bahraini foods, etc.) o Acidic fruit and juices (citrus, tomato, cranberry) o Caffeine (tea, coffee, soda, chocolate) o Alcohol o Dairy products o Peppermint * MEALTIME: Eat sensible, moderate amounts. Eat meals at least 3 hours before bedtime. Avoid bedtime snacks. If someone eats and then lies down, stomach acid can more easily travel up the esophagus into the throat. * BEDTIME: it may be helpful to elevate the head of your bed with 4-6 inch blocks. Do not elevate your head with extra pillows as it can increase abdominal pressure and worsen reflux.Your bed should not be bent or laura-knifed but at a straight slant allowing gravity to help keep stomach acid in your stomach. Sleeping on your stomach or on your right side can also facilitate reflux. * WEIGHT: try to maintain a healthy body weight. Being overweight can increase reflux. * CLOTHING: avoid tight belts and other restrictive clothing * SMOKING: avoid smoking and second-hand smoke as this dramatically causes reflux * MEDICATIONS: NSAIDS (Motrin,Advil, Ibuprofen,Naproxen), aspirin, steroids can aggravate reflux. CAN I TAKE MEDICATIONS FOR REFLUX? Your doctor may prescribe proton pump inhibitors (ex. Protonix, Nexium, Prilosec) or H-2 blockers (ex. Tagamet, Zantac or Pepcid) These medications do not reduce reflux, but they reduce its acidity. Make sure you take your medicine a half hour before a meal. It is important to realize that healing of the irritated esophagus and throat will take time, allow4 to 6 weeks of careful treatment before expecting results. documented in this encounter Ordered Prescriptions Prescription Sig Dispense Quantity Refills Last Filled Start Date End Date omeprazole (PriLOSEC) 20 mg capsule Take 2 capsules (40 mg total) by mouth 2 (two) times a day 180 capsule 1 04/26/2022 documented in this encounter Progress Notes * Jef Burkett II, MD - 04/26/2022 3:45 PM CDT Malcolm Domínguez II was seen in the office today. Primary care provider is Casimiro Butterfield MD . Chief Complaint: Malcolm Domínguez II is a 37 y.o. male with complaints of throat problems. HPI: He comes to clinic today for evaluation of his throat. He states for more than a year and a half he has had difficulty with dry scratchy throat. The severity will wax and wane. He gets some occasional soreness and a globus sensation. He is a smoker. He does have a history of reflux. He has taken omeprazole once daily for a few months. He denies hemoptysis. Voice has been fairly stable Past Medical/Surgical History Past Medical History: Diagnosis Date ??? Anxiety ??? Bipolar 1 disorder (HCC) ??? Chronic sore throat ??? Depression ??? Voice hoarseness History reviewed. No pertinent surgical history. Past Family/Social History History reviewed. No pertinent family history. Social History Socioeconomic History ??? Marital status: Tobacco Use ??? Smoking status: Current Every Day Smoker Types: Cigarettes, Cigars ??? Smokeless tobacco: Current User Types: Chew Medications/Allergies/Immunizations Current Outpatient Medications Medication Sig Dispense Refill ??? busPIRone (BUSPAR) 15 mg tablet Take 15 mg by mouth 3 (three) times a day ??? DULoxetine DR (CYMBALTA) 60 mg capsule Take 60 mg by mouth daily ??? gabapentin (NEURONTIN) 600 mg tablet Take 600 mg by mouth 4 (four) times a day ??? OLANZapine (ZyPREXA) 15 mg tablet Take 15 mg by mouth nightly ??? omeprazole (PriLOSEC) 20 mg capsule Take 2 capsules (40 mg total) by mouth 2 (two) times a day 180 capsule 1 No current facility-administered medications for this visit. Allergies: Penicillins, Immunizations: There is no immunization history on file for this patient. Review of Systems The 12 point review of systems filled out by the patient on their history form was reviewed today, and will be scanned into the encounter. Vital Signs: Vitals Resp 20 Ht 182.9 cm (6') Wt 99.8 kg (220 lb) BMI 29.84 kg/m?? PHYSICAL EXAMINATION: GENERAL: Well-developed, well-nourished. Answers questions appropriately. NEURO/PSYCH: Affect is normal. Alert and oriented. Cranial Nerves: Cranial nerves III-VII and IX-XII are intact and symmetric. HEAD/FACE: Normocephalic; atraumatic. No facial skin lesions. Facial strength is 5/5 and the face is symmetric. EARS : External ears have no skin lesions. Auricles are regularly set on the head. Hearing is grossly intact. Right - EAC patent. TM intact without scarring or perforation. Middle ear aerated without serous effusion or middle ear process. Left - EAC patent. TM intact without scarring or perforation. Middle ear aerated without serous effusion or middle ear process. NOSE: External nose has no skin lesions. Nasal dorsum is essentialy midline. Nasal septum is midline. Inferior turbinates are mildly hypertrophied. Middle turbinates are normal size. Drainage seen oneach side of the nose is normal and clear.No mucosal lesions or polyps are seen on either side. ORAL CAVITY/ OROPHARYNX: Skin of the lips is without lesions. Normal oral vestibule. Oral mucosa ismoist without lesions. Tongue and floor of mouth are without lesions or masses. Palate has no lesions and elevates symmetrically. Oropharynx is clear without erythema or exudate. NECK: Trachea is midline. Thyroid is normal in size with no apparent nodules. Neck with good range of motion. Salivary Glands: The submandibular glands are non-tender without masses. The parotid glands are non-tender without edema or masses. There is clear saliva flow from Stensen's and Mercer's ducts bilaterally. LYMPHATIC: No cervical lymphadenopathy. MUSCULOSKELATAL: Ambulates without difficulty. TMJ is without pain to palpation or trismus. RESPIRATORY: Breathing comfortably without audible wheeze or stridor. PROCEDURE: Procedure Note Pre-operative Diagnosis: Laryngopharyngeal reflux Post-operative Diagnosis: same Anesthesia: 4% topical lidocaine, 1% topical ephedrine Surgeon: Jef Burkett II, MD Endoscopy Type: Flexible Fiberoptic Laryngoscopy Indications: To better evaluate the patient's symptoms, source of dysphagia, tumor site, or limitedlaryngeal exam secondary to gag reflex Procedure Details: The patient was placed in the sitting position. After topical anesthesia and decongestion, the 4 mmlaryngoscope was passed. The nasal cavities, nasopharynx, oropharynx, hypopharynx, and larynx were all examined. Vocal cords were examined during respiration and phonation. Exam findings were normal with any abnormalities noted in the findings section. Findings: mild hypertrophy and edema interarytenoid mucosa Condition: Stable. Patient tolerated procedure well. Complications: None Medication(s) Ordered ??? omeprazole (PriLOSEC) 20 mg capsule Sig: Take 2 capsules (40 mg total) by mouth 2 (two) times a day Dispense: 180 capsule Refill: 1 No orders of the defined types were placed in this encounter. ASSESSMENT & PLAN Problem List Items Addressed This Visit ENT Throat pain in adult Gastrointestinal and Abdominal Laryngopharyngeal reflux (LPR) - Primary Patient has complaints throat problems for over a year and a half. Today he does show some evidenceof possible laryngopharyngeal reflux. I recommended reflux precautions and given him printout of that. We have increased his omeprazole to 40 mg twice daily half are before meals. He will follow up in 1 month for recheck. If not improved CT imaging could be performed of the neck. He shows no other sign of infection or mass lesions to explain pain in the throat at this time. In addition I recommended for him to quit smoking and stressed the importance of this and he can talk with his primary care physician for further methods to try and help that if he wishes to try and quit. Medical records from the primary care physician and/or the referring physician were personally reviewed for today's visit. Patient is at moderate level medical decision making. He has a chronic problem with uncertain prognosis that required prescription drug management. This note was generated with voice recognition software and small grammatical errors may be encountered. Jef Burkett II, M.D. documented in this encounter Plan of Treatment Not on file documented as of this encounter Visit Diagnoses Diagnosis Laryngopharyngeal reflux (LPR)- Primary Throat pain in adult documented in this encounter Historical Medications * This list may reflect changes made after this encounter. busPIRone (BUSPAR) 15 mg tabletIndications :Generalized Anxiety Disorder Take 15 mg by mouth 3 (three) times a day gabapentin (NEURONTIN) 600 mg tablet Take 600 mg by mouth 4 (four) times a day DULoxetine DR (CYMBALTA) 60 mg capsule Take 60 mg by mouth daily OLANZapine (ZyPREXA) 15 mg tablet Take 15 mg by mouth nightly added in this encounter Care Teams Typing Teacher Relationship Specialty Start Date End Date Casimiro Butterfield MD [address] [facility] [place] [address] PCP - General Internal Medicine 04/22/22 documented as of this encounter
--- OUTSIDE RECORDS SUMMARY | 2024-11-19 04:27 | XMS_ITS | Referral Summary ---
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 Gender Identity Not on file Sexual Orientation Not on file Last Filed Vital Signs Vital Sign Reading Time Taken Comments Blood Pressure 150/81 11/06/2019 7:41 AM WARM IN WORKER Pulse 68 11/06/2019 7:41 AM WARM IN WORKER Temperature 36.5 ??C (97.7 ??F) 11/06/2019 7:41 AM CS T Respiratory Rate 20 04/26/2022 4:24 PM CDT Oxygen Saturation 97% 11/06/2019 7:41 AM WARM IN WORKER Inhaled Oxygen Concentration - - Weight 99.8 kg (220 lb) 04/26/2022 4:24 PM CDT Height 182.9 cm (6') 04/26/2022 4:24 PM CDT Body Mass Index 29.84 04/26/2022 4:24 PM CDT Plan of Treatment Not on file Insurance [employer] Address: [address] [place] [address] [employer] Address: [facility] [id number] [place] [address] Care Teams Bleach Packer Relationship Specialty Start Date End Date Casimiro Butterfield MD [address] [facility] [address] PCP - General Internal Medicine 04/22/22
--- OUTSIDE RECORDS SUMMARY | 2024-11-19 04:27 | XMS_ITS | Encounter Summary ---
Author Organization [facility] Address [address] [place] [address] Care Team Providers Care Party Plan Demonstrator Name Role Phone Unavailable Primary Care Provider Unavailabl e Encounter Details Date Type Department Care Team (Latest Contact Info) Description 03/05/2015 2:26 PM CDT - 03/05/2015 5:01 PM CDT Hospital Encounter [facility] Ton Munoz MD [address] [facility] [address] Neck sprain and strain; Cervical spondylosis without myelopathy; Overexertion from sudden strenuous movement Social History Tobacco Use Types Packs/Day Years Used Date Smoking Tobacco: Never Assessed Sex and Gender Information Value Date Recorded Sex Assigned at Not on file 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 Gender Identity Not on file Sexual Orientation Not on file documented as of this encounter Last Filed Vital Signs Vital Sign Reading Time Taken Comments Blood Pressure 134/90 03/05/2015 2:35 PM CDT Pulse 65 03/05/2015 2:35 PM CDT Temperature 36.9 ??C (98.4 ??F) 03/05/2015 2:35 PM CD T Respiratory Rate - - Oxygen Saturation 99% 03/05/2015 2:35 PM CDT Inhaled Oxygen Concentration - - Weight 86.2 kg (190 lb) 03/05/2015 2:35 PM CDT Height 182.9 cm (6') 03/05/2015 2:35 PM CDT Body Mass Index 25.77 03/05/2015 2:35 PM CDT documented in this encounter Plan of Treatment Not on file documented as of this encounter Procedures Procedure Name Priority Date/Time Associated Diagnosis Comments CT CERVICAL SPINE WO CONTRAST Routine 03/05/2015 12:00 AM CDT documented in this encounter Results * CT Cervical Spine WO Contrast (03/05/2015 12:00 AM CDT) Anatomical Region Laterality Modality Spine N/A Computed Tomogra phy 03/05/2015 Impressions 03/05/2015 3:49 PM CDT ??Minimal degenerative osteoarthritic change., no acute findings THIS IS AN ELECTRONICALLY VERIFIED REPORT 03/05/2015 3:46 PM: ??Claudy Canales M.D., Ph.D. Claudy Canales M.D., Ph.D. WM: 03:46 PM 03:46 PM [facility] [EOD] Narrative 03/05/2015 3:49 PM CDT EXAMINATION: ??Cervical spine HISTORY: ??Lifting injury, felt pop and neck numbness left arm pain FINDINGS: ??There is no evidence of fracture or dislocation. ??There is early degenerative osteoarthritic change in the facet joints the lower cervical spine. ??There is no evidence of and the spinal canal or neural foraminal compromise. ??The odontoid is intact. ??No soft tissue swelling identified. Procedure Note Provider, MD Annika - 04/06/2021 EXAMINATION: Cervical spine HISTORY: Lifting injury, felt pop and neck numbness left arm pain FINDINGS: There is no evidence of fracture or dislocation. There isearly degenerative osteoarthritic change in the facet joints the lower cervical spine. There is no evidence of and the spinal canal or neural foraminal compromise. The odontoid is intact. No soft tissue swellingidentified. IMPRESSION: Minimal degenerative osteoarthritic change., no acutefindings THIS IS AN ELECTRONICALLY VERIFIED REPORT 03/05/2015 3:46 PM: Claudy Canales M.D., Ph.D. Claudy Canales M.D., Ph.D. WM: 03:46 PM 03:46 PM [facility] [EOD] Stephy HAU IMG CT PROCEDURES Final Resul t documented in this encounter Visit Diagnoses Diagnosis Neck sprain and strain Cervical spondylosis without myelopathy Overexertion from sudden strenuous movement documented in this encounter
--- OUTSIDE RECORDS SUMMARY | 2024-11-19 04:27 | XMS_ITS | Encounter Summary ---
Author Organization [facility] Address [address] [place] [address] Care Team Providers Care Fabrication And Assembly Supervisor Name Role Phone Christine Kaiser MD Primary Care Provide r Encounter Details Date Type Department Care Team (Latest Contact Info) Description 11/06/2019 6:38 AM ROOM INSPECTOR - 11/06/2019 1:29 PM ROOM INSPECTOR Hospital Encounter [facility] Alli Sun MD [address] [place] [id number] Discharge Disposition: Discharge to home or self care Social History Tobacco Use Types Packs/Day Years Used Date Smoking Tobacco: Never Assessed Sex and Gender Information Value Date Recorded Sex Assigned at Not on file Legal Sex Male 1:56 AM ROOM INSPECTOR Gender Identity Not on file Sexual Orientation Not on file documented as of this encounter Last Filed Vital Signs Vital Sign Reading Time Taken Comments Blood Pressure 150/81 11/06/2019 7:41 AM ROOM INSPECTOR Pulse 68 11/06/2019 7:41 AM ROOM INSPECTOR Temperature 36.5 ??C (97.7 ??F) 11/06/2019 7:41 AM CS T Respiratory Rate - - Oxygen Saturation 97% 11/06/2019 7:41 AM ROOM INSPECTOR Inhaled Oxygen Concentration - - Weight 86 kg (189 lb 8 oz) 11/06/2019 7:41 AM CS T Height 182.9 cm (6') 11/06/2019 7:41 AM ROOM INSPECTOR Body Mass Index 25.7 11/06/2019 7:41 AM ROOM INSPECTOR documented in this encounter Discharge Disposition Disposition Code Departure Means Destination Discharge to home or self care documented in this encounter Plan of Treatment Not on file documented as of this encounter Procedures Procedure Name Priority Date/Time Associated Diagnosis Comments SCAN - PATHOLOGY 11/07/2019 12:0 0 AM ROOM INSPECTOR documented in this encounter Results * SCAN - PATHOLOGY (11/07/2019 12:00 AM ROOM INSPECTOR) Narrative 11/07/2019 12:00 AM ROOM INSPECTOR Ordered by an unspecified provider. Historical Provider Final Res ult documented in this encounter Visit Diagnoses Not on filedocumented in this encounter Care Teams Fabrication And Assembly Supervisor Relationship Specialty Start Date End Date Christine Kaiser MD PCP - General 07/30/19 03/28/22 documented as of this encounter
--- OUTSIDE RECORDS SUMMARY | 2024-11-19 04:28 | XMS_ITS | Patient Health Record ---
Author Organization [facility] Address [address] [place] [address] Care Team Providers Care Spray Mixer Name Role Phone Casimiro Butterfield Primary Care Provider Kanu Cueva Unavailable [phone] Elaina Luu Unavailable [phone] Rosalina Marcano Unavailable [phone] Allergies Allergen (clinical drug ingredient) Drug/Non Drug Allergy documented on EMR Reaction Allergy Type Onset Date Status Penicillin G Benzathine Unknown Drug Allergy Active Results Component Value Reference Range Notes CBC With Differential/Platel et* Reviewed date:01/18/2024 09:17:56 AM Interpretation: Performing [facility], [address] [facility], Phone - [phone], Director - PhDRicchilidai Notes/Report: WBC 5.6 3.4-10.8 x10E3/uL RBC 6.07 4.14-5.80 x10E6/uL Hemoglobin 19.4 13.0-17.7 g/dL Hematocrit 56.7 37.5-51.0 % MCV 93 79-97 fL MCH 32.0 26.6-33.0 pg MCHC 34.2 31.5-35.7 g/dL RDW 14.1 11.6-15.4 % Platelets 250 150-450 x10E3/uL Neutrophils 62 Not Estab. % Lymphs 29 Not Estab. % Monocytes 7 Not Estab. % Eos 1 Not Estab. % Basos 1 Not Estab. % Neutrophils (Absolute) 3.5 1.4-7.0 x10E3/uL Lymphs (Absolute) 1.6 0.7-3.1 x10E3/uL Monocytes(Absolute) 0.4 0.1-0.9 x10E3/uL Eos (Absolute) 0.1 0.0-0.4 x10E3/uL Baso (Absolute) 0.1 0.0-0.2 x10E3/uL Immature Granulocytes 0 Not Estab. % Immature Grans (Abs) 0.0 0.0-0.1 x10E3/uL CBC With Differential/Platel et* Reviewed date:04/02/2024 09:48:55 AM Interpretation: Performing Lab:[facility] [place], [address] [facility], Phone - [phone], Director - [facility]dg[facility] Services[facility]ab[facility] Notes/Report: WBC 7.6 3.4-10.8 x10E3/uL RBC 5.65 4.14-5.80 x10E6/uL Hemoglobin 16.7 13.0-17.7 g/dL Hematocrit 50.5 37.5-51.0 % MCV 89 79-97 fL MCH 29.6 26.6-33.0 pg MCHC 33.1 31.5-35.7 g/dL RDW 13.2 11.6-15.4 % Platelets 226 150-450 x10E3/uL Neutrophils 58 Not Estab. % Lymphs 33 Not Estab. % Monocytes 6 Not Estab. % Eos 2 Not Estab. % Basos 1 Not Estab. % Neutrophils (Absolute) 4.3 1.4-7.0 x10E3/uL Lymphs (Absolute) 2.5 0.7-3.1 x10E3/uL Monocytes(Absolute) 0.5 0.1-0.9 x10E3/uL Eos (Absolute) 0.2 0.0-0.4 x10E3/uL Baso (Absolute) 0.1 0.0-0.2 x10E3/uL Immature Granulocytes 0 Not Estab. % Immature Grans (Abs) 0.0 0.0-0.1 x10E3/uL C-Reactive Protein, Quant Reviewed date:04/02/2024 09:48:55 AM Interpretation: Performing Lab:[facility] [place], [address] [facility], [place], Phone - [phone], Director - Carolyn Notes/Report: C-Reactive Protein, Quant 10 0-10 mg/L RAVIN by IFA, Reflex to 9-biom [place] profile, Serum Reviewed date:04/02/2024 09:48:55 AM Interpretation: Performing Lab:[facility] [place], [address] [place], [place] [address]ox [facility], Phone - [phone], Director - Carolyn Notes/Report: RAVIN by IFA Rfx Titer/Pattern Negative Negative <1:80 Borderline 1:80 Positive >1:80 ICAP nomenclature: AC-0 For more information about Hep-2 cell patterns use ANApatterns.org, the official website for the International Consensus on Antinuclear Antibody (RAVIN) Patterns (ICAP). Please Note: RAVIN Multiplex methodology was designed to detect up to 11 antibodies of the 100+ antibodies that may be detected by RAVIN IFA methodology. CMP 14 Comprehensive Metabol ic Panel* Reviewed date:04/02/2024 09:48:56 AM Interpretation: Performing Lab:[facility] [place], [address] [place] [address], Phone - [phone], Director - Carolyn Notes/Report: Glucose TNP Test not performed. Serum was in contact with cells when received which will make the result inaccurate. BUN 7 6-20 mg/dL Creatinine 1.04 0.76-1.27 mg/dL eGFR 94 >59 mL/min/1.73 BUN/Creatinine Ratio 7 9-20 Sodium 141 134-144 mmol/L Potassium TNP Test not performed. Serum was in contact with cells when received which will make the result inaccurate. Chloride 102 96-106 mmol/L Carbon Dioxide, Total 20 20-29 mmol/L Calcium 9.1 8.7-10.2 mg/dL Protein, Total 7.2 6.0-8.5 g/dL Albumin 4.0 4.1-5.1 g/dL Globulin, Total 3.2 1.5-4.5 g/dL A/G Ratio 1.3 1.2-2.2 Bilirubin, Total 0.5 0.0-1.2 mg/dL Alkaline Phosphatase 127 44-121 IU/L AST (SGOT) 29 0-40 IU/L ALT (SGPT) 24 0-44 IU/L Testosterone, Serum Reviewed date:04/02/2024 09:48:56 AM Interpretation: Performing Lab:[facility] [place], [address] [place] [address], Phone - [phone], Director - [facility] Notes/Report: Testosterone 267 264-916 ng/dL Adult male reference interval is based on a population of healthy nonobese males (BMI <30) between 19 and 39 years old. lele De Paz.al. JCEM 2017,102;6183-0903. PMID: 59429732. Prolactin Reviewed date:04/02/2024 09:48:56 AM Interpretation: Performing Lab:[facility] [address], Phone - [phone], Director - [facility] Notes/Report: Prolactin 33.0 3.9-22.7 ng/mL UA/M w/rflx Culture, Routine Reviewed date:04/02/2024 09:48:56 AM Interpretation: Performing Lab:[facility] [address], Phone - [phone], Director - [facility] Notes/Report: Specific [place] 1.028 1.005-1.030 pH 6.5 5.0-7.5 Urine-Color Yellow Yellow Appearance Cloudy Clear WBC Esterase Negative Negative Protein 1+ Negative/Trace Glucose Negative Negative Ketones Trace Negative Occult Blood Negative Negative Bilirubin Negative Negative Urobilinogen,Semi-Qn 1.0 0.2-1.0 mg/dL Nitrite, Urine Negative Negative Microscopic Examination See below: Micr oscopic was indicated and was performed. Urinalysis Reflex This speci men will not reflex to a Urine Culture. WBC 0-5 0 - 5 /hpf RBC None seen 0 - 2 /hpf Epithelial Cells (non renal) None seen 0 - 10 /hpf Casts None seen None seen /lpf Crystals Present N/A Crystal Type Calcium Oxalate N/A Mucus Threads Present Not Estab. Bacteria None seen None seen/Few Lipid Panel* Reviewed date:04/02/2024 09:48:56 AM Interpretation: Performing Lab:[facility] [address], Phone - [phone], Director - [facility] Notes/Report: Cholesterol, Total 154 100-199 mg/dL Triglycerides 338 0-149 mg/dL HDL Cholesterol 32 >39 mg/dL VLDL Cholesterol Ruddy 54 5-40 mg/dL LDL Chol Calc (NIH) 68 0-99 mg/dL TSH Rfx on Abnormal to Free T4 Reviewed date:04/02/2024 09:48:56 AM Interpretation: Performing Lab:[facility] [place] [facility] [address] [place] [address], Phone - [phone], Director - [facility] Notes/Report: TSH 2.160 0.450-4.500 uIU/mL 12 Panel Urine Drug Screen Reviewed date:01/10/2024 02:14:25 PM Interpretation: Performing Lab: Notes/Report: THC POS MERVAT neg MOP (OPI) neg AMP neg MET neg BAR neg BZO neg MDMA neg MTD neg OXY neg PCP neg BUP POS 12 Panel Urine Drug Screen Reviewed date:07/12/2024 01:55:25 PM Interpretation: Performing Lab: Notes/Report: THC neg MERVAT neg MOP (OPI) neg AMP neg MET neg BAR neg BZO neg MDMA neg MTD neg OXY neg PCP neg BUP POS Prolactin Reviewed date:01/18/2024 09:17:56 AM Interpretation: Performing Lab:[facility] [place] [address] [place] [address], Phone - [phone], Director - [facility] Notes/Report: Prolactin 17.8 3.9-22.7 ng/mL Testosterone, Serum Reviewed date:01/18/2024 09:17:56 AM Interpretation: Performing Lab:[facility] [place] [address] [place] [address], Phone - [phone], Director - [facility] Notes/Report: Testosterone 308 264-916 ng/dL Adult male reference interval is based on a population of healthy nonobese males (BMI <30) between 19 and 39 years old. Baldev et.al. JCEM 2017,102;8804-7123. PMID: 46664548. CMP 14 Comprehensive Metabol ic Panel* Reviewed date:01/18/2024 09:17:56 AM Interpretation: Performing Lab[facility] [place], Phone - [phone], Director - [facility] Notes/Report: Glucose 97 70-99 mg/dL BUN 10 6-20 mg/dL Creatinine 1.00 0.76-1.27 mg/dL eGFR 99 >59 mL/min/1.73 BUN/Creatinine Ratio 10 9-20 Sodium 140 134-144 mmol/L Potassium 4.2 3.5-5.2 mmol/L Chloride 100 96-106 mmol/L Carbon Dioxide, Total 22 20-29 mmol/L Calcium 9.7 8.7-10.2 mg/dL Protein, Total 7.5 6.0-8.5 g/dL Albumin 4.6 4.1-5.1 g/dL Globulin, Total 2.9 1.5-4.5 g/dL A/G Ratio 1.6 1.2-2.2 Bilirubin, Total 0.7 0.0-1.2 mg/dL Alkaline Phosphatase 130 44-121 IU/L AST (SGOT) 58 0-40 IU/L ALT (SGPT) 78 0-44 IU/L Hemoglobin A1c* Reviewed date:01/18/2024 09:17:56 AM Interpretation: Performing Lab:[facility] [address], Phone - [phone], Director - [facility] Notes/Report: Hemoglobin A1c 5.4 4.8-5.6 % . Prediabetes: 5.7 - 6.4 Diabetes: >6.4 Glycemic control for adults with diabetes: <7.0 HIV Screen *HIV 1, 2 Ab, p24 Ag Reviewed date:01/18/2024 09:17:56 AM Interpretation: Performing Lab:[facility] [address] [facility], Phone - [phone], Director - [facility] Notes/Report: HIV Ab/p24 Ag Screen Non Reactive Non Reactive HIV Negative HIV-1/HIV-2 antibodies and HIV-1 p24 antigen were NOT detected. There is no laboratory evidence of HIV infection. Hepatitis C Virus Antibody w /Rflx to Quantitative Real-time PCR Reviewed date:01/18/2024 09:17:56 AM Interpretation: Performing Lab:[facility] [place] [facility], Phone - [phone], Director - [facility] Notes/Report: HCV Ab Non Reactive Non Reactive Interpretation: Not infected with HCV unless early or acute infection is suspected (which may be delayed in an immunocompromised individual), or other evidence exists to indicate HCV infection. Hepatitis B Surface Antigen (HBsAg Screen) Reviewed date:01/18/2024 09:17:56 AM Interpretation: Performing Lab:[facility] [place], [address] [place] [address], Phone - [phone], Director [facility] Notes/Report: HBsAg Screen Negative Negative HIV Screen *HIV 1, 2 Ab, p24 Ag Reviewed date:04/02/2024 09:48:55 AM Interpretation: Performing Lab:[facility] [address] [place] [address], Phone - [phone], [facility] - [facility] Notes/Report: HIV Ab/p24 Ag Screen Non Reactive Non Reactive HIV Negative HIV-1/HIV-2 antibodies and HIV-1 p24 antigen were NOT detected. There is no laboratory evidence of HIV infection. Hepatitis B Surface Antigen (HBsAg Screen) Reviewed date:04/02/2024 09:48:55 AM Interpretation: Performing Lab:[facility] [address], Phone - [phone], [facility] Notes/Report: HBsAg Screen Negative Negative Hepatitis C Virus Antibody w /Rflx to Quantitative Real-time PCR Reviewed date:04/02/2024 09:48:55 AM Interpretation: Performing Lab:[facility] [address], Phone - [phone], [facility] - [facility] Notes/Report: HCV Ab Non Reactive Non Reactive Interpretation: Not infected with HCV unless early or acute infection is suspected (which may be delayed in an immunocompromised individual), or other evidence exists to indicate HCV infection. Lipid Panel* Reviewed date:01/18/2024 09:17:56 AM Interpretation: Performing Lab:[facility] [address], Phone - [phone], Director [facility] Notes/Report: Cholesterol, Total 188 100-199 mg/dL Triglycerides 350 0-149 mg/dL HDL Cholesterol 32 >39 mg/dL VLDL Cholesterol Ruddy 59 5-40 mg/dL LDL Chol Calc (NIH) 97 0-99 mg/dL 12 Panel Urine Drug Screen Reviewed date:08/12/2024 01:36:40 PM Interpretation: Performing Lab: Notes/Report: THC neg MERVAT neg MOP (OPI) neg AMP neg MET neg BAR neg BZO neg MDMA neg MTD neg OXY neg PCP neg BUP POS Buprenorphine and Metabolite (Urine test) Reviewed date:08/19/2024 08:24:26 AM Interpretation: Performing Lab:[facility] [place], [address] [facility], [place], Phone - [phone], Director - PhDAbudu Notes/Report: Clinical Information:CCU:[id number] LM Buprenorphine Positive Confirmation p erformed by Mass Spectrometry Buprenorphine Positive Buprenorphine Conf, MS, UR 124 Cutoff=10 ng/m L Norbuprenorphine Positive Norbuprenorphine Conf, MS, UR 433 Cutoff=10 ng/mL 12 Panel Urine Drug Screen Reviewed date:09/16/2024 02:08:22 PM Interpretation: Performing Lab: Notes/Report: THC neg MERVAT neg MOP (OPI) neg AMP neg MET neg BAR neg BZO neg MDMA neg MTD neg OXY neg PCP neg BUP POS 12 Panel Urine Drug Screen Reviewed date:10/25/2024 01:38:35 PM Interpretation: Performing Lab: Notes/Report: THC neg MERVAT neg MOP (OPI) neg AMP neg MET neg BAR neg BZO neg MDMA neg MTD neg OXY neg PCP neg BUP POS Reason For Referral No Information Medications Medication SIG (Take, Route, Frequency, Duration) Notes Start Date End Date Status Gabapentin 600 MG TAKE 1 TABLET BY BRAVO TH FOUR TIMES DAILY for 30 days Active Omeprazole 40 MG TAKE 1 CAPSULE BY [facility] EVERY DAY 30 MINUTES BEFORE BREAKFAST for 90 Active Topiramate 100 MG 1 tablet Orally Once a day Active busPIRone HCl 15 MG TAKE 1 TABLET BY BRAVO THREE TIMES DAILY for 30 Active Senna 8.6 MG 2 tablets at bedtime as needed for constipation Orally Once a day 06/06/2022 Active OLANZapine 15 MG TAKE 1 TABLET BY BRAVO DAILY for 30 Active DULoxetine HCl 60 MG TAKE 1 CAPSULE BY [facility] EVERY DAY for 30 Active Valsartan 80 MG TAKE 1 TABLET BY BRAVO DAILY for 90 Active Nicotine Polacrilex 4 MG 1 piece chew for 30 minutes as needed Mouth/Throat every 1-2 hours As needed for smoking cessation, up to 16 pieces/day 08/12/2024 Not-Taking Tadalafil 10 MG 1 tablet for 30 days As needed 1-2 HOURS PRIOR TO SEXUAL ACTIVITY Active Testosterone Cypionate 200 MG/ML 1 mL Intramuscular EVERY 2 WEEKS 06/10/2024 Active Buprenorphine HCl-Naloxone HCl 8-2 MG 1 film under the tongue and allow to dissolve twice a day 10/25/2024 Active Social History Tobacco Use: Social History Observation Description Date Details (start date - stop date) Current Smoker NA - NA Sex Assigned At : Social History Observation Description Sex Assigned At Male Dont use, Tobacco Use/Smoking Question Answer Notes Are you a current smoker PRAPARE Question Answer Notes Date Completed/Updated: 01/10/2024 What is your current housing situation? I have h ousing Are you worried about losing your housing? No What is the highest level of school that you have finished? More than high school What is your current work situation? Unemployed and seeking work In the past year, have you o r any family members you live with been unable to get any of the following when it was really needed? Check all that apply I do not have problems meeting my needs Has lack of transportation k ept you from medical appointments, meetings, work or from getting things needed for daily living? No How often do you see or talk to people that you care about and feel close to? (For example: talking to friends on the phone, visiting friends or family, going to yazidi or club meetings) More than 5 times a week How stressed are you? Stress is when someone feels tense, nervous, anxious, or can\t sleep at night because their mind is troubled Not at all In the past year have you sp ent more than 2 nights in a row in a care home, correction, senior living center, or juvenile correctional facility? No Are you a refugee? No What country are you from? [place] Do you feel physically and e motionally safe where you currently live? Yes In the past year, have you b een afraid of your partner or ex-partner? No PRAPARE Score: 0 Tobacco Control (Standard) Question Answer Notes Tobacco use: Current smoker Section Notes: [id number] 06/17/2022 05/06/2022 Testosterone Cypionate 1.0 14 200 MG/1 ML Casimiro Mcrae Md [id number] [place] 1 [id number] 06/03/2022 05/06/2022 Testosterone Cypionate 1.0 14 200 MG/1 ML Casimiro Mcrae Md [id number] [facility], [place], [place] NA 5 [place] 1 [id number] 05/20/2022 05/06/2022 Buprenorphine And Naloxone 28.0 14 8MG-2MG Casimiro Mcrae [place] [id number] [place] 1 [id number] 05/06/2022 05/06/2022 Buprenorphine And Naloxone 28.0 14 8MG-2MG Casimiro Mcrae Md [id number] 06/17/2022 05/06/2022 Testosterone Cypionate 1.0 14 200 MG/1 ML Casimiro Mcrae Md [id number] [place] 1 [id number] 06/03/2022 05/06/2022 Testosterone Cypionate 1.0 14 200 MG/1 ML Casimiro Mcrae Md [id number] [place] 1 [id number] 05/20/2022 05/06/2022 Buprenorphine And Naloxone 28.0 14 8MG-2MG Casimiro Mcrae Md [id number] [place] 1 [id number] 05/06/2022 05/06/2022 Buprenorphine And Naloxone 28.0 14 8MG-2MG Casimiro Mcrae Md [id number] 06/17/2022 05/06/2022 Testosterone Cypionate 1.0 14 200 MG/1 ML Casimiro Mcrae Md [id number] [place] 1 [id number] 06/03/2022 05/06/2022 Testosterone Cypionate 1.0 14 200 MG/1 ML Casimiro Mcrae Md [id number] [place] 1 [id number] 05/20/2022 05/06/2022 Buprenorphine And Naloxone 28.0 14 8MG-2MG Casimiro Mcrae Md [id number] [place] 1 [id number] 05/06/2022 05/06/2022 Buprenorphine And Naloxone 28.0 14 8MG-2MG Casimiro Mcrae Md [id number] 06/17/2022 05/06/2022 Testosterone Cypionate 1.0 14 200 MG/1 ML Casimiro Mcrae Md [id number] [place] 1 [id number] 06/03/2022 05/06/2022 Testosterone Cypionate 1.0 14 200 MG/1 ML Casimiro Mcrae Md [id number] [place] 1 [id number] 05/20/2022 05/06/2022 Buprenorphine And Naloxone 28.0 14 8MG-2MG Casimiro Mcrae Md [id number] [place] 1 [id number] 05/06/2022 05/06/2022 Buprenorphine And Naloxone 28.0 14 8MG-2MG Casimiro Mcrae Md [id number] 06/17/2022 05/06/2022 Testosterone Cypionate 1.0 14 200 MG/1 ML Casimiro Mcrae Md [id number] [place] 5 [place] 1 [id number] 06/03/2022 05/06/2022 Testosterone Cypionate 1.0 14 200 MG/1 ML Casimiro Mcrae Md [id number] [place] 1 [id number] 05/20/2022 05/06/2022 Buprenorphine And Naloxone 28.0 14 8MG-2MG Casimiro Mcrae Md [id number] [place] 1 [id number] 05/06/2022 05/06/2022 Buprenorphine And Naloxone 28.0 14 8MG-2MG Casimiro Mcrae Md [id number] 06/17/2022 05/06/2022 Testosterone Cypionate 1.0 14 200 MG/1 ML Casimiro Mcrae Md [id number] [place] 5 [place] 1 [id number] 06/03/2022 05/06/2022 Testosterone Cypionate 1.0 14 200 MG/1 ML Casimiro Mcrae Md [id number] [place] 1 [id number] 05/20/2022 05/06/2022 Buprenorphine And Naloxone 28.0 14 8MG-2MG Casimiro Mcrae Md - [id number] [employer] [place], [place] NA 1 [place] 1 [id number] 05/06/2022 05/06/2022 Buprenorphine And Naloxone 28.0 14 8MG-2MG NA Casimiro Butterfield Md [id number] 06/17/2022 05/06/2022 Testosterone Cypionate 1.0 14 200 MG/1 ML Casimiro Mcrae Md [id number] [place] NA 5 [place] 1 [id number] 06/03/2022 05/06/2022 Testosterone Cypionate 1.0 14 200 MG/1 ML Casimiro Mcrae Md [id number] [place] 1 [id number] 05/20/2022 05/06/2022 Buprenorphine And Naloxone 28.0 14 8MG-2MG NA Casimiro [place] Md [id number] [place] 1 [id number] 05/06/2022 05/06/2022 Buprenorphine And Naloxone 28.0 14 8MG-2MG Casimiro Mcrae Md [id number] Problems Problem Type SNOMED Code ICD Code Onset Dates Problem Status W/U Status Risk Notes Problem Tobacco user (924984542) Nicotine dependence, unspecified, uncomplicated (F17.200) Active confirmed Problem Hypertension (75495680) Hypertension (I10) 024 Active confirmed Problem Chronic post-traumatic stress disorder (639581964) Chronic posttraumatic stress disorder (F43.12) 022 Active confirmed ongoing chronic PTSD symptoms started during childhood Problem Increased prolactin level (879295549) Elevated prolactin level (E22.9) Active confirmed Problem History of psychiatric disorder (589643418) History of schizoaffective disorder (Z86.59) Active confirmed Problem 68978670 Chronic fatigue (R53.82) Active confirmed Problem Cocaine abuse (75485992) Cocaine abuse (F14.10) Active confirmed Problem Methamphetamine abuse (254738611) Methamphetamine abuse (F15.10) Active confirmed Problem History of schizophrenia (203307368) History of schizophrenia (Z86.59) 022 Active confirmed Problem 989551085 Obesity (BMI 30-39.9) (E66.9) Active confirmed Problem Panic disorder (022076338) Panic attacks (F41.0) 022 Active confirmed Problem 473511799 Erectile dysfunction, unspecified erectile dysfunction type (N52.9) Active confirmed Problem 26937412 Hyperlipidemia, unspecified hyperlipidemia type (E78.5) Active confirmed Problem Tobacco use (301210771) Tobacco use disorder (F17.200) Active confirmed Problem 489653269 GERD without esophagitis (K21.9) Active confirmed Problem 2431955224217 Testosterone deficiency (E34.9) 022 Active confirmed Problem Mental disorder caused by drug (509193268) Opioid use disorder (F11.99) Active confirmed Problem Body mass index 30.00 to 34.99 (569484454738557) BMI 31.0-31.9,adult (Z68.31) Active confirmed Problem 13949404 Paranoid schizophrenia (F20.0) 022 Active confirmed Problem 008629023 Dorsalgia (M54.9) Active confirmed Problem 87852759 Arthralgia, unspecified joint (M25.50) Active confirmed Problem Obesity (808017500) Obesity, unspecified classification, unspecified obesity type, unspecified whether serious comorbidity present (E66.9) Active confirmed Problem 0922164 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) Active confirmed Vital Signs Heart Rate 106 /min 10/25/2024 Temperature 98.6 degrees Fahrenheit 09/16/2024 Respiratory Rate 16 /min 10/25/2024 Blood pressure diastolic 90 mm Hg 10/25/2024 Oximetry 98 % 10/25/2024 Height 71 in 10/25/2024 Blood pressure systolic 164 mm Hg 10/25/2024 Weight 264 lbs 10/25/2024 BMI 36.82 kg/m2 10/25/2024 Encounters Encounter Location Date Provider Diagnosis [address] [place] [address] 01/10/2024 Kanu Cueva Opioid use with opioid-induced disorder F11.99 ; Obesity (BMI 30-39.9) E66.9 ; Nutritional counseling Z71.3 and Nicotine dependence, unspecified, uncomplicated F17.200 [place] [address] [address] 01/10/2024 Elaina Luu [address] [address] 01/15/2024 Casimiro Scout Dorsalgia M54.9 ; Testosterone deficiency E34.9 ; Nicotine dependence, unspecified, uncomplicated F17.200 ; Paranoid schizophrenia F20.0 ; Opioid use with opioid-induced disorder F11.99 ; Medication monitoring encounter Z51.81 ; Elevated prolactin level E22.9 ; Metabolic syndrome E88.810 and Exposure to potential infection Z20.[address] [address] 03/21/2024 Casimiro Butterfield Hypertension I10 ; Opioid use with opioid-induced disorder F11.99 ; Oral ulceration K12.1 ; Cellulitis L03.90 ; GERD without esophagitis K21.9 ; Hyperlipidemia, unspecified hyperlipidemia type E78.5 ; Testosterone deficiency E34.9 ; Methamphetamine abuse F15.10 ; Cocaine abuse F14.10 ; Chronic fatigue R53.82 ; Elevated prolactin level E22.9 and Exposure to potential infection Z20.[address] [address] 06/10/2024 Casimiro Butterfield Opioid use with opioid-induced disorder F11.99 ; Paranoid schizophrenia F20.0 ; Testosterone deficiency E34.9 ; Hypertension I10 and Dorsalgia M54.[address] [address] 07/12/2024 Kanu Cueva Opioid use disorder F11.99 ; Obesity (BMI 30-39.9) E66.9 ; Nutritional counseling Z71.3 and Nicotine dependence, unspecified, uncomplicated F17.[address] [address] 08/12/2024 Rosalina Marcano Opioid use disorder F11.99 ; Obesity (BMI 30-39.9) E66.9 and Nicotine dependence, unspecified, uncomplicated F17.[address] [address] 09/16/2024 Rosalina Marcano Opioid use disorder F11.99 ; Obesity (BMI 30-39.9) E66.9 and Nicotine dependence, unspecified, uncomplicated F17.[address] [address] 10/25/2024 Kanu Cueva Opioid use disorder F11.99 ; Obesity (BMI 30-39.9) E66.9 ; Nutritional counseling Z71.3 and Nicotine dependence, unspecified, uncomplicated F17.[address] [address] 01/10/2024 Casimiro Butterfield [address] [address] 03/21/2024 Casimiro Butterfield Testosterone deficiency E34.9 and Opioid use with opioid-induced disorder F11.[address] [address] 04/02/2024 Casimiro [place] Dorsalgia M54.9 and Testosterone deficiency E34.[address] [address] 04/04/2024 Casimiro Butterfield Hypertension I10 [address] [phone] 05/22/2024 Casimiro Butterfield [address] [address] 05/27/2024 Casimiro Butterfield [address] [address] 08/01/2024 Kanu Cueva [address] [address] 08/06/2024 Casimiro Butterfield Assessments Encounter Date Diagnosis (ICD Code) Assessment Notes Treatment Notes Treatment Clinical Notes Section Notes 01/10/2024 Obesity (BMI 30-39.9) (ICD-10 - E66.9) 01/10/2024 Opioid use with opioid-induced disorder (ICD-10 - F11.99) 01/15/2024 Dorsalgia (ICD-10 - M54.9) 01/15/2024 Testosterone deficiency (ICD-10 - E34.9) 03/21/2024 Hypertension (ICD-10 - I10) 03/21/2024 Opioid use with opioid-induced disorder (ICD-10 - F11.99) 03/21/2024 Testosterone deficiency (ICD-10 - E34.9) 04/02/2024 Dorsalgia (ICD-10 - M54.9) 04/04/2024 Hypertension (ICD-10 - I10) 06/10/2024 Paranoid schizophrenia (ICD-10 - F20.0) 06/10/2024 Opioid use with opioid-induced disorder (ICD-10 - F11.99) 07/12/2024 Obesity (BMI 30-39.9) (ICD-10 - E66.9) 07/12/2024 Opioid use disorder (ICD-10 - F11.99) 08/12/2024 Obesity (BMI 30-39.9) (ICD-10 - E66.9) 08/12/2024 Opioid use disorder (ICD-10 - F11.99) 09/16/2024 Obesity (BMI 30-39.9) (ICD-10 - E66.9) 09/16/2024 Opioid use disorder (ICD-10 - F11.99) 10/25/2024 Obesity (BMI 30-39.9) (ICD-10 - E66.9) 10/25/2024 Opioid use disorder (ICD-10 - F11.99) 06/10/2024 Testosterone deficiency (ICD-10 - E34.9) 10/25/2024 Nutritional counseling (ICD-10 - Z71.3) 09/16/2024 Nicotine dependence, unspecified, uncomplicated (ICD-10 - F17.200) 08/12/2024 Nicotine dependence, unspecified, uncomplicated (ICD-10 - F17.200) 07/12/2024 Nutritional counseling (ICD-10 - Z71.3) 04/02/2024 Testosterone deficiency (ICD-10 - E34.9) 03/21/2024 Opioid use with opioid-induced disorder (ICD-10 - F11.99) 03/21/2024 Oral ulceration (ICD-10 - K12.1) 01/15/2024 Nicotine dependence, unspecified, uncomplicated (ICD-10 - F17.200) 01/10/2024 Nutritional counseling (ICD-10 - Z71.3) 01/10/2024 Nicotine dependence, unspecified, uncomplicated (ICD-10 - F17.200) 01/15/2024 Paranoid schizophrenia (ICD-10 - F20.0) 03/21/2024 Cellulitis (ICD-10 - L03.90) RESOLVED. DDX RX TO METH VS VASCULITIS VS OTHER ALLERGIC REACTION 07/12/2024 Nicotine dependence, unspecified, uncomplicated (ICD-10 - F17.200) 06/10/2024 Hypertension (ICD-10 - I10) 10/25/2024 Nicotine dependence, unspecified, uncomplicated (ICD-10 - F17.200) 06/10/2024 Dorsalgia (ICD-10 - M54.9) 01/15/2024 Opioid use with opioid-induced disorder (ICD-10 - F11.99) 03/21/2024 GERD without esophagitis (ICD-10 - K21.9) 03/21/2024 Hyperlipidemia, unspecified hyperlipidemia type (ICD-10 - E78.5) 01/15/2024 Medication monitoring encounter (ICD-10 - Z51.81) 01/15/2024 Elevated prolactin level (ICD-10 - E22.9) 03/21/2024 Testosterone deficiency (ICD-10 - E34.9) 01/15/2024 Metabolic syndrome (ICD-10 - E88.810) 03/21/2024 Methamphetamine abuse (ICD-10 - F15.10) 03/21/2024 Cocaine abuse (ICD-10 - F14.10) 01/15/2024 Exposure to potential infection (ICD-10 - Z20.9) 03/21/2024 Chronic fatigue (ICD-10 - R53.82) 03/21/2024 Elevated prolactin level (ICD-10 - E22.9) 03/21/2024 Exposure to potential infection (ICD-10 - Z20.9) 01/10/2024 Other Provided case management services to address social determinants of health needs and reduce barriers to health care services. 08/12/2024 Other Client agrees t o take medication as prescribed. Discussed medication side effects, adverse effects, risks, benefits, as well as interactions. Encouraged non-use of opioids and other illicit substances. Has naloxone. Understand that discontinuing buprenorphine increases the risk of overdose upon return to illicit opioid use. Know that that use of alcohol or benzodiazepines with buprenorphine increases the risk of overdose and . Education provided about safe storage of medications. Encourage participation in recovery groups/counseling services. Patient understands that all treating providers should be informed of buprenorphine use as part of a Medication Assisted Recovery program. Contact office with questions or concerns. 09/16/2024 Other Client agrees to take medication as prescribed. Discussed medication side effects, adverse effects, risks, benefits, as well as interactions. Encouraged non-use of opioids and other illicit substances. Has naloxone. Discontinuing buprenorphine increases the risk of overdose upon return to illicit opioid use. Use of alcohol or benzodiazepines with buprenorphine increases the risk of overdose and . Education provided about safe storage of medications. Encouraged participation in recovery groups/counseling services. Contact office with questions or concerns. 10/25/2024 Other Potential side effects of buprenorphine discussed, as well as taking buprenorphine as prescribed. Dangers of using other controlled substances (prescribed or illegal/including benzodiazepines) with buprenorphine discussed. Patient understands taking other narcotics with buprenorphine could lead to respiratory distress and even . Patient understands that ALL treating providers/physicia ns should be informed of buprenorphine use as part of a Medication Assisted Treatment program Plan Of Treatment No Information Insurance Providers Payer Name Payer Address Payer Phone Subscriber Number Group Number Insured Name Patient Relationship to Insured Coverage Start Date Coverage End Date [employer] [address] [place] [address] [id number] Malcolm Domínguez Self - patient is the insured 2 2 [facility] [address] [facility] [address] [place] [address] [id number] Malcolm Domínguez Self - patient is the insured 4 MEDICAID [address] [place] [address] [id number] Malcolm Domínguez Self - patient is the insured 4 4 Medications Administered Medication Instructions Date of Administration Dosage Notes Testosterone 05/06/2022 200 mg Pt tolerated injection well.Voiced no questions or concerns Testosterone 05/20/2022 200 mg Pt tolerated injection well. Pt voiced no questions or concerns. Testosterone 06/03/2022 200 mg Pt tolerated injection well. Pt voiced no questions or concerns. Testosterone 06/17/2022 200 mg Pt tolerated injection well. Pt voiced no questions or concerns. Testosterone 07/01/2022 200 mg Pt tolerated injection well. Pt voiced no questions or concerns Testosterone 07/11/2022 200 mg Patient tole rated well. Testosterone 07/26/2022 200 mg hikma farmac eutica. pt tolerated well. Testosterone 08/09/2022 200 mg Pt tolerated injection well. Pt voiced no questions or concerns. Medical (General) History Medical History History ICD Code OUD Surgical History Surgery Date(Month/Year) ventral hernia repair 1998 lymphectomy 2018 Hospitalization History Reason Date(Month/Year) detoxification 2021
--- OUTSIDE RECORDS SUMMARY | 2024-11-19 04:28 | XMS_ITS ---
Author Organization [facility] Address [address] [place] [address] Care Team Providers Care Fraud Examiner Name Role Phone Casimiro Butterfield Primary Care Provider Rosalina Marcano Unavailable [phone] Allergies Allergen (clinical drug ingredient) Drug/Non Drug Allergy documented on EMR Reaction Allergy Type Onset Date Status Penicillin G Benzathine Unknown Drug Allergy Active REASON FOR VISIT Walk-In Medications Medication SIG (Take, Route, Frequency, Duration) Notes Start Date End Date Status Buprenorphine HCl-Naloxone HCl 8-2 MG 1 film under the tongue and allow to dissolve 1 film in AM, 0.5 film in PM 09/16/2024 Active Topiramate 100 MG 1 tablet Orally Once a day Active Omeprazole 40 MG TAKE 1 CAPSULE BY [facility] EVERY DAY 30 MINUTES BEFORE BREAKFAST for 90 Active Senna 8.6 MG 2 tablets at bedtime as needed for constipation Orally Once a day 06/06/2022 Active OLANZapine 15 MG TAKE 1 TABLET BY BRAVO DAILY for 30 Active busPIRone HCl 15 MG TAKE 1 TABLET BY BRAVO THREE TIMES DAILY for 30 Active DULoxetine HCl 60 MG TAKE 1 CAPSULE BY [facility] EVERY DAY for 30 Active Gabapentin 600 MG TAKE 1 TABLET BY BRAVO FOUR TIMES DAILY for 30 days Active Valsartan 80 MG TAKE 1 TABLET BY BRAVO DAILY for 90 Active Testosterone Cypionate 200 MG/ML 1 mL Intramuscular EVERY 2 WEEKS 06/10/2024 Active Nicotine Polacrilex 4 MG 1 piece chew for 30 minutes as needed Mouth/Throat every 1-2 hours As needed for smoking cessation, up to 16 pieces/day 08/12/2024 Not-Taking Tadalafil 10 MG 1 tablet for 30 days As needed 1-2 HOURS PRIOR TO SEXUAL ACTIVITY Active Social History Tobacco Use: Social History Observation Description Date Details (start date - stop date) Current Smoker NA - NA Sex Assigned At : Social History Observation Description Sex Assigned At Male Tobacco Control (Standard) Question Answer Notes Tobacco use: Current smoker How many cigarettes a day do you smoke? - Vital Signs Weight 258.4 lbs 09/16/2024 Height 71 in 09/16/2024 BMI 36.04 kg/m2 09/16/2024 Blood pressure systolic 152 mm Hg 09/16/20 24 Blood pressure diastolic 90 mm Hg 024 Heart Rate 104 /min 09/16/2024 Oximetry 97 % 09/16/2024 Temperature 98.6 degrees Fahrenheit 09/16/20 24 Respiratory Rate 16 /min 09/16/2024 Encounters Encounter Location Date Provider Diagnosis [address] [place] [address] 09/16/2024 Rosalina Marcano Opioid use disorder F11.99 ; Obesity (BMI 30-39.9) E66.9 and Nicotine dependence, unspecified, uncomplicated F17.200 Assessments Encounter Date Diagnosis (ICD Code) Assessment Notes Treatment Notes Treatment Clinical Notes Section Notes 09/16/2024 Opioid use disorder (ICD-10 - F11.99) 09/16/2024 Obesity (BMI 30-39.9) (ICD-10 - E66.9) 09/16/2024 Nicotine dependence, unspecified, uncomplicated (ICD-10 - F17.200) 09/16/2024 Other Client agrees to take medication [...] services. Contact office with questions or concerns. Plan Of Treatment Medication Medication Name Sig Start Date Stop Date Notes Buprenorphine HCl-Naloxone H Cl 8-2 MG 1 film under the tongue and allow to dissolve 1 film in AM, 0.5 film in PM 09/16/2024 Treatment Notes Assessment Notes Other Client agrees to take medication as [...] services. Contact office with questions or concerns. 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 Subjective: * Chief Complaints: * ???Walk-In * HPI: ???Interim History:?Emergency room visit?Yes.?Was hospitalized?No.?Depression Screening:?PHQ-9?Little interest or pleasure in doing things?Not at all,?Feeling down, depressed, or hopeless?Not at all,?Trouble falling or staying asleep, or sleeping too much?Not at all,?Feeling tired or having little energy?Not at all,?Poor appetite or overeating?Not at all,?Feeling bad about yourself or that you are a failure, or have let yourself or your family down?Not at all,?Trouble concentrating on things, such as reading the newspaper or watching television?Not at all,?Moving or speaking so slowly that other people could have noticed; or the opposite, being so fidgety or restless that you have been moving around a lot more than usual?Not at all,?Thoughts that you would be better off or of hurting yourself in some way?Not at all,?Total Score?0.?Screening:?Ida Suicide Severity Rating Scale (LF)?Do you want to initiate with?Screener form,?1. Wish to be : Have you wished you were or wished you could go to sleep and not wake up??No,?2. Suicidal Thoughts: Have you actually had any thoughts of killing yourself??No,?6. Suicide Behaviour: Have you ever done anything,started to do anything, or prepared to end your life??No,?Interpretation:?Low Risk.?CSSRS Interpretation and Follow Up Plan:?CSSRS Interpretation and Follow Up Plan. ?CSSRS Interpretation and Follow Up Plan?CSSRS Screen documented using SF?Yes,?Moderate or High risk requires selection of a follow up plan?CSSRS No/Low: intervention not needed at this time.?MAR follow-up:? MAR walk-in, 4 week f/u for treatment of OUD Tolerating buprenorphine Reports having cravings several days a week, would like to try increasing dose.? Denies opioid setbacks. ?Medication Monitoring and Risk Mitigation?Up-to-date on [facility] recommended lab testing??Yes,?Prescribed a buprenorphine product??Yes,?Has patient had a buprenorphine and metabolite lab ordered/collected??Yes (see notes for date of last metabolite testing),?Date of last buprenorphine and metabolite?08/12/2024,?Prescription Drug Monitoring Program Review?Yes. No concerns at this time.,?Plan to address any concerns identified:?No concerns identified. Will continue treatment plan as is..?Cravings, Setbacks, Substance use, and Stressors?Cravings since last visit:?No. Patient denies cravings since last visit.,?Setbacks since last visit??No, patient denies setbacks since last visit.,?Misuse of substances since last visit:?No, patient denies.,?Stressors?No, patient denies stressors at this time..?Withdrawal and Intoxication Symptoms?Intoxication Symptoms:?No signs of intoxication are present during visit.,?Withdrawal Symptoms:?No withdrawal signs are present during visit..?Mental Health, Support System, and Social Determinants?Mental Health Status?Stable.,?Support Systems Include:?Recovery support groups (like AA, NA, etc.),?Court System Involvement??No,?Housing Stability:?Stable and safe housing.,?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 No additional orders/actions needed at this time..?Other concerns:?Other Concerns??No.,?Narcan need?No. Patient already has Narcan..? * ROS:?Basic ROS:?Denies?Chills.?Denies?Sweats.?Denies?Constipation.?Denies?Suicidal Thoughts.? * Medical History:? * Surgical History:?ventral he rnia repair 1999lymphectomy 2018 * Hospitalization/Major Diagno stic Procedure:?detoxification 2021 * Family History:?Father: joelle knight?Mother: alive.?6 brother(s) , 2 sister(s) - healthy. 3 son(s) - healthy. .? Maternal uncle- substance abuse history. * Social History:?Primary Social History:?Living Arrangement?Living Arrangement: Independent Living ,Is this a supportive environment? Yes ..?Alcohol Use?Alcohol Use Frequency:?Never.?Illicit Substance Usage Illicit Substance Usage:?Yes,?Interested in quitting:?No,?Substance Used:?Cannabis.?Employment Status?Employment Status:?Unemployed.?Tobacco Use:?Tobacco Control (Standard)?Tobacco use:?Current smoker,?How many cigarettes a day do you smoke??11-20.?Miscellaneous:?Method of learning?Preferred method of learning:?Reading.? * Medications:?TakingBuprenorp rosalba HCl-Naloxone HCl 8-2 MG Film 1 film under the tongue and allow to dissolve Once a day Tadalafil 10 MG Tablet 1 tablet As needed 1-2 HOURS PRIOR TO SEXUAL ACTIVITYTestosterone Cypionate 200 MG/ML Solution 1 mL Intramuscular EVERY 2 WEEKS DULoxetine HCl 60 MG Capsule Delayed Release Particles TAKE 1 CAPSULE BY MOUTH EVERY DAY busPIRone HCl 15 MG Tablet TAKE 1 TABLET BY MOUTH THREE TIMES DAILY Valsartan 80 MG Tablet TAKE 1 TABLET BY MOUTH DAILY Gabapentin 600 MG Tablet TAKE 1 TABLET BY MOUTH FOUR TIMES DAILY Omeprazole 40 MG Capsule Delayed Release TAKE 1 CAPSULE BY MOUTH EVERY DAY 30 MINUTES BEFORE BREAKFAST Topiramate 100 MG Tablet 1 tablet Orally Once a day Senna 8.6 MG Tablet 2 tablets at bedtime as needed for constipation Orally Once a day OLANZapine 15 MG Tablet TAKE 1 TABLET BY MOUTH DAILY Taking Buprenorphine HCl-Naloxone HCl 8-2 MG Film 1 film under the tongue and allow to dissolve Once a day Taking Tadalafil 10 MG Tablet 1 tablet As needed 1-2 HOURS PRIOR TO SEXUAL ACTIVITYTaking Testosterone Cypionate 200 MG/ML Solution 1 mL Intramuscular EVERY 2 WEEKS Taking DULoxetine HCl 60 MG Capsule Delayed Release Particles TAKE 1 CAPSULE BY MOUTH EVERY DAY Taking busPIRone HCl 15 MG Tablet TAKE 1 TABLET BY MOUTH THREE TIMES DAILY Taking Valsartan 80 MG Tablet TAKE 1 TABLET BY MOUTH DAILY Taking Gabapentin 600 MG Tablet TAKE 1 TABLET BY MOUTH FOUR TIMES DAILY Taking Omeprazole 40 MG Capsule Delayed Release TAKE 1 CAPSULE BY MOUTH EVERY DAY 30 MINUTES BEFORE BREAKFAST Taking Topiramate 100 MG Tablet 1 tablet Orally Once a day Taking Senna 8.6 MG Tablet 2 tablets at bedtime as needed for constipation Orally Once a day Taking OLANZapine 15 MG Tablet TAKE 1 TABLET BY MOUTH DAILY Not-TakingNicotine Polacrilex 4 MG Gum 1 piece chew for 30 minutes as needed Mouth/Throat every 1-2 hours As needed for smoking cessation, up to 16 pieces/dayMedication List reviewed and reconciled with the patientNot-Taking Nicotine Polacrilex 4 MG Gum 1 piece chew for 30 minutes as needed Mouth/Throat every 1-2 hours As needed for smoking cessation, up to 16 pieces/dayMedication List reviewed and reconciled with the patient * Allergies:?Penicillin G Tiago albert[Allergies Verified] Objective: * Vitals:?Initials: rt, Wt:258 .4, Ht: 71, BMI:36.04, BP:152/90, HR:104, Oxygen sat %:97, Temp:98.6, RR:16, Pain scale:0. * Examination: ???ASAM Physical Assessment: ?Intoxication and Withdrawal signs?.?General Examination: ?GENERAL APPEARANCE:?alert, pleasant, in no acute distress.?LUNGS:?respirations regular and easy.?PSYCH:?alert, oriented x4, speech clear, good eye contact.? Assessment: * Assessment: 1.?Obesity (BMI 30-39.9) - E 66.9???2.?Opioid use disorder - F11.99 (Primary)???3.?Nicotine dependence, unspecified, uncomplicated - F17.200??? Plan: * Treatment: ? Value Reference Range ?THC neg * ?MERVAT neg * ?MOP (OPI) neg * ?AMP neg * ?MET neg * ?BAR neg * ?BZO neg * ?MDMA neg * ?MTD neg * ?OXY neg * ?PCP neg * ?BUP POS 2.?Others? Notes:Client agrees to take medication as prescribed. Discussedmedication side effects, adverse effects, risks, benefits, as well asinteractions. Encouraged non-use of opioids and other illicit substances.Hasnaloxone. Discontinuing buprenorphine increases the risk of overdose uponreturn to illicitopioid use. Use of alcohol or benzodiazepines withbuprenorphine increases the risk of overdose and . Education providedabout safe storage of medications. Encouragedparticipation in recovery groups/counseling services. Contact office withquestions or concerns. ?? * Procedure Codes:?3008F BODY MASS INDEX [id number] MEDICAL NUTRITION, [place], [id number] BEHAV CHNG SMOKING 3-10 MIN * Preventive Medicine:? ??Counseling:?Care goal follow-up plan:?BMI management provided?Yes,?Above Normal BMI Follow-up?Lifestyle education regarding diet.?SMOKING:?Patient counselled on the dangers of tobacco use and urged to quit.?..? 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 History and Physical Notes * HPI (History of Present Illness) Category Sub-Category Detail Notes Category Not es Interim History Was hospitalized No Emergency room visit Yes Depression Screening PHQ-9 Little inte rest or pleasure in doing things: Not at all Feeling down, depressed, or hopeless: No t at all Trouble falling or staying asleep, or sl eeping too much: Not at all Feeling tired or having little energy: N ot at all Poor appetite or overeating: Not at all Feeling bad about yourself o r that you are a failure, or have let yourself or your family down: Not at all Trouble concentrating on thi ngs, such as reading the newspaper or watching television: Not at all Moving or speaking so slowly that other people could have noticed; or the opposite, being so fidgety or restless that you have been moving around a lot more than usual: Not at all Thoughts that you would be b otilio off or of hurting yourself in some way: Not at all Total Score: 0 Screening Ida Suicide Sev erity Rating Scale (LF) Do you want to initiate with: Screener form ?1. Wish to be : Have yo u wished you were or wished you could go to sleep and not wake up?: No ?2. Suicidal Thoughts: Have you actually had any thoughts of killing yourself?: No ?6. Suicide Behaviour: Have you ever done anything,started to do anything, or prepared to end your life?: No ?Interpretation:: Low Risk CSSRS Interpretation and Follow Up Plan CSSRS Interpretation and Follow Up Plan CSSRS Screen documented using SF: Yes Moderate or High risk requir es selection of a follow up plan: CSSRS No/Low: intervention not needed at this time MAR follow-up Medication Monitorin g and Risk Mitigation Up-to-date on ASAM recommended lab testing?: Yes Prescribed a buprenorphine product?: Yes ?Has patient had a buprenorp rosalba and metabolite lab ordered/collected?: Yes (see notes for date of last metabolite testing) ??Date of last buprenorphine and metabol ite: 08/12/2024 Prescription Drug Monitoring Program Rev iew: Yes. No concerns at this time. Plan to address any concerns identified:: No concerns identified. Will continue treatment plan as is. Cravings, Setbacks, Substanc e use, and Stressors Cravings since last visit:: No. Patient denies cravings since last visit. Setbacks since last visit?: No, patient denies setbacks since last visit. Misuse of substances since last visit:: No, patient denies. Stressors: No, patient denies stressors at this time. Withdrawal and Intoxication Symptoms Int oxication Symptoms:: No signs of intoxication are present during visit. Withdrawal Symptoms:: No withdrawal sign s are present during visit. Mental Health, Support Syste m, and Social Determinants Mental Health Status: Stable. Support Systems Include:: Recovery suppo rt groups (like AA, NA, etc.) Court System Involvement?: No Housing Stability:: Stable and safe hous ing. 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 Referrals needed:: No referrals needed a t this time. Recommended Wellness and Pre vention Follow-up Recommended Wellness and Prevention reviewed:: Yes. No additional orders/actions needed at this time. Other concerns: Other Concerns?: No. Narcan need: No. Patient already has Mamadou can. Examination Category Sub-Category Detail Notes Category Not es General Examination GENERAL APPEARANCE: alert, p leasant, in no acute distress LUNGS: respirations regular and easy PSYCH: alert, oriented x4, speech clear, good eye contact ASAM Physical Assessment Intoxication an d Withdrawal signs Intoxication signs: No signs of intoxication are present during examination. Withdrawal Signs: No withdrawal signs ar e present during examination.
--- OUTSIDE RECORDS SUMMARY | 2024-11-19 04:28 | XMS_ITS ---
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 Name Role Phone Casimiro Butterfield Primary Care Provider Kanu Cueva Unavailable [phone] Allergies Allergen (clinical drug ingredient) Drug/Non Drug Allergy documented on EMR Reaction Allergy Type Onset Date Status Penicillin G Benzathine Unknown Drug Allergy Active REASON FOR VISIT Walk-In Medications Medication SIG (Take, Route, Frequency, Duration) Notes Start Date End Date Status OLANZapine 15 MG TAKE 1 TABLET BY BRAVO TH DAILY for 30 Active DULoxetine HCl 60 MG TAKE 1 CAPSULE BY [facility] EVERY DAY for 30 Active Valsartan 80 MG TAKE 1 TABLET BY BRAVO TH DAILY for 90 Active Nicotine Polacrilex 4 MG 1 piece chew for 30 minutes as needed Mouth/Throat every 1-2 hours As needed for smoking cessation, up to 16 pieces/day 08/12/2024 Not-Taking Buprenorphine HCl-Naloxone HCl 8-2 MG 1 film under the tongue and allow to dissolve twice a day 10/25/2024 Active busPIRone HCl 15 MG TAKE 1 TABLET BY BRAVO TH THREE TIMES DAILY for 30 Active Gabapentin 600 MG TAKE 1 TABLET BY BRAVO TH FOUR TIMES DAILY for 30 days Active Omeprazole 40 MG TAKE 1 CAPSULE BY [facility] EVERY DAY 30 MINUTES BEFORE BREAKFAST for 90 Active Topiramate 100 MG 1 tablet Orally Once a day Active Senna 8.6 MG 2 tablets at bedtime as needed for constipation Orally Once a day 06/06/2022 Active Tadalafil 10 MG 1 tablet for 30 days As needed 1-2 HOURS PRIOR TO SEXUAL ACTIVITY Active Testosterone Cypionate 200 MG/ML 1 mL Intramuscular EVERY 2 WEEKS 06/10/2024 Active Social History Tobacco Use: Social History Observation Description Date Details (start date - stop date) Current Smoker NA - NA Sex Assigned At : Social History Observation Description Sex Assigned At Male Tobacco Control (Standard) Question Answer Notes Tobacco use: Current smoker Vital Signs Weight 264 lbs 10/25/2024 Height 71 in 10/25/2024 BMI 36.82 kg/m2 10/25/2024 Blood pressure systolic 164 mm Hg 10/25/20 24 Blood pressure diastolic 90 mm Hg 024 Heart Rate 106 /min 10/25/2024 Oximetry 98 % 10/25/2024 Respiratory Rate 16 /min 10/25/2024 Encounters Encounter Location Date Provider Diagnosis [address] [address] 10/25/2024 Kanu Cueva Opioid use disorder F11.99 ; Obesity (BMI 30-39.9) E66.9 ; Nutritional counseling Z71.3 and Nicotine dependence, unspecified, uncomplicated F17.200 Assessments Encounter Date Diagnosis (ICD Code) Assessment Notes Treatment Notes Treatment Clinical Notes Section Notes 10/25/2024 Opioid use disorder (ICD-10 - F11.99) 10/25/2024 Obesity (BMI 30-39.9) (ICD-10 - E66.9) 10/25/2024 Nutritional counseling (ICD-10 - Z71.3) 10/25/2024 Nicotine dependence, unspecified, uncomplicated (ICD-10 - F17.200) 10/25/2024 Other Potential side effects of buprenorphine discussed, as well as taking buprenorphine as prescribed. Dangers of using other controlled substances (prescribed or illegal/including benzodiazepines) with buprenorphine discussed. Patient understands taking other narcotics with buprenorphine could lead to respiratory distress and even . Patient understands that ALL treating providers/physici ans should be informed of buprenorphine use as part of a Medication Assisted Treatment program Plan Of Treatment Medication Medication Name Sig Start Date Stop Date Notes Buprenorphine HCl-Naloxone H Cl 8-2 MG 1 film under the tongue and allow to dissolve twice a day 10/25/2024 Treatment Notes Assessment Notes Other Potential side effects of buprenorphine discussed, as well as taking buprenorphine as prescribed. Dangers of using other controlled substances (prescribed or illegal/including benzodiazepines) with buprenorphine discussed. Patient understands taking other narcotics with buprenorphine could lead to respiratory distress and even . Patient understands that ALL treating providers/physicians should be informed of buprenorphine use as part of a Medication Assisted Treatment program Next Appt Details Follow Up: 4 Weeks, Reason: Progress Notes * Malcolm VERADOB:1985 (39 yo M)Acc No.[id number]:10/25/2024 Patient:?Malcolm VERA Provider:?Kanu Cueva, MSN, AGPCNP -BC :1985???Age:39 Y???Sex:Male Francois e:10/25/2024 Address:[address] [place], [place] [address] , [address] [place], [place] [id number] Pcp:Casimiro Butterfield Subjective: * Chief Complaints: * ???Walk-In * HPI: ???MAR follow-up:? 1 month MAR f/u and medication refill. No setbacks, no other issues or concerns. ?Medication Monitoring and Risk Mitigation?Up-to-date on [facility] recommended lab testing??Yes ?Prescribed a buprenorphine product??Yes ?Has patient had a buprenorphine and metabolite lab ordered/collected??Yes (see notes for date of last metabolite testing) ?Date of last buprenorphine and metabolite?08/12/2024 ?Prescription Drug Monitoring Program Review?Yes. No concerns at this time. ?Plan to address any concerns identified:?No concerns identified. Will continue treatment plan as is. ?Cravings, Setbacks, Substance use, and Stressors?Cravings since last visit:?No. Patient denies cravings since last visit. ?Setbacks since last visit??No, patient denies setbacks since last visit. ?Misuse of substances since last visit:?No, patient denies. ?Stressors?No, patient denies stressors at this time. ?Withdrawal and Intoxication Symptoms?Intoxication Symptoms:?No signs of intoxication are present during visit. ?Withdrawal Symptoms:?No withdrawal signs are present during visit. ?Mental Health, Support System, and Social Determinants?Mental Health Status?Stable. ?Support Systems Include:?Recovery support groups (like AA, NA, etc.) ?Court System Involvement??No ?Housing Stability:?Stable and safe housing. 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 ?Referrals needed:?No referrals needed at this time. ?Recommended Wellness and Prevention Follow-up?Recommended Wellness and Prevention reviewed:?Yes. No additional orders/actions needed at this time. ?Other concerns:?Other Concerns??No. ?Narcan need?No. Patient already has Narcan. ???Depression Screening:?PHQ-9?Little interest or pleasure in doing things?Not at all ?Feeling down, depressed, or hopeless?Not at all ?Trouble falling or staying asleep, or sleeping too much?Not at all ?Feeling tired or having little energy?Not at all ?Poor appetite or overeating?Not at all ?Feeling bad about yourself or that you are a failure, or have let yourself or your family down?Not at all ?Trouble concentrating on things, such as reading the newspaper or watching television?Not at all ?Moving or speaking so slowly that other people could have noticed; or the opposite, being so fidgety or restless that you have been moving around a lot more than usual?Not at all ?Thoughts that you would be better off or of hurting yourself in some way?Not at all ?Total Score?0 ???Screening:?[place] Suicide Severity Rating Scale (LF)?Do you want to initiate with?Screener form ?1. Wish to be : Have you wished you were or wished you could go to sleep and not wake up??No ?2. Suicidal Thoughts: Have you actually had any thoughts of killing yourself??No ?6. Suicide Behaviour: Have you ever done anything,started to do anything, or prepared to end your life??No ?Interpretation:?Low Risk ???CSSRS Interpretation and Follow Up Plan:?CSSRS Interpretation and Follow Up Plan. ?CSSRS Interpretation and Follow Up Plan?CSSRS Screen documented using SF?Yes ?Moderate or High risk requires selection of a follow up plan?CSSRS No/Low: intervention not needed at this time ???Flu vaccine:?Flu vaccine offered?Flu Vaccine Declined?. ???Preventative Health and Wellness follow-up:?. * ROS:?All Other Systems:?Review of Systems (ROS)?All others negative except those mentioned in HPI.? * Medical History:? * Surgical History:?ventral he rnia repair 1999lymphectomy 2018 * Hospitalization/Major Diagno stic Procedure:?detoxification 2021 * Family History:?Father: joelle andrea.?Mother: alive.?6 brother(s) , 2 sister(s) - healthy. 3 son(s) - healthy. .? Maternal uncle- substance abuse history. * Social History:?Primary Social History:?Living Arrangement?Living Arrangement: Independent Living ,Is this a supportive environment? Yes ..?Alcohol Use?Alcohol Use Frequency:?Never ?Illicit Substance Usage?Illicit Substance Usage:?Yes ?Interested in quitting:?No ?Substance Used:?Cannabis ?Employment Status?Employment Status:?Unemployed ???Tobacco Use:?Tobacco Control (Standard)?Tobacco use:?Current smoker * Medications:?TakingBuprenorp rosalba HCl-Naloxone HCl 8-2 MG Film 1 film under the tongue and allow to dissolve 1 film in AM, 0.5 film in PM Tadalafil 10 MG Tablet 1 tablet As needed 1-2 HOURS PRIOR TO SEXUAL ACTIVITYTestosterone Cypionate 200 MG/ML Solution 1 mL Intramuscular EVERY 2 WEEKS busPIRone HCl 15 MG Tablet TAKE 1 TABLET BY MOUTH THREE TIMES DAILY Gabapentin 600 MG Tablet TAKE 1 [...] Tablet TAKE 1 TABLET BY MOUTH DAILY DULoxetine HCl 60 MG Capsule Delayed Release Particles TAKE 1 CAPSULE BY MOUTH EVERY DAY Valsartan 80 MG Tablet TAKE 1 TABLET BY MOUTH DAILY Taking Buprenorphine HCl-Naloxone HCl 8-2 MG Film 1 film under the tongue and allow to dissolve 1 film in AM, 0.5 film in PM Taking Tadalafil 10 MG Tablet 1 tablet As needed 1-2 HOURS PRIOR TO SEXUAL ACTIVITYTaking Testosterone Cypionate 200 MG/ML Solution 1 mL Intramuscular EVERY 2 WEEKS Taking busPIRone HCl 15 MG Tablet TAKE 1 TABLET BY MOUTH THREE TIMES DAILY Taking Gabapentin 600 MG Tablet TAKE [...] TAKE 1 TABLET BY MOUTH DAILY Taking DULoxetine HCl 60 MG Capsule Delayed Release Particles TAKE 1 CAPSULE BY MOUTH EVERY DAY Taking Valsartan 80 MG Tablet TAKE 1 TABLET BY MOUTH DAILY Not-TakingNicotine Polacrilex 4 MG Gum 1 piece chew for 30 minutes as needed Mouth/Throat every 1-2 hours As needed for smoking cessation, up to 16 pieces/dayMedication List reviewed and reconciled with the patientNot- Taking Nicotine Polacrilex 4 MG Gum 1 piece chew for 30 minutes as needed Mouth/Throat every 1-2 hours As needed for smoking cessation, up to 16 pieces/dayMedication List reviewed and reconciled with the patient * Allergies:?Penicillin G Tiago albert[Allergies Verified] Objective: * Vitals:?Initials: st, Wt:264 , Ht: 71, BMI:36.82, BP:164/90, HR:106, Oxygen sat %:98, RR:16, Pain scale:0. * Examination: ???General Examination: ?GENERAL APPEARANCE:?pleasant, in no acute distress.?SKIN:?warm and dry.?LUNGS:?respirations regular and easy.?PSYCH:?full range of affect/positive mood , good eye contact , speech clear , alert, oriented x4.? Assessment: * Assessment: 1.?Obesity (BMI 30-39.9) - E 66.9???2.?Opioid use disorder - F11.99 (Primary)???3.?Nutritional counseling - Z71.3???4.?Nicotine dependence, unspecified, uncomplicated - F17.200??? Plan: * Treatment: ? Value Reference Range ?THC neg * ?MERVAT neg * ?MOP (OPI) neg * ?AMP neg * ?MET neg * ?BAR neg * ?BZO neg * ?MDMA neg * ?MTD neg * ?OXY neg * ?PCP neg * ?BUP POS 2.?Others? Notes:Potential side effects of buprenorphine discussed, as well as taking buprenorphine as prescribed. Dangers of using other controlled substances (prescribed or illegal/including benzodiazepines) with buprenorphine discussed. Patient understands taking other narcotics with buprenorphine could lead to respiratory distress and even . Patient understands that ALL treating providers/physicians should be informed of buprenorphine use as part of a Medication Assisted Treatment program? * Recommended Wellness and Pre vention Guidelines: * ?Status ?Alert ?Last Done ?Next Due ?Action Taken ?NONCOMPLIANT ?Influenza vaccine (high risk) ?- ?1 12/26/2023 ?- * Procedure Codes:?CHS07 Flu V accine [id number] BODY MASS INDEX [id number] MEDICAL NUTRITION, INDIV, [id number] BEHAV CHNG SMOKING 3-10 [id number] SELF-MGMT EDUC & TRAIN, 1 PT * Preventive Medicine:? ??Counseling:?Care goal follow-up plan:?BMI management provided?Yes ?Above Normal BMI Follow-up?Lifestyle education regarding diet ?SMOKING:?Patient counselled on the dangers of tobacco use and urged to quit.?. * Follow Up:?4 Weeks * * Electronically signed by Gordon Cueva , LENS AND FRAMES PRESCRIPTION CLERK, [phone] on 10/28/2024 at 04:56 PM [employer] Sign off status: Completed true * Provider:?Kanu Cueva, MSN, AGPCNP -BC Date:?10/25/2024 Generated for Printing/Faxing/eTransmitting on:?11/19/2024 04:27 AM SUPER[employer]ENT [employer] History and Physical Notes * HPI (History of Present Illness) Category Sub-Category Detail Notes Category Not es Depression Screening PHQ-9 Little inte rest or [...] Not at all Total Score: 0 Screening [place] Suicide Sev erity Rating Scale (LF) Do [...] end your life?: No ?Interpretation:: Low Risk Flu vaccine Flu vaccine offered Flu Vaccine Declined: . CSSRS Interpretation and Follow Up Plan CSSRS [...] and safe hous ing. 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 Referrals needed:: No referrals needed a t this time. Recommended Wellness and Pre vention Follow-up Recommended Wellness and Prevention reviewed:: Yes. No additional orders/actions needed at this time. Other concerns: Other Concerns?: No. Narcan need: No. Patient already has Mamadou can. Preventative Health and Wellness follow-up . Examination Category Sub-Category Detail Notes Category Not es General Examination GENERAL APPEARANCE: pleasant, in n o acute distress LUNGS: respirations regular and easy SKIN: warm and dry PSYCH: full range of affect /positive mood , good eye contact , speech clear , alert, oriented x4
--- OUTSIDE RECORDS SUMMARY | 2024-11-19 04:28 | XMS_ITS ---
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 Name Role Phone Casimiro Butterfield Primary Care Provider Rosalina Marcano Unavailable [phone] Allergies Allergen (clinical drug ingredient) Drug/Non Drug Allergy documented on EMR Reaction Allergy Type Onset Date Status Penicillin G Benzathine Unknown Drug Allergy Active REASON FOR VISIT mat clinic Medications Medication SIG (Take, Route, Frequency, Duration) Notes Start Date End Date Status Senna 8.6 MG 2 tablets at bedtime as needed for constipation Orally Once a day 06/06/2022 Active Topiramate 100 MG 1 tablet Orally Once a day Active Gabapentin 600 MG TAKE 1 TABLET BY BRAVO TH FOUR TIMES DAILY for 30 days Active Omeprazole 40 MG TAKE 1 CAPSULE BY [facility] EVERY DAY 30 MINUTES BEFORE BREAKFAST for 90 Active OLANZapine 15 MG 1 tablet Orally Once a day for 30 days Active Buprenorphine HCl-Naloxone HCl 8-2 MG 1 film under the tongue and allow to dissolve Once a day 08/12/2024 Active Valsartan 80 MG TAKE 1 TABLET BY BRAVO TH DAILY for 90 Active Nicotine Polacrilex 4 MG 1 piece chew for 30 minutes as needed Mouth/Throat every 1-2 hours As needed for smoking cessation, up to 16 pieces/day 08/12/2024 Active DULoxetine HCl 60 MG TAKE 1 CAPSULE BY [facility] EVERY DAY for 30 Active busPIRone HCl 15 MG TAKE 1 TABLET BY BRAVO TH THREE TIMES DAILY for 30 Active Tadalafil 10 MG 1 tablet for [...] Tobacco use: Current smoker Vital Signs Weight 251.0 lbs 08/12/2024 Height 71 in 08/12/2024 BMI 35 kg/m2 08/12/2024 Blood pressure systolic 128 mm Hg 08/12/20 24 Blood pressure diastolic 70 mm Hg 024 Heart Rate 120 /min 08/12/2024 Oximetry 97 % 08/12/2024 Temperature 98.5 degrees Fahrenheit 08/12/20 24 Respiratory Rate 16 /min 08/12/2024 Encounters Encounter Location Date Provider Diagnosis [address] [address] 08/12/2024 Rosalina Marcano Opioid use disorder F11.99 ; Obesity (BMI 30-39.9) E66.9 and Nicotine dependence, unspecified, uncomplicated F17.200 Assessments Encounter Date Diagnosis (ICD Code) Assessment Notes Treatment Notes Treatment Clinical Notes Section Notes 08/12/2024 Opioid use disorder (ICD-10 - F11.99) 08/12/2024 Obesity (BMI 30-39.9) (ICD-10 - E66.9) 08/12/2024 Nicotine dependence, unspecified, uncomplicated (ICD-10 - F17.200) 08/12/2024 Other Client agrees t o take [...] program. Contact office with questions or concerns. Plan Of Treatment Medication Medication Name Sig Start Date Stop Date Notes Buprenorphine HCl-Naloxone H Cl 8-2 MG 1 film under the tongue and allow to dissolve Once a day 08/12/2024 Nicotine Polacrilex 4 MG 1 piece chew fo r 30 minutes as needed Mouth/Throat every 1-2 hours 08/12/2024 Treatment Notes Assessment Notes Other Client agrees to thomas e medication as prescribed. Discussed medication side effects, [...] program. Contact office with questions or concerns. Next Appt Details Follow Up: 4 Weeks, Reason: MAR f/u Progress Notes * Malcolm VERADOB:1985 (39 yo M)Acc No.[id number]:08/12/2024 Patient:?Malcolm VERA Provider:?Rosalina Marcano, MSN, ENGINE LATHE SET UP OPERATOR TOOL, PMHNP-BC :1985???Age:39 Y???Sex:Male Francois e:08/12/2024 Address:[address] [place], [place] [id number] Pcp:Casimiro Butterfield Subjective: * Chief Complaints: * ???Mat clinic * HPI: ???MAR follow-up:?1 month MAR f/u and medication refill.? States current dose continues working well. Denies cravings or setbacks. Would like to try nicotine gum for smoking cessation. ?Medication Monitoring and Risk Mitigation?Up-to-date on [facility] recommended lab testing??Yes,?Prescribed a buprenorphine product??Yes,?Has [...] visit.,?Misuse of substances since last visit:?No, patient denies.,?Stressors?Yes, patient admits to stressors. 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 * Medications:?TakingTadalafil 10 MG Tablet 1 tablet As needed [...] 1 TABLET BY MOUTH FOUR TIMES DAILY OLANZapine 15 MG Tablet 1 tablet Orally Once a day Omeprazole 40 MG Capsule Delayed Release TAKE 1 CAPSULE BY MOUTH EVERY DAY 30 MINUTES BEFORE BREAKFAST Topiramate 100 MG Tablet 1 tablet Orally Once a day Senna 8.6 MG Tablet 2 tablets at bedtime as needed for constipation Orally Once a day Buprenorphine HCl-Naloxone HCl 8-2 MG Film 1 film under the tongue and allow to dissolve Once a day Medication List reviewed and reconciled with the patientTaking Tadalafil 10 MG Tablet 1 tablet As [...] TABLET BY MOUTH FOUR TIMES DAILY Taking OLANZapine 15 MG Tablet 1 tablet Orally Once a day Taking Omeprazole 40 MG Capsule Delayed Release TAKE 1 CAPSULE BY MOUTH EVERY DAY 30 MINUTES BEFORE BREAKFAST Taking Topiramate 100 MG Tablet 1 tablet Orally Once a day Taking Senna 8.6 MG Tablet 2 tablets at bedtime as needed for constipation Orally Once a day Taking Buprenorphine HCl-Naloxone HCl 8-2 MG Film 1 film under the tongue and allow to dissolve Once a day Medication List reviewed and reconciled with the patient * Allergies:?Penicillin G Tiago roosevelt[Allergies Verified] Objective: * Vitals:?Initials: rt, Wt:251 .0, Ht: 71, BMI:35, BP:128/70, HR:120, Oxygen sat %:97, Temp:98.5, RR:16, Pain scale:0. * Examination: ???ASAM Physical [...] neg * ?PCP neg * ?BUP POS ?LAB: Buprenorphine and Metabolite (Urine test) (Ordered for 08/12/2024) (Collection Date & Time- 08/12/2024 01:35 PM)2.?Nicotine dependence, unspecified, uncomplicated? Start Nicotine Polacrilex Gum, 4 MG, 1 piece chew for 30 minutes as needed, Mouth/Throat, every 1-2hours As needed for smoking cessation, up to 16 pieces/day, 120, Refills 5.??3.?Others? Notes: Client agrees to take medication as prescribed. [...] program. Contact office with questions or concerns. ?? * Procedure Codes:?3008F BODY MASS INDEX [id number] MEDICAL NUTRITION, INDIV, [id number] BEHAV CHNG SMOKING 3-10 MIN * Preventive Medicine:? ??Counseling:?Care goal follow-up plan:?BMI management provided?Yes,?Above Normal BMI Follow-up?Lifestyle education regarding diet.?SMOKING:?Patient counselled on the dangers of tobacco use and urged to quit.?..? * Follow Up:?4 Weeks (Reason: MAR f/u) * * Sign off status: Completed true * Provider:?Rosalina Marcano , MSN, ENGINE LATHE SET UP OPERATOR TOOL, PMHNP-BC Date:?08/12/2024 Generated for Printing/Faxing/eTransmitting on:?11/19/2024 04:28 AM [facility] History and Physical Notes * HPI (History of Present Illness) Category Sub-Category Detail Notes Category Not es MAR follow-up Medication Monitorin g and Risk [...] since last visit:: No, patient denies. Stressors: Yes, patient admits to stress ors. See notes. Withdrawal and Intoxication Symptoms Int oxication Symptoms:: No signs of intoxication are present during visit. Withdrawal Symptoms:: No withdrawal sign s are present during visit. Mental Health, Support Syste m, and Social Determinants Mental Health Status: Stable. Support Systems Include:: Recovery suppo rt groups (like AA, NA, etc.) Court System Involvement?: No Housing Stability:: Stable and safe hous ing. 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 Referrals needed:: No referrals needed a t [...]
== END 2024-11-12 09:41 | disposition home or self-care (01) ==
PROVIDERS: Emergency Provider Student in an Organized Health Care Education/Training Program
DX: L03.116 Cellulitis of left lower limb (principal); L03.115 Cellulitis of right lower limb; K12.0 Recurrent oral aphthae; F20.9 Schizophrenia, unspecified; F41.9 Anxiety disorder, unspecified; J45.909 Unspecified asthma, uncomplicated
CPT/HCPCS: 99283; A9270